=== PATIENT | male | born 1955 | race African-American/Black ===

== ENCOUNTER 2024-08-30 16:15 | Inpatient (IN) | payer OTHER, SELFPAY ==
--- NOTE | ~2024-08-30 | CT_ITS ---
EXAMINATION: CT ABDOMEN AND PELVIS WITHOUT CONTRAST CLINICAL INFORMATION: Right flank pain, urinary retention COMPARISON: None available. TECHNIQUE: Multidetector volumetric imaging was performed from the superior aspect of the liver through the pubic symphysis. Sagittal and coronal reformatted images were obtained on the technologist's workstation. This CT examination was performed using dose optimization techniques as appropriate, variously including the following: *Automated exposure control *Adjustment of mA and/or kV according to patient size (this includes techniques or standardized protocols for targeted exams where dose is matched to indication/reason for exam; i.e. extremities or head) *Use of iterative reconstruction technique DLP: 380 mGy-cm FINDINGS: LUNG BASES: The visualized lung bases are unremarkable. LIVER, GALLBLADDER, AND BILIARY TREE: The liver is normal in size, shape, and attenuation. No focal hepatic lesion or biliary ductal dilatation is present. The gallbladder is unremarkable with no evidence of radiopaque gallstones, gallbladder wall thickening, or obvious pericholecystic inflammatory changes. PANCREAS: Unremarkable. SPLEEN: Unremarkable. ADRENAL GLANDS: Unremarkable. KIDNEYS AND URETERS: Mild-moderate right greater than left hydroureteronephrosis. No renal or ureteral calculi are identified. There is retroperitoneal free fluid along the anterior pararenal space, along the right lateral conal fascia, possibly representing leakage from the markedly distended urinary bladder or right ureter. BLADDER: The urinary bladder is markedly distended. GASTROINTESTINAL TRACT: No intestinal obstruction. Evaluation is limited in the absence of intravenous and oral contrast. There is a question of wall thickening along the medial aspect of the ascending colon over a length of 3.5 cm as demonstrated on coronal series 5, image 43. ABDOMINAL WALL: No significant hernia is appreciated. LYMPH NODES: Normal. VASCULAR: Unremarkable. PELVIC VISCERA: The prostate is enlarged and projects into the bladder base. OSSEOUS STRUCTURES: There are sclerotic lesions within the left inferior pubic ramus, the right acetabulum/anterior pubic ramus junction, the right supra-acetabular region, the posterior left iliac bone, and a small sclerotic focus within the left mid sacrum highly suspicious for metastatic prostate cancer. CT/CT abdomen pelvis wo IV con IMPRESSION: 1. There is mild-moderate right greater than left hydroureteronephrosis with retroperitoneal free fluid along the right lateral conal fascia, possibly representing leakage from the markedly distended urinary bladder. No renal or ureteral calculi. 2. The prostate is enlarged and projects into the bladder base. There are sclerotic lesions within the pelvic bones highly suspicious for metastatic prostate cancer. 3. There is a segment of wall thickening along the medial aspect of the ascending colon over a length of 3.5 cm. Evaluation is limited in the absence of intravenous and oral contrast. Cannot exclude colon carcinoma or a metastasis. Consider colonoscopy or PET/CT. Fleischner guidelines were followed. Electronically signed by: Kevan Mejia MD 08/30/2024 08:07 PM [facility]
--- NOTE | ~2024-08-30 | NM_ITS ---
EXAMINATION: NM BONE SCAN OF THE WHOLE BODY CLINICAL INFORMATION: Reason for exam: Sclerotic lesion on CT. CORRELATION: CT abdomen and pelvis from August 30, 2024. TECHNIQUE: Multiple gamma scintillation camera images of the whole body were performed 3 hours following the intravenous administration of 24 mCi Tc-99m MDP. FINDINGS: In the head, no abnormal radiotracer uptake. In the thoracic cage and upper extremities, degenerative arthritic changes are noted, best appreciated within joints at right greater than left, shoulders and sternoclavicular junctions. Benign chondrocalcinosis. In the spine, mild to moderate inhomogeneity of radiotracer uptake is noted within the degenerative arthritic variation. In the pelvis, asymmetry with moderate intense increased radiotracer uptake in a diffuse pattern is left acetabulum with relatively lesser intense uptake in the left iliac bone anteriorly and left inferior pubic ramus. Only poorly defined focal increased uptake in the left iliac bone posteriorly, correlates to the CT noted sclerotic focus. Additional relatively lesser intense uptake is noted in the remainder of the left hemipelvis best appreciated within the left tritium and iliac bone posteriorly. Very mildly prominent than usual uptake in a diffuse pattern is also noted within the right iliac bone posteriorly and right ischium, in a nonspecific pattern. No distinct focal abnormality is noted within the sacrum. Please note the limited sensitivity of the bone scan for under 1 cm lesions. In the lower extremities, no significant abnormal radiotracer uptake. NM/NM bone scan whole body IMPRESSION: Asymmetric abnormal radiotracer uptake in the bones of the left hemipelvis is noted, a couple of sites correlates to the CT noted sclerotic changes. The differential possibilities include metastasis versus early pagetoid changes in appropriate clinical scenario. Suggest clinical correlation and histopathologic correlation. Electronically signed by: Yazmin Chow MD 09/05/2024 08:39 AM [facility]
[2024-08-30 16:41] VITALS: BP 168/91; PULSE 113; RESP 16; TEMP 36.4; O2SAT 100; BMI 25.8
--- NOTE | 2024-08-30 16:45 | ED.GENADULT ---
HPI - General Adult General Chief complaint: General Medical Stated complaint: High blood pressure/Unable to urinate Time Seen by Provider: 08/30/24 17:19 Source: patient, RN notes reviewed and old records reviewed Mode of arrival: ambulatory History of Present Illness ED Provider: Bri Beaver PA-C [facility] narrative: 69-year-old male with no significant past medical history presenting to ED sent in from urgent Care for hypertension 203/68 [employer]. Patient states he went to urgent care for urinary frequency, hesitancy, and dribbling worsening x1 week. States he has an unable to completely empty his bladder. Does report mild abdominal discomfort. Denies history of hypertension or taking any daily medications. Denies headache, CP /SOB, nausea /vomiting. Denies AC use Related Data Home Medications ?Medication ?Instructions ?Recorded ?Confirmed No Known Home Meds 08/30/24 08/30/24 Allergies Allergy/AdvReac Type Severity Reaction Status Date / Time No Known Allergies Allergy Verified 08/30/24 16:51 Review of Systems Review of Systems: Yes all other systems are reviewed and are negative Constitutional: Constitutional: Reports as per [facility] Past Medical History Attestation statement: The following information was validated with the patient. Source: old records reviewed Social History Social History Smoked in Last 30 Days: No Advance Directives: No Advance Directives Information Provided: No Do you have a plan to hurt others: No Plan Physical Exam ED Vital Signs: Vital Signs - 24 hr 08/30/24 16:41 08/30/24 18:03 08/30/24 19:01 Temperature 97.6 F Pulse Rate 113 H 92 Respiratory Rate 16 18 12 Blood Pressure 168/91 H Pulse Oximetry 100 Oxygen Delivery Method Room Air BMI result Body Mass Index 25.8 Const General: cooperative, healthy appearing and no acute distress Orientation/consciousness: patient oriented x3 Limitations: no limitations HENMT Head: Yes normal to inspection and Yes atraumatic Ears: hearing grossly normal bilaterally General nose exam: Normal external nose present Face and sinus: Yes normal facial exam Eyes General: appearance normal, both eyes and all related structures EOM: EOMs intact bilaterally Neck Neck: Yes normal visual inspection and Yes no meningeal signs Resp Effort & Inspection: normal respiratory effort and no respiratory distress Auscultation: clear to auscultation bilaterally Cardio Rate: regular rate Heart sounds: S1 normal heart sound present and S2 normal heart sound present GI Inspection: Yes normal to inspection Palpation (GI): Soft to palpation, Tenderness to palpation present (GI) (lower abdomen), no guarding, not rigid and Palpable mass present (suprapubic region, suspect pts bladder) General: Yes CVA tenderness on the right Back/Spine/Pelvis Back: CVA tenderness Skin Rashes: no rashes Wounds: no wounds Neuro General: patient oriented x3, tone normal and no meningeal signs Cranial nerves: Yes CN's II-XII intact bilaterally Gait exam (Neuro): Normal gait present Extrem General: Yes normal to inspection Course Course Course Narrative: RME, this is a rapid medical exam performed by Armando Gomez please refer to primary provider for complete H&P- 69 year old male presents for evaluation of abdominal pain, difficulty urinating and high blood pressure. He has been having symptoms since last Monday. -1732-- bladder scan with > 900 cc >> will place Flores catheter -1754-- leukocytosis of 12.7. Anemic 8.4/25.2, no priors to compare - +KIRT with BUN 189 creatinine 27.03. hypermagnesemic 3.5 & Hyperkalemic to 7.8 > will obtain EKG, give Kayexalate, insulin with dextrose, albuterol, and calcium gluconate >> nephrology consulted -1829-- spoke with Nephrology, Dr. Mak, recommended Flores catheter placement, in addition of sodium bicarb. Will repeat labs in 2 hours to determine if patient requires dialysis. 2014--CT abdomen pelvis wo IV con IMPRESSION: 1. There is mild-moderate right greater than left hydroureteronephrosis with retroperitoneal free fluid along the right lateral conal fascia, possibly representing leakage from the markedly distended urinary bladder. No renal or ureteral calculi. 2. The prostate is enlarged and projects into the bladder base. There are sclerotic lesions within the pelvic bones highly suspicious for metastatic prostate cancer. 3. There is a segment of wall thickening along the medial aspect of the ascending colon over a length of 3.5 cm. Evaluation is limited in the absence of intravenous and oral contrast. Cannot exclude colon carcinoma or a metastasis. Consider colonoscopy or PET/CT. > will consult Urology, Dr. Carbone > recommended Flores catheter and medical admission - 2100-- ED care transferred to RONALD Castillo pending repeat labs, if improved will be admitted to hospitalist. Reevaluation(s) Reevaluation #1: 9:00 p.m. receive sign-out with repeat labs pending and the patient in stable condition. Treatment initiated, no indication for dialysis at this time per 9:40 p.m. repeat labs returned, patient's potassium has improved to 6.6. Creatinine has also improved to 23.71 and magnesium with a slight decreased to 3.4. These findings were communicated to Dr. Smith who will accepted the patient in transfer. Patient remains hemodynamically stable. Medications Administered Generic Name Dose Route Start Last Admin Trade Name Freq PRN Reason Stop Dose Admin Dextrose 1,000 mls @ 75 mls/hr 08/30/24 18:00 08/30/24 18:44 D10 IVCONT 75 mls/hr .[id number] WM Administration Sodium Bicarbonate 150 meq/ 1,000 mls @ 100 mls/hr 08/30/24 19:00 08/30/24 19:12 Dextrose IV 100 mls/hr .Q10H WM Administration Discontinued Medications Generic Name Dose Route Start Last Admin Trade Name Freq PRN Reason Stop Dose Admin Albuterol Sulfate 7.5 mg/ 10 mg 08/30/24 17:51 08/30/24 18:01 Albuterol Sulfate 2.5 mg INHALE 08/30/24 17:52 10 mg ONCE ONE Administration Ceftriaxone Sodium 1 gm 08/30/24 20:14 08/30/24 21:23 Ceftriaxone Sodium 1 Gm Vial IVPUSH 08/30/24 20:15 1 gm ONCE ONE Administration Fentanyl 25 mcg 08/30/24 18:44 08/30/24 19:01 Fentanyl Citrate/Pf 100 Mcg/2 Ml Vial IVPUSH 08/30/24 18:45 25 mcg ONCE ONE Administration Protocol Fentanyl 50 mcg 08/30/24 20:04 08/30/24 20:30 Fentanyl Citrate/Pf 100 Mcg/2 Ml Vial IVPUSH 08/30/24 20:05 50 mcg ONCE ONE Administration Protocol Calcium Gluconate 1 gm in 50 mls @ 50 mls/hr 08/30/24 17:51 08/30/24 19:36 Calcium Gluconate IV 08/30/24 18:50 Infused ONCE ONE Infusion Insulin Human Regular 5 unit 08/30/24 17:52 08/30/24 18:58 Insulin Regular, Human 100 Unit/Ml 10 Ml Vial IVPUSH 08/30/24 17:53 5 unit ONCE ONE Administration Lidocaine HCl 10 ml 08/30/24 17:53 08/30/24 18:44 Lidocaine Hcl 2 % Urojet 10 Ml Jel.Pf.[facility] TOPICAL 08/30/24 17:54 10 ml ONCE ONE Administration Sodium Polystyrene Sulfonate 30 gm 08/30/24 17:49 08/30/24 18:55 Sodium Polystyrene Sulfon/Sorb 15 Gm/60 Ml Oral.Susp PO 08/30/24 17:50 30 gm ONCE ONE Administration Medical Decision Making Medical Decision Making [facility] Narrative: 69-year-old male with no significant past medical history presenting to ED sent in from urgent Care for hypertension 203/68 [employer]. Patient states he went to urgent care for urinary frequency, hesitancy, and dribbling worsening x1 week. on exam mildly hypertensive, improved from urgent Care, NAD, nontoxic appearing, abdomen soft with suprapubic / lower tenderness with palpable mass, suspect this is patient's bladder, right CVAT noted. Concern for urinary retention secondary to BPH vs obstructive pathology vs stone. Rule out UTI and KIRT. low suspicion for severe sepsis at this time Plan: EKG, labs, UA, bladder scan, CT AP, re-evaluate Please refer to course for remaining clinical decision making, interpretation of labs/imaging results, and discussions with consultants and/or family members. Differential Diagnosis Differential Diagnoses: The differential diagnosis associated with the presentation includes As above Admission/Observation Consideration of admission/observation: Escalation of care including admission/observation considered Lab Data [facility] Lab Attestation statement: I reviewed the patient's lab results. 08/30/24 16:58 08/30/24 20:53 Labs: Lab Results 08/30/24 08/30/24 08/30/24 Range/Units 16:58 19:33 20:53 WBC 12.7 H (4.8-10.8) X10*3/uL RBC 3.31 L (4.60-5.80) X10*6/uL Hgb 8.4 L (14.0-18.0) g/dl Hct 25.2 L (42.0-52.0) % MCV 76.1 L (80.0-98.0) fL MCH 25.4 L (27.0-33.0) pg MCHC 33.3 (31.0-36.0) g/dl RDW 13.9 (11.0-16.0) % Plt Count 472 H (160-400) X10*3/uL MPV 9.2 L (9.4-12.4) fL Immature Gran % (Auto) 0.6 H (0.0-0.4) % Neut % (Auto) 88.9 H (45-73) % Lymph % (Auto) 5.1 L (20-40) % [place] % (Auto) 5.1 (2-11) % Eos % (Auto) 0.1 (0-4) % Baso % (Auto) 0.2 (0-2) % Lymph # (Auto) 0.7 L (1.2-4.9) X10*3/uL [place] # (Auto) 0.7 (0.1-1.2) X10*3/uL Eos # (Auto) 0.0 (0.0-0.4) X10*3/uL Baso # (Auto) 0.0 (0.0-0.2) X10*3/uL Abs Immat Gran (auto) 0.08 H (0.00-0.03) X10*3/uL Absolute Neuts (auto) 11.2 H (2.0-8.3) x10*3/uL Absolute Nucleated RBC 0.000 (0.0-0.012) X10*3/uL Nucleated RBC % (auto) 0.0 (0.0-0.2) /100WBC VBG pH (7.32-7.43) VBG pCO2 mmHg VBG pO2 mmHg VBG HCO3 (22-26) mmol/L VBG O2 Saturation % VBG Base Excess mmol/L Sodium 132 L 136 (135-145) mmol/L Potassium 7.8 H* 6.6 H* (3.3-5.1) mmol/L Chloride 96 97 (96-108) mmol/L Carbon Dioxide 11 L 12 L (22-29) mmol/L Anion Gap 33 H 34 H (12-20) BUN 189 H 184 H (9-16) mg/dL Creatinine 27.03 H* 23.71 H* (0.5-1.4) mg/dL Estim Creat Clear Calc 2.3 2.6 Estimated GFR 2 2 Random Glucose 116 H 228 H (60-115) mg/dL Calcium 9.0 9.7 D (8.4-10.2) mg/dL Magnesium 3.5 H* 3.4 H (1.6-2.6) mg/dL Total Bilirubin 0.9 (0.0-1.0) mg/dL AST 12 (5-37) U/L ALT 20 (0-40) U/L Alkaline Phosphatase 68 (39-117) U/L Troponin I High Sens 20.1 (<3.5-35.0) ng/L Total Protein 7.2 (6.5-8.0) g/dL Albumin 3.7 (3.5-5.0) g/dL Lipase 29 (8-78) U/L Urine Color Red A Urine Appearance Cloudy Urine pH 5.0 (5.0-9.0) Ur Specific [place] 1.010 (1.005-1.025) Urine Protein 100 (2+) H (Neg-Trace) mg/dL Urine Glucose (UA) Negative (Negative) mg/dL Urine Ketones Negative (Negative) mg/dL Urine Blood Large (3+) H (Negative) Urine Nitrite Negative (Negative) Ur Leukocyte Esterase Small (1+) H (Negative) Urine RBC >20 H (0-2) /HPF Urine WBC 21-50 H (0-5) /HPF Ur Squamous Epith Cells 0-2 (0-2) /HPF Urine Bacteria None Seen (None Seen) Hyaline Casts 3-5 (0-2) /LPF 08/30/ Range/Units 20:57 WBC (4.8-10.8) X10*3/uL RBC (4.60-5.80) X10*6/uL Hgb (14.0-18.0) g/dl Hct (42.0-52.0) % MCV (80.0-98.0) fL MCH (27.0-33.0) pg MCHC (31.0-36.0) g/dl RDW (11.0-16.0) % Plt Count (160-400) X10*3/uL MPV (9.4-12.4) fL Immature Gran % (Auto) (0.0-0.4) % Neut % (Auto) (45-73) % Lymph % (Auto) (20-40) % [place] % (Auto) (2-11) % Eos % (Auto) (0-4) % Baso % (Auto) (0-2) % Lymph # (Auto) (1.2-4.9) X10*3/uL [place] # (Auto) (0.1-1.2) X10*3/uL Eos # (Auto) (0.0-0.4) X10*3/uL Baso # (Auto) (0.0-0.2) X10*3/uL Abs Immat Gran (auto) (0.00-0.03) X10*3/uL Absolute Neuts (auto) (2.0-8.3) x10*3/uL Absolute Nucleated RBC (0.0-0.012) X10*3/uL Nucleated RBC % (auto) (0.0-0.2) /100WBC VBG pH 7.27 L (7.32-7.43) VBG pCO2 31 mmHg VBG pO2 41 mmHg VBG HCO3 14 L (22-26) mmol/L VBG O2 Saturation 54.0 % VBG Base Excess -11.1 mmol/L Sodium (135-145) mmol/L Potassium (3.3-5.1) mmol/L Chloride (96-108) mmol/L Carbon Dioxide (22-29) mmol/L Anion Gap (12-20) BUN (9-16) mg/dL Creatinine (0.5-1.4) mg/dL Estim Creat Clear Calc Estimated GFR Random Glucose (60-115) mg/dL Calcium (8.4-10.2) mg/dL Magnesium (1.6-2.6) mg/dL Total Bilirubin (0.0-1.0) mg/dL AST (5-37) U/L ALT (0-40) U/L Alkaline Phosphatase (39-117) U/L Troponin I High Sens (<3.5-35.0) ng/L Total Protein (6.5-8.0) g/dL Albumin (3.5-5.0) g/dL Lipase (8-78) U/L Urine Color Urine Appearance Urine pH (5.0-9.0) Ur Specific [place] (1.005-1.025) Urine Protein (Neg-Trace) mg/dL Urine Glucose (UA) (Negative) mg/dL Urine Ketones (Negative) mg/dL Urine Blood (Negative) Urine Nitrite (Negative) Ur Leukocyte Esterase (Negative) Urine RBC (0-2) /HPF Urine WBC (0-5) /HPF Ur Squamous Epith Cells (0-2) /HPF Urine Bacteria (None Seen) Hyaline Casts (0-2) /LPF Independent Interpretation I performed an independent interpretation of an: EKG and CT Scan Radiology Impression Discussion of test interpretation with radiology: I have reviewed the radiologist's reading. External Record Review External record reviewed: Inpatient record, Office record, Outpatient record, Prior outpatient labs, Prior outpatient radiology, Primary care record and Outside ED record Tests considered The following testing was considered but not selected: As above Prescription Management I considered prescription management with: Other Chronic Conditions Patient?s care impacted by: Other Social Determinants Patient?s care significantly limited by Social Determinants of Health including: Problems related to primary support group and Other Social Determinant of Health Critical Care Time Critical Care Time Critical Care Time: Yes Total Critical Care Time: 60 Attestation: I have personally provided critical care time exclusive of time spent on separately billable procedures. Time includes review of lab data, radiology results, discussion with consultants, and monitoring for potential decompensation. Intervention performed as documented. Discharge Plan Discharge Clinical Impression: Acute urinary retention, Acute renal failure, Acute hyperkalemia, Hypermagnesemia Patient Disposition: Admitted As Inpatient Print Language: Kiswahili
[2024-08-30 17:01] LABS: MANUAL DIFF FLAG NO
[2024-08-30 17:03] LABS: Basophils Percent Auto 0.2 % (0-2); Eosinophils Percent Auto 0.1 % (0-4); Hematocrit 25.2 % (42.0-52.0); Hemoglobin 8.4 g/dl (14.0-18.0); Imm Gran Abs Auto 0.08 X10*3/uL (0.00-0.03); Imm Gran Pct Auto 0.6 % (0.0-0.4); Lymphocytes Absolute Auto 0.7 X10*3/uL (1.2-4.9); Lymphocytes Percent Auto 5.1 % (20-40); Mean Corpuscular HGB Conc 33.3 g/dl (31.0-36.0); Mean Corpuscular Hemoglobin 25.4 pg (27.0-33.0); Mean Corpuscular Volume 76.1 fL (80.0-98.0); Mean Platelet Volume 9.2 fL (9.4-12.4); Monocytes Absolute Auto 0.7 X10*3/uL (0.1-1.2); Monocytes Percent Auto 5.1 % (2-11); Neutrophils Absolute Auto 11.2 x10*3/uL (2.0-8.3); Neutrophils Percent Auto 88.9 % (45-73); Platelet Count 472 X10*3/uL (160-400); Red Blood Count 3.31 X10*6/uL (4.60-5.80); Red Cell Distribution Width 13.9 % (11.0-16.0); White Blood Count 12.7 X10*3/uL (4.8-10.8)
--- NOTE | 2024-08-30 17:49 | ECG_ITS ---
Test Reason : HYPER K Blood Pressure : / mmHG Vent. Rate : 102 BPM Atrial Rate : 102 BPM P-R Int : 162 ms QRS Dur : 088 ms QT Int : 346 ms P-R-T Axes : 058 017 021 degrees QTc Int : 450 ms Sinus tachycardia Possible Left atrial enlargement Left ventricular hypertrophy ( Sokolow-Galeana , [place] product ) Abnormal ECG No previous ECGs available Referred By: Bri Beaver Electronically Signed By:TERRIE FAROOQ MD
[2024-08-30 17:50] LABS: Alanine Aminotransferase 20 U/L (0-40); Albumin Level 3.7 g/dL (3.5-5.0); Alkaline Phosphatase 68 U/L (39-117); Anion Gap 33 (12-20); Aspartate Amino Transferase 12 U/L (5-37); Bilirubin Total 0.9 mg/dL (0.0-1.0); Blood Urea Nitrogen 189 mg/dL (9-16); Carbon Dioxide 11 mmol/L (22-29); Chloride 96 mmol/L (96-108); Creatinine Clr Calc Pharmacy 2.3; Estimated Glomerular Filt Rate 2; Glucose Random 116 mg/dL (60-115); Lipase 29 U/L (8-78); Magnesium 3.5 mg/dL (1.6-2.6); Potassium 7.8 mmol/L (3.3-5.1); Sodium 132 mmol/L (135-145); Total Protein 7.2 g/dL (6.5-8.0); Troponin-I High Sensitivity 20.1 ng/L (<3.5-35.0)
[2024-08-30] MEDS: Albuterol Sulfate 7.5 MG, Albuterol Sulfate (0.083%) 2.5 MG 10 MG INHALE (18:01)
[2024-08-30 18:03] VITALS: PULSE 92; RESP 18; O2SAT 99
[2024-08-30] MEDS: Calcium Gluconate/NaCl,Iso-Osm 1 GM/50 ML PLAST..BAG IV (18:33)
[2024-08-30] MEDS: Lidocaine HCl 2 % Urojet 10 ML JEL.PF.APP TOPICAL (18:44)
[2024-08-30] MEDS: Dextrose 10 % 1,000 ML 75 ML IVCONT (18:44)
[2024-08-30] MEDS: Sodium Polystyrene Sulfon/Sorb 15 GM/60 ML ORAL.SUSP 30 GM PO (18:55)
[2024-08-30] MEDS: Insulin Regular, Human 100 UNIT/ML 10 ML VIAL IVPUSH ×2 (18:58→22:18)
[2024-08-30 19:01] VITALS: RESP 12
[2024-08-30] MEDS: fentaNYL citrate/PF 100 MCG/2 ML VIAL 25 MCG IVPUSH (19:01)
[2024-08-30] MEDS: Sodium Bicarbonate 8.4% 150 MEQ in Dextrose 5 % 850 ML 100 MEQ IV (19:12)
--- NOTE | 2024-08-30 19:14 | PC.NURSE ---
Pt comes from home for urinary retention x1 week. Pt states he has only been able to urinate a dribble. A/ox4, lower abdomen distended, tender on palpation, respirations even and unlabored, no increased wob/sob, s1 and s2 heard, sinus tach on telemetry monitor, HR- 100s. EKG, labs obtained and sent to lab. Bladder scan showed >919mls. 16F coude hernandez placed with 600 output of dark red/yellow urine. 20g IV placed right forearm and left hand. Medicated per DEC. Call jorgensen within reach, all needs met at this time.
[2024-08-30 19:44] LABS: Appearance Urine Cloudy; Color Urine Red; Glucose Urine UA Negative (Negative); Leukocyte Esterase Urine Small (1+) (Negative); Nitrite Urine Negative (Negative); UMIC TRIGGER UACC YES; Urine Blood Large (3+) (Negative); Urine Ketones Negative (Negative); Urine Protein 100 (2+) mg/dL (Neg-Trace)
[2024-08-30 19:45] LABS: Bacteria Urine None Seen (None Seen); RBC Urine >20 /HPF (0-2); Squamous Epithelial Cell Urine 0-2 /HPF (0-2); UACC Culture Trigger YES; WBC Urine 21-50 /HPF (0-5)
--- NOTE | 2024-08-30 19:56 | PHA.MEDREC ---
Addendum entered by Joseph Montenegro RPh 08/30/24 20:00: [facility] rec reviewed Original Note: Pharmacy Consult ? Medication Reconciliation Pharmacy has completed the medication reconciliation. Patient confirmed he is not taking any medications prescription or OTC at this time.
[2024-08-30] MEDS: fentaNYL citrate/PF 100 MCG/2 ML VIAL 50 MCG IVPUSH (20:30)
--- NOTE | 2024-08-30 20:44 | PC.NURSE ---
500ml punch colored urine drained from clamped hernandez bag. unclamped bag, 1500ml dark red urine drained, urine still outputting into bag, reclamped tubing. provider aware. output documented
[2024-08-30 21:03] LABS: VBG Base Excess -11.1 mmol/L; VBG HCO3 14 mmol/L (22-26); VBG pCO2 31 mmHg; VBG pH 7.27 (7.32-7.43); VBG pO2 41 mmHg
[2024-08-30 21:05] LABS: Venous Blood Gas Refer to POC result
[2024-08-30] MEDS: cefTRIAXone sodium 1 GM VIAL IVPUSH (21:23)
[2024-08-30 21:40] VITALS: BP 160/83; PULSE 110; RESP 20; TEMP 36.8; O2SAT 99
[2024-08-30 21:40] LABS: Anion Gap 34 (12-20); Blood Urea Nitrogen 184 mg/dL (9-16); Calcium 9.7 mg/dL (8.4-10.2); Carbon Dioxide 12 mmol/L (22-29); Chloride 97 mmol/L (96-108); Creatinine Clr Calc Pharmacy 2.6; Estimated Glomerular Filt Rate 2; Glucose Random 228 mg/dL (60-115); Magnesium 3.4 mg/dL (1.6-2.6); Potassium 6.6 mmol/L (3.3-5.1); Sodium 136 mmol/L (135-145)
[2024-08-30] MEDS: Calcium Gluconate/NaCl,Iso-Osm 2 GM/100 ML PLAST..BAG IV (22:12)
[2024-08-30] MEDS: Sodium Zirconium Cyclosilicate 10 GM POWD.PACK PO (22:12)
[2024-08-30] MEDS: Sodium Bicarbonate 8.4% 150 MEQ in Dextrose 5 % 850 ML IV (22:18)
[2024-08-30] MEDS: Albuterol/Iprat 2.5/0.5MG 3 ML AMPUL.NEB INHALE (22:21)
--- NOTE | 2024-08-30 22:22 | P.HPHOSP_ITS ---
History of Present Illness Date of Service: 08/30/24 Attending physician on admission: Gonzalez Smith Chief Complaint: Difficulty urinating Pt is a 69-year-old male with no reported significant PMH not on any home medications who presents to the ED with?complaints of difficulty being able to urinate x7-10 days. Patient reports began noticing significantly reduced urine stream approximately a week and a half ago which steadily worsened to the point where only able to urinate a few dribbles at a time if anything. Reports ?feeling miserable? with back pain, anorexia, and fatigue. Also complains of occasional lower abdominal pain and shortness of breath. Patient denies any significant PMH, but notes that he has not regularly followed up with medical care. Reports it is ?been quite awhile? since last saw primary care. His never had a colonoscopy before. Patient denies chest pain/pressure, palpitations. No fever, chills, nausea, vomiting. Is unable to state whether he has had any recent weight loss. In the ED pt was tachycardic up to 113 and hypertensive up to 168/91. Labs were significant for leukocytosis of 12.7, microcytic anemia of 8.4/25.2, sodium 132, potassium 7.8 with repeat 6.6, anion gap 33 with repeat 34, BUN 189 with repeat 184, creatinine 27.03 with repeat 23.7, and magnesium 3.5 with repeat 3.4. Troponin WNL at 20.1. VBG showing metabolic acidosis of pH 7.27 with bicarb 14. UA abnormal and showing gross hematuria, but not entirely consistent with acute UTI. CT?of abdomen/pelvis showed [id number] R>L hydroureteronephrosis with retroperitoneal free fluid, markedly distended urinary bladder, enlarged prostate that projects into the bladder base, sclerotic lesions within the pelvic bone highly suspicious for metastatic prostate cancer, and segment of ascending colon wall thickening concerning for carcinoma/metastasis. EKG demonstrated sinus tachycardia of 102 with tall peaked T-waves in V2-V4. Pt was treated in the ED with albuterol, calcium gluconate, dextrose, Lokelma, insulin, fentanyl, ceftriaxone, and placed on a bicarb drip. Pt will be admitted to the hospital for treatment and further evaluation of hyperkalemia in the setting of KIRT with metabolic acidosis likely secondary from bladder outlet obstruction from prostate mass. Review of Systems 2 Review of Systems: Negative except for that which is stated in the [facility] Social History Patient Tobacco Use Status: Never used Tobacco Smoked in Last 30 Days: No Advance Directives: No Advance Directives Information Provided: No Do you have a plan to hurt others: No Plan Nutrition Risks: No Nutritional Risk Meds Allergies Allergy/AdvReac Type Severity Reaction Status Date / Time No Known Allergies Allergy Verified 08/30/24 16:51 Active Medications: Current Medications Acetaminophen (Acetaminophen 325 Mg Tablet) 650 mg PO Q6H PRN PRN Reason: Pain, Mild (Pain Scale 1-3), fever or headache Calcium Carbonate (Calcium Carbonate 750 Mg Tab.Chew) 750 mg PO Q4H PRN PRN Reason: Heartburn Ceftriaxone Sodium (Ceftriaxone Sodium 1 Gm Vial) 1 gm IVPUSH Q24H [facility] Dextrose (D10) 1,000 mls @ 75 mls/hr IVCONT .[id number] [facility] Last Admin: 08/30/24 18:44 Dose: 75 mls/hr Dextrose (D10) 250 mls @ 750 mls/hr IV Q15M PRN PRN Reason: per Hypoglycemia Standing Ord. Calcium Gluconate (Calcium Gluconate) 2 gm in 100 mls @ 50 mls/hr IV ONCE ONE Stop: 08/30/24 23:44 Last Admin: 08/30/24 22:12 Dose: 50 mls/hr Sodium Bicarbonate 150 meq/ (Dextrose) 1,000 mls @ 150 mls/hr IV .Q6H40M [facility] Last Admin: 08/30/24 22:18 Dose: 150 mls/hr Magnesium Hydroxide (Milk Of Magnesia 30 Ml Oral.Susp) 30 ml PO DAILY PRN PRN Reason: Constipation Melatonin (Melatonin 3 Mg Tablet) 6 mg PO BEDTIME PRN PRN Reason: Insomnia Ondansetron HCl (Ondansetron Hcl 4 Mg/2 Ml Vial) 4 mg IVPUSH Q8H PRN PRN Reason: Nausea and Vomiting Sodium Chloride (0.9 % Sodium Chloride Flush 3 Ml Syringe) [facility] Medications ?Medication ?Instructions ?Recorded ?Confirmed ?Last Taken ?Type No Known Home Meds 08/30/24 08/30/24 Unknown History Physical Exam 2 Vital Signs and Narrative: Vital Signs: Last Vital Signs Temp 98.3 F 08/30/24 21:40 Pulse 110 H 08/30/24 21:40 Resp 20 08/30/24 21:40 BP 160/83 H 08/30/24 21:40 Pulse Ox 99 08/30/24 21:40 O2 Del Method Room Air 08/30/24 21:40 BMI result Body Mass Index 25.8 General: AOx3, no acute distress Resp: CTA bilaterally CVS: S1, S2, regular rate, tachycardic GI: +BS, no distention, mild suprapubic tenderness Back: No CVA tenderness Skin: Warm, dry Neuro: Cranial nerves II-XII grossly intact bilaterally. Motor grossly intact bilaterally Extremities: No edema Psych: Appropriate affect Results Labs 08/30/24 16:58 08/30/24 20:53 Labs: Laboratory Results - last 24 hr 08/30/24 08/30/24 08/30/24 16:58 19:33 20:53 MCV 76.1 L MCH 25.4 L MCHC 33.3 RDW 13.9 Plt Count 472 H MPV 9.2 L Immature Gran % (Auto) 0.6 H Neut % (Auto) 88.9 H Lymph % (Auto) 5.1 L [place] % (Auto) 5.1 Eos % (Auto) 0.1 Baso % (Auto) 0.2 Lymph # (Auto) 0.7 L [place] # (Auto) 0.7 Eos # (Auto) 0.0 Baso # (Auto) 0.0 Abs Immat Gran (auto) 0.08 H Absolute Neuts (auto) 11.2 H Absolute Nucleated RBC 0.000 Nucleated RBC % (auto) 0.0 VBG pH VBG pCO2 VBG pO2 VBG HCO3 VBG O2 Saturation VBG Base Excess Anion Gap 33 H 34 H Estim Creat Clear Calc 2.3 2.6 Estimated GFR 2 2 Random Glucose 116 H 228 H Calcium 9.0 9.7 D Magnesium 3.5 H* 3.4 H Total Bilirubin 0.9 AST 12 ALT 20 Alkaline Phosphatase 68 Troponin I High Sens 20.1 Total Protein 7.2 Albumin 3.7 Lipase 29 Urine Color Red A Urine Appearance Cloudy Urine pH 5.0 Ur Specific [place] 1.010 Urine Protein 100 (2+) H Urine Glucose (UA) Negative Urine Ketones Negative Urine Blood Large (3+) H Urine Nitrite Negative Ur Leukocyte Esterase Small (1+) H Urine RBC >20 H Urine WBC 21-50 H Ur Squamous Epith Cells 0-2 Urine Bacteria None Seen Hyaline Casts 3-5 08/30/24 20:57 MCV MCH MCHC RDW Plt Count MPV Immature Gran % (Auto) Neut % (Auto) Lymph % (Auto) [place] % (Auto) Eos % (Auto) Baso % (Auto) Lymph # (Auto) [place] # (Auto) Eos # (Auto) Baso # (Auto) Abs Immat Gran (auto) Absolute Neuts (auto) Absolute Nucleated RBC Nucleated RBC % (auto) VBG pH 7.27 L VBG pCO2 31 VBG pO2 41 VBG HCO3 14 L VBG O2 Saturation 54.0 VBG Base Excess -11.1 Anion Gap Estim Creat Clear Calc Estimated GFR Random Glucose Calcium Magnesium Total Bilirubin AST ALT Alkaline Phosphatase Troponin I High Sens Total Protein Albumin Lipase Urine Color Urine Appearance Urine pH Ur Specific [place] Urine Protein Urine Glucose (UA) Urine Ketones Urine Blood Urine Nitrite Ur Leukocyte Esterase Urine RBC Urine WBC Ur Squamous Epith Cells Urine Bacteria Hyaline Casts Imaging Radiologist's Impressions: Impressions Abdomen/Pelvis CT 08/30/24 17:35 IMPRESSION: 1. There is mild-moderate right greater than left hydroureteronephrosis with retroperitoneal free fluid along the right lateral conal fascia, possibly representing leakage from the markedly distended urinary bladder. No renal or ureteral calculi. 2. The prostate is enlarged and projects into the bladder base. There are sclerotic lesions within the pelvic bones highly suspicious for metastatic prostate cancer. 3. There is a segment of wall thickening along the medial aspect of the ascending colon over a length of 3.5 cm. Evaluation is limited in the absence of intravenous and oral contrast. Cannot exclude colon carcinoma or a metastasis. Consider colonoscopy or PET/CT. Fleischner guidelines were followed. Electronically signed by: Kevan Mejia MD 08/30/2024 08:07 PM EST Assessment and Plan (1) Acute hyperkalemia: Status: Acute (2) Acute renal failure: Status: Acute (3) Acute urinary retention: Status: Acute Plan Pt is a 69-year-old male with no reported significant PMH not on any home medications who presents to the ED with?complaints of difficulty being able to urinate x7-10 days. Pt will be admitted to the hospital for treatment and further evaluation of hyperkalemia in the setting of KIRT with metabolic acidosis likely secondary from bladder outlet obstruction from prostate mass. KIRT with metabolic acidosis Creatinine 27.03 with repeat 23.71 Pt reports very little urination x7-10 days VBG pH 7.27 with bicarb of [address] showing [id number] hydronephrosis and markedly distended urinary bladder Likely secondary to bladder outlet obstruction from enlarged prostate Patient placed on bicarb drip Nephrology consult Hyperkalemia Initial potassium 7.8 with repeat 6.6 EKG showing tall peaked waves in V2-V4 Patient given albuterol, calcium gluconate, dextrose, insulin 5 units, and Kayexalate Will give additional calcium gluconate, insulin 5 units, and Lokelma Follow potassium Monitor on telemtry Enlarged prostate CT showing prostate projecting into bladder base with sclerotic lesions and pelvic bones highly suspicious for metastatic prostate cancer Urology consult Colonic wall thickening CT showing 3.5 cm ascending colon segment of wall thickening concerning for possible colon carcinoma or metastasis GI consult Anemia H&H 8.4/25.2 Likely chronic in the setting of above Follow CBC Leukocytosis WBCs 12.7 at time of presentation Likely reactionary secondary to above, not sepsis No indication of action infection, no indication to continue antibiotics at this time PCP Pt has not followed with a PCP for many years Requests assistance with establishing with one Full Code Attending:?Dr. Smith DVT Prophylaxis: Pneumatic compression due to anemia Pt will require a hospitalization of at least two nights for treatment of?acute hyperkalemia in the setting of KIRT with metabolic acidosis in the setting of bladder outlet obstruction from enlarged prostate concerning for malignancy with metastasis to bone and colon. Patient will require close monitoring of labs, electrolytes, and cardiac function, as well as multiple specialist consultations with GI, Urology, and Nephrology. Quality Stroke Does the patient have a stroke diagnosis?: No VTE Prior VTE?: No VTE Risk Level:: Medical - moderate - high VTE Device Contraindication: N/A - Device Ordered VTE Drug Contraindication: Treatment Not Indicated
[2024-08-30] MEDS: Morphine Sulfate 4 MG/ML CARTRIDGE IVPUSH (23:19)
[2024-08-31] VITALS (8 sets, daily range): BP systolic 108–151; BP diastolic 63–79; PULSE 86–114; RESP 12–20; TEMP 36.4–37.4; O2SAT 93–100; BMI 23.3
--- NOTE | 2024-08-31 01:35 | PC.NURSE ---
pt continues to output large amount of urine into hernandez
[2024-08-31] MEDS: oxyCODONE HCl Immed Release 5 MG TABLET PO ×2 (02:49→21:51)
[2024-08-31] MEDS: Sodium Bicarbonate 8.4% 150 MEQ in Dextrose 5 % 850 ML IV ×4 (03:54→23:32)
[2024-08-31 05:15] LABS: Basophils Percent Auto 0.1 % (0-2); Hematocrit 23.8 % (42.0-52.0); Hemoglobin 8.1 g/dl (14.0-18.0); Imm Gran Abs Auto 0.04 X10*3/uL (0.00-0.03); Imm Gran Pct Auto 0.4 % (0.0-0.4); Lymphocytes Absolute Auto 0.3 X10*3/uL (1.2-4.9); Lymphocytes Percent Auto 2.8 % (20-40); MANUAL DIFF FLAG SCAN; Mean Corpuscular Hemoglobin 25.6 pg (27.0-33.0); Mean Corpuscular Volume 75.1 fL (80.0-98.0); Mean Platelet Volume 9.3 fL (9.4-12.4); Monocytes Absolute Auto 0.6 X10*3/uL (0.1-1.2); Monocytes Percent Auto 5.7 % (2-11); Neutrophils Absolute Auto 10.2 x10*3/uL (2.0-8.3); Platelet Count 487 X10*3/uL (160-400); Red Blood Count 3.17 X10*6/uL (4.60-5.80); Red Cell Distribution Width 13.7 % (11.0-16.0); SCAN SMEAR FLAG 1; White Blood Count 11.2 X10*3/uL (4.8-10.8)
[2024-08-31 05:23] LABS: SLIDE REVIEW VERIFIED
[2024-08-31 05:28] LABS: Anion Gap 22 (12-20); Calcium 9.3 mg/dL (8.4-10.2); Carbon Dioxide 21 mmol/L (22-29); Chloride 104 mmol/L (96-108); Creatinine Clr Calc Pharmacy 4.9; Estimated Glomerular Filt Rate 4; Glucose Random 343 mg/dL (60-115); Potassium 4.8 mmol/L (3.3-5.1); Sodium 142 mmol/L (135-145)
[2024-08-31 05:34] LABS: Blood Urea Nitrogen 126 mg/dL (9-16)
--- NOTE | 2024-08-31 06:28 | PC.NURSE ---
admission note: PT presents to the ED w/ hypertension and c/o of dysuria x7-10 days. Reports abd and lower back pain. bladder scan >900, 16F coude hernandez placed. hematuria output. CT: [id number] R>L hydroureteronephrosis with retroperitoneal free fluid, markedly distended urinary bladder, enlarged prostate that projects into the bladder base, sclerotic lesions within the pelvic bone highly suspicious for metastatic prostate cancer, and segment of ascending colon wall thickening concerning for carcinoma/metastasis. ADMIT: hyperkalemia in the setting of KIRT with metabolic acidosis likely secondary from bladder outlet obstruction from prostate mass. Nephrology, Urology, GI consult. 20g IVs x2(R forearm and L hand). sodium bicarb and D10W infusing. pt A/O x4, calm and cooperative with care, ambulatory indep. at baseline. hernandez cath and bedside commode. sinus tach on monitor. potassium 7.8-> 4.8, creatinine 27-> 12. urine output now light yellow, no clots. urine output measured all night, 8600ml. oxycodone and morphine effective for pain.
--- NOTE | 2024-08-31 07:38 | PC.NURSE ---
this RN resumed care of pt at 0645. a&ox4. sinus tachycardic on the pvc monitor - HR between 100-115bpm. pt denies any chest pain/palpitations. pt slightly hypotensive. pt verbalizing pain level decreased s/p hernandez catheter insertion. hernandez drained displaying 700ml of pale yellow urine. documented in I&Os. pt otherwise continues to rest in no apparent distress. sodium bicarb continues to infuse via access in left forearm @ 150 mls/hr. on RA w/o difficulty. no sob/wob noted. respirations even/unlabored. pt waiting for bed assignment. plan of care ongoing. call jorgensen placed within reach.
--- NOTE | 2024-08-31 09:18 | P.PNIM_ITS ---
Subjective Subjective Date of Service: 08/31/24 Interval History: feeling better Physical Exam 2 Vital Signs: Vital Signs: Last Vital Signs Temp 98.2 F 08/31/24 08:39 Pulse 103 H 08/31/24 08:39 Resp 14 08/31/24 08:39 BP 143/70 H 08/31/24 08:39 Pulse Ox 100 08/31/24 08:39 O2 Del Method Room Air 08/31/24 08:39 BMI result Body Mass Index 25.8 General: AO X 3, no acute distress Resp: CTA bilateral, no accessory muscles used CVS: S1,S2,RRR GI: soft, non tender, non distended Neuro: motor grossly intact, alert Psych: appropriate affect, appropriate insight Objective Data Active Medications Acetaminophen (Acetaminophen 325 Mg Tablet) 650 mg PO Q6H PRN PRN Reason: Pain, Mild (Pain Scale 1-3), fever or headache Calcium Carbonate (Calcium Carbonate 750 Mg Tab.Chew) 750 mg PO Q4H PRN PRN Reason: Heartburn Ceftriaxone Sodium (Ceftriaxone Sodium 1 Gm Vial) 1 gm IVPUSH Q24H [facility] Dextrose (D10) 250 mls @ 750 mls/hr IV Q15M PRN PRN Reason: per Hypoglycemia Standing Ord. Sodium Bicarbonate 150 meq/ (Dextrose) 1,000 mls @ 150 mls/hr IV .Q6H40M [facility] Last Admin: 08/31/24 03:54 Dose: 150 mls/hr Documented By: MAGALY Magnesium Hydroxide (Milk Of Magnesia 30 Ml Oral.Susp) 30 ml PO DAILY PRN PRN Reason: Constipation Melatonin (Melatonin 3 Mg Tablet) 6 mg PO BEDTIME PRN PRN Reason: Insomnia Morphine Sulfate (Morphine Sulfate 4 Mg/Ml Cartridge) 4 mg IVPUSH Q4H PRN; Protocol PRN Reason: Pain, Severe (Pain Scale 7-10) Last Admin: 08/30/24 23:19 Dose: 4 mg Documented By: MAGALY Ondansetron HCl (Ondansetron Hcl 4 Mg/2 Ml Vial) 4 mg IVPUSH Q8H PRN PRN Reason: Nausea and Vomiting Oxycodone HCl (Oxycodone Hcl Immed Release 5 Mg Tablet) 5 mg PO Q4H PRN PRN Reason: Pain, Moderate(Pain Scale 4-6) Last Admin: 08/31/24 02:49 Dose: 5 mg Documented By: MAGALY Sodium Chloride (0.9 % Sodium Chloride Flush 3 Ml Syringe) [facility] Last Admin: 08/31/24 07:23 Dose: Not Given Documented By: TOR Non-Admin Reason: IV Running Labs 08/31/24 05:10 08/31/24 05:10 Labs: Laboratory Results - last 24 hr 08/30/24 08/30/24 08/30/24 16:58 19:33 20:53 MCV 76.1 L MCH 25.4 L MCHC 33.3 RDW 13.9 Plt Count 472 H MPV 9.2 L Immature Gran % (Auto) 0.6 H Neut % (Auto) 88.9 H Lymph % (Auto) 5.1 L [place] % (Auto) 5.1 Eos % (Auto) 0.1 Baso % (Auto) 0.2 Lymph # (Auto) 0.7 L [place] # (Auto) 0.7 Eos # (Auto) 0.0 Baso # (Auto) 0.0 Abs Immat Gran (auto) 0.08 H Absolute Neuts (auto) 11.2 H Absolute Nucleated RBC 0.000 Nucleated RBC % (auto) 0.0 Smear Tech's Comments VBG pH VBG pCO2 VBG pO2 VBG HCO3 VBG O2 Saturation VBG Base Excess Anion Gap 33 H 34 H Estim Creat Clear Calc 2.3 2.6 Estimated GFR 2 2 Random Glucose 116 H 228 H Calcium 9.0 9.7 D Magnesium 3.5 H* 3.4 H Total Bilirubin 0.9 AST 12 ALT 20 Alkaline Phosphatase 68 Troponin I High Sens 20.1 Total Protein 7.2 Albumin 3.7 Lipase 29 Urine Color Red A Urine Appearance Cloudy Urine pH 5.0 Ur Specific [place] 1.010 Urine Protein 100 (2+) H Urine Glucose (UA) Negative Urine Ketones Negative Urine Blood Large (3+) H Urine Nitrite Negative Ur Leukocyte Esterase Small (1+) H Urine RBC >20 H Urine WBC 21-50 H Ur Squamous Epith Cells 0-2 Urine Bacteria None Seen Hyaline Casts 3-5 08/30/24 08/31/24 20:57 05:10 MCV 75.1 L MCH 25.6 L MCHC 34.0 RDW 13.7 Plt Count 487 H MPV 9.3 L Immature Gran % (Auto) 0.4 Neut % (Auto) 91.0 H Lymph % (Auto) 2.8 L [place] % (Auto) 5.7 Eos % (Auto) 0.0 Baso % (Auto) 0.1 Lymph # (Auto) 0.3 L [place] # (Auto) 0.6 Eos # (Auto) 0.0 Baso # (Auto) 0.0 Abs Immat Gran (auto) 0.04 H Absolute Neuts (auto) 10.2 H Absolute Nucleated RBC 0.000 Nucleated RBC % (auto) 0.0 Smear Tech's Comments VERIFIED VBG pH 7.27 L VBG pCO2 31 VBG pO2 41 VBG HCO3 14 L VBG O2 Saturation 54.0 VBG Base Excess -11.1 Anion Gap 22 H Estim Creat Clear Calc 4.9 Estimated GFR 4 Random Glucose 343 H Calcium 9.3 Magnesium Total Bilirubin AST ALT Alkaline Phosphatase Troponin I High Sens Total Protein Albumin Lipase Urine Color Urine Appearance Urine pH Ur Specific [place] Urine Protein Urine Glucose (UA) Urine Ketones Urine Blood Urine Nitrite Ur Leukocyte Esterase Urine RBC Urine WBC Ur Squamous Epith Cells Urine Bacteria Hyaline Casts Assessment and Plan (1) Acute renal failure: Status: Acute Plan 69M who does not follow up with pcp and has no PMH present with urinary retention, found to have kirt, hyperkalemia, metabolic acidosis, suspicious colon and prostate KIRT complicated by acute metbaolic acidosis, hyperkalemia due to urinary obstruction from possible prostate cancer now with post obstructive diuresis continue [id number], hernandez, is and os, and nephro eval, hyperkalemia resolved, acidosis improved, check psa monitor labs colon mass gi eval hyperglycemia check a1c pyuria empiric rocephin for now, follow up cultures anemia due to inflammation, kirt dvt prophylaxis - hep sq full code reason for continued hospitalization:ivf, monitoring post obstructive diuresis Quality Stroke Does the patient have a stroke diagnosis?: No VTE Prior VTE?: No VTE Risk Level:: Medical - moderate - high VTE Device Contraindication: N/A - Device Ordered VTE Drug Contraindication: Treatment Not Indicated
[2024-08-31 09:38] LABS: Estimated Average Glucose 94 mg/dL; Hemoglobin A1C 63.1476 umol/L; Hemoglobin A1c % 4.9 % (<6.0); Total Hemoglobin (HGBA1C) 2122.8393 umol/L
--- NOTE | 2024-08-31 09:40 | PC.NURSE ---
pharmacy called for bicarb bag
[2024-08-31] MEDS: Heparin Sodium,Porcine 5,000 UNIT/ML VIAL 5000 UNIT SUBCUT ×2 (10:47→17:25)
--- NOTE | 2024-08-31 13:30 | PM.EVENT ---
Event Note Date of Service: 08/31/24 Event Note: Chart reviewed Discussed with ER on 08/30/24 KIRT with hyperkalemia due to obstructive uropathy Flores consult Full consult to follow Time Spent With Patient Time: Total time managing care of this patient today ____ minutes.
--- NOTE | 2024-08-31 19:44 | PM.EVENT ---
Event Note Date of Service: 08/31/24 Event Note: GI-Consult received, chart reviewed. Will see patient on 09/01/2024. When I see the patient I will review the need for an upper endoscopy and a colonoscopy with him in regard to his microcytic anemia and abnormal CT of the colon. Given his significant renal issues and ? of metastatic prostate cancer, I suspect we will have to wait until later in the week to proceed with a bowel prep and the procedures. I have ordered some labs for the AM including an anemia workup and PT/INR. Thanks Time Spent With Patient Time: Total time managing care of this patient today ____ minutes.
[2024-08-31] MEDS: cefTRIAXone sodium 1 GM VIAL IVPUSH (21:51)
[2024-08-31] MEDS: 0.9 % Sodium Chloride Flush 3 ML SYRINGE IVFLUSH (21:55)
[2024-09-01] VITALS: BP 160/73; PULSE 100; RESP 20; TEMP 36.8; O2SAT 99
[2024-09-01] MEDS: Heparin Sodium,Porcine 5,000 UNIT/ML VIAL 5000 UNIT SUBCUT ×3 (02:39→17:13)
[2024-09-01 04:00] VITALS: BP 151/74; PULSE 105; RESP 20; TEMP 36.9; O2SAT 99
[2024-09-01] MEDS: Sodium Bicarbonate 8.4% 150 MEQ in Dextrose 5 % 850 ML IV (05:45)
[2024-09-01 06:31] LABS: INTERNATIONAL NORM RATIO 1.2 (0.9-1.1); Prothrombin Time 13.9 SEC (10.9-12.4)
[2024-09-01 06:57] LABS: PSA,Total (Free>4and<10) 89.85 ng/mL (0.00-4.00)
[2024-09-01 07:06] LABS: Folate 10.6 ng/mL (> or = 4.0); Vitamin B12 815 pg/mL (200-900)
[2024-09-01 07:17] LABS: Anion Gap 15 (12-20); Blood Urea Nitrogen 26 mg/dL (9-16); Carbon Dioxide 41 mmol/L (22-29); Chloride 103 mmol/L (96-108); Creatinine Clr Calc Pharmacy 37.4; Estimated Glomerular Filt Rate 40; Ferritin 444 ng/mL (20-250); Glucose Fasting 142 mg/dL (60-99); Iron 22 mcg/dL (45-160); Percent Iron Saturation 10 % (15-50); Potassium 2.9 mmol/L (3.3-5.1); Sodium 156 mmol/L (135-145); Total Iron Binding Capacity 223 mcg/dL (228-428); Unsaturated Iron Binding 201 ug/dL
[2024-09-01] MEDS: Potassium Chloride ER 20 MEQ TAB.ER.PRT 40 MEQ PO (07:22)
[2024-09-01] MEDS: 0.9 % Sodium Chloride Flush 3 ML SYRINGE IVFLUSH ×2 (07:24→20:06)
[2024-09-01] MEDS: Dextrose 5 % 1,000 ML 150 ML IVCONT ×3 (07:29→21:17)
[2024-09-01 07:36] VITALS: PULSE 92; RESP 18; TEMP 36.7; O2SAT 96
--- NOTE | 2024-09-01 08:49 | HO.PM.IMPN ---
Subjective Subjective Date of Service: 09/01/24 Interval History: feeling better Physical Exam Vital Signs: Vital Signs: Last Vital Signs Temp 98.1 F 09/01/24 07:36 Pulse 92 09/01/24 07:36 Resp 18 09/01/24 07:36 BP 151/74 H 09/01/24 04:00 Pulse Ox 96 09/01/24 07:36 O2 Del Method Room Air 09/01/24 07:36 BMI result Body Mass Index 23.3 General: AO X 3, no acute distress Resp: CTA bilateral, no accessory muscles used CVS: S1,S2,RRR GI: soft, non tender, non distended Neuro: motor grossly intact, alert Psych: appropriate affect, appropriate insight Objective Data Active Medications Acetaminophen (Acetaminophen 325 Mg Tablet) 650 mg PO Q6H PRN PRN Reason: Pain, Mild (Pain Scale 1-3), fever or headache Calcium Carbonate (Calcium Carbonate 750 Mg Tab.Chew) 750 mg PO Q4H PRN PRN Reason: Heartburn Ceftriaxone Sodium (Ceftriaxone Sodium 1 Gm Vial) 1 gm IVPUSH Q24H [facility] Last Admin: 08/31/24 21:51 Dose: 1 gm Documented By: PEPPER Heparin Sodium (Porcine) (Heparin Sodium,Porcine 5,000 Unit/Ml Vial) 5,000 unit SUBCUT Q8H [facility] Last Admin: 09/01/24 02:39 Dose: 5,000 unit Documented By: PEPPER Dextrose (D10) 250 mls @ 750 mls/hr IV Q15M PRN PRN Reason: per Hypoglycemia Standing Ord. Dextrose (D5w) 1,000 mls @ 150 mls/hr IVCONT .Q6H40M [facility] Last Admin: 09/01/24 07:29 Dose: 150 mls/hr Documented By: DELANEY Magnesium Hydroxide (Milk Of Magnesia 30 Ml Oral.Susp) 30 ml PO DAILY PRN PRN Reason: Constipation Melatonin (Melatonin 3 Mg Tablet) 6 mg PO BEDTIME PRN PRN Reason: Insomnia Morphine Sulfate (Morphine Sulfate 4 Mg/Ml Cartridge) 4 mg IVPUSH Q4H PRN; Protocol PRN Reason: Pain, Severe (Pain Scale 7-10) Last Admin: 08/30/24 23:19 Dose: 4 mg Documented By: MAGALY Ondansetron HCl (Ondansetron Hcl 4 Mg/2 Ml Vial) 4 mg IVPUSH Q8H PRN PRN Reason: Nausea and Vomiting Oxycodone HCl (Oxycodone Hcl Immed Release 5 Mg Tablet) 5 mg PO Q4H PRN PRN Reason: Pain, Moderate(Pain Scale 4-6) Last Admin: 08/31/24 21:51 Dose: 5 mg Documented By: PEPPER Sodium Chloride (0.9 % Sodium Chloride Flush 3 Ml Syringe) 3 ml IVFLUSH QSHIFT [facility] Last Admin: 09/01/24 07:24 Dose: 3 ml Documented By: PHANLYM Labs 08/31/24 05:10 09/01/24 05:57 Labs: Laboratory Results - last 24 hr 08/31/24 09/01/24 05:10 05:57 Hold Purple Top SEE NOTE PT 13.9 H INR 1.2 H Anion Gap 15 Estim Creat Clear Calc 37.4 Estimated GFR 40 Fasting Glucose 142 H Estimat Average Glucose 94 Hemoglobin A1c % 4.9 Calcium 9.0 Iron 22 L TIBC 223 L % Saturation 10 L Unsat Iron Binding 201 Ferritin 444 H Carcinoembryonic Ag 18.60 Total PSA 89.85 H Vitamin B12 815 Folate 10.6 Microbiology Microbiology Results: Microbiology 08/30/24 02:31 Blood Culture - Preliminary Blood - Venous No growth after 24 hours. 08/30/24 20:47 Blood Culture - Preliminary Blood - Venous No growth after 24 hours. 08/30/24 19:33 Urine Culture - Preliminary Urine Catheterized - Hernandez Catheter No growth to date. Assessment and Plan (1) Acute renal failure: Status: Acute Plan 69M who does not follow up with pcp and has no PMH present with urinary retention, found to have kirt, hyperkalemia, metabolic acidosis, suspicious colon and prostate KIRT complicated by acute metbaolic acidosis, hyperkalemia due to urinary obstruction from suspected prostate cancer with post obstructive diuresis now with metabolic alkalosis and hypernatremia and hypokalemia- dc biacrb, change to d5w, supplement potassium, monitor closely continue hernandez, is and os, and nephro eval monitor labs colon mass gi appreciated - eventual egd and colonscopy hyperglycemia due to dextrose in fluids, no DM, a1c 4.9 pyuria empiric rocephin for now, follow up cultures anemia due to inflammation, kirt, chronic iron deficiency dvt prophylaxis - hep sq full code reason for continued hospitalization:ivf, monitoring post obstructive diuresis Quality Stroke Does the patient have a stroke diagnosis?: No VTE Prior VTE?: No VTE Risk Level:: Medical - moderate - high VTE Device Contraindication: N/A - Device Ordered VTE Drug Contraindication: Treatment Not Indicated
--- NOTE | 2024-09-01 10:21 | MHC.CM.PN ---
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 Pt does not have a PCP, info on [facility] PCP's given and discussed with pt and grand dtr. encouraged to call [facility] for new pt appt. HCP discussed, pt will complete form, it will be added to chart. Transport home at DC by family. DCP: home, self care. CM to follow for DC needs.
[2024-09-01 11:40] VITALS: BP 158/72; PULSE 107; RESP 20; TEMP 36.1; O2SAT 100
[2024-09-01 12:40] LABS: Anion Gap 16 (12-20); Blood Urea Nitrogen 19 mg/dL (9-16); Calcium 9.1 mg/dL (8.4-10.2); Carbon Dioxide 39 mmol/L (22-29); Chloride 102 mmol/L (96-108); Creatinine Clr Calc Pharmacy 43.3; Estimated Glomerular Filt Rate 48; Glucose Random 122 mg/dL (60-115); Potassium 3.6 mmol/L (3.3-5.1); Sodium 153 mmol/L (135-145)
[2024-09-01 16:00] VITALS: BP 156/74; PULSE 100; RESP 18; TEMP 37.3; O2SAT 98
--- NOTE | 2024-09-01 16:24 | PM.UROCN ---
History of Present Illness Consult details Consult date: 09/01/24 Narrative: CC: Sclerotic pelvic lesion on CT high concern prostate CA 69-year-old male Presents to emergency room with inability to urinate for prior 7 days Complains of back pain, anorexia and fatigue Has not interacted with the medical system in a number of years No prior colonoscopy Found to be tachycardic and hypotensive. Laboratories notable for microcytic anemia, potassium 7.8 with BUN 189, creatinine 27, magnesium 3.5. Imaging on CT showed [id number] right greater than left hydroureteronephrosis with retroperitoneal free fluid and markedly distended urinary bladder with enlarged prostate. This is consistent with a retroperitoneal contained bladder perforation. Sclerotic lesions were noted within the pelvic bony floor highly suspicious for metastatic prostate cancer. Medical intervention for disordered labs was performed. Flores catheter placed. Creatinine has promptly dropped from 27 down to 1.5 with substantial uptick in urine output. 4500 cc during 1st 24 hours of admission. 1500 cc during next subsequent 12 hours. Recommendation as discussed with Ortiz is cystoscopy with bilateral retrograde and potentially bilateral stents. Would also perform examination of prostate with ultrasound-guided prostate biopsy under sedation at the same time. PSA found to be 90 Discussion regarding diagnosis of metastatic prostate cancer. Reassurance provided that current therapy makes treatment a marathon not a sprint and that a number of years of quality of life can be achieved. Start bicalutamide 50 mg t.i.d. Review of Systems Constitutional: Constitutional: Reports as per HPI and Reports no additional constitutional complaints Cardiovascular: Cardiovascular: Reports as per HPI and Reports no additional cardiovascular complaints Respiratory: Respiratory: Reports as per HPI and Reports no additional respiratory complaints Gastrointestinal: Gastrointestinal: Reports as per HPI and Reports no additional gastrointestinal complaints Genitourinary: Genitourinary: Reports as per HPI Musculoskeletal: Musculoskeletal: Reports no additional musculoskeletal complaints and Reports as per HPI Neurologic: Reports system reviewed and no additional complaints, except as documented and Reports as per HPI [facility] Social History Social History Household Members: None Do you presently have visiting nurse or other home services: No Patient Tobacco Use Status: Never used Tobacco service: No Meds Allergies Allergy/AdvReac Type Severity Reaction Status Date / Time No Known Allergies Allergy Verified 08/30/24 16:51 Active Medications: Current Medications Acetaminophen (Acetaminophen 325 Mg Tablet) 650 mg PO Q6H PRN PRN Reason: Pain, Mild (Pain Scale 1-3), fever or headache Bicalutamide (Bicalutamide 50 Mg Tablet) 50 mg PO TID [facility] Calcium Carbonate (Calcium Carbonate 750 Mg Tab.Chew) 750 mg PO Q4H PRN PRN Reason: Heartburn Ceftriaxone Sodium (Ceftriaxone Sodium 1 Gm Vial) 1 gm IVPUSH Q24H [facility] Last Admin: 08/31/24 21:51 Dose: 1 gm Heparin Sodium (Porcine) (Heparin Sodium,Porcine 5,000 Unit/Ml Vial) 5,000 unit SUBCUT Q8H [facility] Last Admin: 09/01/24 09:37 Dose: 5,000 unit Dextrose (D10) 250 mls @ 750 mls/hr IV Q15M PRN PRN Reason: per Hypoglycemia Standing Ord. Dextrose (D5w) 1,000 mls @ 150 mls/hr IVCONT .Q6H40M [facility] Last Admin: 09/01/24 14:19 Dose: 150 mls/hr Magnesium Hydroxide (Milk Of Magnesia 30 Ml Oral.Susp) 30 ml PO DAILY PRN PRN Reason: Constipation Melatonin (Melatonin 3 Mg Tablet) 6 mg PO BEDTIME PRN PRN Reason: Insomnia Morphine Sulfate (Morphine Sulfate 4 Mg/Ml Cartridge) 4 mg IVPUSH Q4H PRN; Protocol PRN Reason: Pain, Severe (Pain Scale 7-10) Last Admin: 08/30/24 23:19 Dose: 4 mg Ondansetron HCl (Ondansetron Hcl 4 Mg/2 Ml Vial) 4 mg IVPUSH Q8H PRN PRN Reason: Nausea and Vomiting Oxycodone HCl (Oxycodone Hcl Immed Release 5 Mg Tablet) 5 mg PO Q4H PRN PRN Reason: Pain, Moderate(Pain Scale 4-6) Last Admin: 08/31/24 21:51 Dose: 5 mg Sodium Chloride (0.9 % Sodium Chloride Flush 3 Ml Syringe) 3 ml IVFLUSH QSHIFT [facility] Last Admin: 09/01/24 14:45 Dose: Not Given Home Medications ?Medication ?Instructions ?Recorded ?Confirmed ?Last Taken ?Type No Known Home Meds 08/30/24 08/30/24 Unknown History Physical Exam Vital Signs: Vital Signs: Last Vital Signs Temp 96.9 F 09/01/24 11:40 Pulse 107 H 09/01/24 11:40 Resp 20 09/01/24 11:40 BP 158/72 H 09/01/24 11:40 Pulse Ox 100 09/01/24 11:40 O2 Del Method Room Air 09/01/24 11:40 BMI result Body Mass Index 23.3 Const: General: cooperative, healthy appearing, comfortable and no acute distress Orientation/consciousness: patient oriented x3 HEENT: Face and sinus: Yes normal facial exam Mouth: moist mucous membranes Neck: Neck: Yes normal visual inspection, Yes full ROM and Yes trachea midline Chest: Chest palpation & inspection: normal inspection of the chest Resp: Effort & Inspection: normal respiratory effort, able to speak in complete sentences and no respiratory distress GI: Inspection: Yes normal to inspection Back/Spine/Pelvis: Cervical Spine: normal cervical lordosis Thoracic/Lumbar Spine: thoracic and lumbar spine normal to inspection Skin: General skin exam: no rashes or lesions noted Neuro: General: patient oriented x3, tone normal and moves all extremities Extrem: General: Yes normal to inspection and Yes capillary refill normal Results Labs 08/31/24 05:10 09/01/24 11:43 Labs: Abnormal lab results 09/01/24 09/01/24 Range/Units 05:57 11:43 PT 13.9 H (10.9-12.4) SEC INR 1.2 H (0.9-1.1) Sodium 156 H 153 H (135-145) mmol/L Potassium 2.9 L* D (3.3-5.1) mmol/L Carbon Dioxide 41 H* D 39 H (22-29) mmol/L BUN 26 H 19 H (9-16) mg/dL Creatinine 1.69 H 1.46 H (0.5-1.4) mg/dL Random Glucose 122 H (60-115) mg/dL Fasting Glucose 142 H (60-99) mg/dL Iron 22 L (45-160) mcg/dL TIBC 223 L (228-428) mcg/dL % Saturation 10 L (15-50) % Ferritin 444 H (20-250) ng/mL Total PSA 89.85 H (0.00-4.00) ng/mL BMP 09/01/24 09/01/24 05:57 11:43 Sodium 156 H 153 H Potassium 2.9 L* D 3.6 D Chloride 103 102 Carbon Dioxide 41 H* D 39 H BUN 26 H 19 H Creatinine 1.69 H 1.46 H Calcium 9.0 9.1 Urine 08/30/24 Range/Units 19:33 Urine Color Red A Urine Appearance Cloudy Urine pH 5.0 (5.0-9.0) Ur Specific [place] 1.010 (1.005-1.025) Urine Protein 100 (2+) H (Neg-Trace) mg/dL Urine Glucose (UA) Negative (Negative) mg/dL All other labs normal. Assessment and Plan (1) Bony sclerosis: Status: Acute (2) Elevated PSA: Status: Acute (3) Acute renal failure: Status: Acute (4) Acute urinary retention: Status: Acute Plan Continue Flores catheter - when output less than 2 L per day may switch to catheter cap Plan cystoscopy with bilateral retrograde, stent placement with prostate biopsy Bone scan ordered Risks, benefits and alternatives to therapy were discussed. These include but are not limited to infection, bleeding, damage to local organs and tissues, need for further interventions. Anesthetic risks regarding cardiac arrhythmia, blood clots, and potential mortality were discussed. The patient understands the typical recovery time and the outpatient nature of the procedure. After consideration of these risks the patient gives full informed consent and they wish to move ahead with the procedure. Procedures Date of Service Date of Service: 09/01/24
--- NOTE | 2024-09-01 17:35 | PM.EVENT ---
Event Note Date of Service: 09/02/24 Event Note: GI-Course noted re: procedure today. I reviewed the need for the upper endo and colonscopy with the patient. He would like to do them while he is here in the hospital. I would agree with that given the concern for neoplasm. I have ordered a liquid diet for 09/03 and placed the SQ Heparin on hold starting 09/03 in the evening. I will order his prep for 09/03 afternoon and schedule the case with the OR for 09/04. Follow Hgb and transfuse if Hgb < 8.0 please. He was comfortable with that plan. Thanks Time Spent With Patient Time: Total time managing care of this patient today ____ minutes.
--- NOTE | 2024-09-01 17:37 | PM.EVENT ---
Event Note Date of Service: 09/01/24 Event Note: GI Consult-Full note dictated. D/W patient in detail. Imp: Iron deficiency with a microcytic anemia along with an abnormal CT of the ascending colon and elevated CEA level. It also appears that he has metastatic prostate cancer with planned procedures and other testing by Dr. Carbone. Diff dx: R/O Colon neoplasm, R/O UGI pathology. Rec: I would recommend an upper endoscopy and colonoscopy for Wed, 09/04, assuming things are stable from a and Renal standpoint. Full consent has been obtained for this, including risks of bleeding and perforation. Follow Hgb and transfuse prn. Avoid blood thinners in the meantime. D/W patient in detail and he is comfortable with this plan. Thanks Time Spent With Patient Time: Total time managing care of this patient today ____ minutes.
[2024-09-01 20:00] VITALS: BP 181/81; PULSE 95; RESP 20; TEMP 36.9; O2SAT 99
[2024-09-01] MEDS: cefTRIAXone sodium 1 GM VIAL IVPUSH (20:05)
[2024-09-01] MEDS: Bicalutamide 50 MG TABLET PO (20:06)
[2024-09-02] VITALS (14 sets, daily range): BP systolic 133–189; BP diastolic 81–104; PULSE 85–121; RESP 16–18; TEMP 36.1–37.2; O2SAT 97–100
[2024-09-02] MEDS: Heparin Sodium,Porcine 5,000 UNIT/ML VIAL 5000 UNIT SUBCUT ×2 (02:12→18:26)
[2024-09-02] MEDS: Dextrose 5 % 1,000 ML 150 ML IVCONT (03:51)
--- NOTE | 2024-09-02 04:37 | CONS_ITS ---
DATE OF SERVICE: 09/01/2024 REASON FOR CONSULTATION: Microcytic anemia, abnormal CT scan of colon, and elevated CEA level. HISTORY OF PRESENT ILLNESS: This has been obtained for the patient and the medical record. The patient is a 69-year-old healthy male, who was admitted to the hospital primarily for bladder outlet obstruction with associated hydronephrosis and renal failure. The patient describes progressive problems with urinating, which prompted his ER visit and hospitalization. During his workup, he has been found to have a suspicious area in the ascending colon on his CAT scan and also has a microcytic anemia with a low iron saturation. The patient denies any particular GI complaints. He enjoys a good appetite and denies any significant heartburn nor dysphagia. He denies any abdominal pains. His bowel movements have been regular other than some mild constipation. There has been no hematochezia nor melena. He has never had a colonoscopy and he denies any known family history of colorectal cancer. He denies any history of ulcer disease. He does not use any chronic aspirin nor NSAIDs. He has a previous history of smoking and drinking. MEDICATIONS AT HOME: None. PAST MEDICAL HISTORY: He has had the issues with progressive urinary retention. He denies any history of heart disease, diabetes, stroke, lung disease, nor previous kidney disease. He denies any surgeries. SOCIAL HISTORY: He is single and reports that he lives by himself. He does not smoke nor use any significant amounts of alcohol. REVIEW OF SYSTEMS: CONSTITUTIONAL: He has been feeling poorly lately due to his urinary retention and discomfort. CARDIAC: No chest pain. PULMONARY: No coughing or hemoptysis. GI: As above. URINARY: As above. PHYSICAL EXAMINATION: GENERAL: The patient is a pleasant alert, comfortable-appearing male. SKIN: Warm and dry. Anicteric sclerae. CHEST: Clear. CARDIAC: Normal S1, S2. ABDOMEN: Soft, nondistended, nontender. There is no palpable mass. LABORATORY DATA: Hemoglobin 8.4 with MCV of 76. White blood cell count 12.7, platelets 472,000. PT 13.9 with INR 1.2. Initial BUN was 126, creatinine 12.9. Labs today showed a BUN of 19 with creatinine 1.5. Iron 22, iron saturation 10%, ferritin 444. B12 and folate levels were normal. PSA is 90 and CEA level was 18.6. His CT scan describes questionable wall thickening along the medial aspect of the ascending colon over length of about 3-1/2 cm. There was also right greater than left hydroureteronephrosis with some retroperitoneal free fluid along the anterior pararenal space, and a markedly distended urinary bladder. IMPRESSION: From a gastrointestinal standpoint, the concern would be that of a possible colonic malignancy given the questionable CT scan, microcytic anemia with low iron saturation, elevated CEA level, and his never having had a colonoscopy. I would also want to exclude any upper GI tract pathology given the anemia and previous history of reported smoking and drinking. At this point, it looks like he is scheduled for a Urology procedure tomorrow with Dr. Carbone in regard to further treatment of his hydronephrosis and what appears to be presumed prostate cancer based on the significantly elevated PSA level and abnormal CT scan. If things are stable, I would plan to recommend an upper endoscopy and colonoscopy for later in the week. I did review this with the patient in detail and obtained full consent for this, including risks of bleeding and perforation. In the meantime, I would monitor his hemoglobin and avoid any blood thinners. This has all been discussed in detail with the patient and he is comfortable with the plan. Thank you for the consultation. MD ZEV Herrera/AKOSUA / [id number]
[2024-09-02 07:02] LABS: Hematocrit 25.4 % (42.0-52.0); Hemoglobin 7.9 g/dl (14.0-18.0); Mean Corpuscular HGB Conc 31.1 g/dl (31.0-36.0); Mean Corpuscular Hemoglobin 25.7 pg (27.0-33.0); Mean Corpuscular Volume 82.7 fL (80.0-98.0); Mean Platelet Volume 9.4 fL (9.4-12.4); Platelet Count 477 X10*3/uL (160-400); Red Blood Count 3.07 X10*6/uL (4.60-5.80); Red Cell Distribution Width 14.6 % (11.0-16.0); White Blood Count 10.4 X10*3/uL (4.8-10.8)
[2024-09-02 07:11] LABS: Anion Gap 12 (12-20); Blood Urea Nitrogen 9 mg/dL (9-16); Calcium 8.3 mg/dL (8.4-10.2); Carbon Dioxide 32 mmol/L (22-29); Chloride 99 mmol/L (96-108); Creatinine Clr Calc Pharmacy 63.3; Estimated Glomerular Filt Rate > 60; Glucose Fasting 116 mg/dL (60-99); Potassium 3.1 mmol/L (3.3-5.1); Sodium 140 mmol/L (135-145)
[2024-09-02] MEDS: Acetaminophen 325 MG TABLET 650 MG PO (08:18)
[2024-09-02] MEDS: Bicalutamide 50 MG TABLET PO ×3 (08:19→21:32)
[2024-09-02] MEDS: Potassium Chloride ER 20 MEQ TAB.ER.PRT 40 MEQ PO (08:20)
[2024-09-02] MEDS: 0.9 % Sodium Chloride Flush 3 ML SYRINGE IVFLUSH ×3 (08:21→21:32)
--- NOTE | 2024-09-02 08:50 | PM.CNNEP ---
History of Present Illness Reason for Consult Consult date: 09/02/24 Chief Complaint Chief complaint: Urinary complaints History of Present Illness Narrative: 69 year old male with no reported medical history (reportedly has not had any medical care in some time), no home medications. presented 08/30 with difficulty urinating x7-10 days, back pain, anorexia, fatigue/malaise. CT imaging showed mild to moderate R>L hydroureteronephrosis with retroperitoneal free fluid and markedly distended bladder with enlarged prostate; sclerotic lesions noted within pelvic bony floor suspicious for metastatic prostate cancer. nephrology consulted for KIRT. creatinine 27 on 08/30 has been trending down rapidly with hernandez catheter placement, 09/02 creatinine 1.00 (unknown baseline), GFR>60. pt also has a metabolic alkalosis that has been trending down (had been acidotic and receiving PO bicarb, this has been d/c'd and alkalosis improving) potassium low on admission 7.8; has normalized, some low potassium intermittently as patient has been diuresing He reports at bedside today he feels well he denies chest pain, difficulty breathing, abdominal pain reports some left flank pain that has been steadily improving since admission denies urinary pain Review of Systems Constitutional: Denies lethargy, Denies malaise and Denies weakness Cardiovascular: Denies chest pain, Denies leg edema, Denies lightheadedness and Denies dyspnea Respiratory: Denies dyspnea Gastrointestinal: Denies abdominal pain, Denies constipation, Denies diarrhea, Denies nausea and Denies vomiting Genitourinary: Denies hematuria Comments: hernandez- post obstructive diuresis Musculoskeletal: Denies arthralgias and Denies muscle cramps Skin/Breast: Denies rash Denies weakness PMF Social History Social History Household Members: None Do you presently have visiting nurse or other home services: No Patient Tobacco Use Status: Never used Tobacco service: No Meds Allergies Allergy/AdvReac Type Severity Reaction Status Date / Time No Known Allergies Allergy Verified 08/30/24 16:51 Active Medications: Current Medications Acetaminophen (Acetaminophen 325 Mg Tablet) 650 mg PO Q6H PRN PRN Reason: Pain, Mild (Pain Scale 1-3), fever or headache Last Admin: 09/02/24 08:18 Dose: 650 mg Amlodipine Besylate (Amlodipine Besylate 5 Mg Tablet) 5 mg PO DAILY [facility]; Protocol Bicalutamide (Bicalutamide 50 Mg Tablet) 50 mg PO TID [facility] Last Admin: 09/02/24 08:19 Dose: 50 mg Calcium Carbonate (Calcium Carbonate 750 Mg Tab.Chew) 750 mg PO Q4H PRN PRN Reason: Heartburn Heparin Sodium (Porcine) (Heparin Sodium,Porcine 5,000 Unit/Ml Vial) 5,000 unit SUBCUT Q8H [facility] Last Admin: 09/02/24 08:23 Dose: Not Given Dextrose (D10) 250 mls @ 750 mls/hr IV Q15M PRN PRN Reason: per Hypoglycemia Standing Ord. Levofloxacin (Levaquin) 500 mg in 100 mls @ 100 mls/hr IV PREOP ONE Stop: 09/02/24 12:59 Magnesium Hydroxide (Milk Of Magnesia 30 Ml Oral.Susp) 30 ml PO DAILY PRN PRN Reason: Constipation Melatonin (Melatonin 3 Mg Tablet) 6 mg PO BEDTIME PRN PRN Reason: Insomnia Morphine Sulfate (Morphine Sulfate 4 Mg/Ml Cartridge) 4 mg IVPUSH Q4H PRN; Protocol PRN Reason: Pain, Severe (Pain Scale 7-10) Last Admin: 08/30/24 23:19 Dose: 4 mg Ondansetron HCl (Ondansetron Hcl 4 Mg/2 Ml Vial) 4 mg IVPUSH Q8H PRN PRN Reason: Nausea and Vomiting Oxycodone HCl (Oxycodone Hcl Immed Release 5 Mg Tablet) 5 mg PO Q4H PRN PRN Reason: Pain, Moderate(Pain Scale 4-6) Last Admin: 08/31/24 21:51 Dose: 5 mg Sodium Chloride (0.9 % Sodium Chloride Flush 3 Ml Syringe) 3 ml IVFLUSH QSHIFT [facility] Last Admin: 09/02/24 08:21 Dose: 3 ml Home Medications ?Medication ?Instructions ?Recorded ?Confirmed ?Last Taken ?Type No Known Home Meds 08/30/24 08/30/24 Unknown History Physical Exam Vital Signs: Last Vital Signs Temp 98.8 F 09/02/24 07:04 Pulse 91 09/02/24 07:04 Resp 18 09/02/24 07:04 BP 180/88 H 09/02/24 07:04 Pulse Ox 100 09/02/24 07:04 O2 Del Method Room Air 09/02/24 07:04 BMI result Body Mass Index 23.3 Const General: no acute distress, alert and awake Resp Effort & Inspection: normal respiratory effort and able to speak in complete sentences Auscultation: clear to auscultation bilaterally Cardio Jugular venous distension: no JVD Rate: regular rate Rhythm: regular rhythm Heart sounds: S1 normal heart sound present and S2 normal heart sound present GI Palpation (GI): Soft to palpation and nontender General: Yes no CVA tenderness Back/Spine/Pelvis Back: no CVA tenderness Skin Lesions: no lesions Rashes: no rashes Extrem General: No edema Results Lab Results 09/02/24 06:10 09/02/24 06:10 Lab results: Chemistry 08/30/24 08/30/24 08/31/24 16:58 20:53 05:10 Sodium 132 L 136 142 Potassium 7.8 H* 6.6 H* 4.8 D Carbon Dioxide 11 L 12 L 21 L BUN 189 H 184 H 126 H Creatinine 27.03 H* 23.71 H* 12.91 H* Calcium 9.0 9.7 D 9.3 09/01/24 09/01/24 09/02/24 05:57 11:43 06:10 Sodium 156 H 153 H 140 Potassium 2.9 L* D 3.6 D 3.1 L Carbon Dioxide 41 H* D 39 H 32 H BUN 26 H 19 H 9 Creatinine 1.69 H 1.46 H 1.00 Calcium 9.0 9.1 8.3 L D Hematology 08/30/24 08/31/24 09/02/24 16:58 05:10 06:10 WBC 12.7 H 11.2 H 10.4 Hgb 8.4 L 8.1 L 7.9 L Plt Count 472 H 487 H 477 H Urinalysis 08/30/24 19:33 Urine Color Red A Urine Appearance Cloudy Urine pH 5.0 Ur Specific [place] 1.010 Urine Protein 100 (2+) H Urine Glucose (UA) Negative Urine Ketones Negative Urine Blood Large (3+) H Urine Nitrite Negative Ur Leukocyte Esterase Small (1+) H Urine RBC >20 H Urine WBC 21-50 H Ur Squamous Epith Cells 0-2 Hyaline Casts 3-5 Assessment and Plan (1) Acute renal failure: Qualifiers: Acute renal failure type: unspecified Qualified Code(s): N17.9 - Acute kidney failure, unspecified Status: Acute (2) Acute urinary retention: Status: Acute (3) Acute hyperkalemia: Status: Acute Plan KIRT secondary to urinary obstruction improving low potassium likely related to post obstructive diuresis as well as alkalosis causing translocation of potassium anticipate post obstructive diuresis to continue to trend down/normalize, serum bicarb trending down with d/c bicarbonate supplementation recommend continued plan through urology to address obstruction continue to avoid nephrotoxic medications continue to monitor electrolytes and renal function daily continue supportive care Discussed with Dr Mak Procedures Date of Service Date of Service: 09/02/24
--- NOTE | 2024-09-02 09:11 | P.PNIM_ITS ---
Subjective Subjective Date of Service: 09/02/24 Interval History: low back pain Physical Exam 2 Vital Signs: Vital Signs: Last Vital Signs Temp 98.8 F 09/02/24 07:04 Pulse 91 09/02/24 07:04 Resp 18 09/02/24 07:04 BP 180/88 H 09/02/24 07:04 Pulse Ox 100 09/02/24 07:04 O2 Del Method Room Air 09/02/24 07:04 BMI result Body Mass Index 23.3 General: AO X 3, no acute distress Resp: CTA bilateral, no accessory muscles used CVS: S1,S2,RRR GI: soft, non tender, non distended Neuro: motor grossly intact, alert Psych: appropriate affect, appropriate insight Objective Data Active Medications Acetaminophen (Acetaminophen 325 Mg Tablet) 650 mg PO Q6H PRN PRN Reason: Pain, Mild (Pain Scale 1-3), fever or headache Last Admin: 09/02/24 08:18 Dose: 650 mg Documented By: MUKESH Amlodipine Besylate (Amlodipine Besylate 5 Mg Tablet) 5 mg PO DAILY [facility]; Protocol Bicalutamide (Bicalutamide 50 Mg Tablet) 50 mg PO TID [facility] Last Admin: 09/02/24 08:19 Dose: 50 mg Documented By: MUKESH Calcium Carbonate (Calcium Carbonate 750 Mg Tab.Chew) 750 mg PO Q4H PRN PRN Reason: Heartburn Ceftriaxone Sodium (Ceftriaxone Sodium 1 Gm Vial) 1 gm IVPUSH Q24H [facility] Last Admin: 09/01/24 20:05 Dose: 1 gm Documented By: MATEO Heparin Sodium (Porcine) (Heparin Sodium,Porcine 5,000 Unit/Ml Vial) 5,000 unit SUBCUT Q8H [facility] Last Admin: 09/02/24 08:23 Dose: Not Given Documented By: MUKESH Non-Admin Reason: per Dr. Dick/having biopsy Dextrose (D10) 250 mls @ 750 mls/hr IV Q15M PRN PRN Reason: per Hypoglycemia Standing Ord. Levofloxacin (Levaquin) 500 mg in 100 mls @ 100 mls/hr IV PREOP ONE Stop: 09/02/24 12:59 Magnesium Hydroxide (Milk Of Magnesia 30 Ml Oral.Susp) 30 ml PO DAILY PRN PRN Reason: Constipation Melatonin (Melatonin 3 Mg Tablet) 6 mg PO BEDTIME PRN PRN Reason: Insomnia Morphine Sulfate (Morphine Sulfate 4 Mg/Ml Cartridge) 4 mg IVPUSH Q4H PRN; Protocol PRN Reason: Pain, Severe (Pain Scale 7-10) Last Admin: 08/30/24 23:19 Dose: 4 mg Documented By: MAGALY Ondansetron HCl (Ondansetron Hcl 4 Mg/2 Ml Vial) 4 mg IVPUSH Q8H PRN PRN Reason: Nausea and Vomiting Oxycodone HCl (Oxycodone Hcl Immed Release 5 Mg Tablet) 5 mg PO Q4H PRN PRN Reason: Pain, Moderate(Pain Scale 4-6) Last Admin: 08/31/24 21:51 Dose: 5 mg Documented By: PEPPER Sodium Chloride (0.9 % Sodium Chloride Flush 3 Ml Syringe) 3 ml IVFLUSH [facility] Last Admin: 09/02/24 08:21 Dose: 3 ml Documented By: MUKESH Labs 09/02/24 06:10 09/02/24 06:10 Labs: Laboratory Results - last 24 hr 09/01/24 09/02/24 11:43 06:10 MCV 82.7 D MCH 25.7 L MCHC 31.1 RDW 14.6 Plt Count 477 H MPV 9.4 Absolute Nucleated RBC 0.000 Nucleated RBC % (auto) 0.0 Anion Gap 16 12 Estim Creat Clear Calc 43.3 63.3 Estimated GFR 48 > 60 Random Glucose 122 H Fasting Glucose 116 H Calcium 9.1 8.3 L D Microbiology Microbiology Results: Microbiology 08/30/24 02:31 Blood Culture - Preliminary Blood - Venous No growth after 48 hours. 08/30/24 20:47 Blood Culture - Preliminary Blood - Venous No growth after 48 hours. 08/30/24 19:33 Urine Culture - Final Urine Catheterized - Hernandez Catheter No growth. Assessment and Plan (1) Acute renal failure: Status: Acute Plan 69M who does not follow up with pcp and has no PMH present with urinary retention, found to have kirt, hyperkalemia, metabolic acidosis, suspicious colon and prostate KIRT complicated by acute metbaolic acidosis, hyperkalemia due to urinary obstruction from suspected prostate cancer with post obstructive diuresis followed by metabolic alkalosis and hypernatremia and hypokalemia- alkalosis now improved, hypernatremia resolved after d5w(will discontinue), conitnue to supplement and monitor potassium continue hernandez, is and os, appreciated plan for cysto today, started casodex monitor labs colon mass gi appreciated - eventual egd and colonscopy htn starting amlodipine 5mg daily hyperglycemia due to dextrose in fluids, no DM, a1c 4.9 pyuria culture negative, will dc rocephin anemia due to inflammation, kirt, chronic iron deficiency dvt prophylaxis - hep sq full code reason for continued hospitalization: monitoring post obstructive diuresis Quality Stroke Does the patient have a stroke diagnosis?: No VTE Prior VTE?: No VTE Risk Level:: Medical - moderate - high VTE Device Contraindication: N/A - Device Ordered VTE Drug Contraindication: Treatment Not Indicated
[2024-09-02] MEDS: amLODIPine Besylate 5 MG TABLET PO (10:11)
--- NOTE | 2024-09-02 10:22 | MHC.CM.PN ---
Per ROUNDS discussion, Patient is still acute and not yet medically cleared for dc; home is the goal and CM will continue to follow.
--- NOTE | 2024-09-02 13:26 | P.CONAN_ITS ---
[facility] Active Problems Active Problems: All Active Problems (Updated 09/02/24 @ 10:23 by Danni Woodward, MARTHA, FREIGHT HUSTLER-BC) Bony sclerosis (Acute) Elevated PSA (Acute) Hypermagnesemia (Acute) Acute hyperkalemia (Acute) Acute renal failure (Acute) Acute urinary retention (Acute) Family History Family history of problems with anesthesia: No Surgical History Surgical History (Updated 09/02/24 @ 13:15 by Lucia Bajwa RN) No pertinent past surgical history History of Problems with Anesthesia: No Social History Social History Household Members: None Are you a primary customer care manager to a significant other at home: No Do you presently have visiting nurse or other home services: No Patient Tobacco Use Status: Former Tobacco user Tobacco use type: Cigarette Years Smoked: 20 Advance Directives Date on File: 09/01/24 service: No Meds Allergies Allergy/AdvReac Type Severity Reaction Status Date / Time No Known Allergies Allergy Verified 09/02/24 13:15 Active Medications: Current Medications Acetaminophen (Acetaminophen 325 Mg Tablet) 650 mg PO Q6H PRN PRN Reason: Pain, Mild (Pain Scale 1-3), fever or headache Last Admin: 09/02/24 08:18 Dose: 650 mg Amlodipine Besylate (Amlodipine Besylate 5 Mg Tablet) 5 mg PO DAILY [facility]; Protocol Last Admin: 09/02/24 10:11 Dose: 5 mg Bicalutamide (Bicalutamide 50 Mg Tablet) 50 mg PO TID [facility] Last Admin: 09/02/24 08:19 Dose: 50 mg Calcium Carbonate (Calcium Carbonate 750 Mg Tab.Chew) 750 mg PO Q4H PRN PRN Reason: Heartburn Heparin Sodium (Porcine) (Heparin Sodium,Porcine 5,000 Unit/Ml Vial) 5,000 unit SUBCUT Q8H [facility] Last Admin: 09/02/24 08:23 Dose: Not Given Dextrose (D10) 250 mls @ 750 mls/hr IV Q15M PRN PRN Reason: per Hypoglycemia Standing Ord. Magnesium Hydroxide (Milk Of Magnesia 30 Ml Oral.Susp) 30 ml PO DAILY PRN PRN Reason: Constipation Melatonin (Melatonin 3 Mg Tablet) 6 mg PO BEDTIME PRN PRN Reason: Insomnia Morphine Sulfate (Morphine Sulfate 4 Mg/Ml Cartridge) 4 mg IVPUSH Q4H PRN; Protocol PRN Reason: Pain, Severe (Pain Scale 7-10) Last Admin: 08/30/24 23:19 Dose: 4 mg Ondansetron HCl (Ondansetron Hcl 4 Mg/2 Ml Vial) 4 mg IVPUSH Q8H PRN PRN Reason: Nausea and Vomiting Oxycodone HCl (Oxycodone Hcl Immed Release 5 Mg Tablet) 5 mg PO Q4H PRN PRN Reason: Pain, Moderate(Pain Scale 4-6) Last Admin: 08/31/24 21:51 Dose: 5 mg Sodium Chloride (0.9 % Sodium Chloride Flush 3 Ml Syringe) 3 ml IVFLUSH QSHIFT [facility] Last Admin: 09/02/24 08:21 Dose: 3 ml Home Medications ?Medication ?Instructions ?Recorded ?Confirmed ?Last Taken ?Type No Known Home Meds 08/30/24 09/02/24 Unknown History Exam Height,Weight and Vital Signs: Height 5 ft 7 in Weight 67.6 kg Last Vital Signs Temp 98.2 F 09/02/24 13:16 Pulse 121 H 09/02/24 13:16 Resp 16 09/02/24 13:16 BP 189/93 H 09/02/24 13:16 Pulse Ox 98 09/02/24 13:16 O2 Del Method Room Air 09/02/24 13:16 Pertinent Lab Results Pertinent Lab Results: Laboratory Tests 08/30/24 08/30/24 08/30/24 16:58 19:33 20:53 WBC 12.7 H RBC 3.31 L Hgb 8.4 L Hct 25.2 L MCV 76.1 L MCH 25.4 L MCHC 33.3 RDW 13.9 Plt Count 472 H MPV 9.2 L Immature Gran % (Auto) 0.6 H Neut % (Auto) 88.9 H Lymph % (Auto) 5.1 L Owen % (Auto) 5.1 Eos % (Auto) 0.1 Baso % (Auto) 0.2 Lymph # (Auto) 0.7 L Owen # (Auto) 0.7 Eos # (Auto) 0.0 Baso # (Auto) 0.0 Abs Immat Gran (auto) 0.08 H Absolute Neuts (auto) 11.2 H Absolute Nucleated RBC 0.000 Nucleated RBC % (auto) 0.0 Smear Tech's Comments Hold Purple Top PT INR VBG pH VBG pCO2 VBG pO2 VBG HCO3 VBG O2 Saturation VBG Base Excess Sodium 132 L 136 Potassium 7.8 H* 6.6 H* Chloride 96 97 Carbon Dioxide 11 L 12 L Anion Gap 33 H 34 H BUN 189 H 184 H Creatinine 27.03 H* 23.71 H* Estim Creat Clear Calc 2.3 2.6 Estimated GFR 2 2 Random Glucose 116 H 228 H Fasting Glucose Estimat Average Glucose Hemoglobin A1c % Calcium 9.0 9.7 D Magnesium 3.5 H* 3.4 H Iron TIBC % Saturation Unsat Iron Binding Ferritin Total Bilirubin 0.9 AST 12 ALT 20 Alkaline Phosphatase 68 Troponin I High Sens 20.1 Total Protein 7.2 Albumin 3.7 Lipase 29 Carcinoembryonic Ag Total PSA Vitamin B12 Folate Urine Color Red A Urine Appearance Cloudy Urine pH 5.0 Ur Specific Donnelly 1.010 Urine Protein 100 (2+) H Urine Glucose (UA) Negative Urine Ketones Negative Urine Blood Large (3+) H Urine Nitrite Negative Ur Leukocyte Esterase Small (1+) H Urine RBC >20 H Urine WBC 21-50 H Ur Squamous Epith Cells 0-2 Urine Bacteria None Seen Hyaline Casts 3-5 08/30/24 08/31/24 09/01/24 20:57 05:10 05:57 WBC 11.2 H RBC 3.17 L Hgb 8.1 L Hct 23.8 L MCV 75.1 L MCH 25.6 L MCHC 34.0 RDW 13.7 Plt Count 487 H MPV 9.3 L Immature Gran % (Auto) 0.4 Neut % (Auto) 91.0 H Lymph % (Auto) 2.8 L Owen % (Auto) 5.7 Eos % (Auto) 0.0 Baso % (Auto) 0.1 Lymph # (Auto) 0.3 L Owen # (Auto) 0.6 Eos # (Auto) 0.0 Baso # (Auto) 0.0 Abs Immat Gran (auto) 0.04 H Absolute Neuts (auto) 10.2 H Absolute Nucleated RBC 0.000 Nucleated RBC % (auto) 0.0 Smear Tech's Comments VERIFIED Hold Purple Top SEE NOTE PT 13.9 H INR 1.2 H VBG pH 7.27 L VBG pCO2 31 VBG pO2 41 VBG HCO3 14 L VBG O2 Saturation 54.0 VBG Base Excess -11.1 Sodium 142 156 H Potassium 4.8 D 2.9 L* D Chloride 104 103 Carbon Dioxide 21 L 41 H* D Anion Gap 22 H 15 BUN 126 H 26 H Creatinine 12.91 H* 1.69 H Estim Creat Clear Calc 4.9 37.4 Estimated GFR 4 40 Random Glucose 343 H Fasting Glucose 142 H Estimat Average Glucose 94 Hemoglobin A1c % 4.9 Calcium 9.3 9.0 Magnesium Iron 22 L TIBC 223 L % Saturation 10 L Unsat Iron Binding 201 Ferritin 444 H Total Bilirubin AST ALT Alkaline Phosphatase Troponin I High Sens Total Protein Albumin Lipase Carcinoembryonic Ag 18.60 Total PSA 89.85 H Vitamin B12 815 Folate 10.6 Urine Color Urine Appearance Urine pH Ur Specific Donnelly Urine Protein Urine Glucose (UA) Urine Ketones Urine Blood Urine Nitrite Ur Leukocyte Esterase Urine RBC Urine WBC Ur Squamous Epith Cells Urine Bacteria Hyaline Casts 09/01/24 09/02/24 11:43 06:10 WBC 10.4 RBC 3.07 L Hgb 7.9 L Hct 25.4 L MCV 82.7 D MCH 25.7 L MCHC 31.1 RDW 14.6 Plt Count 477 H MPV 9.4 Immature Gran % (Auto) Neut % (Auto) Lymph % (Auto) Owen % (Auto) Eos % (Auto) Baso % (Auto) Lymph # (Auto) Owen # (Auto) Eos # (Auto) Baso # (Auto) Abs Immat Gran (auto) Absolute Neuts (auto) Absolute Nucleated RBC 0.000 Nucleated RBC % (auto) 0.0 Smear Tech's Comments Hold Purple Top PT INR VBG pH VBG pCO2 VBG pO2 VBG HCO3 VBG O2 Saturation VBG Base Excess Sodium 153 H 140 Potassium 3.6 D 3.1 L Chloride 102 99 Carbon Dioxide 39 H 32 H Anion Gap 16 12 BUN 19 H 9 Creatinine 1.46 H 1.00 Estim Creat Clear Calc 43.3 63.3 Estimated GFR 48 > 60 Random Glucose 122 H Fasting Glucose 116 H Estimat Average Glucose Hemoglobin A1c % Calcium 9.1 8.3 L D Magnesium Iron TIBC % Saturation Unsat Iron Binding Ferritin Total Bilirubin AST ALT Alkaline Phosphatase Troponin I High Sens Total Protein Albumin Lipase Carcinoembryonic Ag Total PSA Vitamin B12 Folate Urine Color Urine Appearance Urine pH Ur Specific Donnelly Urine Protein Urine Glucose (UA) Urine Ketones Urine Blood Urine Nitrite Ur Leukocyte Esterase Urine RBC Urine WBC Ur Squamous Epith Cells Urine Bacteria Hyaline Casts Airway Mallampati Class: II (one loss tooth in the back, caps, crowns, location unknown) TM Dist: >3cm Neck ROM: Full Heart: rrr Lungs: cta Assessment and Plan Assessment Anesthesia Assessment: Anesthesia Plan Discussed and Chart Reviewed Final Anesthetic Review Family History of Problems with Anesthesia: No History of Problems with Anesthesia: No NPO: Yes ASA Class: II Final Preanesthetic Review: No Changes in Pt Med Stat, Meds/Allgs Chart Reviewed and Consent Obtained/Reviewed Patient Risk: Intermediate Procedure Risk: Low Anesthetic Plan Anesthetic Plan: GA Disposition: Standard PACU
--- NOTE | 2024-09-02 14:04 | MHC.SHP ---
Pre-Procedural Eval Section A - 24 Hr Update-Section A only Date of Service: 09/02/24 The patient is an INPATIENT: Yes Changes since office visit: No Cold of Flu in the past 2 weeks, No New Medical Problems, No Changes in Medication and No Patient answered all questions The patient has been examined within 24 hours of the surgical procedure. The History & Physical has been completed within 30 days and I have reviewed it.: Yes Section B - Complete if H&P > 30 days Chief Complaint: Urinary complaints Details of Present Illness: Retention with elevated PSA - plan cystoscopy, bilateral retrograde, stent placement, prostate biopsy Allergies: Allergies Allergy/AdvReac Type Severity Reaction Status Date / Time No Known Allergies Allergy Verified 09/02/24 13:15 Plan Diagnosis/Plan: Unchanged I have reviewed the history and physical and performed a pertinent physical examination on my patient. No changes have occurred unless specified. Time Spent With Patient Time: Total time managing care of this patient today ____ minutes.
--- NOTE | 2024-09-02 15:08 | W.PM.OPN ---
Operative Note Operative Note Date of Service: 09/02/24 Narrative: PreOperative Diagnosis: 1. Bilateral hydronephrosis secondary to urinary retention 2) elevated PSA with sclerotic lesions on CT Post Operative Diagnosis: Elevated PSA with sclerotic lesions on CT, hydronephrosis resolved Procedure: - cystoscopy with bilateral retrogrades - prostate biopsy - transrectal ultrasound measurement of prostate 2. transrectal ultrasound-guided pudendal nerve block 3. transrectal ultrasound-guided prostate biopsy 12 core Surgeon: Dr Morales Carbone Anesthesia: LMA Indications for procedure: Elevated PSA 90.0, bilateral hydronephrosis Procedure: After informed consent was verified the patient was brought to the operating room and placed in a supine position. Anesthesia was administered per protocol. The patient was prepped and draped in a sterile fashion. Safety pause time-out was performed. Antibiotics being given. Patient in lithotomy. Cystoscopy with 22 cystoscope performed. Anterior and posterior urethra normal. Significantly enlarged median lobe. Difficult to find each ureteric orifice. Left ureteric orifice found. Cannulized with 4 Hebrew open-ended catheter. Retrograde examination performed. No hydronephrosis noted. Similar procedure performed on right side after right ureteric orifice was found. No evidence of persistent hydro nephrosis. No evidence of forniceal rupture. Eighteen Hebrew Flores catheter placed at completion of procedure. 15 cc in balloon. Catheter cap used. JOSUÉ was performed to dilate rectal sphincter - nodules felt bilaterally Iodine 10cc with 60 cc gel was placed per rectum to reduce infection risk using a catheter tip syringe. 8 Hz Wendy rectal end-fire ultrasound probe was placed transrectally without difficulty. The prostate was visualized. Seminal vesicles were normal. Prostate margins were clearly demarcated. Bladder was seen superiorly. No cystic structures were noted No calcifications were noted at the surgical margin The prostate was otherwise homogeneous in nature The prostate was measured in 3 dimensions Prostatic Width: 5.6 cm Prostatic Height: 4.9 cm Urethral Length: 6.7 cm Total volume equals : 97 ml An ultrasound-guided pudendal nerve block was performed using a 22 gauge spinal needle in the sagittal plane. 4 cc of 1% lidocaine placed at the junction of each seminal vesicle and 2 cc placed at the apex of the prostate. A 12 core biopsy was performed with 6 cores each side using an 18 gauge prostate biopsy gun. Two cores each were taken at the prostate apex, mid and base on each side. Cores were spaced between lateral and medial aspects. Each core was examined as placed on specimen foam as part of bottle house quality control technician to ensure a minimum 1 cm of length and minimal discontinuity. He tolerated the procedure well with minimal rectal bleeding. Blood pressure remained stable following procedure. He was able to ambulate to bathroom after 5 minutes. Printed instructions regarding antibiotic use and common adverse events from the procedure such as low-grade temperature, potential infection and bleeding were given. He understands to call the office or go to an emergency room should any of these events arise. Pathology: 12 core prostate biopsy. CPT code 26159: Transrectal ultrasound; this is a diagnostic test for evaluation of the prostate and surrounding structures, looking for abnormalities or suspicious areas worrisome for cancer CPT code 41956: Biopsy, prostate; needle or punch, single or multiple, any approach CPT code 83634: Ultrasonic guidance for needle placement (eg, biopsy, aspiration, injection, localization device), imaging supervision and interpretation
[2024-09-03] MEDS: Heparin Sodium,Porcine 5,000 UNIT/ML VIAL 5000 UNIT SUBCUT (02:59)
[2024-09-03 03:06] VITALS: BP 168/79; PULSE 80; RESP 18; TEMP 36.6; O2SAT 98
[2024-09-03 06:39] LABS: Hematocrit 25.1 % (42.0-52.0); Hemoglobin 7.9 g/dl (14.0-18.0); Mean Corpuscular HGB Conc 31.5 g/dl (31.0-36.0); Mean Corpuscular Volume 82.6 fL (80.0-98.0); Mean Platelet Volume 9.3 fL (9.4-12.4); Platelet Count 490 X10*3/uL (160-400); Red Blood Count 3.04 X10*6/uL (4.60-5.80); Red Cell Distribution Width 14.8 % (11.0-16.0); White Blood Count 16.9 X10*3/uL (4.8-10.8)
[2024-09-03 06:53] LABS: Anion Gap 12 (12-20); Blood Urea Nitrogen 14 mg/dL (9-16); Calcium 8.5 mg/dL (8.4-10.2); Carbon Dioxide 28 mmol/L (22-29); Chloride 103 mmol/L (96-108); Creatinine Clr Calc Pharmacy 55.5; Estimated Glomerular Filt Rate > 60; Glucose Fasting 108 mg/dL (60-99); Potassium 3.5 mmol/L (3.3-5.1); Sodium 139 mmol/L (135-145)
[2024-09-03 07:35] VITALS: BP 152/75; PULSE 100; RESP 20; TEMP 35.9; O2SAT 98
--- NOTE | 2024-09-03 08:25 | P.PNNP_ITS ---
Subjective Subjective Date of Service: 09/03/24 Interval history: 69 year old male with no reported medical history (reportedly has not had any medical care in some time), no home medications. presented 08/30 with difficulty urinating x7-10 days, back pain, anorexia, fatigue/malaise. CT imaging showed mild to moderate R>L hydroureteronephrosis with retroperitoneal free fluid and markedly distended bladder with enlarged prostate; sclerotic lesions noted within pelvic bony floor suspicious for metastatic prostate cancer. nephrology consulted for KIRT. creatinine 27 on 08/30 has been trending down rapidly with hernandez catheter placement, 09/02 creatinine 1.00 (unknown baseline), GFR>60. 09/03 creatinine 1.14. pt also has a metabolic alkalosis that has normalized; 09/03 serum bicarb 28 potassium low on admission 7.8; has normalized as post obstructive diuresis has slowed He reports at bedside today he feels well, feels tired he denies chest pain, difficulty breathing, abdominal pain, flank pain denies urinary pain Physical Exam 2 Vital Signs: Vital Signs: Last Vital Signs Temp 97.4 F 09/03/24 11:32 Pulse 106 H 09/03/24 11:32 Resp 20 09/03/24 11:32 BP 146/73 H 09/03/24 11:32 Pulse Ox 100 09/03/24 11:32 O2 Del Method Room Air 09/03/24 11:32 BMI result Body Mass Index 23.3 Const: General: no acute distress, alert and awake Resp: Effort & Inspection: normal respiratory effort and able to speak in complete sentences Auscultation: clear to auscultation bilaterally Cardio: Jugular venous distension: no JVD Rate: regular rate Rhythm: r egular rhythm Heart sounds: S1 normal heart sound present and S2 normal heart sound present GI: Palpation (GI): Soft to palpation and nontender : General: Yes no CVA tenderness Back/Spine/Pelvis: Back: no CVA tenderness Skin: Lesions: no lesions Rashes: no rashes Extrem: General: No edema Objective Data Labs 09/03/24 06:08 09/03/24 06:08 Labs: Laboratory Results - last 24 hr 09/03/24 06:08 WBC 16.9 H RBC 3.04 L Hgb 7.9 L Hct 25.1 L MCV 82.6 MCH 26.0 L MCHC 31.5 RDW 14.8 Plt Count 490 H MPV 9.3 L Absolute Nucleated RBC 0.000 Nucleated RBC % (auto) 0.0 Sodium 139 Potassium 3.5 Chloride 103 Carbon Dioxide 28 Anion Gap 12 BUN 14 Creatinine 1.14 Estim Creat Clear Calc 55.5 Estimated GFR > 60 Fasting Glucose 108 H Calcium 8.5 Microbiology Microbiology Results: Microbiology 08/30/24 02:31 Blood - Venous Blood Culture - Preliminary No growth after 48 hours. 08/30/24 20:47 Blood - Venous Blood Culture - Preliminary No growth after 48 hours. 08/30/24 19:33 Urine Catheterized - Hernandez Catheter Urine Culture - Final No growth. Procedures Date of Service Date of Service: 09/03/24 Assessment & Plan Assessment and plan (1) Acute renal failure: Status: Acute (2) Acute urinary retention: Status: Acute (3) Acute hyperkalemia: Status: Acute Plan KIRT secondary to urinary obstruction Resolving; alkalosis and hypokalemia have resolved. Creatinine back to likely baseline recommend continued plan through urology to address obstruction continue to avoid nephrotoxic medications continue to monitor electrolytes and renal function daily continue supportive care Discussed with Dr Mak Time Spent With Patient Time: Total time managing care of this patient today ____ minutes. Progress Note: Quality Stroke Does the patient have a stroke diagnosis?: No
--- NOTE | 2024-09-03 08:38 | HO.POSTANES ---
Post Anesthesia Evaluation Post Anesthesia Evaluation Date of Service: 09/03/24 Vital Signs: Vital Signs Temp Pulse Resp BP Pulse Ox O2 Del Method 09/03/24 07:35 96.6 F L 100 20 152/75 H 98 Room Air 09/03/24 03:06 97.8 F 80 18 168/79 H 98 Room Air 09/02/24 23:27 98.0 F 110 H 18 161/81 H 98 Room Air Anesthesia: General LMA Mental Status: Awake Pain Control: Satisfactory Nausea/Vomiting: None Hydration: Adequate Anesthesia-Related Issues: No Anes. Related Issues
--- NOTE | 2024-09-03 09:36 | HO.PM.IMPN ---
Subjective Subjective Date of Service: 09/03/24 Interval History: low back pain Physical Exam Vital Signs: Vital Signs: Last Vital Signs Temp 96.6 F L 09/03/24 07:35 Pulse 100 09/03/24 07:35 Resp 20 09/03/24 07:35 BP 152/75 H 09/03/24 07:35 Pulse Ox 98 09/03/24 07:35 O2 Del Method Room Air 09/03/24 07:35 BMI result Body Mass Index 23.3 Const: General: no acute distress, alert and awake Resp: Effort & Inspection: normal respiratory effort and able to speak in complete sentences Auscultation: clear to auscultation bilaterally Cardio: Jugular venous distension: no JVD Rate: regular rate Rhythm: regular rhythm Heart sounds: S1 normal heart sound present and S2 normal heart sound present GI: Palpation (GI): Soft to palpation and nontender : General: Yes no CVA tenderness Back/Spine/Pelvis: Back: no CVA tenderness Skin: Lesions: no lesions Rashes: no rashes Extrem: General: No edema Objective Data Active Medications Acetaminophen (Acetaminophen 325 Mg Tablet) 650 mg PO Q6H PRN PRN Reason: Pain, Mild (Pain Scale 1-3), fever or headache Last Admin: 09/02/24 08:18 Dose: 650 mg Documented By: MUKESH Amlodipine Besylate (Amlodipine Besylate 5 Mg Tablet) 5 mg PO DAILY [facility]; Protocol Last Admin: 09/02/24 10:11 Dose: 5 mg Documented By: MUKESH Bicalutamide (Bicalutamide 50 Mg Tablet) 50 mg PO TID [facility] Last Admin: 09/02/24 21:32 Dose: 50 mg Documented By: FATUMA Bisacodyl (Bisacodyl 5 Mg Tablet.) 10 mg PO ONCE ONE Stop: 09/03/24 12:01 Bisacodyl (Bisacodyl 5 Mg Tablet.) 10 mg PO ONCE ONE Stop: 09/03/24 18:01 Calcium Carbonate (Calcium Carbonate 750 Mg Tab.Chew) 750 mg PO Q4H PRN PRN Reason: Heartburn Heparin Sodium (Porcine) (Heparin Sodium,Porcine 5,000 Unit/Ml Vial) 5,000 unit SUBCUT Q8H [facility] Last Admin: 09/03/24 02:59 Dose: 5,000 unit Documented By: FATUMA Dextrose (D10) 250 mls @ 750 mls/hr IV Q15M PRN PRN Reason: per Hypoglycemia Standing Ord. Magnesium Hydroxide (Milk Of Magnesia 30 Ml Oral.Susp) 30 ml PO DAILY PRN PRN Reason: Constipation Melatonin (Melatonin 3 Mg Tablet) 6 mg PO BEDTIME PRN PRN Reason: Insomnia Morphine Sulfate (Morphine Sulfate 4 Mg/Ml Cartridge) 4 mg IVPUSH Q4H PRN; Protocol PRN Reason: Pain, Severe (Pain Scale 7-10) Last Admin: 08/30/24 23:19 Dose: 4 mg Documented By: MAGALY Ondansetron HCl (Ondansetron Hcl 4 Mg/2 Ml Vial) 4 mg IVPUSH Q8H PRN PRN Reason: Nausea and Vomiting Oxycodone HCl (Oxycodone Hcl Immed Release 5 Mg Tablet) 5 mg PO Q4H PRN PRN Reason: Pain, Moderate(Pain Scale 4-6) Last Admin: 08/31/24 21:51 Dose: 5 mg Documented By: PEPPER Polyethylene Glycol/Electrolytes (Peg 3350/Na Sulf,Bicarb,Cl/Kcl 4,000 Ml Soln.Recon) 4,000 ml PO ONCE ONE Stop: 09/03/24 15:01 Sodium Biphosphate/Sodium Phosphate (Sodium Phosphate,[place]-Dibasic 133 Ml Enema) 133 ml [place] ONCE PRN PRN Reason: Poor Colonoscopy Prep Results Sodium Chloride (0.9 % Sodium Chloride Flush 3 Ml Syringe) 3 ml IVFLUSH QSHIFT [facility] Last Admin: 09/02/24 21:32 Dose: 3 ml Documented By: FATUMA Labs 09/03/24 06:08 09/03/24 06:08 Labs: Laboratory Results - last 24 hr 09/03/24 06:08 MCV 82.6 MCH 26.0 L MCHC 31.5 RDW 14.8 Plt Count 490 H MPV 9.3 L Absolute Nucleated RBC 0.000 Nucleated RBC % (auto) 0.0 Anion Gap 12 Estim Creat Clear Calc 55.5 Estimated GFR > 60 Fasting Glucose 108 H Calcium 8.5 Assessment and Plan (1) Acute renal failure: Status: Acute Plan 69M who does not follow up with pcp and has no PMH present with urinary retention, found to have kirt, hyperkalemia, metabolic acidosis, suspicious colon and prostate KIRT complicated by acute metbaolic acidosis, hyperkalemia due to urinary obstruction from suspected prostate cancer with post obstructive diuresis followed by metabolic alkalosis and hypernatremia and hypokalemia- now all resolved continue hernandez, is and os, started casodex s/p cysto 09/02/24 - prostate biopsy monitor labs, follow up pathology colon mass with iron deficiency anemia gi appreciated - plan for egd and colonscopy 09/04/24 htn started amlodipine 5mg daily hyperglycemia due to dextrose in fluids, no DM, a1c 4.9 anemia due to inflammation, kirt, chronic iron deficiency dvt prophylaxis - mechanical due to possible gi bleed, planned biopsies full code reason for continued hospitalization: plan for egd/colonoscopy tomorrow Quality Stroke Does the patient have a stroke diagnosis?: No VTE Prior VTE?: No VTE Risk Level:: Medical - moderate - high VTE Device Contraindication: N/A - Device Ordered VTE Drug Contraindication: Treatment Not Indicated
[2024-09-03] MEDS: bisacodyL 5 MG TABLET.DR 10 MG PO ×2 (10:22→18:47)
[2024-09-03] MEDS: Bicalutamide 50 MG TABLET PO ×3 (10:22→20:07)
[2024-09-03] MEDS: 0.9 % Sodium Chloride Flush 3 ML SYRINGE IVFLUSH ×3 (10:23→20:10)
[2024-09-03] MEDS: amLODIPine Besylate 5 MG TABLET PO (10:23)
[2024-09-03 11:32] VITALS: BP 146/73; PULSE 106; RESP 20; TEMP 36.3; O2SAT 100
--- NOTE | 2024-09-03 12:33 | P.PNUR_ITS ---
Subjective Subjective Date of Service: 09/03/24 Interval history: Creatinine normal Flores in place Biopsy performed yesterday - slight white cell rise likely secondary to biopsy Planned nuclear medicine imaging today Colonoscopy tomorrow Be able to discharge on bicalutamide Physical Exam 2 Vital Signs: Vital Signs: Last Vital Signs Temp 97.4 F 09/03/24 11:32 Pulse 106 H 09/03/24 11:32 Resp 20 09/03/24 11:32 BP 146/73 H 09/03/24 11:32 Pulse Ox 100 09/03/24 11:32 O2 Del Method Room Air 09/03/24 11:32 BMI result Body Mass Index 23.3 Const: General: cooperative, healthy appearing, comfortable and no acute distress Orientation/consciousness: patient oriented x3 HEENT: Face and sinus: Yes normal facial exam Mouth: moist mucous membranes Neck: Neck: Yes normal visual inspection, Yes full ROM and Yes trachea midline Chest: Chest palpation & inspection: normal inspection of the chest Resp: Effort & Inspection: normal respiratory effort, able to speak in complete sentences and no respiratory distress GI: Inspection: Yes normal to inspection Back/Spine/Pelvis: Cervical Spine: normal cervical lordosis Thoracic/Lumbar Spine: thoracic and lumbar spine normal to inspection Skin: General skin exam: no rashes or lesions noted Neuro: General: patient oriented x3, gait normal, tone normal and moves all extremities Extrem: General: Yes normal to inspection and Yes capillary refill normal Urology Results Labs 09/03/24 06:08 09/03/24 06:08 Labs: Laboratory Results - last 24 hr 09/03/24 06:08 WBC 16.9 H RBC 3.04 L Hgb 7.9 L Hct 25.1 L MCV 82.6 MCH 26.0 L MCHC 31.5 RDW 14.8 Plt Count 490 H MPV 9.3 L Absolute Nucleated RBC 0.000 Nucleated RBC % (auto) 0.0 Sodium 139 Potassium 3.5 Chloride 103 Carbon Dioxide 28 Anion Gap 12 BUN 14 Creatinine 1.14 Estim Creat Clear Calc 55.5 Estimated GFR > 60 Fasting Glucose 108 H Calcium 8.5 Progress Note: A&P Assessment and plan (1) Elevated PSA: Status: Acute (2) Bony sclerosis: Status: Acute (3) Prostate cancer: Status: Acute Time Spent With Patient Time: Total time managing care of this patient today ____ minutes. Progress Note: Quality Stroke Does the patient have a stroke diagnosis?: No
[2024-09-03 15:53] VITALS: BP 147/78; PULSE 97; RESP 20; TEMP 36.3; O2SAT 97
[2024-09-03] MEDS: PEG 3350/Na Sulf,Bicarb,Cl/KCL 4,000 ML SOLN.RECON 4000 ML PO (15:53)
--- NOTE | 2024-09-03 18:35 | MHC.SHP ---
Pre-Procedural Eval Section A - 24 Hr Update-Section A only Date of Service: 09/04/24 The patient is an INPATIENT: Yes The patient has been examined within 24 hours of the surgical procedure. The History & Physical has been completed within 30 days and I have reviewed it.: Yes Section B - Complete if H&P > 30 days Chief Complaint: Urinary complaints Allergies: Allergies Allergy/AdvReac Type Severity Reaction Status Date / Time No Known Allergies Allergy Verified 09/02/24 13:15 Plan I have reviewed the history and physical and performed a pertinent physical examination on my patient. No changes have occurred unless specified. Time Spent With Patient Time: Total time managing care of this patient today ____ minutes.
[2024-09-03 19:25] VITALS: BP 145/74; PULSE 99; RESP 20; TEMP 36.1; O2SAT 96
[2024-09-03 23:38] VITALS: BP 160/78; PULSE 90; RESP 19; TEMP 37; O2SAT 99
[2024-09-04] VITALS (15 sets, daily range): BP systolic 119–166; BP diastolic 68–81; PULSE 90–110; RESP 15–20; TEMP 36.3–37.3; O2SAT 95–100
[2024-09-04 07:56] LABS: MANUAL DIFF FLAG NO
[2024-09-04] MEDS: amLODIPine Besylate 5 MG TABLET PO (07:59)
[2024-09-04] MEDS: Bicalutamide 50 MG TABLET PO ×3 (07:59→19:47)
[2024-09-04] MEDS: 0.9 % Sodium Chloride Flush 3 ML SYRINGE IVFLUSH (07:59)
[2024-09-04 08:01] LABS: Basophils Absolute Auto 0.1 X10*3/uL (0.0-0.2); Basophils Percent Auto 0.4 % (0-2); Eosinophils Absolute Auto 0.2 X10*3/uL (0.0-0.4); Eosinophils Percent Auto 1.9 % (0-4); Hematocrit 24.3 % (42.0-52.0); Hemoglobin 7.5 g/dl (14.0-18.0); Imm Gran Abs Auto 0.05 X10*3/uL (0.00-0.03); Imm Gran Pct Auto 0.4 % (0.0-0.4); Lymphocytes Absolute Auto 1.9 X10*3/uL (1.2-4.9); Lymphocytes Percent Auto 16.1 % (20-40); Mean Corpuscular HGB Conc 30.9 g/dl (31.0-36.0); Mean Corpuscular Hemoglobin 25.3 pg (27.0-33.0); Mean Corpuscular Volume 82.1 fL (80.0-98.0); Mean Platelet Volume 9.2 fL (9.4-12.4); Monocytes Absolute Auto 0.6 X10*3/uL (0.1-1.2); Monocytes Percent Auto 4.7 % (2-11); Neutrophils Absolute Auto 8.9 x10*3/uL (2.0-8.3); Neutrophils Percent Auto 76.5 % (45-73); Platelet Count 492 X10*3/uL (160-400); Red Blood Count 2.96 X10*6/uL (4.60-5.80); Red Cell Distribution Width 15.4 % (11.0-16.0); White Blood Count 11.7 X10*3/uL (4.8-10.8)
[2024-09-04 08:18] LABS: Blood Urea Nitrogen 12 mg/dL (9-16); Calcium 8.3 mg/dL (8.4-10.2); Creatinine Clr Calc Pharmacy 68.1; Estimated Glomerular Filt Rate > 60; Glucose Fasting 95 mg/dL (60-99)
--- NOTE | 2024-09-04 08:25 | P.PNNP_ITS ---
Subjective Subjective Date of Service: 09/04/24 Interval history: 69 year old male with no reported medical history (reportedly has not had any medical care in some time), no home medications. presented 08/30 with difficulty urinating x7-10 days, back pain, anorexia, fatigue/malaise. CT imaging showed mild to moderate R>L hydroureteronephrosis with retroperitoneal free fluid and markedly distended bladder with enlarged prostate; sclerotic lesions noted within pelvic bony floor suspicious for metastatic prostate cancer. nephrology consulted for KIRT. creatinine 27 on 08/30 has been trending down rapidly with hernandez catheter placement, 09/02 creatinine 1.00 (unknown baseline), GFR>60. 09/03 creatinine 1.14, 09/04 0.93 pt also has a metabolic alkalosis that has normalized; 09/03 serum bicarb 28 low potassium this a.m. of 2.9, improved to 3.2 with replacement orders for colonoscopy prep from 09/03 He reports at bedside today he feels well, feels tired he denies chest pain, difficulty breathing, abdominal pain, flank pain denies urinary pain Physical Exam 2 Vital Signs: Vital Signs: Last Vital Signs Temp 97.9 F 09/04/24 11:32 Pulse 102 H 09/04/24 11:32 Resp 18 09/04/24 11:32 BP 153/81 H 09/04/24 11:32 Pulse Ox 96 09/04/24 11:32 O2 Del Method Room Air 09/04/24 11:32 BMI result Body Mass Index 23.3 Const: General: no acute distress, alert and awake Resp: Effort & Inspection: normal respiratory effort and able to speak in complete sentences Auscultation: clear to auscultation bilaterally Cardio: Jugular venous distension: no JVD Rate: regular rate Rhythm: r egular rhythm Heart sounds: S1 normal heart sound present and S2 normal heart sound present GI: Palpation (GI): Soft to palpation and nontender : General: Yes no CVA tenderness Back/Spine/Pelvis: Back: no CVA tenderness Skin: Lesions: no lesions Rashes: no rashes Extrem: General: No edema Objective Data Labs 09/04/24 07:17 09/04/24 11:28 Labs: Laboratory Results - last 24 hr 09/04/24 09/04/24 07:17 11:28 WBC 11.7 H RBC 2.96 L Hgb 7.5 L Hct 24.3 L MCV 82.1 MCH 25.3 L MCHC 30.9 L RDW 15.4 Plt Count 492 H MPV 9.2 L Immature Gran % (Auto) 0.4 Neut % (Auto) 76.5 H Lymph % (Auto) 16.1 L Karnes % (Auto) 4.7 Eos % (Auto) 1.9 Baso % (Auto) 0.4 Lymph # (Auto) 1.9 Karnes # (Auto) 0.6 Eos # (Auto) 0.2 Baso # (Auto) 0.1 Abs Immat Gran (auto) 0.05 H Absolute Neuts (auto) 8.9 H Absolute Nucleated RBC 0.000 Nucleated RBC % (auto) 0.0 Sodium 144 144 Potassium 2.9 L* 3.2 L Chloride 105 105 Carbon Dioxide 27 28 Anion Gap 15 14 BUN 12 11 Creatinine 0.93 0.97 Estim Creat Clear Calc 68.1 65.3 Estimated GFR > 60 > 60 Random Glucose 97 Fasting Glucose 95 Calcium 8.3 L 8.4 Crossmatch See Detail Microbiology Microbiology Results: Microbiology 08/30/24 02:31 Blood - Venous Blood Culture - Preliminary No growth after 48 hours. 08/30/24 20:47 Blood - Venous Blood Culture - Preliminary No growth after 48 hours. 08/30/24 19:33 Urine Catheterized - Hernandez Catheter Urine Culture - Final No growth. Procedures Date of Service Date of Service: 09/04/24 Assessment & Plan Assessment and plan (1) Acute renal failure: Status: Acute (2) Acute urinary retention: Status: Acute (3) Acute hyperkalemia: Status: Acute Plan KIRT secondary to urinary obstruction Resolved; alkalosis has resolved. Creatinine back to baseline. replace potassium as needed- low K this a.m. most likely secondary to colonoscopy prep recommend continued plan through urology to address obstruction continue to avoid nephrotoxic medications continue supportive care Will follow up as needed for any new concerns or questions Discussed with Dr Mak Time Spent With Patient Time: Total time managing care of this patient today ____ minutes. Progress Note: Quality Stroke Does the patient have a stroke diagnosis?: No
[2024-09-04 08:40] LABS: Anion Gap 15 (12-20); Carbon Dioxide 27 mmol/L (22-29); Chloride 105 mmol/L (96-108); Potassium 2.9 mmol/L (3.3-5.1); Sodium 144 mmol/L (135-145)
--- NOTE | 2024-09-04 09:30 | MHC.CM.PN ---
Per MD, Patient is not yet medically cleared for dc(Colonoscopy & EGD today); home is the goal and CM will continue to follow.
[2024-09-04] MEDS: Potassium Chloride ER 20 MEQ TAB.ER.PRT 40 MEQ PO (11:09)
--- NOTE | 2024-09-04 11:24 | PC.NURSE ---
Dr. Abel updated regarding patient lab results from the floor this morning. Per Dr. Abel's orders to give postassium 40 MEQ PO and complete and type and screen prior to procedure. blood transfusion not to be started prior to procedure per dr. abel. Will updated Angela carrera RN.
--- NOTE | 2024-09-04 11:29 | HO.ANESPROP2 ---
HPI - Anesthesia Eval Consult details Narrative: 69 yo M presenting for EGD/colonoscopy. Colonic mass on imaging. Hypokalemic during this admission; potassium was 2.9 today - will replete with 40 mEq PO prior to procedure. ON LICENSE OF [facility] Active Problems Active Problems: All Active Problems Prostate cancer (Acute) Bony sclerosis (Acute) Elevated PSA (Acute) Hypermagnesemia (Acute) Acute hyperkalemia (Acute) Acute renal failure (Acute) Acute urinary retention (Acute) Family History Family history of problems with anesthesia: No Surgical History Surgical History (Updated 09/02/24 @ 13:15 by Lucia Bajwa RN) No pertinent past surgical history History of Problems with Anesthesia: No Social History Social History Household Members: None Are you a primary medicare compliance auditor to a significant other at home: No Do you presently have visiting nurse or other home services: No Patient Tobacco Use Status: Former Tobacco user Tobacco use type: Cigarette Years Smoked: 20 Advance Directives Date on File: 09/01/24 service: No Meds Allergies Allergy/AdvReac Type Severity Reaction Status Date / Time No Known Allergies Allergy Verified 09/02/24 13:15 Active Medications: Current Medications Acetaminophen (Acetaminophen 325 Mg Tablet) 650 mg PO Q6H PRN PRN Reason: Pain, Mild (Pain Scale 1-3), fever or headache Last Admin: 09/02/24 08:18 Dose: 650 mg Amlodipine Besylate (Amlodipine Besylate 5 Mg Tablet) 5 mg PO DAILY WM; Protocol Last Admin: 09/04/24 07:59 Dose: 5 mg Bicalutamide (Bicalutamide 50 Mg Tablet) 50 mg PO TID WM Last Admin: 09/04/24 07:59 Dose: 50 mg Calcium Carbonate (Calcium Carbonate 750 Mg Tab.Chew) 750 mg PO Q4H PRN PRN Reason: Heartburn Dextrose (D10) 250 mls @ 750 mls/hr IV Q15M PRN PRN Reason: per Hypoglycemia Standing Ord. Potassium Chloride (Potassium Chloride/H20) 10 meq in 100 mls @ 100 mls/hr IV Q1H WM Stop: 09/04/24 14:59 Lactated Ringer's (Lr) 1,000 mls @ 50 mls/hr IVCONT .Q20H WM Magnesium Hydroxide (Milk Of Magnesia 30 Ml Oral.Susp) 30 ml PO DAILY PRN PRN Reason: Constipation Melatonin (Melatonin 3 Mg Tablet) 6 mg PO BEDTIME PRN PRN Reason: Insomnia Morphine Sulfate (Morphine Sulfate 4 Mg/Ml Cartridge) 4 mg IVPUSH Q4H PRN; Protocol PRN Reason: Pain, Severe (Pain Scale 7-10) Last Admin: 08/30/24 23:19 Dose: 4 mg Ondansetron HCl (Ondansetron Hcl 4 Mg/2 Ml Vial) 4 mg IVPUSH Q8H PRN PRN Reason: Nausea and Vomiting Oxycodone HCl (Oxycodone Hcl Immed Release 5 Mg Tablet) 5 mg PO Q4H PRN PRN Reason: Pain, Moderate(Pain Scale 4-6) Last Admin: 08/31/24 21:51 Dose: 5 mg Sodium Biphosphate/Sodium Phosphate (Sodium Phosphate,[place]-Dibasic 133 Ml Enema) 133 ml [place] ONCE PRN PRN Reason: Poor Colonoscopy Prep Results Sodium Chloride (0.9 % Sodium Chloride Flush 3 Ml Syringe) 3 [facility] Last Admin: 09/04/24 07:59 Dose: 3 ml Home Medications ?Medication ?Instructions ?Recorded ?Confirmed ?Last Taken ?Type No Known Home Meds 08/30/24 09/02/24 Unknown History Exam Exam Date and Time: Height 5 ft 7 in Weight 67.6 kg Vital Signs Temperature 97.6 F 08/30/24 16:41 Pulse Rate 113 H 08/30/24 16:41 Respiratory Rate 16 08/30/24 16:41 Blood Pressure 168/91 H 08/30/24 16:41 Pulse Oximetry 100 08/30/24 16:41 Oxygen Delivery Method Room Air 08/30/24 16:41 Temperature 98.4 F 09/04/24 07:33 Pulse Rate 105 H 09/04/24 07:33 Respiratory Rate 20 09/04/24 07:33 Blood Pressure 161/79 H 09/04/24 07:59 Pulse Oximetry 98 09/04/24 07:33 Oxygen Delivery Method Room Air 09/04/24 07:33 Height,Weight and Vital Signs: Height 5 ft 7 in Weight 67.6 kg Last Vital Signs Temp 98.4 F 09/04/24 07:33 Pulse 105 H 09/04/24 07:33 Resp 20 09/04/24 07:33 BP 161/79 H 09/04/24 07:59 Pulse Ox 98 09/04/24 07:33 O2 Del Method Room Air 09/04/24 07:33 Pertinent Lab Results Pertinent Lab Results: Laboratory Tests 08/30/24 08/30/24 08/30/24 16:58 19:33 20:53 WBC 12.7 H RBC 3.31 L Hgb 8.4 L Hct 25.2 L MCV 76.1 L MCH 25.4 L MCHC 33.3 RDW 13.9 Plt Count 472 H MPV 9.2 L Immature Gran % (Auto) 0.6 H Neut % (Auto) 88.9 H Lymph % (Auto) 5.1 L [place] % (Auto) 5.1 Eos % (Auto) 0.1 Baso % (Auto) 0.2 Lymph # (Auto) 0.7 L [place] # (Auto) 0.7 Eos # (Auto) 0.0 Baso # (Auto) 0.0 Abs Immat Gran (auto) 0.08 H Absolute Neuts (auto) 11.2 H Absolute Nucleated RBC 0.000 Nucleated RBC % (auto) 0.0 Smear Tech's Comments Hold Purple Top PT INR VBG pH VBG pCO2 VBG pO2 VBG HCO3 VBG O2 Saturation VBG Base Excess Sodium 132 L 136 Potassium 7.8 H* 6.6 H* Chloride 96 97 Carbon Dioxide 11 L 12 L Anion Gap 33 H 34 H BUN 189 H 184 H Creatinine 27.03 H* 23.71 H* Estim Creat Clear Calc 2.3 2.6 Estimated GFR 2 2 Random Glucose 116 H 228 H Fasting Glucose Estimat Average Glucose Hemoglobin A1c % Calcium 9.0 9.7 D Magnesium 3.5 H* 3.4 H Iron TIBC % Saturation Unsat Iron Binding Ferritin Total Bilirubin 0.9 AST 12 ALT 20 Alkaline Phosphatase 68 Troponin I High Sens 20.1 Total Protein 7.2 Albumin 3.7 Lipase 29 Carcinoembryonic Ag Total PSA Vitamin B12 Folate Urine Color Red A Urine Appearance Cloudy Urine pH 5.0 Ur Specific [place] 1.010 Urine Protein 100 (2+) H Urine Glucose (UA) Negative Urine Ketones Negative Urine Blood Large (3+) H Urine Nitrite Negative Ur Leukocyte Esterase Small (1+) H Urine RBC >20 H Urine WBC 21-50 H Ur Squamous Epith Cells 0-2 Urine Bacteria None Seen Hyaline Casts 3-5 08/30/24 08/31/24 09/01/24 20:57 05:10 05:57 WBC 11.2 H RBC 3.17 L Hgb 8.1 L Hct 23.8 L MCV 75.1 L MCH 25.6 L MCHC 34.0 RDW 13.7 Plt Count 487 H MPV 9.3 L Immature Gran % (Auto) 0.4 Neut % (Auto) 91.0 H Lymph % (Auto) 2.8 L [place] % (Auto) 5.7 Eos % (Auto) 0.0 Baso % (Auto) 0.1 Lymph # (Auto) 0.3 L [place] # (Auto) 0.6 Eos # (Auto) 0.0 Baso # (Auto) 0.0 Abs Immat Gran (auto) 0.04 H Absolute Neuts (auto) 10.2 H Absolute Nucleated RBC 0.000 Nucleated RBC % (auto) 0.0 Smear Tech's Comments VERIFIED Hold Purple Top SEE NOTE PT 13.9 H INR 1.2 H VBG pH 7.27 L VBG pCO2 31 VBG pO2 41 VBG HCO3 14 L VBG O2 Saturation 54.0 VBG Base Excess -11.1 Sodium 142 156 H Potassium 4.8 D 2.9 L* D Chloride 104 103 Carbon Dioxide 21 L 41 H* D Anion Gap 22 H 15 BUN 126 H 26 H Creatinine 12.91 H* 1.69 H Estim Creat Clear Calc 4.9 37.4 Estimated GFR 4 40 Random Glucose 343 H Fasting Glucose 142 H Estimat Average Glucose 94 Hemoglobin A1c % 4.9 Calcium 9.3 9.0 Magnesium Iron 22 L TIBC 223 L % Saturation 10 L Unsat Iron Binding 201 Ferritin 444 H Total Bilirubin AST ALT Alkaline Phosphatase Troponin I High Sens Total Protein Albumin Lipase Carcinoembryonic Ag 18.60 Total PSA 89.85 H Vitamin B12 815 Folate 10.6 Urine Color Urine Appearance Urine pH Ur Specific [place] Urine Protein Urine Glucose (UA) Urine Ketones Urine Blood Urine Nitrite Ur Leukocyte Esterase Urine RBC Urine WBC Ur Squamous Epith Cells Urine Bacteria Hyaline Casts 09/01/24 09/02/24 09/03/24 11:43 06:10 06:08 WBC 10.4 16.9 H RBC 3.07 L 3.04 L Hgb 7.9 L 7.9 L Hct 25.4 L 25.1 L MCV 82.7 D 82.6 MCH 25.7 L 26.0 L MCHC 31.1 31.5 RDW 14.6 14.8 Plt Count 477 H 490 H MPV 9.4 9.3 L Immature Gran % (Auto) Neut % (Auto) Lymph % (Auto) [place] % (Auto) Eos % (Auto) Baso % (Auto) Lymph # (Auto) [place] # (Auto) Eos # (Auto) Baso # (Auto) Abs Immat Gran (auto) Absolute Neuts (auto) Absolute Nucleated RBC 0.000 0.000 Nucleated RBC % (auto) 0.0 0.0 Smear Tech's Comments Hold Purple Top PT INR VBG pH VBG pCO2 VBG pO2 VBG HCO3 VBG O2 Saturation VBG Base Excess Sodium 153 H 140 139 Potassium 3.6 D 3.1 L 3.5 Chloride 102 99 103 Carbon Dioxide 39 H 32 H 28 Anion Gap 16 12 12 BUN 19 H 9 14 Creatinine 1.46 H 1.00 1.14 Estim Creat Clear Calc 43.3 63.3 55.5 Estimated GFR 48 > 60 > 60 Random Glucose 122 H Fasting Glucose 116 H 108 H Estimat Average Glucose Hemoglobin A1c % Calcium 9.1 8.3 L D 8.5 Magnesium Iron TIBC % Saturation Unsat Iron Binding Ferritin Total Bilirubin AST ALT Alkaline Phosphatase Troponin I High Sens Total Protein Albumin Lipase Carcinoembryonic Ag Total PSA Vitamin B12 Folate Urine Color Urine Appearance Urine pH Ur Specific [place] Urine Protein Urine Glucose (UA) Urine Ketones Urine Blood Urine Nitrite Ur Leukocyte Esterase Urine RBC Urine WBC Ur Squamous Epith Cells Urine Bacteria Hyaline Casts 09/04/24 07:17 WBC 11.7 H RBC 2.96 L Hgb 7.5 L Hct 24.3 L MCV 82.1 MCH 25.3 L MCHC 30.9 L RDW 15.4 Plt Count 492 H MPV 9.2 L Immature Gran % (Auto) 0.4 Neut % (Auto) 76.5 H Lymph % (Auto) 16.1 L [place] % (Auto) 4.7 Eos % (Auto) 1.9 Baso % (Auto) 0.4 Lymph # (Auto) 1.9 [place] # (Auto) 0.6 Eos # (Auto) 0.2 Baso # (Auto) 0.1 Abs Immat Gran (auto) 0.05 H Absolute Neuts (auto) 8.9 H Absolute Nucleated RBC 0.000 Nucleated RBC % (auto) 0.0 Smear Tech's Comments Hold Purple Top PT INR VBG pH VBG pCO2 VBG pO2 VBG HCO3 VBG O2 Saturation VBG Base Excess Sodium 144 Potassium 2.9 L* Chloride 105 Carbon Dioxide 27 Anion Gap 15 BUN 12 Creatinine 0.93 Estim Creat Clear Calc 68.1 Estimated GFR > 60 Random Glucose Fasting Glucose 95 Estimat Average Glucose Hemoglobin A1c % Calcium 8.3 L Magnesium Iron TIBC % Saturation Unsat Iron Binding Ferritin Total Bilirubin AST ALT Alkaline Phosphatase Troponin I High Sens Total Protein Albumin Lipase Carcinoembryonic Ag Total PSA Vitamin B12 Folate Urine Color Urine Appearance Urine pH Ur Specific [place] Urine Protein Urine Glucose (UA) Urine Ketones Urine Blood Urine Nitrite Ur Leukocyte Esterase Urine RBC Urine WBC Ur Squamous Epith Cells Urine Bacteria Hyaline Casts Airway Mallampati Class: I TM Dist: >3cm Neck ROM: Full Loose/Missing/Broken Teeth: No (Patient denies any loose or broken teeth) Heart: S1S2 Lungs: CTAB Assessment and Plan Assessment Anesthesia Assessment: Anesthesia Plan Discussed and Chart Reviewed Final Anesthetic Review Family History of Problems with Anesthesia: No History of Problems with Anesthesia: No NPO: Yes ASA Class: III Final Preanesthetic Review: No Changes in Pt Med Stat, Meds/Allgs Chart Reviewed, Consent Obtained/Reviewed and Anes Risks/Benef Reviewed Patient Risk: Intermediate Procedure Risk: Low Anesthetic Plan Anesthetic Plan: MAC: and Agree w/ Assess. and Plan Disposition: Standard PACU
--- NOTE | 2024-09-04 11:37 | PC.NURSE ---
Patient was here earlier in the week and PAT questions were completed.
[2024-09-04 11:48] LABS: Anion Gap 14 (12-20); Blood Urea Nitrogen 11 mg/dL (9-16); Calcium 8.4 mg/dL (8.4-10.2); Carbon Dioxide 28 mmol/L (22-29); Chloride 105 mmol/L (96-108); Creatinine Clr Calc Pharmacy 65.3; Estimated Glomerular Filt Rate > 60; Glucose Random 97 mg/dL (60-115); Potassium 3.2 mmol/L (3.3-5.1); Sodium 144 mmol/L (135-145)
[2024-09-04] MEDS: Lactated Ringers 1,000 ML 50 ML IVCONT (11:55)
--- NOTE | 2024-09-04 12:07 | PC.NURSE ---
Angela Anguiano RN of patient updated that [id number] MEQ Po was given and type and screen drawn in sss and that was all that was ordered by Dr. Abel and completed preop.
--- NOTE | 2024-09-04 14:17 | HO.PM.IMPN ---
Subjective Subjective Date of Service: 09/04/24 Interval History: seen and evaluated this morning No bleeding reported Hb of 7.5 EGD and Colonoscopy done showing ascending colon mass no other events Review of Systems Review of Systems: Yes all other systems are reviewed and are negative Physical Exam Vital Signs: Vital Signs: Last Vital Signs Temp 97.3 F 09/04/24 13:18 Pulse 104 H 09/04/24 13:45 Resp 16 09/04/24 13:45 BP 134/76 09/04/24 13:45 Pulse Ox 98 09/04/24 13:45 O2 Del Method Room Air 09/04/24 13:45 BMI result Body Mass Index 23.3 Const: Other: Constitutional : interactive, not in distress Cardiovascular : no JVP, no lower extremity edema Respiratory : bilateral chest movement, not in resp distress Gastrointestinal: soft, lax, Non tender Skin : Warm, Dry Neurological : Alert & oriented , No focal deficit Objective Data Active Medications Acetaminophen (Acetaminophen 325 Mg Tablet) 650 mg PO Q6H PRN PRN Reason: Pain, Mild (Pain Scale 1-3), fever or headache Last Admin: 09/02/24 08:18 Dose: 650 mg Documented By: MUKESH Amlodipine Besylate (Amlodipine Besylate 5 Mg Tablet) 5 mg PO DAILY [facility]; Protocol Last Admin: 09/04/24 07:59 Dose: 5 mg Documented By: LORENE Bicalutamide (Bicalutamide 50 Mg Tablet) 50 mg PO TID [facility] Last Admin: 09/04/24 07:59 Dose: 50 mg Documented By: LORENE Calcium Carbonate (Calcium Carbonate 750 Mg Tab.Chew) 750 mg PO Q4H PRN PRN Reason: Heartburn Dextrose (D10) 250 mls @ 750 mls/hr IV Q15M PRN PRN Reason: per Hypoglycemia Standing Ord. Potassium Chloride (Potassium Chloride/H20) 10 meq in 100 mls @ 100 mls/hr IV Q1H [facility] Stop: 09/04/24 14:59 Lactated Ringer's (Lr) 1,000 mls @ 50 mls/hr IVCONT .Q20H [facility] Last Admin: 09/04/24 11:55 Dose: 50 mls/hr Documented By: TEE Magnesium Hydroxide (Milk Of Magnesia 30 Ml Oral.Susp) 30 ml PO DAILY PRN PRN Reason: Constipation Melatonin (Melatonin 3 Mg Tablet) 6 mg PO BEDTIME PRN PRN Reason: Insomnia Morphine Sulfate (Morphine Sulfate 4 Mg/Ml Cartridge) 4 mg IVPUSH Q4H PRN; Protocol PRN Reason: Pain, Severe (Pain Scale 7-10) Last Admin: 08/30/24 23:19 Dose: 4 mg Documented By: MAGALY Naloxone HCl (Naloxone Hcl 0.4 Mg/Ml Vial) 0.04 mg IVPUSH Q5M PRN PRN Reason: Excessive sedation or RR < 8 Ondansetron HCl (Ondansetron Hcl 4 Mg/2 Ml Vial) 4 mg IVPUSH Q8H PRN PRN Reason: Nausea and Vomiting Oxycodone HCl (Oxycodone Hcl Immed Release 5 Mg Tablet) 5 mg PO Q4H PRN PRN Reason: Pain, Moderate(Pain Scale 4-6) Last Admin: 08/31/24 21:51 Dose: 5 mg Documented By: PEPPER Sodium Biphosphate/Sodium Phosphate (Sodium Phosphate,[place]-Dibasic 133 Ml Enema) 133 ml [place] ONCE PRN PRN Reason: Poor Colonoscopy Prep Results Sodium Chloride (0.9 % Sodium Chloride Flush 3 Ml Syringe) 3 ml IVFLUSH QSHIFT [facility] Last Admin: 09/04/24 07:59 Dose: 3 ml Documented By: LORENE Labs 09/04/24 07:17 09/04/24 11:28 Labs: Laboratory Results - last 24 hr 09/04/24 09/04/24 07:17 11:28 MCV 82.1 MCH 25.3 L MCHC 30.9 L RDW 15.4 Plt Count 492 H MPV 9.2 L Immature Gran % (Auto) 0.4 Neut % (Auto) 76.5 H Lymph % (Auto) 16.1 L [place] % (Auto) 4.7 Eos % (Auto) 1.9 Baso % (Auto) 0.4 Lymph # (Auto) 1.9 [place] # (Auto) 0.6 Eos # (Auto) 0.2 Baso # (Auto) 0.1 Abs Immat Gran (auto) 0.05 H Absolute Neuts (auto) 8.9 H Absolute Nucleated RBC 0.000 Nucleated RBC % (auto) 0.0 Anion Gap 15 14 Estim Creat Clear Calc 68.1 65.3 Estimated GFR > 60 > 60 Random Glucose 97 Fasting Glucose 95 Calcium 8.3 L 8.4 Blood Type O Positive Antibody Screen NEGATIVE Crossmatch See Detail Assessment and Plan (1) Prostate cancer: Status: Acute (2) Bony sclerosis: Status: Acute (3) Acute urinary retention: Status: Acute (4) Acute renal failure: Status: Acute (5) Colon cancer, ascending: Status: Acute Plan 69M who does not follow up with pcp and has no PMH present with urinary retention, found to have domenico, hyperkalemia, metabolic acidosis, suspicious colon and prostate DOMENICO complicated by acute metbaolic acidosis, hyperkalemia due to urinary obstruction from suspected prostate cancer with post obstructive diuresis followed by metabolic alkalosis and hypernatremia and hypokalemia- now all resolved creatinine improved to baseline continue hernandez, started casodex Urology and nephrology input appreciated s/p cysto 09/02/24 - prostate biopsy monitor labs, follow up pathology ascending colon mass with acute on chronic blood loss anemia due to inflammation, domenico, chronic iron loss transfuse 2 units of blood Iron supplement gi appreciated - plan for egd and colonscopy done showing ascending colon mass Surgery consult plan for outpatient htn started amlodipine 5mg daily hyperglycemia due to dextrose in fluids, no DM, a1c 4.9 dvt prophylaxis - mechanical full code reason for continued hospitalization: monitor Hb , blood transfusion and pending surgery consult Quality Stroke Does the patient have a stroke diagnosis?: No VTE Prior VTE?: No VTE Risk Level:: Medical - moderate - high VTE Device Contraindication: N/A - Device Ordered VTE Drug Contraindication: Treatment Not Indicated
--- NOTE | 2024-09-04 14:23 | P.BOP_ITS ---
Brief Operative Note Date of Service: 09/04/24 Pre-op diagnosis: Anemia, abnormal CT of abdomen Post-op diagnosis: other (Ascending colon mass, Colon polyps, Hiatal hernia) Procedure: EGD, Colonoscopy to the cecum with biopsies and hot snare polypectomy x 2 Surgeon: Babak Mooney MD Anesthesia: MAC Was an Communications Equipment Operator used for this Procedure?: No Estimated blood loss (mL): 2.0 Pathology: other (A. Ascending colon mass B. Polyp at 40cm C. Polyp at 20cm) Condition: stable Disposition: PACU
--- NOTE | 2024-09-04 14:27 | PM.EVENT ---
Event Note Date of Service: 09/04/24 Event Note: GI-Full note dictated Findings: EGD-Small hiatal hernia, otherwise WNL Colonoscopy to the cecum 1. Ulcerated noncircumferential and nonobstructing mass in the proximal ascending colon c/w carcinoma. Biopsies taken. 2. !.2cm polyp at 40cm and 1.0cm polyp at 20cm removed by hot snare polypectomy 3. Diverticulosis 4. Internal hemorrhoids Plan: Check path. Transfuse 2 units PRBC's before discharge. F/U labs in the AM. I spoke with Dr. Doherty and he said he will see him today to review things. The plan will be for him to come back as an outpatient in the near future for surgery. I reviewed all of this with Ortiz in detail. Thanks Time Spent With Patient Time: Total time managing care of this patient today ____ minutes.
--- NOTE | 2024-09-04 14:50 | PM.CNGS ---
History of Present Illness Consult details Consult date: 09/04/24 Narrative: 69-year-old male admitted via the ER on 08/30/2024 because of urinary retention. He admits to having had a long history of frequent leak getting up at night to void. However, recently, this had been worsening and he says that last week, he was unable to void and had subsequent lower abdominal pain. He came into the ER that time with electrolyte problems, pain, hypertension and acute kidney injury. His creatinine then was 12. He had what appeared to be returned to normal perforation of the bladder from obstructive uropathy. He therefore was admitted and underwent cystoscopy showing this prostate tumor consistent with prostate cancer . He has sclerotic lesions in the pelvis consistent with metastatic disease from the prostate. He has had a Flores catheter since and he feels much better. However, his CAT scan also showed this mass in the right colon. He had anemia with a hemoglobin of 8.4 on admission. He underwent colonoscopy with Dr. Mooney and this showed a tumor in the right colon consistent with colon cancer. He denies any abdominal pain. Review of Systems Constitutional: Constitutional: Denies chills and Denies fever(s) Cardiovascular: Cardiovascular: Denies chest pain, Denies dyspnea and Denies dyspnea on exertion Respiratory: Respiratory: Denies cough, Denies dyspnea and Denies dyspnea on exertion Gastrointestinal: Gastrointestinal: Denies hematochezia and Denies change in bowel habits Genitourinary: Genitourinary: Denies hematuria and Reports difficulty urinating Musculoskeletal: Musculoskeletal: Denies back pain and Denies limited range of motion Neurologic: Denies focal weakness and Denies convulsions Psychiatric: Psychiatric: Denies depression and Denies mood swings [facility] Past Medical History Medical History (Updated 09/04/24 @ 14:40 by Rohith Sharma MD) Hypertension Hx of endocrine hypertension Prostate cancer Surgical History Surgical History Hx of cystoscopy Social History Social History Household Members: None Are you a primary acute care registered nurse to a significant other at home: No Do you presently have visiting nurse or other home services: No Patient Tobacco Use Status: Former Tobacco user Tobacco use type: Cigarette Years Smoked: 20 Advance Directives Date on File: 09/01/24 service: No Meds Allergies Allergy/AdvReac Type Severity Reaction Status Date / Time No Known Allergies Allergy Verified 09/02/24 13:15 Active Medications: Current Medications Acetaminophen (Acetaminophen 325 Mg Tablet) 650 mg PO Q6H PRN PRN Reason: Pain, Mild (Pain Scale 1-3), fever or headache Last Admin: 09/02/24 08:18 Dose: 650 mg Amlodipine Besylate (Amlodipine Besylate 5 Mg Tablet) 5 mg PO DAILY [facility]; Protocol Last Admin: 09/04/24 07:59 Dose: 5 mg Bicalutamide (Bicalutamide 50 Mg Tablet) 50 mg PO TID [facility] Last Admin: 09/04/24 07:59 Dose: 50 mg Calcium Carbonate (Calcium Carbonate 750 Mg Tab.Chew) 750 mg PO Q4H PRN PRN Reason: Heartburn Ferrous Sulfate (Ferrous Sulfate 324 Mg Tablet.Dr) 324 mg PO BIDWM [facility] Dextrose (D10) 250 mls @ 750 mls/hr IV Q15M PRN PRN Reason: per Hypoglycemia Standing Ord. Lactated Ringer's (Lr) 1,000 mls @ 50 mls/hr IVCONT .Q20H [facility] Last Admin: 09/04/24 11:55 Dose: 50 mls/hr Potassium Chloride (Potassium Chloride/H20) 10 meq in 100 mls @ 100 mls/hr IV Q1H [facility] Stop: 09/04/24 18:59 Magnesium Hydroxide (Milk Of Magnesia 30 Ml Oral.Susp) 30 ml PO DAILY PRN PRN Reason: Constipation Melatonin (Melatonin 3 Mg Tablet) 6 mg PO BEDTIME PRN PRN Reason: Insomnia Morphine Sulfate (Morphine Sulfate 4 Mg/Ml Cartridge) 4 mg IVPUSH Q4H PRN; Protocol PRN Reason: Pain, Severe (Pain Scale 7-10) Last Admin: 08/30/24 23:19 Dose: 4 mg Naloxone HCl (Naloxone Hcl 0.4 Mg/Ml Vial) 0.04 mg IVPUSH Q5M PRN PRN Reason: Excessive sedation or RR < 8 Ondansetron HCl (Ondansetron Hcl 4 Mg/2 Ml Vial) 4 mg IVPUSH Q8H PRN PRN Reason: Nausea and Vomiting Oxycodone HCl (Oxycodone Hcl Immed Release 5 Mg Tablet) 5 mg PO Q4H PRN PRN Reason: Pain, Moderate(Pain Scale 4-6) Last Admin: 08/31/24 21:51 Dose: 5 mg Sodium Chloride (0.9 % Sodium Chloride Flush 3 Ml Syringe) 3 ml IVFLUSH QSHIFT [facility] Last Admin: 09/04/24 07:59 Dose: 3 ml Physical Exam Vital Signs: Vital Signs: Last Vital Signs Temp 97.3 F 09/04/24 13:18 Pulse 104 H 09/04/24 13:45 Resp 16 09/04/24 13:45 BP 134/76 09/04/24 13:45 Pulse Ox 98 09/04/24 13:45 O2 Del Method Room Air 09/04/24 13:45 BMI result Body Mass Index 23.3 Const: General: comfortable and no acute distress Orientation/consciousness: patient oriented x3 Neck: Neck: Yes no lymphadenopathy Resp: Auscultation: clear to auscultation bilaterally Cardio: Rhythm: regular rhythm GI: Palpation (GI): Soft to palpation, nontender and no guarding : Other: Flores catheter in place Neuro: General: patient oriented x3 Results Labs 09/05/24 05:39 09/05/24 05:39 Labs: Abnormal lab results 09/04/24 09/04/24 Range/Units 07:17 11:28 WBC 11.7 H (4.8-10.8) X10*3/uL RBC 2.96 L (4.60-5.80) X10*6/uL Hgb 7.5 L (14.0-18.0) g/dl Hct 24.3 L (42.0-52.0) % MCH 25.3 L (27.0-33.0) pg MCHC 30.9 L (31.0-36.0) g/dl Plt Count 492 H (160-400) X10*3/uL MPV 9.2 L (9.4-12.4) fL Neut % (Auto) 76.5 H (45-73) % Lymph % (Auto) 16.1 L (20-40) % Abs Immat Gran (auto) 0.05 H (0.00-0.03) X10*3/uL Absolute Neuts (auto) 8.9 H (2.0-8.3) x10*3/uL Potassium 2.9 L* 3.2 L (3.3-5.1) mmol/L Calcium 8.3 L (8.4-10.2) mg/dL Crossmatch See Detail Short CBC 09/04/24 Range/Units 07:17 WBC 11.7 H (4.8-10.8) X10*3/uL Hgb 7.5 L (14.0-18.0) g/dl Hct 24.3 L (42.0-52.0) % Plt Count 492 H (160-400) X10*3/uL BMP 09/04/24 09/04/24 07:17 11:28 Sodium 144 144 Potassium 2.9 L* 3.2 L Chloride 105 105 Carbon Dioxide 27 28 BUN 12 11 Creatinine 0.93 0.97 Calcium 8.3 L 8.4 Urine 08/30/24 Range/Units 19:33 Urine Color Red A Urine Appearance Cloudy Urine pH 5.0 (5.0-9.0) Ur Specific [place] 1.010 (1.005-1.025) Urine Protein 100 (2+) H (Neg-Trace) mg/dL Urine Glucose (UA) Negative (Negative) mg/dL All other labs normal. Assessment and Plan (1) Colon cancer, ascending: Status: Acute He has a right colon mass seen on CT scan as well as on colonoscopy. Biopsies of this are still pending. However this appears to be consistent with adenocarcinoma of the ascending colon. His anemia is likely secondary to slow blood loss from this tumor in the colon. I had a long discussion with him about the benefits of proceeding with right colon resection. I explained the technique of hand assisted laparoscopic right colon resection with possible open resection. I reviewed the risks including but not limited to bleeding, infections, anastomotic leak, injury to other organs including the bladder and the urinary tract, blood clots, pneumonia, DE, as well as the benefits and alternatives. He currently is being managed for urinary retention secondary to what appeared to be prostate cancer with metastasis to the bone. He is getting transfused while in the hospital. His PSA is 90. He may be discharged from the hospital and I will schedule him for right colon resection as a same-day procedure once he is medically stable. His creatinine is now down to 1.7. He understands the plan well. Procedures Date of Service Date of Service: 09/10/24
[2024-09-04] MEDS: Potassium Chloride/H20 10 MEQ/100 ML PIGGYBACK 100 MEQ IV ×4 (15:17→21:31)
[2024-09-04] MEDS: Ferrous Sulfate 324 MG TABLET.DR PO (18:22)
[2024-09-05 00:22] VITALS: BP 150/70; PULSE 94; RESP 16; TEMP 37.1
[2024-09-05] MEDS: 0.9 % Sodium Chloride Flush 3 ML SYRINGE IVFLUSH ×4 (00:23→20:20)
--- NOTE | 2024-09-05 02:17 | OP_ITS ---
DATE OF SERVICE: 09/04/2024 SURGEON: Babak Mooney MD INDICATIONS: The patient presents for evaluation of iron deficiency anemia and abnormal CT scan of colon. Full consent was obtained from him for this, including risks of bleeding and perforation. PREOPERATIVE DIAGNOSIS: POSTOPERATIVE DIAGNOSIS: PROCEDURE PERFORMED: Esophagogastroduodenoscopy and colonoscopy to the cecum with biopsies and hot snare polypectomy x2. ESTIMATED BLOOD LOSS: COMPLICATIONS: ANESTHESIA: Medication used, monitored anesthesia care. ASSISTANTS: SPECIMENS: PREOPERATIVE DIAGNOSES: Iron deficiency anemia and abnormal CT scan of colon. POSTOPERATIVE DIAGNOSES: Iron deficiency anemia, abnormal CT scan of colon, small hiatal hernia, colon mass in ascending colon, colon polyps, diverticulosis, and internal hemorrhoids. DESCRIPTION OF PROCEDURE: The patient was placed in the left lateral decubitus position. The Olympus video gastroscope was passed in the posterior oropharynx and upper esophagus under direct vision. The scope was passed slowly to the distal esophagus. The gastroesophageal junction appeared normal at 38 cm. There was no sign of any esophagitis. The scope entered the stomach. There was a small hiatal hernia. The scope was advanced to pylorus and the duodenum was cannulated to the descending portion. The duodenum including the bulb appeared normal without mass or ulceration. The scope was withdrawn back to the stomach. The gastric antrum and body appeared normal with good peristalsis. The scope was retroflexed visualizing the proximal stomach carefully, which appeared normal, without any sign of mass or ulceration. The scope was straightened and withdrawn back to the esophagus. The esophageal mucosa appeared normal. Scope was withdrawn from the patient. He was turned around for colonoscopy. The digital rectal exam revealed no abnormalities. The Olympus video pediatric colonoscope was entered into the rectum advanced easily to the cecum. Once in the cecum I did identify normal-appearing cecal pouch with appendiceal orifice and a normal-appearing ileocecal valve. The entire cecum and ileocecal valve appeared normal. The scope was slowly withdrawn assessing all mucosal surfaces carefully. Preparation was excellent. In the region of the proximal ascending colon just 2 or 3 folds distal to the cecum, was an ulcerated friable lesion consistent with carcinoma. This was not obstructing and not circumferential. Multiple biopsies were obtained from it. It was quite firm and friable. At 40 cm, was an approximately 1.2 cm polyp on a short stalk which was removed by hot snare polypectomy and recovered by withdrawing on the tip of the scope. The scope was advanced back to the polypectomy site which appeared clean, without any sign of residual polyp nor bleeding. At 20 cm was an approximately 1 cm polyp, which was removed by hot snare polypectomy and recovered by suction. The polypectomy site appeared clean, without any sign of residual polyp nor bleeding. I did not visualize any other polyps, colitis, nor angiodysplasia. There was a mild amount of sigmoid diverticulosis. In the rectum, scope was retroflexed visualizing internal hemorrhoids, but no other pathology. The rectal mucosa appeared normal. The scope was straightened and withdrawn from the patient. He tolerated both procedures well and was returned to recovery area in stable condition. IMPRESSION: 1. Ascending colon mass consistent with carcinoma, status post biopsy. 2. Colon polyps. 3. Diverticulosis. 4. Internal hemorrhoids. 5. Small hiatal hernia. PLAN: The results of the pathology will be checked. Given the appearance of the colon lesion, I have spoke with Dr. Doherty who will come to see the patient and discuss surgical resection. The patient most likely will be able to go home and have the procedure be scheduled for him as an outpatient. His diet will be advanced. He will have followup laboratories tomorrow. I have requested that he receive 2 units of blood before discharge, so as to give him some reserve prior to any surgery. Depending upon his clinical course in regard to today's findings as well as the recent finding of prostate cancer, we could decide about repeating a colonoscopy within 1 to 2 years for further screening and surveillance. He should avoid all aspirin and NSAIDs at least until after his surgery for the colon cancer. This has been discussed with the patient in detail and he does understand this. I have also reviewed the case with Dr. Doherty. MD ZEV Herrera/AKOSUA / [id number]
[2024-09-05 05:51] LABS: MANUAL DIFF FLAG NO
[2024-09-05 06:00] VITALS: BP 166/82; PULSE 84; RESP 16; TEMP 37.1; O2SAT 100
[2024-09-05 06:00] LABS: Basophils Percent Auto 0.2 % (0-2); Eosinophils Absolute Auto 0.2 X10*3/uL (0.0-0.4); Eosinophils Percent Auto 1.3 % (0-4); Hematocrit 31.8 % (42.0-52.0); Hemoglobin 10.3 g/dl (14.0-18.0); Imm Gran Abs Auto 0.09 X10*3/uL (0.00-0.03); Imm Gran Pct Auto 0.7 % (0.0-0.4); Mean Corpuscular HGB Conc 32.4 g/dl (31.0-36.0); Mean Corpuscular Hemoglobin 27.6 pg (27.0-33.0); Mean Corpuscular Volume 85.3 fL (80.0-98.0); Mean Platelet Volume 8.8 fL (9.4-12.4); Monocytes Absolute Auto 0.7 X10*3/uL (0.1-1.2); Monocytes Percent Auto 5.3 % (2-11); Neutrophils Absolute Auto 10.1 x10*3/uL (2.0-8.3); Neutrophils Percent Auto 77.5 % (45-73); Platelet Count 403 X10*3/uL (160-400); Red Blood Count 3.73 X10*6/uL (4.60-5.80); Red Cell Distribution Width 15.7 % (11.0-16.0); White Blood Count 13.1 X10*3/uL (4.8-10.8)
[2024-09-05 06:15] LABS: Anion Gap 12 (12-20); Blood Urea Nitrogen 14 mg/dL (9-16); Calcium 8.3 mg/dL (8.4-10.2); Carbon Dioxide 24 mmol/L (22-29); Chloride 110 mmol/L (96-108); Creatinine Clr Calc Pharmacy 55.5; Estimated Glomerular Filt Rate > 60; Glucose Fasting 95 mg/dL (60-99); Potassium 3.4 mmol/L (3.3-5.1); Sodium 143 mmol/L (135-145)
[2024-09-05] MEDS: Bicalutamide 50 MG TABLET PO ×3 (08:31→20:20)
[2024-09-05] MEDS: amLODIPine Besylate 5 MG TABLET PO (08:31)
[2024-09-05] MEDS: Ferrous Sulfate 324 MG TABLET.DR PO ×2 (08:31→18:36)
[2024-09-05] MEDS: Lactated Ringers 1,000 ML 50 ML IVCONT (08:31)
[2024-09-05 10:00] VITALS: BP 160/78; PULSE 97; RESP 18; TEMP 36.8; O2SAT 100
[2024-09-05 11:31] VITALS: O2SAT 100
--- NOTE | 2024-09-05 14:34 | P.PNIM_ITS ---
Subjective Subjective Date of Service: 09/05/24 Interval History: seen and evaluated this morning No bleeding reported Hb of 10.3 EGD and Colonoscopy done showing ascending colon mass Pathology reported adencarcinoma of prostate no other events Review of Systems Review of Systems: Yes all other systems are reviewed and are negative Physical Exam 2 Vital Signs: Vital Signs: Last Vital Signs Temp 98.2 F 09/05/24 10:00 Pulse 97 09/05/24 10:00 Resp 18 09/05/24 10:00 BP 160/78 H 09/05/24 10:00 Pulse Ox 100 09/05/24 11:31 O2 Del Method Room Air 09/05/24 10:00 Oxygen Flow Rate 110 09/05/24 11:31 BMI result Body Mass Index 23.3 Const: Other: Constitutional : interactive, not in distress Cardiovascular : no JVP, no lower extremity edema Respiratory : bilateral chest movement, not in resp distress Gastrointestinal: soft, lax, Non tender Skin : Warm, Dry Neurological : Alert & oriented , No focal deficit Objective Data Active Medications Acetaminophen (Acetaminophen 325 Mg Tablet) 650 mg PO Q6H PRN PRN Reason: Pain, Mild (Pain Scale 1-3), fever or headache Last Admin: 09/02/24 08:18 Dose: 650 mg Documented By: MUKESH Amlodipine Besylate (Amlodipine Besylate 5 Mg Tablet) 5 mg PO DAILY [facility]; Protocol Last Admin: 09/05/24 08:31 Dose: 5 mg Documented By: DALLAS Bicalutamide (Bicalutamide 50 Mg Tablet) 50 mg PO TID [facility] Last Admin: 09/05/24 08:31 Dose: 50 mg Documented By: DALLAS Calcium Carbonate (Calcium Carbonate 750 Mg Tab.Chew) 750 mg PO Q4H PRN PRN Reason: Heartburn Ferrous Sulfate (Ferrous Sulfate 324 Mg Tablet.Dr) 324 mg PO BIDWM [facility] Last Admin: 09/05/24 08:31 Dose: 324 mg Documented By: DALLAS Dextrose (D10) 250 mls @ 750 mls/hr IV Q15M PRN PRN Reason: per Hypoglycemia Standing Ord. Lactated Ringer's (Lr) 1,000 mls @ 50 mls/hr IVCONT .Q20H [facility] Last Admin: 09/05/24 08:31 Dose: 50 mls/hr Documented By: D[place]AS Magnesium Hydroxide (Milk Of Magnesia 30 Ml Oral.Susp) 30 ml PO DAILY PRN PRN Reason: Constipation Melatonin (Melatonin 3 Mg Tablet) 6 mg PO BEDTIME PRN PRN Reason: Insomnia Naloxone HCl (Naloxone Hcl 0.4 Mg/Ml Vial) 0.04 mg IVPUSH Q5M PRN PRN Reason: Excessive sedation or RR < 8 Ondansetron HCl (Ondansetron Hcl 4 Mg/2 Ml Vial) 4 mg IVPUSH Q8H PRN PRN Reason: Nausea and Vomiting Sodium Chloride (0.9 % Sodium Chloride Flush 3 Ml Syringe) 3 ml IVFLUSH QSHIFT [facility] Last Admin: 09/05/24 08:31 Dose: 3 ml Documented By: DALLAS Labs 09/05/24 05:39 09/05/24 05:39 Labs: Laboratory Results - last 24 hr 09/04/24 09/05/24 11:28 05:39 MCV 85.3 MCH 27.6 MCHC 32.4 RDW 15.7 Plt Count 403 H MPV 8.8 L Immature Gran % (Auto) 0.7 H Neut % (Auto) 77.5 H Lymph % (Auto) 15.0 L [place] % (Auto) 5.3 Eos % (Auto) 1.3 Baso % (Auto) 0.2 Lymph # (Auto) 2.0 [place] # (Auto) 0.7 Eos # (Auto) 0.2 Baso # (Auto) 0.0 Abs Immat Gran (auto) 0.09 H Absolute Neuts (auto) 10.1 H Absolute Nucleated RBC 0.000 Nucleated RBC % (auto) 0.0 Anion Gap 12 Estim Creat Clear Calc 55.5 Estimated GFR > 60 Fasting Glucose 95 Calcium 8.3 L Blood Type O Positive Antibody Screen NEGATIVE Crossmatch See Detail Microbiology Microbiology Results: Microbiology 08/30/24 02:31 Blood Culture - Final Blood - Venous No growth after 5 days. 08/30/24 20:47 Blood Culture - Final Blood - Venous No growth after 5 days. Assessment and Plan (1) Colon cancer, ascending: Status: Acute (2) Prostate cancer: Status: Acute Plan 69M who does not follow up with pcp and has no PMH present with urinary retention, found to have domenico, hyperkalemia, metabolic acidosis, suspicious colon and prostate DOMENICO complicated by acute metbaolic acidosis, hyperkalemia due to urinary obstruction from suspected prostate cancer with post obstructive diuresis followed by metabolic alkalosis and hypernatremia and hypokalemia- now all resolved creatinine improved to baseline continue hernandez, started casodex Pathology reported adencarcinoma of prostate Urology rec outpatient follow up next week in clinic for treatment plan w GnRH s/p cysto 09/02/24 - prostate biopsy monitor labs, follow up pathology ascending colon mass with acute on chronic blood loss anemia due to inflammation, domenico, chronic iron loss transfuse 2 units of blood , Hb 10.3 Iron supplement gi appreciated - plan for egd and colonscopy done showing ascending colon mass Surgery consulted, outpatient surgery to be planned htn started amlodipine 5mg daily hyperglycemia due to dextrose in fluids, no DM, a1c 4.9 dvt prophylaxis - mechanical full code reason for continued hospitalization waiting PT evaluation and safe disposition Quality Stroke Does the patient have a stroke diagnosis?: No VTE Prior VTE?: No VTE Risk Level:: Medical - moderate - high VTE Device Contraindication: N/A - Device Ordered VTE Drug Contraindication: Treatment Not Indicated
[2024-09-05 16:00] VITALS: BP 142/78; PULSE 100; RESP 18; TEMP 37; O2SAT 100
[2024-09-05 20:00] VITALS: BP 159/77; PULSE 102; RESP 18; TEMP 37.2; O2SAT 98
[2024-09-06 00:20] VITALS: BP 168/86; PULSE 94; RESP 20; TEMP 37.1; O2SAT 96
[2024-09-06 02:41] VITALS: BP 167/89; PULSE 91; RESP 20; TEMP 36.5; O2SAT 99
[2024-09-06 07:43] VITALS: BP 147/82; PULSE 95; RESP 17; TEMP 36.9; O2SAT 99
[2024-09-06] MEDS: Ferrous Sulfate 324 MG TABLET.DR PO (08:03)
[2024-09-06] MEDS: amLODIPine Besylate 5 MG TABLET PO (08:03)
[2024-09-06] MEDS: Bicalutamide 50 MG TABLET PO ×2 (08:04→14:19)
[2024-09-06] MEDS: 0.9 % Sodium Chloride Flush 3 ML SYRINGE IVFLUSH (08:04)
[2024-09-06 09:30] VITALS: BP 147/82; PULSE 95; O2SAT 99
--- NOTE | 2024-09-06 10:44 | MHC.CM.PN ---
[facility] PT WILL BE MEDICALLY CLEARED FOR DC HOME SELF CARE, PER P.T. NO THERAPY INDICATED AT THIS TIME, PT WILL ARRANGE TRANSPORT
[2024-09-06 12:00] VITALS: BP 137/66; PULSE 109; RESP 16; TEMP 36.8; O2SAT 100
--- NOTE | 2024-09-06 13:11 | P.DS_ITS ---
DS: Providers Provider Date of Service: 09/06/24 Date of admission: 08/30/24 21:49 Date of discharge: 09/06/24 Primary care physician: None Physician Consults: 08/30/24 21:49 Consult to Gastroenterology Routine Consulting Provider: Babak Mooney Reason for consultation: ?colon cancer Consult to Nephrology Routine Consulting Provider: [facility] Reason for consultation: KIRT Consult to Urology Routine Consulting Provider: [facility] Reason for consultation: hydroureteronephrosis, ?metastatic prostrate cancer 09/04/24 14:30 Consult to General Surgery Routine Consulting Provider: [facility] Reason for consultation: Ascending colon mass Has provider been notified: Yes DS: Diagnosis Discharge Diagnosis (1) Colon cancer, ascending: Status: Acute (2) Prostate cancer: Status: Acute (3) Acute hyperkalemia: Status: Acute (4) Hypermagnesemia: Status: Acute (5) Acute renal failure: Status: Acute (6) Acute urinary retention: Status: Acute (7) Elevated PSA: Status: Acute DS: Summary Hospital Course Hospital Course: The patient had prolonged hospital stay. for full details please return to EMR. Admission note HPI Pt is a 69-year-old male with no reported significant PMH not on any home medications who presents to the ED with?complaints of difficulty being able to urinate x7-10 days. Patient reports began noticing significantly reduced urine stream approximately a week and a half ago which steadily worsened to the point where only able to urinate a few dribbles at a time if anything. Reports ?feeling miserable? with back pain, anorexia, and fatigue. Also complains of occasional lower abdominal pain and shortness of breath. Patient denies any significant PMH, but notes that he has not regularly followed up with medical care. Reports it is ?been quite awhile? since last saw primary care. His never had a colonoscopy before. Patient denies chest pain/pressure, palpitations. No fever, chills, nausea, vomiting. Is unable to state whether he has had any recent weight loss. In the ED pt was tachycardic up to 113 and hypertensive up to 168/91. Labs were significant for leukocytosis of 12.7, microcytic anemia of 8.4/25.2, sodium 132, potassium 7.8 with repeat 6.6, anion gap 33 with repeat 34, BUN 189 with repeat 184, creatinine 27.03 with repeat 23.7, and magnesium 3.5 with repeat 3.4. Troponin WNL at 20.1. VBG showing metabolic acidosis of pH 7.27 with bicarb 14. UA abnormal and showing gross hematuria, but not entirely consistent with acute UTI. CT?of abdomen/pelvis showed [id number] R>L hydroureteronephrosis with retroperitoneal free fluid, markedly distended urinary bladder, enlarged prostate that projects into the bladder base, sclerotic lesions within the pelvic bone highly suspicious for metastatic prostate cancer, and segment of ascending colon wall thickening concerning for carcinoma/metastasis. EKG demonstrated sinus tachycardia of 102 with tall peaked T-waves in V2-V4. Pt was treated in the ED with albuterol, calcium gluconate, dextrose, Lokelma, insulin, fentanyl, ceftriaxone, and placed on a bicarb drip. Pt will be admitted to the hospital for treatment and further evaluation of hyperkalemia in the setting of KIRT with metabolic acidosis likely secondary from bladder outlet obstruction from prostate mass. Hospital course The patient was treated for the following: # acute kidney injury complicated by acute metbaolic acidosis, hyperkalemia due to urinary obstruction from suspected prostate cancer with post obstructive diuresis followed by metabolic alkalosis and hypernatremia and hypokalemia which all resolved during hospital stay. s/p cysto 09/02/24 - prostate biopsy showing prostate Adinocarcinoma. creatinine improved to baseline. Placed hernandez and started casodex per Urology recommendations. Pathology reported adencarcinoma of prostate. Urology recommended outpatient follow up next week in clinic for treatment plan w GnRH. # Ascending colon mass with acute on chronic blood loss anemia due to inflammation, kirt, chronic iron loss transfuse 2 units of blood , Hb improved to 10.3. Started on Iron supplement GI evaluated the patient and did EGD and colonoscopy showing ascending colon mass. Biopsies taken and pending. Surgery consulted, outpatient surgery to be planned with dr Doherty. # HTN, started on Amlodipine with fair response. to follow as outpatient. Discharge plan Start Iron supplement Start Amlodipine for blood pressure control Start Bicalutamide for prostate enlargement Follow with dr Carbone as outpatient for hormonal treatment of prostate cancer Follow with dr Doherty for surgery arrangements and biopsy result Time Attestation Discharge Coordination Time (in mins): 43 Quality: Safe Use of Opioids Does Pt have an Active Cancer Diagnosis on the Problem List?: Yes Opioid Measure Date for [facility] Report: 08/07/24 Opioid Measure Time for [facility] Report: 13:16 Quality: Stroke Does the patient have a stroke diagnosis?: No Physical Exam Vital Signs: Vital Signs: Last Vital Signs Temp 98.2 F 09/06/24 12:00 Pulse 109 H 09/06/24 12:00 Resp 16 09/06/24 12:00 BP 137/66 09/06/24 12:00 Pulse Ox 100 09/06/24 12:00 O2 Del Method Room Air 09/06/24 07:43 Oxygen Flow Rate 110 09/05/24 11:31 BMI result Body Mass Index 23.3 Const: Other: Constitutional : interactive, not in distress Cardiovascular : no JVP, no lower extremity edema Respiratory : bilateral chest movement, not in resp distress Gastrointestinal: soft, lax, Non tender Skin : Warm, Dry Neurological : Alert & oriented , No focal deficit DS: Data Data Completed and Pending Completed studies during hospitalization [Text1]: Pending at discharge 09/02/24 14:57 Surgical [PTH] Stat Pending studies at discharge: Pending at discharge 09/04/24 12:50 Surgical [PTH] Routine Imaging CT scan - abdomen: Radiologist's impression: ITS Impressions Abdomen/Pelvis CT 08/30/24 17:35 IMPRESSION: 1. There is mild-moderate right greater than left hydroureteronephrosis with retroperitoneal free fluid along the right lateral conal fascia, possibly representing leakage from the markedly distended urinary bladder. No renal or ureteral calculi. 2. The prostate is enlarged and projects into the bladder base. There are sclerotic lesions within the pelvic bones highly suspicious for metastatic prostate cancer. 3. There is a segment of wall thickening along the medial aspect of the ascending colon over a length of 3.5 cm. Evaluation is limited in the absence of intravenous and oral contrast. Cannot exclude colon carcinoma or a metastasis. Consider colonoscopy or PET/CT. Fleischner guidelines were followed. Electronically signed by: Kevan Mejia MD 08/30/2024 08:07 PM [facility] 09/03/24 11:45 IMPRESSION: Asymmetric abnormal radiotracer uptake in the bones of the left hemipelvis is noted, a couple of sites correlates to the CT noted sclerotic changes. The differential possibilities include metastasis versus early pagetoid changes in appropriate clinical scenario. Suggest clinical correlation and histopathologic correlation. Electronically signed by: Yazmin Chow MD 09/05/2024 08:39 AM [facility] [place] Plan Discharge Anticipated Discharge Date/Time: 09/06/24 12:58 Patient Disposition: Home, Self-Care Discharge Diagnosis: Urine retention, Prostate cancer Colon mass Referrals: Physician,None [Primary Care Provider] - 1 Week Luiz Monge MD [Physician] - 1 Week Discharge Medications: New bicalutamide 50 mg Tablet 50 mg PO DAILY 90 Days Qty: 90 0RF Rx Instructions: Take 1 tab three times daily for first 2 weeks. After GnRH shot in office may take 1 tab daily. ferrous sulfate 324 mg (65 mg iron) Tablet,Delayed Release (Dr/Ec) 324 mg PO BIDWM Qty: 120 0RF amlodipine 5 mg Tablet 5 mg PO DAILY Qty: 90 0RF Protocol: Hold for SBP< HOLD for SBP < : 90 Discharge Orders: Discharge Order (Routine); Ordered 09/06/24 Ordered By: Rohith Sharma Diet: Advance to usual diet Activity on Discharge: As tolerated Stand Alone Forms: Patient Portal Discharge page Print Language: Romanian Care Plan Goals: Start Iron supplement Start Amlodipine for blood pressure control Start Bicalutamide for prostate enlargement Follow with dr Carbone as outpatient for hormonal treatment of prostate cancer Follow with dr Doherty for surgery arrangements and biopsy result Health Concerns: Prostate cancer Colon mass Plan of Treatment: Iron supplement, surgery and urology follow up Assessment: as above
== END 2024-09-06 14:45 | disposition home or self-care (01) | DRG 240 ==
LOC: HO.ED 18:00 → HO.EDOVER 21:54 → HO.IMC 08-31 09:15
PROVIDERS: Internal Medicine; Pathology Anatomic Pathology & Clinical Pathology; Physician Assistant; Urology; Admitting Provider Student in an Organized Health Care Education/Training Program; Emergency Provider Internal Medicine; Visit Provider Student in an Organized Health Care Education/Training Program
PROC: 0T9B80Z Drainage of Bladder with Drainage Device, Via Natural or Artificial Opening Endoscopic (ICD-10-PCS; principal; 2024-09-02 15:10)
PROC: 0DBK8ZX Excision of Ascending Colon, Via Natural or Artificial Opening Endoscopic, Diagnostic (ICD-10-PCS; principal; 2024-09-04 11:40)
DX: C18.2 Malignant neoplasm of ascending colon (principal); C79.51 Secondary malignant neoplasm of bone; E87.0 Hyperosmolality and hypernatremia; N17.9 Acute kidney failure, unspecified; E87.3 Alkalosis; E83.41 Hypermagnesemia; D62 Acute posthemorrhagic anemia; C61 Malignant neoplasm of prostate; E87.5 Hyperkalemia; E87.6 Hypokalemia; D63.0 Anemia in neoplastic disease; N13.30 Unspecified hydronephrosis; K63.5 Polyp of colon; K57.30 Diverticulosis of large intestine without perforation or abscess without bleeding; K64.8 Other hemorrhoids; K44.9 Diaphragmatic hernia without obstruction or gangrene; R73.9 Hyperglycemia, unspecified; R31.0 Gross hematuria; N40.1 Benign prostatic hyperplasia with lower urinary tract symptoms; R33.8 Other retention of urine; I10 Essential (primary) hypertension; Z87.891 Personal history of nicotine dependence; Z79.899 Other long term (current) drug therapy
CPT/HCPCS: 36415; 55700; 74176; 76942; 78306; 80048; 80053; 81001; 82378; 82607; 82728; 82746; 82803; 83036; 83540; 83690; 83735; 84153; 84484; 85025; 85027; 85610; 86850; 86900; 86901; 86923; 87040; 87086; 88305; 88341; 88342; 93005; 94640; 97161; 99285; A9503; C1758; C1769; J0131; J0613; J0696; J1100; J1596; J1644; J1805; J1956; J2003; J2250; J2270; J2371; J2405; J2704; J3010; J3480; J7120; P9016; Q9967

== ENCOUNTER → 2024-08-30 17:49 | Outpatient (BNV) | payer OTHER, SELFPAY | PROVIDERS: Admitting Provider Student in an Organized Health Care Education/Training Program; Emergency Provider Internal Medicine; Visit Provider Internal Medicine Cardiovascular Disease | DX: R00.0 Tachycardia, unspecified (principal) | CPT/HCPCS: 93010 ==

== ENCOUNTER → 2024-08-30 21:49 | Outpatient (BNV) | payer OTHER, SELFPAY | PROVIDERS: Admitting Provider Student in an Organized Health Care Education/Training Program; Emergency Provider Internal Medicine; Visit Provider Student in an Organized Health Care Education/Training Program | DX: C18.2 Malignant neoplasm of ascending colon (principal); C61 Malignant neoplasm of prostate; E87.5 Hyperkalemia; E83.41 Hypermagnesemia; N17.9 Acute kidney failure, unspecified; R33.8 Other retention of urine; R97.20 Elevated prostate specific antigen [PSA] | CPT/HCPCS: 99223; 99232; 99239 ==

== ENCOUNTER → 2024-08-30 21:49 | Outpatient (BNV) | payer OTHER, SELFPAY | PROVIDERS: Admitting Provider Student in an Organized Health Care Education/Training Program; Emergency Provider Internal Medicine; Visit Provider Surgery | DX: C18.2 Malignant neoplasm of ascending colon (principal) | CPT/HCPCS: 99223 ==

== ENCOUNTER → 2024-08-30 21:49 | Outpatient (BNV) | payer OTHER, SELFPAY | PROVIDERS: Admitting Provider Student in an Organized Health Care Education/Training Program; Emergency Provider Internal Medicine; Visit Provider Nurse Practitioner Family | DX: N17.9 Acute kidney failure, unspecified (principal); R33.8 Other retention of urine; E87.5 Hyperkalemia | CPT/HCPCS: 99222; 99231 ==

== ENCOUNTER → 2024-08-30 21:49 | Outpatient (BNV) | payer OTHER, SELFPAY | PROVIDERS: Admitting Provider Student in an Organized Health Care Education/Training Program; Emergency Provider Internal Medicine; Visit Provider Urology | DX: R97.20 Elevated prostate specific antigen [PSA] (principal); N13.30 Unspecified hydronephrosis; R33.9 Retention of urine, unspecified | CPT/HCPCS: 52000; 55700; 74420; 76872; 76942; 99223; 99232 ==

== ENCOUNTER 2024-09-10 10:15 | Outpatient (AMB) | payer OTHER, SELFPAY ==
--- NOTE | 2024-09-10 10:17 | A.OFFVIS_ITS ---
Vital Signs 09/10/24 10:26 Height 5 ft 8 in Weight 139 lb BMI 21.1 BP 159/71 H Blood Pressure Location Rt brachial Position Sitting Pulse 79 Intake Visit Reasons: Colon mass Intake Note: This patient presents for colon mass. Pt c/o; reports no complaints at this time. 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 He was admitted to the hospital via the ER on 08/30/2024 because of urinary retention. He admits to having had a long history of frequently getting up at night to void. However, recently, this had been worsening and he says that last week, he was unable to void and had subsequent lower abdominal pain. He came into the ER that time with electrolyte problems, pain, hypertension and acute kidney injury. His creatinine then was 12. He had what appeared to be retroperitoneal perforation of the bladder from obstructive uropathy. He therefore was admitted and underwent cystoscopy showing this prostate tumor consistent with prostate cancer . He has sclerotic lesions in the pelvis consistent with metastatic disease from the prostate. He has had a Flores catheter since and he feels much better. However, his CAT scan also showed this mass in the right colon. He had anemia with a hemoglobin of 8.4 on admission. He underwent colonoscopy with Dr. Mooney and this showed an ulcerating tumor in the right colon consistent with colon cancer. The patient was transfused 2 units of blood on admission last week. He says she has been feeling well since discharge last 09/04/2024. He denies any abdominal pain. He actually denies any GI complaints. He says he had never had a colonoscopy before until last week. [facility] Medical History (Updated 09/12/24 @ 10:26 by Junie Self RN) Indwelling Flores catheter present Colonic mass Hypertension Hx of endocrine hypertension Prostate cancer Surgical History (Updated 09/11/24 @ 09:30 by Junie Self RN) History of esophagogastroduodenoscopy (EGD) H/O colonoscopy Hx of cystoscopy Social History Household Members: None Are you a primary progressive care manager to a significant other at home: No Do you presently have visiting nurse or other home services: No Patient Tobacco Use Status: Former Tobacco user Tobacco use type: Cigarette Years Smoked: 20 Use of substances other than those prescribed or required for medical reasons: No Have you been hit, kicked, punched, or otherwise hurt by someone within the past year? If so, by whom?: No Spiritual Healthcare Practices: none Evangelical Healthcare Practices: Nondenominational Cultural Healthcare Practices: none Are you DNR?: No Advance Directives: Yes Advance Directives Information Provided: Yes Advance Directives on File: Yes Advance Directives Date on File: 09/01/24 Recently lost weight without trying: No Eating poorly because of decreased appetite: No Nutrition Risks: No Nutritional Risk Poor oral hygiene: No (some broken teeth) service: No Review of Systems Const Denies chills and Denies fever(s) Card Denies chest pain, Denies dyspnea and Denies dyspnea on exertion Resp Denies cough, Denies dyspnea and Denies dyspnea on exertion GI Denies hematochezia and Denies change in bowel habits Denies hematuria, Reports difficulty urinating and Reports urinary frequency Musc Denies back pain and Denies limited range of motion Neuro Denies focal weakness and Denies convulsions Psych Denies depression and Denies mood swings Physical Exam Vital Signs: Last Vital Signs Pulse 79 09/10/24 10:26 BP 159/71 H 09/10/24 10:26 BMI result Body Mass Index 21.1 Const General: comfortable and no acute distress Orientation/consciousness: patient oriented x3 Neck Neck: Yes no lymphadenopathy Resp Auscultation: clear to auscultation bilaterally Cardio Rhythm: regular rhythm GI Other: Flores catheter in place, urine clear Palpation (GI): Soft to palpation, nontender and no guarding Neuro General: patient oriented x3 Assessment & Plan Assessment & Plan (1) Colonic mass: Comment: possible metastatic from prostate mass Code(s): K63.89 - Other specified diseases of intestine Category: Medical Plan: He had anemia and his CAT scan had shown a mass in the right colon. He had a colonoscopy showing this ulcerating mass consistent with a cancer. Final path report of biopsies of this mass showed an invasive adenocarcinoma. I therefore explained to him it would be best to proceed with right colon resection. I explained to him the technique of hand assisted laparoscopic right colon resection. I reviewed the risks including but not limited to converting to open right colon resection, bleeding, infections, anastomotic leak, injury to other organs including bowel and urinary tract, blood clots, pneumonia, as well as the benefits and alternatives. He has given consent. He is to undergo treatment for his metastatic prostate cancer as well. He is following Dr. Carbone for this. We will keep his Flores catheter perioperatively therefore because of retention. I talked to his healthcare proxy Marion Kennedy who is here granddaughter at [phone] about the above and she seems to understand well. Coding Level of Care Code Est Pt Level 4 (83024) Diagnoses Colonic mass K63.89
[2024-09-10 10:26] VITALS: BP 159/71; PULSE 79; BMI 21.1
--- OUTSIDE RECORDS SUMMARY | 2024-09-17 12:24 | XMS_ITS ---
Author Organization [facility] Address [address] [place] [address] Care Team Providers Care Health Spa Manager Name Role Phone NONE, NONE Primary Care Provider Babak Jain Unavailable [phone] REASON FOR VISIT fe def anemia,abnormal ct scan of colon Encounters Encounter Location Date Provider Diagnosis [facility] [address], [place] [id number] 09/04/2024 Babak Mooney PLAN OF TREATMENT No Information
--- OUTSIDE RECORDS SUMMARY | 2024-09-17 12:24 | XMS_ITS | Patient Health Record ---
Author Organization [facility] Address [address] [place] [address] Care Team Providers Care Flume Worker Name Role Phone NONE, NONE Primary Care Provider Litzy MooneyBabak Amy [phone] RESULTS Component Value Reference Range Notes Hold Lav - Possible Hematolo gy Reviewed date:09/03/2024 01:08:51 PM Interpretation: Performing Lab:[facility], [address] [place] [phone] Notes/Report: Hold Lav - Possible Hematology SEE NOTE Specimen will be held untested for 8 hours. Call Hematology if testing is desired. Prothrombin Time INR Reviewed date:09/03/2024 01:08:58 PM Interpretation: Performing Lab:[facility], [address] [place] [phone] Notes/Report: Prothrombin Time 13.9 10.9-12.4 SEC INTERNATIONAL NORM RATIO 1.2 0.9-1.1 INTERNATIONAL NORMALIZED RATIO (INR) REFERENCE RANGES Reference Range For patients not on anticoagulant therapy: 0.9 - 1.1 INR ranges for oral anticoagulant therapy: For prevention and treatment of venous thrombosis and pulmonary embolism: 2.0 - 3.0 For acute myocardial infarction with aspirin therapy: 2.0 - 3.0 For acute myocardial infarction without aspirin therapy: 3.0 - 4.0 For patients with mechanical prosthetic heart valves: 2.5 - 3.5 PSA,Total (Free>4and<10) Reviewed date:09/03/2024 01:09:06 PM Interpretation: Performing Lab:[facility], [address] [place] [phone] Notes/Report: PSA,Total (Free>4and<10) 89.85 0.00-4.00 ng/mL A Free PSA was not performed: The percentage of Free PSA can be used to enhance the differentiation of prostate cancer from benign prostatic disease in subjects whose PSA levels are between 4.0 and 10.0 ng/mL. For subjects whose PSA levels are below 4.0 or above 10.0 ng/mL, the risk of prostate cancer is determined on the basis of the PSA alone. Therefore the % Free PSA is recommended only for those subjects whose PSA levels are between 4.0 and 10.0 ng/mL. PSA methodology: Farley Alinity i Chemiluminescent Microparticle Immunoassay (CMIA) Vitamin B12 and Folate Reviewed date:09/03/2024 01:09:13 PM Interpretation: Performing Lab:[address] [phone] Notes/Report: Vitamin B12 815 200-900 pg/mL NORMAL 200-900 PG/ML INDETERMINATE 160-199 PG/ML DEFICIENT < 160 PG/ML Folate 10.6 > or = 4.0 ng/mL Reference Values: > or = 4.0 ng/mL < 4.0 ng/mL suggests folate deficiency Methotrexate, aminopterin and folinic acid (leucovorin) are chemotherapeutic agents whose molecular structures are similar to folate; therefore, the Showplace Manager folate assay cannot be used for patients using these drugs. Pathology (Not yet reviewed by provider) Interpretation: Performing Lab:[facility], [address] [place] [phone] Notes/Report: Complete Blood Count Auto Di ff Reviewed date:09/04/2024 11:48:44 PM Interpretation: Performing Lab:[facility], [address] [place] [phone] Notes/Report: White Blood Count 11.7 4.8-10.8 X10*3/uL Red Blood Count 2.96 4.60-5.80 X10*6/uL Hemoglobin 7.5 14.0-18.0 g/dl Hematocrit 24.3 42.0-52.0 % Mean Corpuscular Volume 82.1 80.0-98.0 fL Mean Corpuscular Hemoglobin 25.3 27.0-33.0 pg Mean Corpuscular HGB Conc 30.9 31.0-36.0 g/dl Red Cell Distribution Width 15.4 11.0-16.0 % Platelet Count 492 160-400 X10*3/uL Mean Platelet Volume 9.2 9.4-12.4 fL Neutrophils Percent Auto 76.5 45-73 % Imm Gran Pct Auto 0.4 0.0-0.4 % Lymphocytes Percent Auto 16.1 20-40 % Monocytes Percent Auto 4.7 2-11 % Eosinophils Percent Auto 1.9 0-4 % Basophils Percent Auto 0.4 0-2 % NRBC Pct Auto 0.0 0.0-0.2 /100WBC Neutrophils Absolute Auto 8.9 2.0-8.3 x10*3/u L Imm Gran Abs Auto 0.05 0.00-0.03 X10*3/uL Lymphocytes Absolute Auto 1.9 1.2-4.9 X10*3/u L Monocytes Absolute Auto 0.6 0.1-1.2 X10*3/uL Eosinophils Absolute Auto 0.2 0.0-0.4 X10*3/u L Basophils Absolute Auto 0.1 0.0-0.2 X10*3/uL NRBC Abs Auto 0.000 0.0-0.012 X10*3/uL Basic Metabolic Panel Fastin g Reviewed date:09/04/2024 11:48:55 PM Interpretation: Performing Lab:[facility], [address] [place] [phone] Notes/Report: Sodium 144 135-145 mmol/L Potassium 2.9 3.3-5.1 mmol/L Critical [Potassium] sent by a secure message and confirmed by (Dr. Sharma, 09/04/24 0839) Tech: GALENSA Chloride 105 96-108 mmol/L Carbon Dioxide 27 22-29 mmol/L Anion Gap 15 12-20 Blood Urea Nitrogen 12 9-16 mg/dL Creatinine 0.93 0.5-1.4 mg/dL Creatinine Clr Calc Pharmacy 68.1 eGFR (calculated from the MDRD study equation) and eCrCl (calculated from the Cockcroft-Gault equation) are based on different parameters and may not yield comparable results. If eCrCl result is absurd, please check patient's height/weight. Estimated Glomerular Filt Rate > 60 Chronic Kidney Disease: Estimated GFR < 60 mL/min/1.73m2 Severe Kidney Disease: Estimated GFR < 15 mL/min/1.73m2 Glucose Fasting 95 60-99 mg/dL Calcium 8.3 8.4-10.2 mg/dL Complete Blood Count Auto Di ff Reviewed date:09/06/2024 11:27:04 AM Interpretation: Performing Lab:[facility], [address] [place] [phone] Notes/Report: White Blood Count 13.1 4.8-10.8 X10*3/uL Red Blood Count 3.73 4.60-5.80 X10*6/uL Hemoglobin 10.3 14.0-18.0 g/dl Hematocrit 31.8 42.0-52.0 % Mean Corpuscular Volume 85.3 80.0-98.0 fL Mean Corpuscular Hemoglobin 27.6 27.0-33.0 pg Mean Corpuscular HGB Conc 32.4 31.0-36.0 g/dl Red Cell Distribution Width 15.7 11.0-16.0 % Platelet Count 403 160-400 X10*3/uL Mean Platelet Volume 8.8 9.4-12.4 fL Neutrophils Percent Auto 77.5 45-73 % Imm Gran Pct Auto 0.7 0.0-0.4 % Lymphocytes Percent Auto 15.0 20-40 % Monocytes Percent Auto 5.3 2-11 % Eosinophils Percent Auto 1.3 0-4 % Basophils Percent Auto 0.2 0-2 % NRBC Pct Auto 0.0 0.0-0.2 /100WBC Neutrophils Absolute Auto 10.1 2.0-8.3 x10*3/u L Imm Gran Abs Auto 0.09 0.00-0.03 X10*3/uL Lymphocytes Absolute Auto 2.0 1.2-4.9 X10*3/u L Monocytes Absolute Auto 0.7 0.1-1.2 X10*3/uL Eosinophils Absolute Auto 0.2 0.0-0.4 X10*3/u L Basophils Absolute Auto 0.0 0.0-0.2 X10*3/uL NRBC Abs Auto 0.000 0.0-0.012 X10*3/uL Basic Metabolic Panel Fastin g Reviewed date:09/06/2024 11:27:36 AM Interpretation: Performing Lab:[facility], [address] [place] [phone] Notes/Report: Sodium 143 135-145 mmol/L Potassium 3.4 3.3-5.1 mmol/L Chloride 110 96-108 mmol/L Carbon Dioxide 24 22-29 mmol/L Anion Gap 12 12-20 Blood Urea Nitrogen 14 9-16 mg/dL Creatinine 1.14 0.5-1.4 mg/dL Creatinine Clr Calc Pharmacy 55.5 eGFR (calculated from the MDRD study equation) and eCrCl (calculated from the Cockcroft-Gault equation) are based on different parameters and may not yield comparable results. If eCrCl result is absurd, please check patient's height/weight. 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) (000057113) Problem Malignant neoplasm of ascending colon (C18.2) Active confirmed Malignant tumor of ascending colon (723781865) Problem Diverticulosis of large intestine without perforation or abscess without bleeding (K57.30) Active confirmed Diverticul ar disease of colon (918223913) Encounters Encounter Location Date Provider [place] [facility] [place] [address] [place] [id number] 09/04/2024 Babak Mooney PLAN OF TREATMENT Pending Test Test Name Order Date Pathology 09/04/2024 Insurance Providers Payer Name Payer Address Payer Phone Subscriber Number Group Number Insured Name Patient Relationship to Insured Coverage Start Date Coverage End Date [employer] [place] [address] [address] [place] [address] [id number] LYNNE MCCONNELL Self - patient is the insured
== END 2024-09-10 10:45 | disposition home or self-care (01) ==
PROVIDERS: Referring Provider Surgery; Visit Provider Surgery
DX: K63.89 Other specified diseases of intestine (principal)
CPT/HCPCS: 99214

== ENCOUNTER 2024-09-16 10:28 | Outpatient (BNV) | payer OTHER, SELFPAY | END 2024-09-20 16:05 | PROVIDERS: Admitting Provider Surgery; Visit Provider Internal Medicine Cardiovascular Disease | DX: R00.0 Tachycardia, unspecified (principal) | CPT/HCPCS: 93010 ==

== ENCOUNTER 2024-09-16 10:28 | Inpatient (IN) | payer OTHER, SELFPAY ==
[2024-09-12 10:28] VITALS: BMI 21.1
[2024-09-16] VITALS (13 sets, daily range): BP systolic 160–195; BP diastolic 77–95; PULSE 84–104; RESP 14–18; TEMP 36.4–37.1; O2SAT 95–100; BMI 23.0
--- NOTE | 2024-09-16 10:24 | MHC.SHP ---
Pre-Procedural Eval Section A - 24 Hr Update-Section A only Date of Service: 09/16/24 The patient is an INPATIENT: No Changes since office visit: Yes Cold of Flu in the past 2 weeks, Yes New Medical Problems, Yes Changes in Medication and Yes Patient answered all questions The patient has been examined within 24 hours of the surgical procedure. The History & Physical has been completed within 30 days and I have reviewed it.: Yes Section B - Complete if H&P > 30 days Chief Complaint: Other specified diseases of intestine Allergies: Allergies Allergy/AdvReac Type Severity Reaction Status Date / Time No Known Allergies Allergy Verified 09/10/24 10:27 Plan I have reviewed the history and physical and performed a pertinent physical examination on my patient. No changes have occurred unless specified. Time Spent With Patient Time: Total time managing care of this patient today ____ minutes.
[2024-09-16] MEDS: Lactated Ringers 1,000 ML 100 ML IVCONT (10:35)
[2024-09-16 10:48] LABS: Hematocrit 36.6 % (42.0-52.0); Hemoglobin 11.4 g/dl (14.0-18.0); Mean Corpuscular HGB Conc 31.1 g/dl (31.0-36.0); Mean Corpuscular Hemoglobin 27.2 pg (27.0-33.0); Mean Corpuscular Volume 87.4 fL (80.0-98.0); Mean Platelet Volume 9.1 fL (9.4-12.4); Platelet Count 376 X10*3/uL (160-400); Red Blood Count 4.19 X10*6/uL (4.60-5.80); White Blood Count 6.3 X10*3/uL (4.8-10.8)
--- NOTE | 2024-09-16 10:50 | P.CONAN_ITS ---
Documented by User: Kateryna Li NP 09/12/24 13:05 HPI - Anesthesia Eval Consult details Narrative: 69yo M for Right?Hand Assisted Colectomy Laparoscopic, possible open [facility] [place] admit 08/30/24-09/06/24 Hospital course The patient was treated for the following: # acute kidney injury complicated by acute metbaolic acidosis, hyperkalemia due to urinary obstruction from suspected prostate cancer with post obstructive diuresis followed by metabolic alkalosis and hypernatremia and hypokalemia which all resolved during hospital stay. s/p cysto 09/02/24 - prostate biopsy showing prostate Adinocarcinoma. creatinine improved to baseline. Placed hernandez and started casodex per Urology recommendations. Pathology reported adencarcinoma of prostate. Urology recommended outpatient follow up next week in clinic for treatment plan w GnRH. # Ascending colon mass with acute on chronic blood loss anemia due to inflammation, domenico, chronic iron loss transfuse 2 units of blood , Hb improved to 10.3. Started on Iron supplement GI evaluated the patient and did EGD and colonoscopy showing ascending colon mass. Biopsies taken and pending. Surgery consulted, outpatient surgery to be planned with dr Doherty. # HTN, started on Amlodipine with fair response. to follow as outpatient. PMFSH Active Problems Active Problems: All Active Problems Colon cancer, ascending (Acute) Prostate cancer (Acute) Bony sclerosis (Acute) Elevated PSA (Acute) Hypermagnesemia (Acute) Acute hyperkalemia (Acute) Acute renal failure (Acute) Acute urinary retention (Acute) Colonic mass (Acute) Past Medical History Medical History (Updated 09/14/24 @ 00:03 by Ekaterina Livingston) Indwelling Hernandez catheter present Colonic mass Hypertension Hx of endocrine hypertension Prostate cancer Family History Family history of problems with anesthesia: No Surgical History Surgical History (Updated 09/11/24 @ 09:30 by Junie Self RN) History of esophagogastroduodenoscopy (EGD) H/O colonoscopy Hx of cystoscopy History of Problems with Anesthesia: No Social History Social History Household Members: None Are you a primary intensive care unit nurse to a significant other at home: No Do you presently have visiting nurse or other home services: No Patient Tobacco Use Status: Former Tobacco user Tobacco use type: Cigarette Years Smoked: 20 Use of substances other than those prescribed or required for medical reasons: No Have you been hit, kicked, punched, or otherwise hurt by someone within the past year? If so, by whom?: No Spiritual Healthcare Practices: none Latter Day Healthcare Practices: Druze Cultural Healthcare Practices: none Are you DNR?: No Advance Directives: Yes Advance Directives Information Provided: Yes Advance Directives on File: Yes Advance Directives Date on File: 09/01/24 Recently lost weight without trying: No Eating poorly because of decreased appetite: No Nutrition Risks: No Nutritional Risk Poor oral hygiene: No (some broken teeth) service: No Meds Allergies Allergy/AdvReac Type Severity Reaction Status Date / Time No Known Allergies Allergy Verified 09/10/24 10:27 Home Medications ?Medication ?Instructions ?Recorded ?Confirmed ?Last Taken ?Type amlodipine 5 mg tablet 5 mg PO DAILY 09/12/24 09/16/24 09/16/24 History ferrous sulfate 324 mg (65 mg 324 mg PO BID 09/12/24 09/16/24 09/15/24 History iron) tablet,delayed release bicalutamide 50 mg tablet 50 mg PO TID 09/16/24 09/16/24 09/15/24 History dutasteride 0.5 mg capsule 0.5 mg PO DAILY 09/16/24 09/16/24 Unknown History Exam Height,Weight and Vital Signs: Height 5 ft 8 in Weight 63.049 kg Narrative Narrative: EKG 08/2024 Vent. Rate : 102 BPM Atrial Rate : 102 BPM P-R Int : 162 ms QRS Dur : 088 ms QT Int : 346 ms P-R-T Axes : 058 017 021 degrees QTc Int : 450 ms Sinus tachycardia Possible Left atrial enlargement Left ventricular hypertrophy ( Sokolow-Galeana , Gamaliel product ) Abnormal ECG No previous ECGs available Assessment and Plan Assessment Anesthesia Assessment: Chart Reviewed Final Anesthetic Review Family History of Problems with Anesthesia: No History of Problems with Anesthesia: No Documented by User: Aniyah Abel DO 09/16/24 12:40 [facility] Past Medical History Medical History (Updated 09/14/24 @ 00:03 by Ekaterina Livingston) Indwelling Hernandez catheter present Colonic mass Hypertension Hx of endocrine hypertension Prostate cancer Family History Family history of problems with anesthesia: No Surgical History Surgical History (Updated 09/11/24 @ 09:30 by Junie Self RN) History of esophagogastroduodenoscopy (EGD) H/O colonoscopy Hx of cystoscopy History of Problems with Anesthesia: No Social History Social History Household Members: None Are you a primary intensive care unit nurse to a significant other at home: No Do you presently have visiting nurse or other home services: No Patient Tobacco Use Status: Former Tobacco user Tobacco use type: Cigarette Years Smoked: 20 Use of substances other than those prescribed or required for medical reasons: No Have you been hit, kicked, punched, or otherwise hurt by someone within the past year? If so, by whom?: No Spiritual Healthcare Practices: none Latter Day Healthcare Practices: Druze Cultural Healthcare Practices: none Are you DNR?: No Advance Directives: Yes Advance Directives Information Provided: Yes Advance Directives on File: Yes Advance Directives Date on File: 09/01/24 Recently lost weight without trying: No Eating poorly because of decreased appetite: No Nutrition Risks: No Nutritional Risk Poor oral hygiene: No (some broken teeth) service: No Meds Allergies Allergy/AdvReac Type Severity Reaction Status Date / Time No Known Allergies Allergy Verified 09/10/24 10:27 Home Medications ?Medication ?Instructions ?Recorded ?Confirmed ?Last Taken ?Type amlodipine 5 mg tablet 5 mg PO DAILY 09/12/24 09/16/24 09/16/24 History ferrous sulfate 324 mg (65 mg 324 mg PO BID 09/12/24 09/16/24 09/15/24 History iron) tablet,delayed release bicalutamide 50 mg tablet 50 mg PO TID 09/16/24 09/16/24 09/15/24 History dutasteride 0.5 mg capsule 0.5 mg PO DAILY 09/16/24 09/16/24 Unknown History Exam Exam Date and Time: 09/16/24 1050 Height,Weight and Vital Signs: Height 5 ft 8 in Weight 63.049 kg Vital Signs Temperature 98.7 F 09/16/24 10:02 Pulse Rate 102 H 09/16/24 10:02 Respiratory Rate 16 09/16/24 10:02 Blood Pressure 174/84 H 09/16/24 10:02 Pulse Oximetry 100 09/16/24 10:02 Oxygen Delivery Method Room Air 09/16/24 10:02 Temperature 98.7 F 09/16/24 10:02 Pulse Rate 102 H 09/16/24 10:02 Respiratory Rate 16 09/16/24 10:02 Blood Pressure 174/84 H 09/16/24 10:02 Pulse Oximetry 100 09/16/24 10:02 Oxygen Delivery Method Room Air 09/16/24 10:02 Airway Mallampati Class: I TM Dist: >3cm Neck ROM: Full Loose/Missing/Broken Teeth: No (patient denies any loose or broken teeth) Heart: S1S2 Lungs: CTAB Assessment and Plan Assessment Anesthesia Assessment: Anesthesia Plan Discussed and Chart Reviewed Final Anesthetic Review Family History of Problems with Anesthesia: No History of Problems with Anesthesia: No NPO: Yes ASA Class: III Final Preanesthetic Review: No Changes in Pt Med Stat, Meds/Allgs Chart Reviewed, Consent Obtained/Reviewed and Anes Risks/Benef Reviewed Patient Risk: Low Procedure Risk: Intermediate Anesthetic Plan Anesthetic Plan: GA, Regional Block (bilateral TAP and bilateral rectus sheath blocks) and Agree w/ Assess. and Plan Disposition: Standard PACU
[2024-09-16 11:01] LABS: Anion Gap 15 (12-20); Blood Urea Nitrogen 10 mg/dL (9-16); Calcium 9.6 mg/dL (8.4-10.2); Carbon Dioxide 24 mmol/L (22-29); Chloride 106 mmol/L (96-108); Creatinine Clr Calc Pharmacy 69.4; Estimated Glomerular Filt Rate > 60; Glucose Fasting 86 mg/dL (60-99); Potassium 3.6 mmol/L (3.3-5.1); Sodium 141 mmol/L (135-145)
--- NOTE | 2024-09-16 11:13 | PHA.MEDREC ---
Pharmacy Consult ? Medication Reconciliation Pharmacy has completed the medication reconciliation. Spoke to patient at bedside, he was able to confirm his home medications. 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 The Bicalutamide he is still taking TID until he gets his GnRH shot. Took amlodipine this morning and the rest yesterday.
--- NOTE | 2024-09-16 13:28 | W.PM.OPN ---
Operative Note Operative Note Date of Service: 09/16/24 Narrative: Preop diagnosis: Right colon cancer Postop diagnosis: The same Procedure: Hand assisted laparoscopic right colon resection Surgeon: Wesley Doherty MD assistant professor of business: RONALD Bailey The patient is a 69-year-old male recently diagnosed to have right colon invasive adenocarcinoma on colonoscopy. He understood the technique of right colon resection, hand assisted laparoscopic. He was aware of the risks, benefits, and alternatives He was brought to the operating room. He was placed supine under general anesthesia via endotracheal tube. A TAP block was done by the anesthesiologist The patient already had a Flores catheter in place. The patient received Cefotan 2 g IV preoperatively The abdomen was prepped and draped in the usual sterile fashion. A surgical time-out was done. I made a short incision on the midline in the periumbilical area using blade 15. This was carried down through the full-thickness of the skin and subcutaneous fat with electrocautery. We incised the fascia and entered the peritoneal cavity. The Shoaib wound retractor was positioned. The GelPort as well as had insufflating port was attached to this. We insufflated to a pressure of 15 mm Hg. With laparoscopic visualization using the 10 mm 30 degree scope, we examined the abdominal cavity. Using the laparoscope, I inserted a 5/12 mm port in the epigastric area below the subcostal margin. The camera was then moved to this this port. I inserted a 5 mm port in the left upper quadrant through a small stab incision. The patient was placed in a [id number] position I inserted my left hand through the GelPort. I reflected the bowel loops away from the right side and the right colon was visualized. The right colon was very short. I used the LigaSure to divide the ligamentous attachments along the white line of Toldt. I divided the gastrocolic ligaments with the LigaSure in the same manner as well. I continued to mobilize the right colon at the retroperitoneum by gentle dissection using the LigaSure as well as blunt dissection using the fingers. The duodenum was then seen and this was deemed to be the medial limit of our dissection. I proceeded to then divide more of the attachments of the transverse colon towards the stomach. This was extended past the midline until we achieved good mobilization. I had to divide ligamentous attachments at the cecum along the appendix as well using the LigaSure until was able to completely mobilize this area. Once it felt that we had adequate mobilization of the entire right colon, I proceeded to then desufflate. I pulled up the entire right colon all the way to the proximal transverse colon. I was able to palpate the mass on the middle of the right colon I chose my point of transection in the proximal transverse colon and the ileum. I created mesenteric windows on each of the segment and divided these using JASON 60 mm staplers We pulled up the entire right colon starting from the terminal ileum all the way to the proximal transverse to identify the entire mesentery. The patient had very thin mesentery. I could clearly see the ileocolic pedicle with palpable lymph nodes. I identified the middle colic. We had transected the transverse colon just proximal to the middle colic to preserve this. We included the right branch of the colic with the division of the mesentery. Since the patient had a very thin mesentery, as able to clearly identify the ileocolic pedicle. I defined this just above the level of the duodenum. I applied a right angle clamps this segment and divided the ileocolic pedicle between these clamps. I ligated both sides with Polysorb 2-0 ties. I doubly ligated the proximal stump. This was therefore a high ligation of the ileocolic pedicle. I completed transection by dividing the attached mesentery completely using the LigaSure. The specimen was then sent for immediate gross examination I then proceeded to do our anastomosis. I aligned the ileal stump and the transverse colon stump. I opened up the apex of each staple line. I positioned each arm of the JASON stapler into the lumen at the anti mesenteric side. I made sure that there was no bowel loop or mesentery caught between the keren. I then fired the stapler to create our [id number] anastomosis. I completed the anastomosis by closing the enterotomy with a TA 60 mm stapler I closed the mesenteric defect with a running Polysorb 3-0 stitch. I applied a seromuscular stitch at the crotch of the staple line to release any tension using a Polysorb 3-0 stitch I replaced all the bowel loops back to the peritoneal cavity. I positioned the omentum to overlie this. The patient had a very small omentum as well. The anastomotic limbs appeared to be well vascularized without any evidence of ischemia. The staple lines appeared intact. I closed the mesenteric defect with a running Polysorb 3-0 stitch. There was note of good hemostasis. I then closed the fascia with a running Maxon 1 stitch. Skin closure was achieved on all incisions using skin keren I went down to pathology examined the specimen grossly with the pathologist and the lesion was in the specimen at the middle of the right colon The procedure was therefore completed. Dressings were applied. The patient tolerated procedure well. There were no immediate complications. Initial and final counts of sponges and instruments were correct. Estimated blood loss was less than 20 cc. The patient was extubated without difficulty and transferred to the recovery room with stable vital signs. Colon Resection Tumor location: Right colon (Middle of the right colon) Extent of lymphovascular resection Right colon (cecum and ascending colon): Resected at the terminal ileum all the way to the proximal transverse Pedicle removed: Ileocolic pedicle Procedure performed with curative intent?: Yes General Surg. - Synoptic Notes Colon Resection Tumor location: Right colon (Middle of the right colon) Extent of Lymphovascular Resection: Right colon (cecum and ascending colon): Resected at the terminal ileum all the way to the proximal transverse Pedicle removed: Ileocolic pedicle Procedure performed with curative intent?: Yes
[2024-09-16] MEDS: HYDROmorphone HCl 0.5 MG/0.5 ML SYRINGE IVPUSH (14:03)
[2024-09-16] MEDS: Lactated Ringers 1,000 ML 80 ML IVCONT (15:23)
[2024-09-16] MEDS: 0.9 % Sodium Chloride Flush 3 ML SYRINGE IVFLUSH (15:29)
[2024-09-16] MEDS: oxyCODONE HCl Immed Release 5 MG TABLET PO ×2 (17:01→20:50)
[2024-09-16] MEDS: Bicalutamide 50 MG TABLET PO ×2 (17:01→19:55)
--- NOTE | 2024-09-16 18:01 | PC.NURSE ---
Dr. Doherty made aware pt continues to be hypertensive, medicine consulted. No new orders at this time.
[2024-09-16] MEDS: Ferrous Sulfate 324 MG TABLET.DR PO (19:56)
[2024-09-16] MEDS: Doxazosin Mesylate 2 MG TABLET 4 MG PO (19:56)
[2024-09-16] MEDS: Acetaminophen 1,000 MG/100 ML PIGGYBACK 400 MG IV (19:56)
[2024-09-17] MEDS: Acetaminophen 1,000 MG/100 ML PIGGYBACK 400 MG IV ×3 (01:24→14:32)
[2024-09-17] MEDS: Lactated Ringers 1,000 ML 80 ML IVCONT (01:25)
[2024-09-17] MEDS: oxyCODONE HCl Immed Release 5 MG TABLET PO ×4 (01:25→20:10)
[2024-09-17] MEDS: 0.9 % Sodium Chloride Flush 3 ML SYRINGE IVFLUSH (01:25)
--- NOTE | 2024-09-17 01:47 | P.CONHOSP_ITS ---
History of Present Illness Data of Consult Service Date: 09/17/24 Requesting physician: Wesley Doherty Primary Care Provider: Unknown Physician HPI Reason for consult: medical consult s/p R colon resection Patient is a 69-year-old male with a past medical history significant for hypertension, prostate cancer, status post hand assisted laparoscopic right colon resection. He did not take his amlodipine yesterday and blood pressure has been slightly elevated. He has no medical concerns including chest pain, shortness of breath, nausea, vomiting, numbness or tingling. Flores catheter is draining. The patient reports that he has not yet been able to pass gas that he knows of or have a bowel movement. Review of Systems 2 Constitutional: Constitutional: Denies chills, Denies fever(s) and Denies headache(s) Eyes: Eyes: Denies change in vision ENT: Denies headache(s), Denies nasal congestion, Denies nasal discharge and Denies sore throat Cardiovascular: Cardiovascular: Denies chest pain, Denies rapid heart rate, Denies leg edema and Denies dyspnea Respiratory: Respiratory: Denies cough and Denies dyspnea Gastrointestinal: Gastrointestinal: Denies nausea and Denies vomiting Genitourinary: Genitourinary: Denies hematuria Musculoskeletal: Musculoskeletal: Denies myalgias, Denies numbness and Denies tingling Integumentary/Breasts: Skin/Breast: Denies rash Neurologic: Denies confusion, Denies headache(s), Denies numbness and Denies tingling Psychiatric: Psychiatric: Denies confusion [facility] Medical History (Updated 09/14/24 @ 00:03 by Ekaterina Livingston) Indwelling Flores catheter present Colonic mass Hypertension Hx of endocrine hypertension Prostate cancer Surgical History (Updated 09/17/24 @ 01:50 by Anita Correa PA-C) History of esophagogastroduodenoscopy (EGD) H/O colonoscopy Hx of cystoscopy Social History Household Members: None Housing: Apartment Are you a primary respiratory care faculty to a significant other at home: No Do you presently have visiting nurse or other home services: No Patient Tobacco Use Status: Former Tobacco user Tobacco use type: Cigarette Years Smoked: 20 Use of substances other than those prescribed or required for medical reasons: No Currently Displaying Signs/Symptoms of Drug Intoxication Withdrawal: No Have you been hit, kicked, punched, or otherwise hurt by someone within the past year? If so, by whom?: No Do you feel safe in your current relationship?: No Spiritual Healthcare Practices: gnosticism Taoist Healthcare Practices: Worship Cultural Healthcare Practices: none Are you DNR?: No Advance Directives: Yes Advance Directives Information Provided: Yes Advance Directives on File: Yes Advance Directives Date on File: 09/01/24 Do you have a plan to hurt others: No Plan Recently lost weight without trying: Yes How much weight loss: 2-13 pounds Eating poorly because of decreased appetite: No Nutrition screen score: 3 Nutrition Risks: No Nutritional Risk Poor oral hygiene: No service: No Meds Allergies Allergy/AdvReac Type Severity Reaction Status Date / Time No Known Allergies Allergy Verified 09/10/24 10:27 Active Medications: Current Medications Amlodipine Besylate (Amlodipine Besylate 5 Mg Tablet) 5 mg PO DAILY [facility]; Protocol Bicalutamide (Bicalutamide 50 Mg Tablet) 50 mg PO TID [facility] Last Admin: 09/16/24 19:55 Dose: 50 mg Calcium Carbonate (Calcium Carbonate 750 Mg Tab.Chew) 750 mg PO Q4H PRN PRN Reason: Heartburn Doxazosin Mesylate (Doxazosin Mesylate 2 Mg Tablet) 4 mg PO BEDTIME [facility] Last Admin: 09/16/24 19:56 Dose: 4 mg Ferrous Sulfate (Ferrous Sulfate 324 Mg Tablet.Dr) 324 mg PO BID [facility] Last Admin: 09/16/24 19:56 Dose: 324 mg Finasteride (Finasteride 5 Mg Tablet) 0.5 mg PO DAILY [facility] Heparin Sodium (Porcine) (Heparin Sodium,Porcine 5,000 Unit/Ml Vial) 5,000 unit SUBCUT Q8H [facility] Lactated Ringer's (Lr) 1,000 mls @ 80 mls/hr IVCONT .[id number] [facility] Last Admin: 09/17/24 01:25 Dose: 80 mls/hr Acetaminophen (Ofirmev) 1,000 mg in 100 mls @ 400 mls/hr IV Q6H [facility] Last Admin: 09/17/24 01:24 Dose: 400 mls/hr Melatonin (Melatonin 3 Mg Tablet) 6 mg PO BEDTIME PRN PRN Reason: Insomnia Morphine Sulfate (Morphine Sulfate 4 Mg/Ml Cartridge) 4 mg IVPUSH Q4H PRN; Protocol PRN Reason: Pain, Severe (Pain Scale 7-10) Ondansetron HCl (Ondansetron Hcl 4 Mg/2 Ml Vial) 4 mg IVPUSH Q6H PRN PRN Reason: Nausea and Vomiting Oxycodone HCl (Oxycodone Hcl Immed Release 5 Mg Tablet) 5 mg PO Q4H PRN PRN Reason: Pain, Moderate(Pain Scale 4-6) Last Admin: 09/17/24 01:25 Dose: 5 mg Sodium Chloride (0.9 % Sodium Chloride Flush 3 Ml Syringe) 3 ml IVFLUSH [facility] Last Admin: 09/17/24 01:25 Dose: 3 ml Home Medications ?Medication ?Instructions ?Recorded ?Confirmed ?Last Taken ?Type amlodipine 5 mg tablet 5 mg PO DAILY 09/12/24 09/16/24 09/16/24 History ferrous sulfate 324 mg (65 mg 324 mg PO BID 09/12/24 09/16/24 09/15/24 History iron) tablet,delayed release bicalutamide 50 mg tablet 50 mg PO TID 09/16/24 09/16/24 09/15/24 History dutasteride 0.5 mg capsule 0.5 mg PO DAILY 09/16/24 09/16/24 Unknown History Physical Exam 2 Vital Signs and Narrative: Vital Signs: Last Vital Signs Temp 97.6 F 09/16/24 19:40 Pulse 91 09/16/24 19:40 Resp 16 09/16/24 19:40 BP 167/83 H 09/16/24 19:56 Pulse Ox 98 09/16/24 19:40 O2 Del Method Room Air 09/16/24 19:40 O2 Flow Rate 4 09/16/24 14:08 BMI result Body Mass Index 23.0 General: AOx3, no acute distress Resp: CTA bilaterally CVS: S1, S2, RRR Skin: Warm, dry Extremities: No LE edema Psych: Appropriate affect Flores catheter present and draining straw-colored urine, no hematuria Const: General: No confusion Orientation/consciousness: No confusion Neuro: General: No confusion Results Labs 09/16/24 10:29 09/16/24 10:29 Labs: Laboratory Results - last 24 hr 09/16/24 10:29 MCV 87.4 MCH 27.2 MCHC 31.1 RDW 18.0 H Plt Count 376 MPV 9.1 L Absolute Nucleated RBC 0.000 Nucleated RBC % (auto) 0.0 Anion Gap 15 Estim Creat Clear Calc 69.4 Estimated GFR > 60 Fasting Glucose 86 Calcium 9.6 D Blood Type O Positive Antibody Screen NEGATIVE Assessment and Plan (1) S/P colon resection: Status: Acute Plan Patient is a 69-year-old male with a past medical history significant for hypertension, prostate cancer, status post hand assisted laparoscopic right colon resection. s/p R colon resection - plan per surgery - pathology pending HTN - continue amlodipine Prostate cancer - Flores catheter present and draining - continue bicalutamide, dutasteride, terazosin full code Thank you for allowing me to participate in the pt's care. Signing off for now. Please contact the medical team if any questions or concerns.
[2024-09-17 03:44] VITALS: BP 134/68; PULSE 94; RESP 18; TEMP 36.6; O2SAT 98
[2024-09-17 07:25] LABS: MANUAL DIFF FLAG NO
[2024-09-17 07:28] LABS: Basophils Percent Auto 0.2 % (0-2); Eosinophils Percent Auto 0.1 % (0-4); Imm Gran Abs Auto 0.03 X10*3/uL (0.00-0.03); Imm Gran Pct Auto 0.4 % (0.0-0.4); Lymphocytes Absolute Auto 1.4 X10*3/uL (1.2-4.9); Lymphocytes Percent Auto 16.3 % (20-40); Mean Corpuscular HGB Conc 31.4 g/dl (31.0-36.0); Mean Corpuscular Hemoglobin 27.2 pg (27.0-33.0); Mean Corpuscular Volume 86.6 fL (80.0-98.0); Mean Platelet Volume 8.7 fL (9.4-12.4); Monocytes Absolute Auto 0.8 X10*3/uL (0.1-1.2); Monocytes Percent Auto 9.8 % (2-11); Neutrophils Absolute Auto 6.2 x10*3/uL (2.0-8.3); Neutrophils Percent Auto 73.2 % (45-73); Platelet Count 355 X10*3/uL (160-400); Red Blood Count 4.04 X10*6/uL (4.60-5.80); White Blood Count 8.5 X10*3/uL (4.8-10.8)
[2024-09-17] MEDS: amLODIPine Besylate 5 MG TABLET PO (07:55)
[2024-09-17] MEDS: Bicalutamide 50 MG TABLET PO ×3 (07:55→20:10)
[2024-09-17] MEDS: Ferrous Sulfate 324 MG TABLET.DR PO ×2 (07:55→20:10)
--- NOTE | 2024-09-17 07:55 | P.PNGS_ITS ---
Subjective Subjective Date of Service: 09/17/24 <Chanel Bailey PA-C - Last Filed: 09/17/24 08:02> 09/17/24 <Wesley Doherty MD - Last Filed: 09/17/24 08:15> Interval history: Feels sore this morning. Has not been OOB. Tolerating small amt of liquids. Passing very little flatus. <Chanel Bailey PA-C - Last Filed: 09/17/24 08:02> Physical Exam 2 Vital Signs: Vital Signs: Last Vital Signs Temp 97.9 F 09/17/24 03:44 Pulse 94 09/17/24 03:44 Resp 18 09/17/24 03:44 BP 134/68 09/17/24 03:44 Pulse Ox 98 09/17/24 03:44 O2 Del Method Room Air 09/17/24 03:44 O2 Flow Rate 4 09/16/24 14:08 BMI result Body Mass Index 23.0 <Chanel Bialey PA-C - Last Filed: 09/17/24 08:02> Const: General: comfortable, no acute distress and alert <Chanel Bailey PA-C - Last Filed: 09/17/24 08:02> Orientation/consciousness: patient oriented x3 <Chanel Bailey PA-C - Last Filed: 09/17/24 08:02> Resp: Effort & Inspection: normal respiratory effort <Chanel Bailey PA-C - Last Filed: 09/17/24 08:02> GI: Inspection: Yes distended (mild, soft ) and Yes incision (dressing clean and intact) <Chanel Bailey PA-C - Last Filed: 09/17/24 08:02> Palpation (GI): Soft to palpation, Tenderness to palpation present (GI) (mild incisional) and no guarding <CONSTANCE Uribe Last Filed: 09/17/24 08:02> Percussion: Yes tympanic to percussion <CONSTANCE Uribe Last Filed: 09/17/24 08:02> Skin: General skin exam: no rashes or lesions noted <CONSTANCE Uribe Last Filed: 09/17/24 08:02> Neuro: General: patient oriented x3 and moves all extremities <Chanel Bailey PA-C - Last Filed: 09/17/24 08:02> Objective Data Active Medications Amlodipine Besylate (Amlodipine Besylate 5 Mg Tablet) 5 mg PO DAILY [facility]; Protocol Bicalutamide (Bicalutamide 50 Mg Tablet) 50 mg PO TID [facility] Last Admin: 09/16/24 19:55 Dose: 50 mg Documented By: SABINE Calcium Carbonate (Calcium Carbonate 750 Mg Tab.Chew) 750 mg PO Q4H PRN PRN Reason: Heartburn Doxazosin Mesylate (Doxazosin Mesylate 2 Mg Tablet) 4 mg PO BEDTIME [facility] Last Admin: 09/16/24 19:56 Dose: 4 mg Documented By: SABINE Ferrous Sulfate (Ferrous Sulfate 324 Mg Tablet.Dr) 324 mg PO BID [facility] Last Admin: 09/16/24 19:56 Dose: 324 mg Documented By: SABINE Finasteride (Finasteride 5 Mg Tablet) 0.5 mg PO DAILY [facility] Heparin Sodium (Porcine) (Heparin Sodium,Porcine 5,000 Unit/Ml Vial) 5,000 unit SUBCUT Q8H [facility] Lactated Ringer's (Lr) 1,000 mls @ 80 mls/hr IVCONT .[id number] [facility] Last Admin: 09/17/24 01:25 Dose: 80 mls/hr Documented By: SABINE Acetaminophen (Ofirmev) 1,000 mg in 100 mls @ 400 mls/hr IV Q6H [facility] Last Infusion: 09/17/24 01:40 Dose: Infused Documented By: SABINE Melatonin (Melatonin 3 Mg Tablet) 6 mg PO BEDTIME PRN PRN Reason: Insomnia Morphine Sulfate (Morphine Sulfate 4 Mg/Ml Cartridge) 4 mg IVPUSH Q4H PRN; Protocol PRN Reason: Pain, Severe (Pain Scale 7-10) Ondansetron HCl (Ondansetron Hcl 4 Mg/2 Ml Vial) 4 mg IVPUSH Q6H PRN PRN Reason: Nausea and Vomiting Oxycodone HCl (Oxycodone Hcl Immed Release 5 Mg Tablet) 5 mg PO Q4H PRN PRN Reason: Pain, Moderate(Pain Scale 4-6) Last Admin: 09/17/24 01:25 Dose: 5 mg Documented By: SABINE Sodium Chloride (0.9 % Sodium Chloride Flush 3 Ml Syringe) 3 ml IVFLUSH [facility] Last Admin: 09/17/24 07:21 Dose: Not Given Documented By: ROBERT Non-Admin Reason: Previously Administered <Chanel Bailey PA-C - Last Filed: 09/17/24 08:02> Labs CBC & Chem 7: 09/17/24 07:01 09/17/24 07:01 <Chanel Bailey PA-C - Last Filed: 09/17/24 08:02> Labs: Laboratory Results - last 24 hr 09/16/24 09/17/24 10:29 07:01 MCV 87.4 86.6 MCH 27.2 27.2 MCHC 31.1 31.4 RDW 18.0 H 18.0 H Plt Count 376 355 MPV 9.1 L 8.7 L Immature Gran % (Auto) 0.4 Neut % (Auto) 73.2 H Lymph % (Auto) 16.3 L [place] % (Auto) 9.8 Eos % (Auto) 0.1 Baso % (Auto) 0.2 Lymph # (Auto) 1.4 [place] # (Auto) 0.8 Eos # (Auto) 0.0 Baso # (Auto) 0.0 Abs Immat Gran (auto) 0.03 Absolute Neuts (auto) 6.2 Absolute Nucleated RBC 0.000 0.000 Nucleated RBC % (auto) 0.0 0.0 Anion Gap 15 Estim Creat Clear Calc 69.4 Estimated GFR > 60 Fasting Glucose 86 Calcium 9.6 D Blood Type O Positive Antibody Screen NEGATIVE <Chanel Bailey PA-C - Last Filed: 09/17/24 08:02> Procedures Date of Service Date of Service: 09/17/24 <Chanel Bailey PA-C - Last Filed: 09/17/24 08:02> 09/17/24 <Wesley Doherty MD - Last Filed: 09/17/24 08:15> Progress Note: A&P Assessment and plan (1) S/P colon resection: Status: Acute <Chanel Bailey PA-C - Last Filed: 09/17/24 08:02> Assessment and Plan: Some incisional pain Looks well Urine output clear Abdomen is soft Out of bed, ambulate Pain management Keep Hernandez in Incentive spirometry Doing well postoperatively Seen and examined independently <Wesley Doherty MD - Last Filed: 09/17/24 08:15> Assessment and Plan: POD #1 s/p Hand assisted laparoscopic right colon resection for right colon CA. Doing fairly well post op. VSS. Abd exam benign, mildly distended, dressings clean. Cont clear liquids for now. Increase activity, incentive spirometer. Has indwelling hernandez cath, can cont to bag for now. Pain control. Await GI function. <Chanel Bailey PA-C - Last Filed: 09/17/24 08:02> Time Spent With Patient Time: Total time managing care of this patient today ____ minutes. <Chanel Bailey PA-C - Last Filed: 09/17/24 08:02> Quality Stroke Does the patient have a stroke diagnosis?: No <Chanel Bailey PA-C - Last Filed: 09/17/24 08:02> VTE Prior VTE?: No <Chanel Bailey PA-C - Last Filed: 09/17/24 08:02> VTE Risk Level:: Medical - moderate - high <Chanel Bailey PA-C - Last Filed: 09/17/24 08:02> VTE Device Contraindication: N/A - Device Ordered <Chanel Bailey PA-C - Last Filed: 09/17/24 08:02> VTE Drug Contraindication: N/A - Med Ordered <Chanel Bailey PA-C - Last Filed: 09/17/24 08:02>
[2024-09-17 07:56] LABS: Anion Gap 12 (12-20); Blood Urea Nitrogen 11 mg/dL (9-16); Calcium 8.9 mg/dL (8.4-10.2); Carbon Dioxide 27 mmol/L (22-29); Chloride 104 mmol/L (96-108); Creatinine Clr Calc Pharmacy 74.4; Estimated Glomerular Filt Rate > 60; Glucose Fasting 108 mg/dL (60-99); Potassium 4.6 mmol/L (3.3-5.1); Sodium 138 mmol/L (135-145)
[2024-09-17 08:00] VITALS: BP 155/74; PULSE 79; RESP 16; TEMP 36.2; O2SAT 98
[2024-09-17] MEDS: Finasteride 5 MG TABLET PO (08:11)
--- NOTE | 2024-09-17 09:59 | HO.POSTANES ---
Post Anesthesia Evaluation Post Anesthesia Evaluation Date of Service: 09/17/24 Vital Signs: Vital Signs Temp Pulse Resp BP Pulse Ox O2 Del Method 09/17/24 08:00 97.1 F 79 16 155/74 H 98 Room Air 09/17/24 03:44 97.9 F 94 18 134/68 98 Room Air Anesthesia: General Endotracheal-GETA Mental Status: Awake Pain Control: Satisfactory Nausea/Vomiting: None Hydration: Adequate Anesthesia-Related Issues: No Anes. Related Issues
[2024-09-17] MEDS: Heparin Sodium,Porcine 5,000 UNIT/ML VIAL 5000 UNIT SUBCUT ×2 (10:13→17:10)
--- NOTE | 2024-09-17 13:43 | MHC.CM.PN ---
PATIENT LIVES ALONE AND HAS BEEN INDEPENDENT WITH SELF CARE. HE ASSIGNED HIS GRAND DAUGHTER, ELLIS, HIS HCP. PATIENT BELIEVES THAT HE WILL BE HERE UNTIL MONDAY OR MONDAY. HE DOES NOT FEEL THE NEED FOR VNA SERVICES. PATIENT DOES NOT YET HAVE A PP AND THE NEXT AVAILABLE IS ON MARCH 25, 2025. CM FOLLOWING FOR ANY DC CARE NEEDS.
[2024-09-17 14:58] VITALS: BP 149/78; PULSE 78; RESP 20; TEMP 36.4; O2SAT 99
--- NOTE | 2024-09-17 15:15 | PM.EVENT ---
Event Note Date of Service: 09/17/24 Event Note: Seen on afternoon rounds Feels well Adequate pain control Ambulated down the hallways Good urine output Continue pain management Continue to ambulate some more Keep on clear liquids - passing flatus but not consistent yet Incentive spirometry Time Spent With Patient Time: Total time managing care of this patient today ____ minutes.
[2024-09-17 19:33] VITALS: BP 149/74; PULSE 92; RESP 20; TEMP 36.4; O2SAT 98
[2024-09-17] MEDS: Doxazosin Mesylate 2 MG TABLET 4 MG PO (20:10)
[2024-09-18] MEDS: Acetaminophen 1,000 MG/100 ML PIGGYBACK 400 MG IV ×3 (03:01→19:47)
[2024-09-18] MEDS: Heparin Sodium,Porcine 5,000 UNIT/ML VIAL 5000 UNIT SUBCUT ×3 (03:01→17:35)
[2024-09-18] MEDS: oxyCODONE HCl Immed Release 5 MG TABLET PO (03:02)
[2024-09-18 03:47] VITALS: BP 158/74; PULSE 92; RESP 18; TEMP 36.9; O2SAT 97
[2024-09-18 07:19] VITALS: BP 137/63; PULSE 90; RESP 16; TEMP 36.2; O2SAT 98
[2024-09-18] MEDS: Finasteride 5 MG TABLET PO (08:04)
[2024-09-18] MEDS: Ferrous Sulfate 324 MG TABLET.DR PO ×2 (08:04→19:48)
[2024-09-18] MEDS: amLODIPine Besylate 5 MG TABLET PO (08:04)
[2024-09-18] MEDS: Bicalutamide 50 MG TABLET PO ×3 (08:04→19:48)
--- NOTE | 2024-09-18 08:29 | PM.PNGS ---
Subjective Subjective Date of Service: 09/18/24 <Chanel Bailey PA-C - Last Filed: 09/18/24 08:31> 09/18/24 <Wesley Doherty MD - Last Filed: 09/18/24 15:32> Interval history: Feeling better this morning. Passing more continuous flatus. Pain improving. Tolerating clear liquids without nausea or vomiting. <Chanel Bailey PA-C - Last Filed: 09/18/24 08:31> Physical Exam Vital Signs: Vital Signs: Last Vital Signs Temp 97.2 F 09/18/24 07:19 Pulse 90 09/18/24 07:19 Resp 16 09/18/24 07:19 BP 137/63 09/18/24 07:19 Pulse Ox 98 09/18/24 07:19 O2 Del Method Room Air 09/18/24 07:19 O2 Flow Rate 4 09/16/24 14:08 BMI result Body Mass Index 23.0 <Chanel Bailey PA-C - Last Filed: 09/18/24 08:31> Const: General: comfortable, no acute distress and alert <Chanel Bailey PA-C - Last Filed: 09/18/24 08:31> Orientation/consciousness: patient oriented x3 <CONSTANCE Uribe Last Filed: 09/18/24 08:31> Resp: Effort & Inspection: normal respiratory effort <Chanel Bailey PA-C - Last Filed: 09/18/24 08:31> GI: Inspection: No distended and Yes incision (clean) <Chanel Bailey PA-C - Last Filed: 09/18/24 08:31> Palpation (GI): Soft to palpation, Tenderness to palpation present (GI) (mild incisional) and no guarding <Chanel aBiley PA-C - Last Filed: 09/18/24 08:31> Skin: General skin exam: no rashes or lesions noted <CONSTANCE Uribe Last Filed: 09/18/24 08:31> Neuro: General: patient oriented x3 and moves all extremities <CONSTANCE Uribe Last Filed: 09/18/24 08:31> Objective Data Active Medications Amlodipine Besylate (Amlodipine Besylate 5 Mg Tablet) 5 mg PO DAILY [facility]; Protocol Last Admin: 09/18/24 08:04 Dose: 5 mg Documented By: ROBERT Bicalutamide (Bicalutamide 50 Mg Tablet) 50 mg PO TID [facility] Last Admin: 09/18/24 08:04 Dose: 50 mg Documented By: ROBERT Calcium Carbonate (Calcium Carbonate 750 Mg Tab.Chew) 750 mg PO Q4H PRN PRN Reason: Heartburn Doxazosin Mesylate (Doxazosin Mesylate 2 Mg Tablet) 4 mg PO BEDTIME [facility] Last Admin: 09/17/24 20:10 Dose: 4 mg Documented By: SABINE Ferrous Sulfate (Ferrous Sulfate 324 Mg Tablet.) 324 mg PO BID [facility] Last Admin: 09/18/24 08:04 Dose: 324 mg Documented By: ROBERT Finasteride (Finasteride 5 Mg Tablet) 5 mg PO DAILY [facility] Last Admin: 09/18/24 08:04 Dose: 5 mg Documented By: ROBERT Heparin Sodium (Porcine) (Heparin Sodium,Porcine 5,000 Unit/Ml Vial) 5,000 unit SUBCUT Q8H [facility] Last Admin: 09/18/24 03:01 Dose: 5,000 unit Documented By: SABINE Acetaminophen ([facility]) 1,000 mg in 100 mls @ 400 mls/hr IV Q6H [facility] Last Infusion: 09/18/24 08:20 Dose: Infused Documented By: ROBERT Melatonin (Melatonin 3 Mg Tablet) 6 mg PO BEDTIME PRN PRN Reason: Insomnia Morphine Sulfate (Morphine Sulfate 4 Mg/Ml Cartridge) 4 mg IVPUSH Q4H PRN; Protocol PRN Reason: Pain, Severe (Pain Scale 7-10) Ondansetron HCl (Ondansetron Hcl 4 Mg/2 Ml Vial) 4 mg IVPUSH Q6H PRN PRN Reason: Nausea and Vomiting Oxycodone HCl (Oxycodone Hcl Immed Release 5 Mg Tablet) 5 mg PO Q4H PRN PRN Reason: Pain, Moderate(Pain Scale 4-6) Last Admin: 09/18/24 03:02 Dose: 5 mg Documented By: SABINE Sodium Chloride (0.9 % Sodium Chloride Flush 3 Ml Syringe) 3 ml IVFLUSH QSHIFT [facility] Last Admin: 09/18/24 07:13 Dose: Not Given Documented By: ROBERT Non-Admin Reason: Previously Administered <Chanel Bailey PA-C - Last Filed: 09/18/24 08:31> Labs CBC & Chem 7: 09/17/24 07:01 09/17/24 07:01 <Chanel Bailey PA-C - Last Filed: 09/18/24 08:31> Procedures Date of Service Date of Service: 09/18/24 <Chanel Bailey PA-C - Last Filed: 09/18/24 08:31> 09/18/24 <Wesley Doherty MD - Last Filed: 09/18/24 15:32> Progress Note: A&P Assessment and plan (1) S/P colon resection: Status: Acute <Chanel Bailey PA-C - Last Filed: 09/18/24 08:31> (2) Colon cancer, ascending: Status: Acute <Chanel Bailey PA-C - Last Filed: 09/18/24 08:31> Assessment and Plan: POD #2 s/p Hand assisted laparoscopic right colon resection for right colon CA. Continues to do fairly well post op, passing flatus. VSS. Abd exam benign, incisions clean. Cont clear liquids for now, possible advance later today. Increase activity, incentive spirometer. Has indwelling hernandez cath, can cont to bag for now. Pain control. Await pathology. <Chanel Bailey PA-C - Last Filed: 09/18/24 08:31> Time Spent With Patient Time: Total time managing care of this patient today ____ minutes. <Chanel Bailey PA-C - Last Filed: 09/18/24 08:31> Quality Stroke Does the patient have a stroke diagnosis?: No <CONSTANCE Uribe Last Filed: 09/18/24 08:31> VTE Prior VTE?: No <Chanel Bailey PA-C - Last Filed: 09/18/24 08:31> VTE Risk Level:: Medical - moderate - high <Chanel Bailey PA-C - Last Filed: 09/18/24 08:31> VTE Device Contraindication: N/A - Device Ordered <CONSTANCE Uribe Last Filed: 09/18/24 08:31> VTE Drug Contraindication: N/A - Med Ordered <Chanel Bailey PA-C - Last Filed: 09/18/24 08:31>
--- NOTE | 2024-09-18 12:50 | MHC.CM.PN ---
Patient not medically cleared for dc. CM will continue to follow.
--- OUTSIDE RECORDS SUMMARY | 2024-09-18 14:35 | XMS_ITS ---
Author Organization [facility] Address [address] [place] [address] Care Team Providers Care Gas Truck Driver Name Role Phone NONE, NONE Primary Care Provider Babak Jain Unavailable [phone] REASON FOR VISIT fe def anemia,abnormal ct scan of colon Encounters Encounter Location Date Provider Diagnosis [facility] [place] [address] [place], [place] [phone] 09/04/2024 Babak Mooney PLAN OF TREATMENT No Information
--- OUTSIDE RECORDS SUMMARY | 2024-09-18 14:36 | XMS_ITS | Patient Health Record ---
Author Organization [facility] Address [address] [place] [address] Care Team Providers Care Yarn Dumper Name Role Phone NONE, NONE Primary Care Provider Litzy MooneyBabak Amy [phone] RESULTS Component Value Reference Range Notes Hold Lav - Possible Hematolo gy Reviewed date:09/03/2024 01:08:51 PM Interpretation: Performing Lab:[facility], [address] [place] [phone] Notes/Report: Hold Lav - Possible Hematology SEE NOTE Specimen will be held untested for 8 hours. Call Hematology if testing is desired. Prothrombin Time INR Reviewed date:09/03/2024 01:08:58 PM Interpretation: Performing Lab:[facility], [address] [place] [phone] Notes/Report: Prothrombin Time 13.9 10.9-12.4 SEC INTERNATIONAL [...] (Free>4and<10) Reviewed date:09/03/2024 01:09:06 PM Interpretation: Performing Lab:[facility], [address] [place] [phone] Notes/Report: PSA,Total (Free>4and<10) 89.85 0.00-4.00 ng/mL A [...] Folate Reviewed date:09/03/2024 01:09:13 PM Interpretation: Performing Lab:[address] [phone] Notes/Report: Vitamin B12 815 200-900 pg/mL NORMAL 200-900 PG/ML INDETERMINATE 160-199 PG/ML DEFICIENT < 160 PG/ML Folate 10.6 > or = 4.0 ng/mL Reference Values: > or = 4.0 ng/mL < 4.0 ng/mL suggests folate deficiency Methotrexate, aminopterin and folinic acid (leucovorin) are chemotherapeutic agents whose molecular structures are similar to folate; therefore, the Oxygen Therapy Teacher folate assay cannot be used for patients using these drugs. Pathology (Not yet reviewed by provider) Interpretation: Performing Lab:[facility], [address] [place] [phone] Notes/Report: Complete Blood Count Auto Di ff Reviewed date:09/04/2024 11:48:44 PM Interpretation: Performing Lab:[facility], [address] [place] [phone] Notes/Report: White Blood Count 11.7 4.8-10.8 X10*3/uL [...] g Reviewed date:09/04/2024 11:48:55 PM Interpretation: Performing Lab:[facility], [address] [place] [phone] Notes/Report: Sodium 144 135-145 mmol/L Potassium 2.9 [...] ff Reviewed date:09/06/2024 11:27:04 AM Interpretation: Performing Lab:[facility], [address] [place] [phone] Notes/Report: White Blood Count 13.1 4.8-10.8 X10*3/uL [...] g Reviewed date:09/06/2024 11:27:36 AM Interpretation: Performing Lab:[facility], [address] [place] [phone] Notes/Report: Sodium 143 135-145 mmol/L Potassium 3.4 [...] 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) (208937919) Problem Malignant neoplasm of ascending colon (C18.2) Active confirmed Malignant tumor of ascending colon (022081024) Problem Diverticulosis of large intestine without perforation or abscess without bleeding (K57.30) Active confirmed Diverticul ar disease of colon (214938197) Encounters Encounter Location Date Provider [place] [facility] [place] [address] [place] [id number] 09/04/2024 Babak Mooney PLAN OF TREATMENT Pending Test Test Name Order Date Pathology 09/04/2024 Insurance Providers Payer Name Payer Address Payer Phone Subscriber Number Group Number Insured Name Patient Relationship to Insured Coverage Start Date Coverage End Date [employer] [place] [address] [address] [place] [address] [id number] LYNNE MCCONNELL Self - patient is the insured
--- NOTE | 2024-09-18 15:32 | PM.EVENT ---
Event Note Date of Service: 09/18/24 Event Note: Seen on afternoon rounds He says he has been ambulating Pain control adequate Voiding well Tolerating clear liquids He says he pass small amounts of flatus We will keep on clear liquids for today Hopefully we can advance diet tomorrow if he has poor consistent passage of flatus Encouraged ambulation Time Spent With Patient Time: Total time managing care of this patient today ____ minutes.
[2024-09-18 15:54] VITALS: BP 137/74; PULSE 105; RESP 18; TEMP 36.1; O2SAT 98
[2024-09-18 19:29] VITALS: BP 138/72; PULSE 112; RESP 20; TEMP 36.6; O2SAT 97
[2024-09-18] MEDS: Doxazosin Mesylate 2 MG TABLET 4 MG PO (19:48)
[2024-09-18] MEDS: 0.9 % Sodium Chloride Flush 3 ML SYRINGE IVFLUSH (19:48)
[2024-09-19] MEDS: Acetaminophen 1,000 MG/100 ML PIGGYBACK 400 MG IV ×3 (01:48→19:53)
[2024-09-19] MEDS: Heparin Sodium,Porcine 5,000 UNIT/ML VIAL 5000 UNIT SUBCUT ×3 (01:49→17:00)
[2024-09-19 03:24] VITALS: BP 144/76; PULSE 100; RESP 18; TEMP 37.1; O2SAT 97
[2024-09-19] MEDS: 0.9 % Sodium Chloride Flush 3 ML SYRINGE IVFLUSH ×3 (07:26→19:53)
[2024-09-19 07:46] VITALS: BP 156/80; PULSE 98; RESP 16; TEMP 36.8; O2SAT 97
[2024-09-19] MEDS: amLODIPine Besylate 5 MG TABLET PO (08:04)
[2024-09-19] MEDS: Bicalutamide 50 MG TABLET PO ×3 (08:04→19:53)
[2024-09-19] MEDS: Finasteride 5 MG TABLET PO (08:04)
[2024-09-19] MEDS: Ferrous Sulfate 324 MG TABLET.DR PO ×2 (08:04→19:53)
--- NOTE | 2024-09-19 08:40 | PM.PNGS ---
Subjective Subjective Date of Service: 09/19/24 <Chanel Bailey PA-C - Last Filed: 09/19/24 08:44> 09/19/24 <Wesley Doherty MD - Last Filed: 09/19/24 11:25> Interval history: Feeling better. Pain controlled with just IV tylenol. OOB and ambulating, using incentive. Passing flatus. Tolerating clear liquids and feels hungry. <Chanel Bailey PA-C - Last Filed: 09/19/24 08:44> Physical Exam Vital Signs: Vital Signs: Last Vital Signs Temp 98.3 F 09/19/24 07:46 Pulse 98 09/19/24 07:46 Resp 16 09/19/24 07:46 BP 156/80 H 09/19/24 07:46 Pulse Ox 97 09/19/24 07:46 O2 Del Method Room Air 09/19/24 07:46 O2 Flow Rate 4 09/16/24 14:08 BMI result Body Mass Index 23.0 <Chanel Bailey PA-C - Last Filed: 09/19/24 08:44> Const: General: comfortable, no acute distress and alert <Chanel Bailey PA-C - Last Filed: 09/19/24 08:44> Orientation/consciousness: patient oriented x3 <Chanel Bailey PA-C - Last Filed: 09/19/24 08:44> Resp: Effort & Inspection: normal respiratory effort <Chanel Bailey PA-C - Last Filed: 09/19/24 08:44> GI: Inspection: No distended and Yes incision (clean) <Chanel Bailey PA-C - Last Filed: 09/19/24 08:44> Palpation (GI): Soft to palpation and no guarding <CONSTANCE Uribe Last Filed: 09/19/24 08:44> Skin: General skin exam: no rashes or lesions noted <CONSTANCE Uribe Last Filed: 09/19/24 08:44> Neuro: General: patient oriented x3 and moves all extremities <Chanel Bailey PA-C - Last Filed: 09/19/24 08:44> Objective Data Active Medications Amlodipine Besylate (Amlodipine Besylate 5 Mg Tablet) 5 mg PO DAILY [facility]; Protocol Last Admin: 09/19/24 08:04 Dose: 5 mg Documented By: MORALES Bicalutamide (Bicalutamide 50 Mg Tablet) 50 mg PO TID [facility] Last Admin: 09/19/24 08:04 Dose: 50 mg Documented By: MORALES Calcium Carbonate (Calcium Carbonate 750 Mg Tab.Chew) 750 mg PO Q4H PRN PRN Reason: Heartburn Doxazosin Mesylate (Doxazosin Mesylate 2 Mg Tablet) 4 mg PO BEDTIME [facility] Last Admin: 09/18/24 19:48 Dose: 4 mg Documented By: TAMARA Ferrous Sulfate (Ferrous Sulfate 324 Mg Tablet.Dr) 324 mg PO BID [facility] Last Admin: 09/19/24 08:04 Dose: 324 mg Documented By: MORALES Finasteride (Finasteride 5 Mg Tablet) 5 mg PO DAILY [facility] Last Admin: 09/19/24 08:04 Dose: 5 mg Documented By: MORALES Heparin Sodium (Porcine) (Heparin Sodium,Porcine 5,000 Unit/Ml Vial) 5,000 unit SUBCUT Q8H [facility] Last Admin: 09/19/24 01:49 Dose: 5,000 unit Documented By: TAMARA Acetaminophen (Ofirmev) 1,000 mg in 100 mls @ 400 mls/hr IV Q6H [facility] Last Infusion: 09/19/24 07:42 Dose: Infused Documented By: MORALES Melatonin (Melatonin 3 Mg Tablet) 6 mg PO BEDTIME PRN PRN Reason: Insomnia Morphine Sulfate (Morphine Sulfate 4 Mg/Ml Cartridge) 4 mg IVPUSH Q4H PRN; Protocol PRN Reason: Pain, Severe (Pain Scale 7-10) Ondansetron HCl (Ondansetron Hcl 4 Mg/2 Ml Vial) 4 mg IVPUSH Q6H PRN PRN Reason: Nausea and Vomiting Oxycodone HCl (Oxycodone Hcl Immed Release 5 Mg Tablet) 5 mg PO Q4H PRN PRN Reason: Pain, Moderate(Pain Scale 4-6) Last Admin: 09/18/24 03:02 Dose: 5 mg Documented By: SABNIE Sodium Chloride (0.9 % Sodium Chloride Flush 3 Ml Syringe) 3 ml IVFLUSH QSHIFT [facility] Last Admin: 09/19/24 07:26 Dose: 3 ml Documented By: MORALES <Chanel Bailey PA-C - Last Filed: 09/19/24 08:44> Labs CBC & Chem 7: 09/17/24 07:01 09/17/24 07:01 <Chanel Bailey PA-C - Last Filed: 09/19/24 08:44> Procedures Date of Service Date of Service: 09/19/24 <Chanel Bailey PA-C - Last Filed: 09/19/24 08:44> 09/19/24 <Wesley Doherty MD - Last Filed: 09/19/24 11:25> Progress Note: A&P Assessment and plan (1) S/P colon resection: Status: Acute <Chanel Bailey PA-C - Last Filed: 09/19/24 08:44> Assessment and Plan: Passing flatus Has been ambulating Feels comfortable Clinically doing well Abdomen is soft and benign Diet as tolerated DC home once tolerating diet Seen and examined independently <Wesley Doherty MD - Last Filed: 09/19/24 11:25> (2) Colon cancer, ascending: Status: Acute <Chanel Bailey PA-C - Last Filed: 09/19/24 08:44> Assessment and Plan: POD #3 s/p Hand assisted laparoscopic right colon resection for right colon CA. Continues to do well post op, good GI function. VSS. Abd exam remains benign with clean incisions. Will advance to solid diet. Cont to increase activity, IS use. Possibly home later today or tomorrow if tolerating diet and remains comfortable. Patient agrees with plan. <Chanel Bailey PA-C - Last Filed: 09/19/24 08:44> Time Spent With Patient Time: Total time managing care of this patient today ____ minutes. <Chanel Bailey PA-C - Last Filed: 09/19/24 08:44> Quality Stroke Does the patient have a stroke diagnosis?: No <CONSTANCE Uribe Last Filed: 09/19/24 08:44> VTE Prior VTE?: No <Chanel Bailey PA-C - Last Filed: 09/19/24 08:44> VTE Risk Level:: Medical - moderate - high <CONSTANCE Uribe Last Filed: 09/19/24 08:44> VTE Device Contraindication: N/A - Device Ordered <CONSTANCE Uribe Last Filed: 09/19/24 08:44> VTE Drug Contraindication: N/A - Med Ordered <CONSTANCE Uribe Last Filed: 09/19/24 08:44>
[2024-09-19] MEDS: Docusate Sodium 100 MG CAPSULE PO ×2 (09:14→19:53)
[2024-09-19 16:00] VITALS: BP 174/74; PULSE 112; RESP 18; TEMP 36.4; O2SAT 98
[2024-09-19 16:45] VITALS: PULSE 108
[2024-09-19 16:48] VITALS: BP 162/74
[2024-09-19 19:45] VITALS: BP 145/68; PULSE 106; RESP 18; TEMP 36.9; O2SAT 97
[2024-09-19] MEDS: Doxazosin Mesylate 2 MG TABLET 4 MG PO (19:53)
--- NOTE | 2024-09-20 | ECG_ITS ---
Test Reason : tachycardia Blood Pressure : / mmHG Vent. Rate : 120 BPM Atrial Rate : 120 BPM P-R Int : 146 ms QRS Dur : 076 ms QT Int : 330 ms P-R-T Axes : 052 008 -10 degrees QTc Int : 466 ms Sinus tachycardia Possible Left atrial enlargement Left ventricular hypertrophy ( R in aVL , Sokolow-Galeana , Gamaliel product ) Nonspecific T wave abnormality Abnormal ECG When compared with ECG of 30-AUG-2024 18:01, No significant change was found Referred By: Rohith Sharma Electronically Signed By:TERRIE FAROOQ MD
[2024-09-20] MEDS: Heparin Sodium,Porcine 5,000 UNIT/ML VIAL 5000 UNIT SUBCUT ×3 (01:57→17:03)
[2024-09-20 04:00] VITALS: BP 149/78; PULSE 111; RESP 16; TEMP 36.9; O2SAT 97
[2024-09-20 07:33] VITALS: BP 152/76; PULSE 109; RESP 16; TEMP 37.1; O2SAT 97
[2024-09-20] MEDS: Ferrous Sulfate 324 MG TABLET.DR PO ×2 (07:57→19:57)
[2024-09-20] MEDS: Docusate Sodium 100 MG CAPSULE PO ×2 (07:57→19:57)
[2024-09-20] MEDS: 0.9 % Sodium Chloride Flush 3 ML SYRINGE IVFLUSH ×2 (07:57→14:27)
[2024-09-20] MEDS: Bicalutamide 50 MG TABLET PO ×3 (07:57→19:57)
[2024-09-20] MEDS: Finasteride 5 MG TABLET PO (07:57)
[2024-09-20] MEDS: amLODIPine Besylate 5 MG TABLET PO (07:57)
--- NOTE | 2024-09-20 08:12 | PM.PNGS ---
Subjective Subjective Date of Service: 09/20/24 <Chanel Bailey PA-C - Last Filed: 09/20/24 08:16> 09/20/24 <Wesley Doherty MD - Last Filed: 09/20/24 08:23> Interval history: Feels ok this morning. Pain controlled well. Has been OOB and ambulating without difficulty. Passing flatus but no BM yet. Tolerating diet without nausea or vomiting. <Chanel Bailey PA-C - Last Filed: 09/20/24 08:16> Physical Exam Vital Signs: Vital Signs: Last Vital Signs Temp 98.7 F 09/20/24 07:33 Pulse 109 H 09/20/24 07:33 Resp 16 09/20/24 07:33 BP 152/76 H 09/20/24 07:33 Pulse Ox 97 09/20/24 07:33 O2 Del Method Room Air 09/20/24 07:33 O2 Flow Rate 4 09/16/24 14:08 BMI result Body Mass Index 23.0 <Chanel Bailey PA-C - Last Filed: 09/20/24 08:16> Const: General: comfortable, no acute distress and alert <CONSTANCE Uribe Last Filed: 09/20/24 08:16> Orientation/consciousness: patient oriented x3 <Chanel Bailey PA-C - Last Filed: 09/20/24 08:16> Resp: Effort & Inspection: normal respiratory effort <Chanel Bailey PA-C - Last Filed: 09/20/24 08:16> GI: Other: incision clean mild distention, soft mild incisional tenderness <Chanel Bailey PA-C - Last Filed: 09/20/24 08:16> Skin: General skin exam: no rashes or lesions noted <CONSTANCE Uribe Last Filed: 09/20/24 08:16> Neuro: General: patient oriented x3 and moves all extremities <CONSTANCE Uribe Last Filed: 09/20/24 08:16> Objective Data Active Medications Amlodipine Besylate (Amlodipine Besylate 5 Mg Tablet) 5 mg PO DAILY [facility]; Protocol Last Admin: 12/13/24 07:57 Dose: 5 mg Documented By: MORALES Bicalutamide (Bicalutamide 50 Mg Tablet) 50 mg PO TID [facility] Last Admin: 09/20/24 07:57 Dose: 50 mg Documented By: MORALES Calcium Carbonate (Calcium Carbonate 750 Mg Tab.Chew) 750 mg PO Q4H PRN PRN Reason: Heartburn Docusate Sodium (Docusate Sodium 100 Mg Capsule) 100 mg PO BID [facility] Last Admin: 09/20/24 07:57 Dose: 100 mg Documented By: MORALES Doxazosin Mesylate (Doxazosin Mesylate 2 Mg Tablet) 4 mg PO BEDTIME [facility] Last Admin: 09/19/24 19:53 Dose: 4 mg Documented By: TAMARA Ferrous Sulfate (Ferrous Sulfate 324 Mg Tablet.Dr) 324 mg PO BID [facility] Last Admin: 09/20/24 07:57 Dose: 324 mg Documented By: MORALES Finasteride (Finasteride 5 Mg Tablet) 5 mg PO DAILY [facility] Last Admin: 09/20/24 07:57 Dose: 5 mg Documented By: MORALES Heparin Sodium (Porcine) (Heparin Sodium,Porcine 5,000 Unit/Ml Vial) 5,000 unit SUBCUT Q8H [facility] Last Admin: 09/20/24 01:57 Dose: 5,000 unit Documented By: TAMARA Melatonin (Melatonin 3 Mg Tablet) 6 mg PO BEDTIME PRN PRN Reason: Insomnia Morphine Sulfate (Morphine Sulfate 4 Mg/Ml Cartridge) 4 mg IVPUSH Q4H PRN; Protocol PRN Reason: Pain, Severe (Pain Scale 7-10) Ondansetron HCl (Ondansetron Hcl 4 Mg/2 Ml Vial) 4 mg IVPUSH Q6H PRN PRN Reason: Nausea and Vomiting Oxycodone HCl (Oxycodone Hcl Immed Release 5 Mg Tablet) 5 mg PO Q4H PRN PRN Reason: Pain, Moderate(Pain Scale 4-6) Last Admin: 09/18/24 03:02 Dose: 5 mg Documented By: SABINE Sodium Chloride (0.9 % Sodium Chloride Flush 3 Ml Syringe) 3 ml IVFLUSH QSHIFT [facility] Last Admin: 09/20/24 07:57 Dose: 3 ml Documented By: MORALES Bailey PA-C - Last Filed: 09/20/24 08:16> Labs CBC & Chem 7: 09/17/24 07:01 09/17/24 07:01 <Chanel Bailey PA-C - Last Filed: 09/20/24 08:16> Procedures Date of Service Date of Service: 09/20/24 <Chanel Bailey PA-C - Last Filed: 09/20/24 08:16> 09/20/24 <Wesley Doherty MD - Last Filed: 09/20/24 08:23> Progress Note: A&P Assessment and plan (1) S/P colon resection: Status: Acute <CONSTANCE Uribe Last Filed: 09/20/24 08:16> Assessment and Plan: admits pain on incisions tolerating diet passing good flatus abd soft HR up, no fever incisions clean and dry check labs encouraged ambulation dc once he is ambulating more seen and examined independently <Wesley Doherty MD - Last Filed: 09/20/24 08:23> (2) Colon cancer, ascending: Status: Acute <Chanel Bailey PA-C - Last Filed: 09/20/24 08:16> Assessment and Plan: POD #4 s/p Hand assisted laparoscopic right colon resection for right colon CA. Overall doing well and tolerating diet with evidence of GI function but tachycardic this morning. CLinically appearing well, abd benign with clean incision. Will repeat AM labs. Possible dc to home later today if remains stable. <Chanel Bailey PA-C - Last Filed: 09/20/24 08:16> Time Spent With Patient Time: Total time managing care of this patient today ____ minutes. <Chanel Bailey PA-C - Last Filed: 09/20/24 08:16> Quality Stroke Does the patient have a stroke diagnosis?: No <CONSTANCE Uribe Last Filed: 09/20/24 08:16> VTE Prior VTE?: No <CONSTANCE Uribe Last Filed: 09/20/24 08:16> VTE Risk Level:: Medical - moderate - high <CONSTANCE Uribe Last Filed: 09/20/24 08:16> VTE Device Contraindication: N/A - Device Ordered <Chanel Bailey PA-C - Last Filed: 09/20/24 08:16> VTE Drug Contraindication: N/A - Med Ordered <Chanel Bailey PA-C - Last Filed: 09/20/24 08:16>
[2024-09-20 09:12] LABS: MANUAL DIFF FLAG NO
[2024-09-20 09:15] LABS: Basophils Absolute Auto 0.1 X10*3/uL (0.0-0.2); Basophils Percent Auto 0.7 % (0-2); Eosinophils Percent Auto 0.5 % (0-4); Hematocrit 38.7 % (42.0-52.0); Hemoglobin 12.2 g/dl (14.0-18.0); Imm Gran Abs Auto 0.03 X10*3/uL (0.00-0.03); Imm Gran Pct Auto 0.4 % (0.0-0.4); Lymphocytes Absolute Auto 1.1 X10*3/uL (1.2-4.9); Mean Corpuscular HGB Conc 31.5 g/dl (31.0-36.0); Mean Corpuscular Hemoglobin 27.1 pg (27.0-33.0); Mean Corpuscular Volume 85.8 fL (80.0-98.0); Mean Platelet Volume 9.2 fL (9.4-12.4); Monocytes Absolute Auto 0.5 X10*3/uL (0.1-1.2); Monocytes Percent Auto 6.9 % (2-11); Neutrophils Absolute Auto 5.9 x10*3/uL (2.0-8.3); Neutrophils Percent Auto 77.5 % (45-73); Platelet Count 354 X10*3/uL (160-400); Red Blood Count 4.51 X10*6/uL (4.60-5.80); Red Cell Distribution Width 17.9 % (11.0-16.0); White Blood Count 7.6 X10*3/uL (4.8-10.8)
[2024-09-20 09:26] LABS: Anion Gap 13 (12-20); Blood Urea Nitrogen 10 mg/dL (9-16); Calcium 9.1 mg/dL (8.4-10.2); Carbon Dioxide 23 mmol/L (22-29); Chloride 106 mmol/L (96-108); Creatinine Clr Calc Pharmacy 87.4; Estimated Glomerular Filt Rate > 60; Glucose Fasting 96 mg/dL (60-99); Potassium 3.8 mmol/L (3.3-5.1); Sodium 138 mmol/L (135-145)
--- NOTE | 2024-09-20 11:39 | PM.HEMONCCN ---
Subjective - Subjective Chief complaint: Generalized weakness Patient: new to practice Consult date: 09/20/24 Primary Care Provider: Unknown Physician Medical Summary: Diagnosis: Metastatic prostate cancer 08/2024 Ascending colon cancer 09/2024 HPI - Consult Narrative Reason for consult: Colon cancer Narrative: Ortiz Quispe is a 69 year old male who is currently admitted after colon resection for ascending colon cancer. He did not have a PCP and had no medical care for many years, he presented to [facility] emergency department with difficulty urinating, back pain, anorexia and fatigue. Workup in the ED showed a BUN of 189 with a serum creatinine of 27. CT scan of abdomen/pelvis showed right hydroureteronephrosis with retroperitoneal free fluid, distended urinary bladder, enlarged prostate and sclerotic lesions in the pelvic bone suspicious for metastatic prostate cancer. There was also segment of thickening in the ascending colon concerning for carcinoma. Patient underwent cystoscopy and prostate biopsy on 09/02/2024 which revealed prostate adenocarcinoma. He was started on Casodex by urologist. He also underwent colonoscopy and EGD which revealed ascending colon mass, biopsy confirmed invasive adenocarcinoma. Patient states that he does not know if anybody else had cancer in his family. He thinks he may have lost weight but he can not quantify how much. 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 He denies smoking or consuming excess alcohol. He denies coronary artery disease, CVA or lung issues. At this time apart from generalized weakness he denies any pain, cough, shortness of breath, fever, chills, palpitation or dizziness. Review of Systems - Constitutional Reports as per HPI, Reports fatigue, Reports malaise, Denies weight loss - Cardiovascular Reports no additional cardiovascular complaints - Respiratory Reports no additional respiratory complaints - Gastrointestinal Reports no additional gastrointestinal complaints - Neurologic Denies confusion, Denies headache(s), Denies numbness, Denies tingling PMFSH Medical History: Medical History (Last Updated 09/12/24 @ 10:26 by Junie Self RN) Colonic mass Hx of endocrine hypertension Hypertension Indwelling Flores catheter present Prostate cancer Surgical History: Surgical History (Last Updated 09/11/24 @ 09:30 by Junie Self RN) H/O colonoscopy History of esophagogastroduodenoscopy (EGD) Hx of cystoscopy Social History: Social History (Last Reviewed 09/10/24 @ 10:27 by Roshni Smith Rc Living Situation History: Household Members: None Housing: Apartment Are you a primary furnace caretaker to a significant other at home: No Do you presently have visiting nurse or other home services: No Alcohol History Details: 1. How often do you have a drink containing alcohol?: a. Never AUDIT-C Alcohol total score: 0 Currently Displaying Signs/Symptoms of Alcohol Withdrawal: No Tobacco History: Patient Tobacco Use Status: Former Tobacco user Tobacco use type: Cigarette Years Smoked: 20 Substance Use History: Use of substances other than those prescribed or required for medical reasons: No Currently Displaying Signs/Symptoms of Drug Intoxication Withdrawal: No Domestic Abuse History: Have you been hit, kicked, punched, or otherwise hurt by someone within the past year? If so, by whom?: No Do you feel safe in your current relationship?: No Healthcare Practices: Spiritual Healthcare Practices: muslim Druze Healthcare Practices: Islam Cultural Healthcare Practices: none Advance Directives: Advance Directives: Yes Advance Directives Information Provided: Yes Advance Directives on File: Yes Advance Directives Date on File: 09/01/24 Homicidal Assessment: Do you have a plan to hurt others: No Plan Nutrition Assessment: Recently lost weight without trying: Yes How much weight loss: 2-13 pounds Eating poorly because of decreased appetite: No Nutrition Risks: No Nutritional Risk Poor oral hygiene: No Occupation Assessmet: service: No Home Medications and Allergies Current Medications: Current Medications Amlodipine Besylate (Amlodipine Besylate 5 Mg Tablet) 5 mg PO DAILY [facility]; Protocol Last Admin: 09/20/24 07:57 Dose: 5 mg Bicalutamide (Bicalutamide 50 Mg Tablet) 50 mg PO TID [facility] Last Admin: 09/20/24 07:57 Dose: 50 mg Calcium Carbonate (Calcium Carbonate 750 Mg Tab.Chew) 750 mg PO Q4H PRN PRN Reason: Heartburn Docusate Sodium (Docusate Sodium 100 Mg Capsule) 100 mg PO BID [facility] Last Admin: 09/20/24 07:57 Dose: 100 mg Doxazosin Mesylate (Doxazosin Mesylate 2 Mg Tablet) 4 mg PO BEDTIME [facility] Last Admin: 09/19/24 19:53 Dose: 4 mg Ferrous Sulfate (Ferrous Sulfate 324 Mg Tablet.Dr) 324 mg PO BID [facility] Last Admin: 09/20/24 07:57 Dose: 324 mg Finasteride (Finasteride 5 Mg Tablet) 5 mg PO DAILY [facility] Last Admin: 09/20/24 07:57 Dose: 5 mg Heparin Sodium (Porcine) (Heparin Sodium,Porcine 5,000 Unit/Ml Vial) 5,000 unit SUBCUT Q8H [facility] Last Admin: 09/20/24 09:16 Dose: 5,000 unit Melatonin (Melatonin 3 Mg Tablet) 6 mg PO BEDTIME PRN PRN Reason: Insomnia Morphine Sulfate (Morphine Sulfate 4 Mg/Ml Cartridge) 4 mg IVPUSH Q4H PRN; Protocol PRN Reason: Pain, Severe (Pain Scale 7-10) Ondansetron HCl (Ondansetron Hcl 4 Mg/2 Ml Vial) 4 mg IVPUSH Q6H PRN PRN Reason: Nausea and Vomiting Oxycodone HCl (Oxycodone Hcl Immed Release 5 Mg Tablet) 5 mg PO Q4H PRN PRN Reason: Pain, Moderate(Pain Scale 4-6) Last Admin: 09/18/24 03:02 Dose: 5 mg Sodium Chloride (0.9 % Sodium Chloride Flush 3 Ml Syringe) 3 ml IVFLUSH QSHIFT [facility] Last Admin: 09/20/24 07:57 Dose: 3 ml Home Medications ?Medication ?Instructions ?Recorded ?Confirmed ?Type amlodipine 5 mg tablet 5 mg PO DAILY 09/12/24 09/16/24 History ferrous sulfate 324 mg (65 mg 324 mg PO BID 09/12/24 09/16/24 History iron) tablet,delayed release bicalutamide 50 mg tablet 50 mg PO TID 09/16/24 09/16/24 History dutasteride 0.5 mg capsule 0.5 mg PO DAILY 09/16/24 09/16/24 History Allergies Allergy/AdvReac Type Severity Reaction Status Date / Time No Known Allergies Allergy Verified 09/10/24 10:27 Physical Exam Vital signs: Vital Signs Temp 98.7 F 09/20/24 07:33 Pulse 109 H 09/20/24 07:33 Resp 16 09/20/24 07:33 BP 152/76 H 09/20/24 07:33 Pulse Ox 97 09/20/24 07:33 O2 Del Method Room Air 09/20/24 07:33 O2 Flow Rate 4 09/16/24 14:08 Intake & Output 1209/20/24 09/20/24 18:59 06:59 18:59 Intake Total 820 / 1420 600 / 1420 Output Total 825 / 1725 900 / 1725 Balance -5 / -305 -300 / -305 Urine Output (Average ml/kg/hr) 1.00 1.09 Intake: Intake, Oral Amount 720 / 1220 500 / 1220 Intake, IV Amount 100 / 200 100 / 200 Acetaminophen 1,000 mg In 100 100 / 200 100 / 200 ml @ 400 mls/hr IV Q6H [facility] Rx#: [id number] Output: Output, Urine Amount (Catheter) 825 / 1725 900 / 1725 2-way Urethral 825 / 1725 900 / 1725 Other: Meal Refused No NPO No Breakfast % Eaten 50% Lunch % Eaten 75% Eating (Feeding) Ability Independent Urine Color Yellow Weight 68.5 kg - Constitutional Present: no acute distress, average body habitus - Routine HEENT Exam Head: Present: normal inspection Eye: Present: EOMI, PERRL - Routine Neck Exam Present: supple. Absent: lymphadenopathy - Routine Respiratory Exam Present: CTAB - Routine Cardiovascular Exam Cardiovascular: Present: RRR, S1, S2 - Routine Abdominal Exam Present: soft - Routine Skin Exam Present: intact - Routine Neurological Exam Present: alert, oriented X3 Hem/Onc Consult Result - Labs CBC & Chem 7: 09/20/24 09:03 09/20/24 09:03 Labs: Short CBC 09/20/24 Range/Units 09:03 WBC 7.6 (4.8-10.8) X10*3/uL Hgb 12.2 L (14.0-18.0) g/dl Hct 38.7 L (42.0-52.0) % Plt Count 354 (160-400) X10*3/uL BMP 09/20/24 09:03 Sodium 138 Potassium 3.8 Chloride 106 Carbon Dioxide 23 BUN 10 Creatinine 0.75 Calcium 9.1 Assessment and Plan Patient Active problem list reviewed?: Yes (1) Colon cancer, ascending Status: Acute Assessment and plan: 1. This is a 69-year-old black male who was recently diagnosed with metastatic prostate cancer and ascending colon cancer in 08/2024. Noncontrast CT abdomen/pelvis in August 2024 demonstrated thickening of ascending colon, colonoscopy performed 09/04/2024 revealed mass in ascending colon, biopsy confirmed invasive adenocarcinoma. MSI stable. Two polyps, adenoma resected at 40 and 20 cm. On 09/16/2024 he underwent right segmental resection which revealed mucinous adenocarcinoma, moderately differentiated, invasive into subserosa with negative margins. Sixteen lymph nodes negative for metastatic carcinoma. AJCC stage, pT3 pN0, stage IIA. Tumor size 3.3 cm no LVI or PNI. Preoperative CEA elevated at 18.6 NG/mL. He does not have any other high-risk features such as tumor perforation, LVI or perineural invasion. I have recommended completion staging workup with CT chest with contrast upon discharge. Recommendations about adjuvant chemotherapy will be made depending CT DNA testing and staging workup. For his metastatic prostate cancer, he is being managed by urologist. There is no family history of colorectal cancer and given his age and lack of MSI instability, genetic testing will be deferred. I thank you for this consultation. - Time Spent With Patient Time Spent with Patient (in minutes): 25 Additional Coding: - Additional E/M codes Complex E/M visit Add On: CPT G2211
--- NOTE | 2024-09-20 14:46 | PM.EVENT ---
Event Note Date of Service: 09/20/24 Event Note: Seen on afternoon rounds Ambulate did well Had BMs today, passing flatus well Abdomen is soft and benign Clinically doing well but wants to stay until tomorrow Says his granddaughter will be able to pick her up tomorrow Continue current care Time Spent With Patient Time: Total time managing care of this patient today ____ minutes.
--- NOTE | 2024-09-20 14:49 | PC.NURSE ---
OK per MD to d/c IV. Plan d/c home tomorrow.
[2024-09-20 15:30] VITALS: BP 131/63; PULSE 128; RESP 18; TEMP 36.5; O2SAT 97
--- NOTE | 2024-09-20 15:52 | HO.PM.IMPN ---
Subjective Subjective Date of Service: 09/20/24 Interval History: seen and evaluated this afternoon feels comfortable denies fever or chills moving his bowels tachycardic but no SOB or chest tightness Review of Systems Review of Systems: Yes all other systems are reviewed and are negative Physical Exam Vital Signs: Vital Signs: Last Vital Signs Temp 97.7 F 09/20/24 15:30 Pulse 128 H 09/20/24 15:30 Resp 18 09/20/24 15:30 BP 131/63 09/20/24 15:30 Pulse Ox 97 09/20/24 15:30 O2 Del Method Room Air 09/20/24 15:30 O2 Flow Rate 4 09/16/24 14:08 BMI result Body Mass Index 23.0 Const: Other: Constitutional : interactive, not in distress Cardiovascular : no JVP, no lower extremity edema Respiratory : bilateral chest movement, not in resp distress Gastrointestinal: soft, lax, Non tender, surgical sites clean Skin : Warm, Dry Neurological : Alert & oriented , No focal deficit Objective Data Active Medications Amlodipine Besylate (Amlodipine Besylate 5 Mg Tablet) 5 mg PO DAILY [facility]; Protocol Last Admin: 09/20/24 07:57 Dose: 5 mg Documented By: MORALES Bicalutamide (Bicalutamide 50 Mg Tablet) 50 mg PO TID [facility] Last Admin: 09/20/24 14:27 Dose: 50 mg Documented By: MORALES Calcium Carbonate (Calcium Carbonate 750 Mg Tab.Chew) 750 mg PO Q4H PRN PRN Reason: Heartburn Docusate Sodium (Docusate Sodium 100 Mg Capsule) 100 mg PO BID [facility] Last Admin: 09/20/24 07:57 Dose: 100 mg Documented By: MORALES Doxazosin Mesylate (Doxazosin Mesylate 2 Mg Tablet) 4 mg PO BEDTIME [facility] Last Admin: 09/19/24 19:53 Dose: 4 mg Documented By: TAMARA Ferrous Sulfate (Ferrous Sulfate 324 Mg Tablet.) 324 mg PO BID [facility] Last Admin: 09/20/24 07:57 Dose: 324 mg Documented By: MORALES Finasteride (Finasteride 5 Mg Tablet) 5 mg PO DAILY [facility] Last Admin: 09/20/24 07:57 Dose: 5 mg Documented By: MORALES Heparin Sodium (Porcine) (Heparin Sodium,Porcine 5,000 Unit/Ml Vial) 5,000 unit SUBCUT Q8H [facility] Last Admin: 09/20/24 09:16 Dose: 5,000 unit Documented By: MORALES Melatonin (Melatonin 3 Mg Tablet) 6 mg PO BEDTIME PRN PRN Reason: Insomnia Morphine Sulfate (Morphine Sulfate 4 Mg/Ml Cartridge) 4 mg IVPUSH Q4H PRN; Protocol PRN Reason: Pain, Severe (Pain Scale 7-10) Ondansetron HCl (Ondansetron Hcl 4 Mg/2 Ml Vial) 4 mg IVPUSH Q6H PRN PRN Reason: Nausea and Vomiting Oxycodone HCl (Oxycodone Hcl Immed Release 5 Mg Tablet) 5 mg PO Q4H PRN PRN Reason: Pain, Moderate(Pain Scale 4-6) Last Admin: 09/18/24 03:02 Dose: 5 mg Documented By: SABINE Sodium Chloride (0.9 % Sodium Chloride Flush 3 Ml Syringe) 3 ml IVFLUSH QSHIFT [facility] Last Admin: 09/20/24 14:27 Dose: 3 ml Documented By: MORALES Labs 09/20/24 09:03 09/20/24 09:03 Labs: Laboratory Results - last 24 hr 09/20/24 09:03 MCV 85.8 MCH 27.1 MCHC 31.5 RDW 17.9 H Plt Count 354 MPV 9.2 L Immature Gran % (Auto) 0.4 Neut % (Auto) 77.5 H Lymph % (Auto) 14.0 L Cochran % (Auto) 6.9 Eos % (Auto) 0.5 Baso % (Auto) 0.7 Lymph # (Auto) 1.1 L Cochran # (Auto) 0.5 Eos # (Auto) 0.0 Baso # (Auto) 0.1 Abs Immat Gran (auto) 0.03 Absolute Neuts (auto) 5.9 Absolute Nucleated RBC 0.000 Nucleated RBC % (auto) 0.0 Anion Gap 13 Estim Creat Clear Calc 87.4 Estimated GFR > 60 Fasting Glucose 96 Calcium 9.1 Assessment and Plan (1) S/P colon resection: Status: Acute Plan a 69-year-old male with a past medical history significant for hypertension, prostate cancer, Colon CA status post hand assisted laparoscopic right colon resection. Tachycardia likely reactive post surgery to pain, dehydration proper pain control EKG showing sinus tachycardia to give bolus of fluids consider BB if symptomatic Hold alpha blockers HTN continue Amlodipine We will continue to follow the patient with you. Quality Stroke Does the patient have a stroke diagnosis?: No VTE Prior VTE?: No VTE Risk Level:: Medical - moderate - high VTE Device Contraindication: N/A - Device Ordered VTE Drug Contraindication: N/A - Med Ordered
[2024-09-20] MEDS: 0.9 % Sodium Chloride 500 ML 999 ML IV (16:21)
--- NOTE | 2024-09-20 16:35 | PC.NURSE ---
Abnormal EKG sent to [facility]DRAGON started.
[2024-09-20 16:53] VITALS: PULSE 124
[2024-09-20 18:16] VITALS: PULSE 102
[2024-09-20 19:45] VITALS: BP 141/74; PULSE 110; RESP 16; TEMP 37.6; O2SAT 98
[2024-09-21] MEDS: Heparin Sodium,Porcine 5,000 UNIT/ML VIAL 5000 UNIT SUBCUT ×2 (00:48→08:47)
[2024-09-21] MEDS: 0.9 % Sodium Chloride Flush 3 ML SYRINGE IVFLUSH ×2 (00:48→08:46)
[2024-09-21 03:36] VITALS: BP 167/76; PULSE 104; RESP 18; TEMP 37.1; O2SAT 99
[2024-09-21 07:46] VITALS: BP 168/81; PULSE 98; RESP 16; TEMP 36.5; O2SAT 100
[2024-09-21] MEDS: Ferrous Sulfate 324 MG TABLET.DR PO (08:43)
[2024-09-21] MEDS: Docusate Sodium 100 MG CAPSULE PO (08:43)
[2024-09-21] MEDS: Metoprolol Succinate ER 25 MG TAB.ER.24H PO (08:43)
[2024-09-21] MEDS: Finasteride 5 MG TABLET PO (08:47)
[2024-09-21] MEDS: Bicalutamide 50 MG TABLET PO (08:47)
[2024-09-21] MEDS: oxyCODONE HCl Immed Release 5 MG TABLET PO (09:35)
--- NOTE | 2024-09-21 09:43 | P.PNGS_ITS ---
Subjective Subjective Date of Service: 09/21/24 Interval history: feels well passing flatus had BMs tolerating diet well has been ambulating HR better Physical Exam 2 Vital Signs: Vital Signs: Last Vital Signs Temp 97.7 F 09/21/24 07:46 Pulse 98 09/21/24 07:46 Resp 16 09/21/24 07:46 BP 168/81 H 09/21/24 07:46 Pulse Ox 100 09/21/24 07:46 O2 Del Method Room Air 09/21/24 07:46 O2 Flow Rate 4 09/16/24 14:08 BMI result Body Mass Index 23.0 Const: General: comfortable and no acute distress Resp: Effort & Inspection: normal respiratory effort Cardio: Rate: regular rate GI: Other: incisions clean Palpation (GI): Soft to palpation, not firm, nontender and no guarding Objective Data Active Medications Bicalutamide (Bicalutamide 50 Mg Tablet) 50 mg PO TID REPLACED BY [facility] Last Admin: 09/21/24 08:47 Dose: 50 mg Documented By: AGUSTÍN Calcium Carbonate (Calcium Carbonate 750 Mg Tab.Chew) 750 mg PO Q4H PRN PRN Reason: Heartburn Docusate Sodium (Docusate Sodium 100 Mg Capsule) 100 mg PO BID REPLACED BY [facility] Last Admin: 09/21/24 08:43 Dose: 100 mg Documented By: AGUSTÍN Doxazosin Mesylate (Doxazosin Mesylate 2 Mg Tablet) 4 mg PO BEDTIME REPLACED BY [facility] Last Admin: 09/19/24 19:53 Dose: 4 mg Documented By: TAMARA Ferrous Sulfate (Ferrous Sulfate 324 Mg Tablet.) 324 mg PO BID REPLACED BY [facility] Last Admin: 09/21/24 08:43 Dose: 324 mg Documented By: AGUSTÍN Finasteride (Finasteride 5 Mg Tablet) 5 mg PO DAILY REPLACED BY [facility] Last Admin: 09/21/24 08:47 Dose: 5 mg Documented By: AGUSTÍN Heparin Sodium (Porcine) (Heparin Sodium,Porcine 5,000 Unit/Ml Vial) 5,000 unit SUBCUT Q8H REPLACED BY [facility] Last Admin: 09/21/24 08:47 Dose: 5,000 unit Documented By: AGUSTÍN Melatonin (Melatonin 3 Mg Tablet) 6 mg PO BEDTIME PRN PRN Reason: Insomnia Metoprolol Succinate (Metoprolol Succinate Er 25 Mg Tab.Er.24h) 25 mg PO DAILY REPLACED BY [facility]; Protocol Last Admin: 09/21/24 08:43 Dose: 25 mg Documented By: AGUSTÍN Morphine Sulfate (Morphine Sulfate 4 Mg/Ml Cartridge) 4 mg IVPUSH Q4H PRN; Protocol PRN Reason: Pain, Severe (Pain Scale 7-10) Ondansetron HCl (Ondansetron Hcl 4 Mg/2 Ml Vial) 4 mg IVPUSH Q6H PRN PRN Reason: Nausea and Vomiting Oxycodone HCl (Oxycodone Hcl Immed Release 5 Mg Tablet) 5 mg PO Q4H PRN PRN Reason: Pain, Moderate(Pain Scale 4-6) Last Admin: 09/21/24 09:35 Dose: 5 mg Documented By: AGUSTÍN Sodium Chloride (0.9 % Sodium Chloride Flush 3 Ml Syringe) 3 ml IVFLUSH QSHIFT REPLACED BY [facility] Last Admin: 09/21/24 08:46 Dose: 3 ml Documented By: AGUSTÍN Labs 09/20/24 09:03 09/20/24 09:03 Procedures Date of Service Date of Service: 09/21/24 Progress Note: A&P Assessment and plan (1) Colonic mass: Status: Acute Assessment and Plan: s/p right colon resection doing well abd soft good GI function seen by Oncology - T3NO adenoCa he says he is ready to be discharged appreciate Hospitalist input - switch to metroprolol Time Spent With Patient Time: Total time managing care of this patient today ____ minutes. Quality Stroke Does the patient have a stroke diagnosis?: No VTE Prior VTE?: No VTE Risk Level:: Medical - moderate - high VTE Device Contraindication: N/A - Device Ordered VTE Drug Contraindication: N/A - Med Ordered
--- NOTE | 2024-09-21 10:07 | MHC.CM.PN ---
PT TO DC HOME TODAY WITH NO SERVICES
--- NOTE | 2024-09-23 13:36 | P.DS_ITS ---
DS: Providers Provider Date of Service: 09/21/24 Date of admission: 09/16/24 10:28 Date of discharge: 09/21/24 Primary care physician: Unknown Physician Attending physician on admission: Wesley Doherty Consults: 09/16/24 17:00 Consult to Hospitalist Routine Comment: Consulting Provider: [facility] Hospitalists Reason For Exam: HTN, s/p right colon resection today 09/20/24 10:56 Consult to Hematology / Oncology Routine Consulting Provider: [facility] Oncology/Hematology Reason for consultation: colon cancer Attending physician on discharge: Wesley Doherty DS: Diagnosis Discharge Diagnosis (1) Colonic mass: Status: Acute DS: Summary Hospital Course Hospital Course: HPI AT ADMISSION: 69-year-old male here for follow-up for a colon mass. He was admitted to the hospital via the ER on 08/30/2024 because of urinary retention. He admits to having had a long history of frequently getting up at night to void. However, recently, this had been worsening and he says that last week, he was unable to void and had subsequent lower abdominal pain. He came into the ER that time with electrolyte problems, pain, hypertension and acute kidney injury. His creatinine then was 12. He had what appeared to be retroperitoneal perforation of the bladder from obstructive uropathy. He therefore was admitted and underwent cystoscopy showing this prostate tumor consistent with prostate cancer . He has sclerotic lesions in the pelvis consistent with metastatic disease from the prostate. He has had a Sy catheter since and he feels much better. However, his CAT scan also showed this mass in the right colon. He had anemia with a hemoglobin of 8.4 on admission. He underwent colonoscopy with Dr. Mooney and this showed an ulcerating tumor in the right colon consistent with colon cancer. The patient was transfused 2 units of blood on admission last week. He says she has been feeling well since discharge last 09/04/2024. He denies any abdominal pain. He actually denies any GI complaints. He says he had never had a colonoscopy before until last week. Final path report of biopsies of this mass showed an invasive adenocarcinoma. I therefore explained to him it would be best to proceed with right colon resection. He now presents for the stated procedure. HOSPITAL COURSE: 07/17/24, a hand assisted laparoscopic right colon resection was performed by Dr. Doherty without complication. The patient tolerated the procedure well. He had an uncomplicated but slow recovery course. On POD #1, he was doing well. He had adequate pain control. He was ambulated. On POD #2, he began to pass more flatus and his diet was advanced to solids. He began to move his bowels. He remained inpatient until POD #5 for pain control. On the day of discharge, he was tolerating a solid diet without nausea or vomiting. He had good GI function. He was hemodynamically stable. His abdomen was benign with clean incisions. He felt ready for discharge to home. He was discharged to home on 12/14/ in stable condition. He is to follow up with Dr. Doherty in 1-2 weeks. He is to follow up with oncology for further work up. Hospitalist consult was obtained for hypertension. He was hypertensive and tachycardic despite adequate pain control and IVF bolus. EKG showed sinus tach. He was therefore switched from amlodipine to metoprolol 25mg PO daily with improvement in his heart rate. He is to follow up with his PCP for further management. His sy was kept in place with sy cap upon discharge. Status at Discharge Overall status at discharge: patient is progressing back to baseline Time Attestation Discharge Coordination Time (in mins): 45 Quality: Safe Use of Opioids Does Pt have an Active Cancer Diagnosis on the Problem List?: Yes Opioid Measure Date for [facility] Report: 08/24/ Opioid Measure Time for [facility] Report: 13:39 Quality: Stroke Does the patient have a stroke diagnosis?: No Physical Exam Vital Signs: Vital Signs: Last Vital Signs Temp 97.7 F 09/21/ 07:46 Pulse 98 09/21/24 07:46 Resp 16 09/21/24 07:46 BP 168/81 H 09/21/24 07:46 Pulse Ox 100 09/21/24 07:46 O2 Del Method Room Air 09/21/24 07:46 O2 Flow Rate 4 09/16/24 14:08 BMI result Body Mass Index 23.0 Const: General: comfortable, no acute distress and alert Orientation/ consciousness: patient oriented x3 Resp: Effort & Inspection: normal respiratory effort GI: Inspection: Yes distended (mild ) and Yes incision (clean ) Palpation (GI): Soft to palpation, Tenderness to palpation present (GI) (mild incisional) and no guarding Skin: General skin exam: no rashes or lesions noted Neuro: General: patient oriented x3 and moves all extremities DS: Data Data Completed and Pending Completed studies during hospitalization [Text1]: 09/16/24 13:07 Surgical [PTH] Stat Colon, right, segmental resection: - Mucinous adenocarcinoma, moderately differentiated, invasive into subserosa; negative margins. - 16 lymph nodes negative for metastatic carcinoma. - Tubular adenoma; negative for high grade dysplasia or carcinoma. - Vermiform appendix within normal limits. - pT3 N0 AJCC Stage (8th ed.). Procedures Drainage of Bladder with Drainage Device, Via Natural or Artificial Opening Endoscopic (08/30/24) Excision of Ascending Colon, Via Natural or Artificial Opening Endoscopic, Diagn ostic (08/30/24) Excision of Prostate, Via Natural or Artificial Opening, Diagnostic (08/30/24) Fluoroscopy of Kidneys, Ureters and Bladder (08/30/24) Inspection of Upper Intestinal Tract, Via Natural or Artificial Opening Endoscopic (08/30/24) Transfusion of Nonautologous Red Blood Cells into Peripheral Vein, Percutaneous Approach (08/30/24) Discharge Plan Discharge Anticipated Discharge Date/Time: 09/20/24 08:45 Patient Disposition: Home, Self-Care Discharge Diagnosis: s/p right colon resection Referrals: Wesley Doherty MD [Physician] - 2 Weeks Physician,Oliva J [Primary Care Provider] - 1 Week Discharge Medications: New oxycodone 5 mg tablet 5 mg PO Q4H PRN (Reason: pain (scale score 7-10)) Qty: 20 0RF Rx Instructions: Partial Fill upon patient request. metoprolol succinate 25 mg Tablet Extended Release 24 Hr 25 mg PO DAILY Qty: 90 0RF Protocol: Hold for SBP/HR < HOLD for SBP < : 90 HOLD for HR < : 60 oxycodone 5 mg tablet 5 mg PO Q4H PRN (Reason: pain) Qty: 20 0RF Rx Instructions: Partial Fill upon patient request. Continued terazosin 5 mg capsule 5 mg PO BEDTIME 90 Days Qty: 90 1RF ferrous sulfate 324 mg (65 mg iron) tablet,delayed release (DR/EC) 324 mg PO BID bicalutamide 50 mg tablet 50 mg PO TID Rx Instructions: Take 1 tab three times daily for first 2 weeks. After GnRH shot in office may take 1 tab daily. dutasteride 0.5 mg capsule 0.5 mg PO DAILY Discontinued amlodipine 5 mg tablet 5 mg PO DAILY Protocol: Hold for SBP< HOLD for SBP < : 90 Discharge Orders: Discharge Order (Routine); Ordered 09/21/24 Ordered By: Wesley Doherty Diet: Advance to usual diet Activity on Discharge: No heavy lifting Stand Alone Forms: Patient Portal Discharge page Print Language: Sri Lankan Activity Restrictions/Additional Instructions: If the incision area is tender, you may apply an ice pack for short intervals (No more than 20 minutes on, followed by at least 20 minutes off). Do not apply heat. Do not use creams, lotions, or topical antibiotics. These can cause infection or allergic reaction. Ok to shower. You have keren closing your incision and these will be removed approximately 10-14 days after surgery. continue Sy care NO HEAVY LIFTING (>10lbs) or strenuous activity. Follow up in office in 2 weeks. ([phone]) Call Your Doctor If: -Your temperature exceeds 101.5? F -You experience excessive pain or swelling -You have an unexpected reaction to medication -You have excessive bleeding -You experience continued vomiting/nausea -Your incision begins to separate -Your incision shows signs of infection such as increased redness, swelling, excessive pain, drainage (light blood or clear fluid is normal) or heat Care Plan Goals: Return to baseline health and resume normal activities following recovery period. Stop Amlodipine, Start Metoprolol for blood pressure control Health Concerns: prostate CA colon CA Plan of Treatment: s/p right colon resection pain control f/u in office Assessment: Doing well post op. Patient Instructions: Low Fiber Diet (GEN) Discharge Date/Time: 09/21/24 11:01
== END 2024-09-21 11:01 | disposition home or self-care (01) | DRG 231 ==
LOC: HO.SSSA 10:29 → HO.S3 13:37
PROVIDERS: Nurse Practitioner; Physician Assistant Surgical; Admitting Provider Surgery; Visit Provider Surgery
PROC: 0DTE4ZZ Resection of Large Intestine, Percutaneous Endoscopic Approach (ICD-10-PCS; principal; 2024-09-16 11:10)
DX: C18.2 Malignant neoplasm of ascending colon (principal); C79.51 Secondary malignant neoplasm of bone; C61 Malignant neoplasm of prostate; E86.0 Dehydration; G89.18 Other acute postprocedural pain; I10 Essential (primary) hypertension; Z87.891 Personal history of nicotine dependence; Z79.899 Other long term (current) drug therapy
CPT/HCPCS: 36415; 80048; 85025; 85027; 86850; 86900; 86901; 88309; 88329; 93005; C1758; J0131; J1100; J1171; J1644; J2003; J2405; J2704; J3010; J7120

== ENCOUNTER → 2024-09-16 10:28 | Outpatient (BNV) | payer OTHER, SELFPAY | PROVIDERS: Admitting Provider Surgery; Visit Provider Physician Assistant Surgical | DX: Z90.49 Acquired absence of other specified parts of digestive tract (principal); C18.2 Malignant neoplasm of ascending colon | CPT/HCPCS: 44204; 99024; 99499 ==

== ENCOUNTER → 2024-09-16 10:28 | Outpatient (BNV) | payer OTHER, SELFPAY | PROVIDERS: Admitting Provider Surgery; Visit Provider Physician Assistant | DX: I10 Essential (primary) hypertension (principal); Z90.49 Acquired absence of other specified parts of digestive tract | CPT/HCPCS: 99222 ==

== ENCOUNTER → 2024-09-16 10:28 | Outpatient (BNV) | payer OTHER, SELFPAY | PROVIDERS: Admitting Provider Surgery; Visit Provider Internal Medicine | DX: C18.2 Malignant neoplasm of ascending colon (principal); C61 Malignant neoplasm of prostate | CPT/HCPCS: 99222 ==

== ENCOUNTER 2024-09-30 10:13 | Outpatient (AMB) | payer OTHER, SELFPAY ==
--- NOTE | 2024-09-30 10:45 | A.OFFVIS_ITS ---
Vital Signs 09/30/24 10:53 Height 5 ft 8 in Weight 149 lb BMI 22.7 Intake Visit Reasons: S/P HORNE laparoscopic Rt. colectomy, poss open Intake Note: This patient presents for post-op assessment status post Hand assisted laparoscopic right colon resection. Pt c/o; reports no complaints. Market Sales Manager Required: No Accompanied by: Other Relationship Allergies No Known Allergies Allergy (Verified 09/30/24 10:54) HPI HPI S/P HORNE laparoscopic Rt. colectomy, poss open: Details: He underwent right colon resection for cancer last 09/16/2024. He tolerated procedure well. He was discharged on postop day 5. He currently is tolerating diet well. He denies significant pain. He feels well overall. [facility] Medical History Indwelling Flores catheter present Colonic mass Hypertension Hx of endocrine hypertension Prostate cancer Surgical History Hx of surgical procedure (~09/16/24) History of esophagogastroduodenoscopy (EGD) H/O colonoscopy Hx of cystoscopy Social History Household Members: None Housing: Apartment Are you a primary team primary care physician to a significant other at home: No Do you presently have visiting nurse or other home services: No Patient Tobacco Use Status: Former Tobacco user Tobacco use type: Cigarette Years Smoked: 20 Advance Directives Date on File: 09/01/24 service: No Review of Systems Const Denies chills and Denies fever(s) Card Denies chest pain Resp Denies cough GI Denies abdominal pain and Denies vomiting Physical Exam Vital Signs: BMI result Body Mass Index 22.7 Const General: comfortable and no acute distress Resp Effort & Inspection: normal respiratory effort Cardio Rate: regular rate GI Other: Incisions clean and dry, keren in place Palpation (GI): Soft to palpation, not firm, nontender and no guarding Assessment & Plan Assessment & Plan (1) Colon cancer, ascending: Code(s): C18.2 - Malignant neoplasm of ascending colon Category: Medical Plan: Status post right colon resection, hand assisted laparoscopic. He is doing very well. All incisions are well healed I removed all his skin keren His path report shows a T3 N0 moderately differentiated adenocarcinoma I advised him to avoid lifting anything more than 15 lb for at least 2 more weeks. I will see him in the office in the next month. He is to see Dr. Macias as a follow-up for Oncology. He may benefit from adjuvant chemotherapy. Coding Level of Care Code Global (57722) Diagnoses Colon cancer, ascending C18.2
[2024-09-30 10:53] VITALS: BMI 22.7
== END 2024-09-30 11:18 | disposition home or self-care (01) ==
PROVIDERS: Visit Provider Surgery
DX: C18.2 Malignant neoplasm of ascending colon (principal)
CPT/HCPCS: 99024

== ENCOUNTER 2024-10-11 13:52 | Outpatient (AMB) | payer OTHER, SELFPAY ==
--- NOTE | 2024-10-11 14:06 | AM.OFFVISNUR ---
Intake Visit Reasons: [facility] injection(PA Set) Allergies No Known Allergies Allergy (Verified 09/30/24 10:54) Office Meds Eligard (6 month) 45 mg (6 month) subcutaneous syringe Performing Provider: Morales Carbone MD [facility] Administered by: Mateus Caruso LPN on 10/11/24 14:06 Dose Route Admin Location Dispensed Lot Number Expiration Date [facility] Retail Pharmacy Technician 45 mg subcut left arm 45 mg [id number] 12/07/25 87237-652-63 [email or web address]. Assessment & Plan Assessment & Plan Orders: Orders AMB Leuprolide Injection - Practice Supplied Today C61 - Malignant neoplasm of prostate Medications: New Eligard (6 month) (leuprolide acetate (6 month)) 45 mg subcut ONCE 1 ea 0RF NS C61 - Malignant neoplasm of prostate
--- OUTSIDE RECORDS SUMMARY | 2024-10-11 15:21 | XMS_ITS ---
Author Organization [facility] Address [address] [place] [address] Care Team Providers Care Splitter Head Name Role Phone NONE, NONE Primary Care Provider Babak Jain Unavailable [phone] REASON FOR VISIT fe def anemia,abnormal ct scan of colon Encounters Encounter Location Date Provider Diagnosis [facility] Inpatient [address], [place] [id number] 09/04/2024 Babak Mooney PLAN OF TREATMENT No Information
--- OUTSIDE RECORDS SUMMARY | 2024-10-11 15:22 | XMS_ITS | Patient Health Record ---
Author Organization [facility] Address [address] [place] [address] Care Team Providers Care Electron Beam Welder Setter Name Role Phone NONE, NONE Primary Care Provider Litzy MooneyBabak Amy [phone] RESULTS Component Value Reference Range Notes Hold Lav - Possible Hematolo gy Reviewed date:09/03/2024 01:08:51 PM Interpretation: Performing Lab:[facility], [address] [place] [phone] Notes/Report: Hold Lav - Possible Hematology SEE NOTE Specimen will be held untested for 8 hours. Call Hematology if testing is desired. Prothrombin Time INR Reviewed date:09/03/2024 01:08:58 PM Interpretation: Performing Lab:[facility], [address] [place] [phone] Notes/Report: Prothrombin Time 13.9 10.9-12.4 SEC INTERNATIONAL [...] (Free>4and<10) Reviewed date:09/03/2024 01:09:06 PM Interpretation: Performing Lab:[facility], [address] [place] [phone] Notes/Report: PSA,Total (Free>4and<10) 89.85 0.00-4.00 ng/mL A [...] Folate Reviewed date:09/03/2024 01:09:13 PM Interpretation: Performing Lab:[address] [phone] Notes/Report: Vitamin B12 815 200-900 pg/mL NORMAL 200-900 PG/ML INDETERMINATE 160-199 PG/ML DEFICIENT < 160 PG/ML Folate 10.6 > or = 4.0 ng/mL Reference Values: > or = 4.0 ng/mL < 4.0 ng/mL suggests folate deficiency Methotrexate, aminopterin and folinic acid (leucovorin) are chemotherapeutic agents whose molecular structures are similar to folate; therefore, the Bread Pan Greaser folate assay cannot be used for patients using these drugs. Pathology (Not yet reviewed by provider) Interpretation: Performing Lab:[facility], [address] [place] [phone] Notes/Report: Complete Blood Count Auto Di ff Reviewed date:09/04/2024 11:48:44 PM Interpretation: Performing Lab:[facility], [address] [place] [phone] Notes/Report: White Blood Count 11.7 4.8-10.8 X10*3/uL [...] g Reviewed date:09/04/2024 11:48:55 PM Interpretation: Performing Lab:[facility], [address] [place] [phone] Notes/Report: Sodium 144 135-145 mmol/L Potassium 2.9 [...] ff Reviewed date:09/06/2024 11:27:04 AM Interpretation: Performing Lab:[facility], [address] [place] [phone] Notes/Report: White Blood Count 13.1 4.8-10.8 X10*3/uL [...] g Reviewed date:09/06/2024 11:27:36 AM Interpretation: Performing Lab:[facility], [address] [place] [phone] Notes/Report: Sodium 143 135-145 mmol/L Potassium 3.4 [...] 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) (626674430) Problem Malignant neoplasm of ascending colon (C18.2) Active confirmed Malignant tumor of ascending colon (166593920) Problem Diverticulosis of large intestine without perforation or abscess without bleeding (K57.30) Active confirmed Diverticul ar disease of colon (009398410) Encounters Encounter Location Date Provider Diagnosis [facility] Inpatient [address] [place] [phone] 09/04/2024 Babak Mooney PLAN OF TREATMENT Pending Test Test Name Order Date Pathology 09/04/2024 Insurance Providers Payer Name Payer Address Payer Phone Subscriber Number Group Number Insured Name Patient Relationship to Insured Coverage Start Date Coverage End Date [employer] [place] [address] [address] [place] [address] [id number] LYNNE MCCONNELL Self - patient is the insured
== END 2024-10-11 14:14 | disposition home or self-care (01) ==
PROVIDERS: Visit Provider Urology
DX: C61 Malignant neoplasm of prostate (principal)

== ENCOUNTER → 2024-10-11 13:52 | Outpatient (BNVA) | payer OTHER, SELFPAY | PROVIDERS: Visit Provider Urology | DX: C61 Malignant neoplasm of prostate (principal) | CPT/HCPCS: 96402; J9217 ==

== ENCOUNTER 2024-11-07 10:15 | Outpatient (AMB) | payer OTHER, SELFPAY ==
--- NOTE | 2024-11-07 10:15 | MHC.OFFVIS ---
Vital Signs 11/07/24 10:18 Height 5 ft 8 in Weight 157 lb 6 oz BMI 23.9 Intake Visit Reasons: S/P HORNE laparoscopic Rt. colectomy Intake Note: This patient presents for one month follow-up status post Hand assisted laparoscopic right colon resection. Pt c/o; no concerns. Candy Supervisor Required: No Accompanied by: Self / Same As Patient Allergies No Known Allergies Allergy (Verified 11/07/24 10:20) HPI HPI S/P HORNE laparoscopic Rt. colectomy: Details: He is here for follow-up after right colon resection last September, for a T3 N0 adenocarcinoma. He continues to do well. Has good GI function. He does have a known metastatic prostate cancer as well. He still has his indwelling Flores catheter in place. [facility] Medical History Indwelling Flores catheter present Colonic mass Hypertension Hx of endocrine hypertension Prostate cancer Surgical History Hx of surgical procedure (~09/16/24) History of esophagogastroduodenoscopy (EGD) H/O colonoscopy Hx of cystoscopy Social History Household Members: None Housing: Apartment Are you a primary transitional care liaison to a significant other at home: No Do you presently have visiting nurse or other home services: No Patient Tobacco Use Status: Former Tobacco user Tobacco use type: Cigarette Years Smoked: 20 Advance Directives Date on File: 09/01/24 service: No Review of Systems Const Denies chills and Denies fever(s) Card Denies chest pain Resp Denies cough GI Denies abdominal pain Details: Flores in place Physical Exam Vital Signs: BMI result Body Mass Index 23.9 Const General: comfortable and no acute distress Resp Effort & Inspection: normal respiratory effort Cardio Rate: regular rate GI Other: All incisions are well Palpation (GI): Soft to palpation, not firm, nontender and no guarding Other: Flores in place Assessment & Plan Assessment & Plan (1) Colon cancer, ascending: Code(s): C18.2 - Malignant neoplasm of ascending colon Category: Medical Plan: Status post right colon resection. He is doing very well from a surgical standpoint. He has good GI functions. She denies any significant GI complaints He has not been seen on follow up by Dr. Carbone for his metastatic prostate cancer. He has not been seen by the oncologist as well after the initial preop consultation I have arranged for him to be seen by Dr. Carbone again as well as Dr. Macias. I will see him again in about 3 months to make sure that he is being navigated properly with regards to all his treatment. Coding Level of Care Code Global (71881) Diagnoses Colon cancer, ascending C18.2
[2024-11-07 10:18] VITALS: BMI 23.9
--- OUTSIDE RECORDS SUMMARY | 2024-11-07 13:32 | XMS_ITS | Patient Health Record ---
Author Organization [facility] Address [address] [place] [address] Care Team Providers Care House Painter Helper Name Role Phone NONE, NONE Primary Care Provider Litzy MooneyBabak Amy [phone] RESULTS Component Value Reference Range Notes Hold Lav - Possible Hematolo gy Reviewed date:09/03/2024 01:08:51 PM Interpretation: Performing Lab:[facility], [address] [place] [phone] Notes/Report: Hold Lav - Possible Hematology SEE NOTE Specimen will be held untested for 8 hours. Call Hematology if testing is desired. Prothrombin Time INR Reviewed date:09/03/2024 01:08:58 PM Interpretation: Performing Lab:[facility], [address] [place] [phone] Notes/Report: Prothrombin Time 13.9 10.9-12.4 SEC INTERNATIONAL [...] (Free>4and<10) Reviewed date:09/03/2024 01:09:06 PM Interpretation: Performing Lab:[facility], [address] [place] [phone] Notes/Report: PSA,Total (Free>4and<10) 89.85 0.00-4.00 ng/mL A [...] Folate Reviewed date:09/03/2024 01:09:13 PM Interpretation: Performing Lab:[address] [phone] Notes/Report: Vitamin B12 815 200-900 pg/mL NORMAL 200-900 PG/ML INDETERMINATE 160-199 PG/ML DEFICIENT < 160 PG/ML Folate 10.6 > or = 4.0 ng/mL Reference Values: > or = 4.0 ng/mL < 4.0 ng/mL suggests folate deficiency Methotrexate, aminopterin and folinic acid (leucovorin) are chemotherapeutic agents whose molecular structures are similar to folate; therefore, the Chief Clinical Officer folate assay cannot be used for patients using these drugs. Pathology (Not yet reviewed by provider) Interpretation: Performing Lab:[facility], [address] [place] [phone] Notes/Report: Complete Blood Count Auto Di ff Reviewed date:09/04/2024 11:48:44 PM Interpretation: Performing Lab:[facility], [address] [place] [phone] Notes/Report: White Blood Count 11.7 4.8-10.8 X10*3/uL [...] g Reviewed date:09/04/2024 11:48:55 PM Interpretation: Performing Lab:[facility], [address] [place] [phone] Notes/Report: Sodium 144 135-145 mmol/L Potassium 2.9 [...] ff Reviewed date:09/06/2024 11:27:04 AM Interpretation: Performing Lab:[facility], [address] [place] [phone] Notes/Report: White Blood Count 13.1 4.8-10.8 X10*3/uL [...] g Reviewed date:09/06/2024 11:27:36 AM Interpretation: Performing Lab:[facility], [address] [place] [phone] Notes/Report: Sodium 143 135-145 mmol/L Potassium 3.4 [...] 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) (601064520) Problem Malignant neoplasm of ascending colon (C18.2) Active confirmed Malignant tumor of ascending colon (525041707) Problem Diverticulosis of large intestine without perforation or abscess without bleeding (K57.30) Active confirmed Diverticul ar disease of colon (390725054) Encounters Encounter Location Date Provider Diagnosis [facility] [place] In[place] [address] [place] [id number] 09/04/2024 Babak Mooney PLAN OF TREATMENT Pending Test Test Name Order Date Pathology 09/04/2024 Insurance Providers Payer Name Payer Address Payer Phone Subscriber Number Group Number Insured Name Patient Relationship to Insured Coverage Start Date Coverage End Date [employer] [place] [address] [address] [place] [address] [id number] LYNNE MCCONNELL Self - patient is the insured
--- OUTSIDE RECORDS SUMMARY | 2024-11-07 13:32 | XMS_ITS ---
Author Organization [facility] Address [address] [place] [address] Care Team Providers Care Loom Setter Name Role Phone NONE, NONE Primary Care Provider Babak Jain Unavailable [phone] REASON FOR VISIT fe def anemia,abnormal ct scan of colon Encounters Encounter Location Date Provider Diagnosis [facility] [place] [address] [place], [place] [id number] 09/04/2024 Babak Mooney PLAN OF TREATMENT No Information
== END 2024-11-07 10:35 | disposition home or self-care (01) ==
PROVIDERS: Visit Provider Surgery
DX: C18.2 Malignant neoplasm of ascending colon (principal)
CPT/HCPCS: 99024

== ENCOUNTER → 2024-11-08 13:20 | Outpatient (BNV) | payer OTHER, SELFPAY | PROVIDERS: Visit Provider Internal Medicine | DX: C61 Malignant neoplasm of prostate (principal) | CPT/HCPCS: 99215 ==

== ENCOUNTER → 2024-11-12 08:37 | Outpatient (BNVA) | payer OTHER, SELFPAY | PROVIDERS: Visit Provider Urology | DX: R97.20 Elevated prostate specific antigen [PSA] (principal) | CPT/HCPCS: 51700; 51702 ==

== ENCOUNTER 2024-11-21 13:58 | Outpatient (REF) | payer OTHER, SELFPAY ==
--- NOTE | ~2024-11-21 | CT_ITS ---
EXAMINATION: CT CHEST WITH CONTRAST CLINICAL INFORMATION: Staging colon cancer and prostate cancer. COMPARISON: None available. TECHNIQUE: Multidetector volumetric CT imaging of the chest was obtained after the administration of 65 mL of Omnipaque 350 intravenous contrast without immediate adverse reactions. Axial MIP volume rendering provided. Sagittal and coronal reformatted images were obtained. This CT examination was performed using dose optimization techniques as appropriate, variously including the following: *Automated exposure control *Adjustment of mA and/or kV according to patient size (this includes techniques or standardized protocols for targeted exams where dose is matched to indication/reason for exam; i.e. extremities or head) *Use of iterative reconstruction technique DLP: 108 mGy cm FINDINGS: SPRINKLING TRUCK DRIVER: Good inspiration and normal cardiomediastinal silhouette with multilevel spondylosis. LUNGS: 4 mm noncalcified pulmonary nodule, right middle lobe. No bronchiectasis. No honeycombing. No acute airspace disease. Respiratory airways patent. MEDIASTINUM: No lymphadenopathy, mediastinal perihilar. No pericardial effusion. No aneurysm or dissection, thoracic aorta. Mixed plaques throughout the thoracic aorta wall and the origin of its main branches. Calcifications in the mitral valve Calcified plaques in the coronary arteries. PLEURA: No pleural effusion. No pneumothorax. No tumoral implants. AXILLA: No lymphadenopathy. UPPER ABDOMEN: Soft tissue fullness, adrenal glands more conspicuous on the left side. Subtle nodular surface of the liver. OSSEOUS STRUCTURES: A S-shaped curvature of the upper thoracic spine. Multilevel thoracic spondylosis. No acute fracture or listhesis. No lytic or blastic lesions. Gynecomastia, bilaterally. CT/CT chest w IV con IMPRESSION: Nonspecific 4 mm noncalcified pulmonary nodule, right middle lobe. Fleischner guidelines were followed. Electronically signed by: Sergio Maldonado MD 11/21/2024 03:25 PM [facility]
--- OUTSIDE RECORDS SUMMARY | 2024-11-21 14:01 | XMS_ITS ---
Author Organization [facility] Address [address] [place] [address] Care Team Providers Care Cheesemaker Helper Name Role Phone NONE, NONE Primary Care Provider Babak Jain Unavailable [phone] REASON FOR VISIT fe def anemia,abnormal ct scan of colon Encounters Encounter Location Date Provider Diagnosis [facility] [place] [address] [place], [place] [id number] 09/04/2024 Babak Mooney PLAN OF TREATMENT No Information
--- OUTSIDE RECORDS SUMMARY | 2024-11-21 14:01 | XMS_ITS | Patient Health Record ---
Author Organization [facility] Address [address] [place] [address] Care Team Providers Care Classifier Name Role Phone NONE, NONE Primary Care Provider Litzy MooneyBabak Amy [phone] RESULTS Component Value Reference Range Notes Hold Lav - Possible Hematolo gy Reviewed date:09/03/2024 01:08:51 PM Interpretation: Performing Lab:[facility], [address] [place] [phone] Notes/Report: Hold Lav - Possible Hematology SEE NOTE Specimen will be held untested for 8 hours. Call Hematology if testing is desired. Prothrombin Time INR Reviewed date:09/03/2024 01:08:58 PM Interpretation: Performing Lab:[facility], [address] [place] [phone] Notes/Report: Prothrombin Time 13.9 10.9-12.4 SEC INTERNATIONAL [...] Reviewed date:09/03/2024 01:09:06 PM Interpretation: Performing Lab:[facility], [address] [place] [phone] Notes/Report: PSA,Total (Free>4and<10) 89.85 0.00-4.00 ng/mL A [...] Folate Reviewed date:09/03/2024 01:09:13 PM Interpretation: Performing Lab:[address] [phone] Notes/Report: Vitamin B12 815 200-900 pg/mL NORMAL 200-900 PG/ML INDETERMINATE 160-199 PG/ML DEFICIENT < 160 PG/ML Folate 10.6 > or = 4.0 ng/mL Reference Values: > or = 4.0 ng/mL < 4.0 ng/mL suggests folate deficiency Methotrexate, aminopterin and folinic acid (leucovorin) are chemotherapeutic agents whose molecular structures are similar to folate; therefore, the Electronic Typesetting Machine Operator folate assay cannot be used for patients using these drugs. Pathology (Not yet reviewed by provider) Interpretation: Performing Lab:[facility], [address] [place] [phone] Notes/Report: Complete Blood Count Auto Di ff Reviewed date:09/04/2024 11:48:44 PM Interpretation: Performing Lab:[facility], [address] [place] [phone] Notes/Report: White Blood Count 11.7 4.8-10.8 X10*3/uL [...] Reviewed date:09/04/2024 11:48:55 PM Interpretation: Performing Lab:[facility], [address] [place] [phone] Notes/Report: Sodium 144 135-145 mmol/L Potassium 2.9 [...] Reviewed date:09/06/2024 11:27:04 AM Interpretation: Performing Lab:[facility], [address] [place] [phone] Notes/Report: White Blood Count 13.1 4.8-10.8 X10*3/uL [...] Reviewed date:09/06/2024 11:27:36 AM Interpretation: Performing Lab:[facility], [address] [place] [phone] Notes/Report: Sodium 143 135-145 mmol/L Potassium 3.4 [...] 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) (907343333) Problem Malignant neoplasm of ascending colon (C18.2) Active confirmed Malignant tumor of ascending colon (550429660) Problem Diverticulosis of large intestine without perforation or abscess without bleeding (K57.30) Active confirmed Diverticul ar disease of colon (487219541) Encounters Encounter Location Date Provider Diagnosis [facility] [place] [address] [place] [id number] 09/04/2024 Babak Mooney PLAN OF TREATMENT Pending Test Test Name Order Date Pathology 09/04/2024 Insurance Providers Payer Name Payer Address Payer Phone Subscriber Number Group Number Insured Name Patient Relationship to Insured Coverage Start Date Coverage End Date [employer] [place] [address] [address] [place] [address] [id number] LYNNE MCCONNELL Self - patient is the insured
[2024-11-21] MEDS: iohexoL 350 MG/ML 75 ML INFUS..BTL 65 ML IV (15:14)
== END 2024-11-21 13:59 | disposition home or self-care (01) ==
LOC: HO.CT 13:58
PROVIDERS: Visit Provider Internal Medicine
DX: C18.2 Malignant neoplasm of ascending colon (principal)
CPT/HCPCS: 71260; Q9967

== ENCOUNTER → 2024-11-21 14:00 | Outpatient (BNV) | payer OTHER, SELFPAY | PROVIDERS: Visit Provider Radiology Diagnostic Radiology | DX: R91.1 Solitary pulmonary nodule (principal) | CPT/HCPCS: 71260 ==

== ENCOUNTER 2024-12-05 10:01 | Outpatient (AMB) | payer OTHER, SELFPAY ==
--- NOTE | 2024-12-05 10:02 | MHC.OFFVIS ---
Intake Visit Reasons: cysto/VT Intake Note: Patient is present for Cystoscopy/VT Urology Medication:TERAZOSIN,DUTASTERIDE Antibiotic Allergy:NONE Blood Thinner:NONE Lot:[id number] Exp:02/14/2027 Specialty Molder Required: No Allergies No Known Allergies Allergy (Verified 12/05/24 10:08) HPI Comments Details: Ortiz is a very pleasant male. He is seen for the following urologic conditions - urinary retention lower urinary tract symptoms - metastatic prostate cancer Ortiz has had a number of medical issues he has been addressing since August. Initial presentation was with retention, markedly elevated creatinine to 27, CT scan with bilateral hydro uretero nephrosis and markedly distended bladder with enlarged prostate. Sclerotic lesions noted on the bony floor suspicious for metastatic prostate cancer. Initial PSA 90. Much of this resolved with Hernandez catheter placement. Seen today for office cystoscopy for urinary retention Large protruding median lobe seen at cystoscopy Recommend GreenLight laser prostatectomy for BPH Failed voiding trial today Instructed by nursing on clean intermittent catheterization Will expect that he requires catheterization for the foreseeable future Recommend coude catheter due to large size of prostate and distorted anatomy Seeing Dr. Torres on Monday Suggest stopping dutasteride and she will be starting 2nd generation antiandrogen therapy Responding well to therapy Will need follow-up bone staging in February 07 PSA 1.1 T 17 11/02 GnRH Prostate cancer 09/01 multi core, high-grade PSA at diagnosis 90 Initial therapy bicalutamide since had concomitant adenocarcinoma of the bowel identified. Subsequent initiation of hormonal blockade In hospital biopsy Artemio score: 7 (4+3) (left mid medial and left apex medial) 8 (4+4) (right base lateral and medial, right mid lateral and medial and right apex lateral) 9 (4+5) (right apex medial) % of pattern 4: 95% % of pattern 5: 2% Grade group: 5, 4 and 3 Tumor quantitation: Number cores positive: 7 Total number of cores: 13 % of tissue involved: 33% Periprostatic fat inv.: Not identified Seminal vesicle inv.: Not identified Perineural inv.: Present Lymphovascular invasion: Foci suspicious for lymphovascular invasion Staging bone scan 09/01 with probable left acetabular sclerotic lesion [facility] Medical History Indwelling Hernandez catheter present Colonic mass Hypertension Hx of endocrine hypertension Prostate cancer Surgical History Hx of surgical procedure (~09/16/24) History of esophagogastroduodenoscopy (EGD) H/O colonoscopy Hx of cystoscopy Social History Household Members: None Housing: Apartment Are you a primary lawn care professional to a significant other at home: No Do you presently have visiting nurse or other home services: No Patient Tobacco Use Status: Former Tobacco user Tobacco use type: Cigarette Years Smoked: 20 Advance Directives Date on File: 09/01/24 service: No Review of Systems Const Denies chills and Denies fever(s) Card Reports no additional complaints and Denies syncope Resp Denies cough GI Denies abdominal pain and Denies heartburn Reports as per HPI and Denies change in libido Neuro Denies syncope Psych Denies change in libido Endo Denies change in libido Physical Exam Const General: cooperative, healthy appearing, comfortable and no acute distress Orientation/consciousness: patient oriented x3 HEENT Face and sinus: Yes normal facial exam Mouth: moist mucous membranes Neck Neck: Yes normal visual inspection, Yes full ROM and Yes trachea midline Chest Chest palpation & inspection: normal inspection of the chest Resp Effort & Inspection: normal respiratory effort, able to speak in complete sentences and no respiratory distress GI Inspection: Yes normal to inspection Back/Spine/Pelvis Cervical Spine: normal cervical lordosis Thoracic/Lumbar Spine: thoracic and lumbar spine normal to inspection Skin General skin exam: no rashes or lesions noted Neuro General: patient oriented x3, gait normal, tone normal and moves all extremities Extrem General: Yes normal to inspection and Yes capillary refill normal Office Procedures Cystoscopy Consent Discussed risk and benefit or proposed procedure with the patient. Information consent for procedure given to the patient. Discussed technical aspects, risks, benefits and alternatives in full. Addressed all of the patient's questions and concerns regarding the procedure. The patient demonstrated knowledge and understanding. They wish to proceed with this procedure. Preparation The patient was prepped in the usual manner. A construction framer was present and in the room. Genitalia was prepped with betadine solution in a sterile manner. Lidocaine Jelly 2% was placed into the urethra and 16Fr flexible Olympus cystoscope was inserted into the meatus after adequate lubrication. Procedure Patient presents to office for voiding trial and cystoscopy procedure. 18fr hernandez catheter removed, patient tolerated removal well. Prepped patient using iodine swabs and lidocaine urojet. Dr. Carbone to room for procedure. Patient unable to void after cystoscopy procedure. Per Dr. Carbone given education for CIC 4x daily. Given supplies for 14Fr Coude straight caths. Patient able to successfully cath himself with return demonstration and emptied bladder 400ml. Cystoscopy performed using a disposable Urovue digital 16 Portuguese cystoscope. Meatus circumcised Urethra anterior and posterior urethra normal Prostatic Urethra marked trilobar hyperplasia Bladder examination with retroflexion of cystoscope Bladder Orifices normal shape and position Bladder Capacity large Trabeculations grade 2/3 Cellule Formation - Diverticulum Formation - Mucosal Erythema - Bladder Tumor - [id number] DISPOSABLE SCOPE URO-G FLEXIBLE SCOPE Procedure code (CPT) selection complete Office Meds lidocaine HCl 2 % mucosal jelly in applicator Performing Provider: Morales Carbone MD Performing Location: [facility] [place] [facility] Administered by: Mateus Caruso LPN on 12/05/24 10:25 Dose Route Admin Location Dispensed Lot Number Expiration Date NDC Irrigation Flume Layer 10 mL intra-urethral 20 mL nitrofurantoin monohydrate/macrocrystals 100 mg capsule Performing Provider: Morales Carbone MD Performing Location: [facility] [place] [facility] Administered by: Mateus Caruso LPN on 12/05/24 10:25 Dose Route Admin Location Dispensed Lot Number Expiration Date NDC Irrigation Flume Layer 100 mg PO 1 cap Results AMB Urinalysis, Automated UA Leukoctes 500 Jessica/uL Last Edit by SAHRA Baron on 12/05/24 10:20 UA Nitrite Negative Last Edit by SAHRA Baron on 12/05/24 10:20 UA Urobilinogen 0.2 mg/dL Last Edit by SAHRA Baron on 12/05/24 10:20 UA Protein 15 mg/dL Last Edit by SAHRA Baron on 12/05/24 10:20 UA pH 6.0 Last Edit by SAHRA Baron on 12/05/24 10:20 UA Blood 25 Durga/uL Last Edit by SAHRA Baron on 12/05/24 10:20 UA Specific Clint 1.015 Last Edit by SAHRA Baron on 12/05/24 10:20 UA Ketone Negative Last Edit by SAHRA Baron on 12/05/24 10:20 UA Bilirubin 0 mg/dL Last Edit by SAHRA Baron on 12/05/24 10:20 UA Glucose 0 mg/dL Last Edit by SAHRA Baron on 12/05/24 10:20 Results Reviewed Results Reviewed: Laboratory Last Values Urine pH (Auto) 6.0 12/05/24 10:18 Specific Clint (Auto) 1.015 12/05/24 10:18 Urine Protein (Auto) 15 mg/dL 12/05/24 10:18 Glucose (UA)(Auto) 0 mg/dL 12/05/24 10:18 Urine Ketones (Auto) Negative 12/05/24 10:18 Urine Blood (Auto) 25 Durga/uL 12/05/24 10:18 Urine Nitrite (Auto) Negative 12/05/24 10:18 Urine Bilirubin (Auto) 0 mg/dL 12/05/24 10:18 Urine Urobilinogen (Auto) 0.2 mg/dL 12/05/24 10:18 Leukocyte Esterase (Auto) 500 Jessica/uL 12/05/24 10:18 Assessment & Plan Assessment & Plan (1) Urinary retention with incomplete bladder emptying: Code(s): R33.9 - Retention of urine, unspecified Category: Medical (2) Prostate cancer: Code(s): C61 - Malignant neoplasm of prostate Category: Medical Plan We discussed the nature of the decision and reasonable options for performing a prostate intervention. Interventions include TURP, GreenLight laser enucleation of the prostate, GreenLight laser ablation of the prostate, transurethral incision of the prostate, and I-Tend prostate procedure. Options such as medical therapy were discussed. The relative uncertainties and benefits related to each alternate procedure were adequately discussed. General surgical risks including, but not limited to, pain, bleeding, infection, myocardial infarction, pulmonary embolus, deep vein thrombosis and cerebrovascular accident which may result in further hospitalization were discussed. Full disclosure of the procedure as well as all major risks, benefits and complications were discussed including but not limited to damage to the urethra or bladder neck, recurrent BPH, retrograde ejaculation, bladder infection, urge, de judd frequency, incomplete emptying, dysuria, remote chance of erectile dysfunction, epididymitis, and meatal stenosis. The success rate of the procedure was discussed. Success of the procedure in the short-term does not necessarily guarantee that long-term success will be maintained. Suitable follow up will need to be maintained. The patient showed understanding of discussion. An opportunity was provided for questions to be answered and wishes to proceed with the following procedure. - GreenLight laser prostatectomy Clean intermittent catheterization teaching Orders: Orders AMB Urinalysis Automated Today Z13.9 - Encounter for screening, unspecified AMB Cystoscopy Today C61 - Malignant neoplasm of prostate, R33.8 - Other retention of urine Patient Instructions: This note is constructed using voice recognition software. While every effort has been made to ensure accuracy state farm agent team member errors may have been included. Imaging studies, laboratory and physical exam results were discussed and reviewed in detail. No major barriers to patient understanding were identified. An opportunity to ask questions regarding the treatment plan was provided. All questions were answered. The patient expressed understanding and agreement with the above treatment plan. The patient is aware they should contact our office by phone for worsening of their current condition or the appearance of new urologic symptoms. Compliance is encouraged with any medications and followup testing that is ordered. It is a privilege to participate in the urologic care of your patient. If you have any questions or concerns regarding treatment for the above conditions, or other urologic issues, please do not hesitate to contact me. The office telephone contact is [phone]. Sincerely, Dr Morales Carbone MD, [facility] - Urology Compassionate Specialist Care for the Genitourinary System Coding Level of Care Code Est Pt Level 5 (59937) Complex EM visit Add On G2211 Diagnoses Urinary retention with incomplete bladder emptying R33.9 Prostate cancer C61 CPT Codes Cystoscopy - CPT: 63237-[id number] ([id number])
--- OUTSIDE RECORDS SUMMARY | 2024-12-05 11:32 | XMS_ITS | Patient Health Record ---
Author Organization [facility] Address [address] [place] [address] Care Team Providers Care Chemist Intern Name Role Phone NONE, NONE Primary Care Provider Litzy MooneyBabak Amy [phone] RESULTS Component Value Reference Range Notes Hold Lav - Possible Hematolo gy Reviewed date:09/03/2024 01:08:51 PM Interpretation: Performing Lab:[facility], [address] [place] [phone] Notes/Report: Hold Lav - Possible Hematology SEE NOTE Specimen will be held untested for 8 hours. Call Hematology if testing is desired. Prothrombin Time INR Reviewed date:09/03/2024 01:08:58 PM Interpretation: Performing Lab:[facility], [address] [place] [phone] Notes/Report: Prothrombin Time 13.9 10.9-12.4 SEC INTERNATIONAL [...] (Free>4and<10) Reviewed date:09/03/2024 01:09:06 PM Interpretation: Performing Lab:[facility], [address] [place] [phone] Notes/Report: PSA,Total (Free>4and<10) 89.85 0.00-4.00 ng/mL A [...] Folate Reviewed date:09/03/2024 01:09:13 PM Interpretation: Performing Lab:[address] [phone] Notes/Report: Vitamin B12 815 200-900 pg/mL NORMAL 200-900 PG/ML INDETERMINATE 160-199 PG/ML DEFICIENT < 160 PG/ML Folate 10.6 > or = 4.0 ng/mL Reference Values: > or = 4.0 ng/mL < 4.0 ng/mL suggests folate deficiency Methotrexate, aminopterin and folinic acid (leucovorin) are chemotherapeutic agents whose molecular structures are similar to folate; therefore, the Sheet Sorter folate assay cannot be used for patients using these drugs. Pathology (Not yet reviewed by provider) Interpretation: Performing Lab:[facility], [address] [place] [phone] Notes/Report: Complete Blood Count Auto Di ff Reviewed date:09/04/2024 11:48:44 PM Interpretation: Performing Lab:[facility], [address] [place] [phone] Notes/Report: White Blood Count 11.7 4.8-10.8 X10*3/uL [...] g Reviewed date:09/04/2024 11:48:55 PM Interpretation: Performing Lab:[facility], [address] [place] [phone] Notes/Report: Sodium 144 135-145 mmol/L Potassium 2.9 [...] ff Reviewed date:09/06/2024 11:27:04 AM Interpretation: Performing Lab:[facility], [address] [place] [phone] Notes/Report: White Blood Count 13.1 4.8-10.8 X10*3/uL [...] g Reviewed date:09/06/2024 11:27:36 AM Interpretation: Performing Lab:[facility], [address] [place] [phone] Notes/Report: Sodium 143 135-145 mmol/L Potassium 3.4 [...] W/U Status Risk SNOMED Code Notes Problem Malignant neoplasm of ascending colon (C18.2) Active confirmed Malignant tumor of ascending colon (885913641) Problem 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) (877741046) Problem Diverticulosis of large intestine without perforation or abscess without bleeding (K57.30) Active confirmed Diverticul ar disease of colon (366815185) Encounters Encounter Location Date Provider Diagnosis [facility] [place] Inpatient [address] [place] [id number] 09/04/2024 Babak Mooney PLAN OF TREATMENT Pending Test Test Name Order Date Pathology 09/04/2024 Insurance Providers Payer Name Payer Address Payer Phone Subscriber Number Group Number Insured Name Patient Relationship to Insured Coverage Start Date Coverage End Date [employer] [place] [address] [address] [place] [address] [id number] LYNNE MCCONNELL Self - patient is the insured
--- OUTSIDE RECORDS SUMMARY | 2024-12-05 11:32 | XMS_ITS ---
Author Organization [facility] Address [address] [place] [address] Care Team Providers Care Process Technician Name Role Phone NONE, NONE Primary Care Provider Babak Jain Unavailable [phone] REASON FOR VISIT fe def anemia,abnormal ct scan of colon Encounters Encounter Location Date Provider Diagnosis [facility] [place] [place] [address], [place] [id number] 09/04/2024 Babak Mooney PLAN OF TREATMENT No Information
== END 2024-12-05 11:23 | disposition home or self-care (01) ==
PROVIDERS: Visit Provider Urology
DX: C61 Malignant neoplasm of prostate (principal); R33.9 Retention of urine, unspecified; Z13.9 Encounter for screening, unspecified
CPT/HCPCS: 52000; 99215

== ENCOUNTER → 2024-12-05 10:01 | Outpatient (BNVA) | payer OTHER, SELFPAY | PROVIDERS: Visit Provider Urology | DX: R33.9 Retention of urine, unspecified (principal); C61 Malignant neoplasm of prostate | CPT/HCPCS: 52000; 81003 ==

== ENCOUNTER 2024-12-09 14:55 | Outpatient (AMB) | payer OTHER, SELFPAY ==
--- NOTE | 2024-12-09 14:56 | A.OFFPC_ITS ---
Vital Signs 12/09/24 15:02 Height 5 ft 5.5 in Weight 168 lb BMI 27.5 BP 190/110 H Blood Pressure Location Lt brachial Pulse 126 H Pulse Source Pulse Oximeter Temp 98.4 F Pulse Oximetry (%) 98 Intake Visit Reasons: new patient Intake Note: high blood pressure Carbide Die Maker: Not Required per policy Allergies No Known Allergies Allergy (Verified 12/09/24 15:39) Medication List - Last Reconciled 12/09/24 by Nereida Leone PA-C abiraterone 1,000 mg (2 x 500 mg) PO DAILY dutasteride 0.5 mg PO DAILY dutasteride 0.5 mg PO QAM 90 days ferrous sulfate 324 mg PO BID metoprolol succinate ER 100 mg See Protocol PO DAILY prednisone 5 mg PO DAILY terazosin 5 mg PO BEDTIME 90 days PFSH Medical History (Updated 12/09/24 @ 15:52 by Nereida Leone PA-C) Sinus tachycardia Overweight with body mass index (BMI) of 27 to 27.9 in adult Self-catheterizes urinary bladder Colonic mass Adenoma of ascending colon Indwelling Flores catheter present Hypertension Hx of endocrine hypertension Prostate cancer Surgical History Hx of surgical procedure (~09/16/24) History of esophagogastroduodenoscopy (EGD) H/O colonoscopy Hx of cystoscopy Social History Household Members: None Housing: Apartment Are you a primary career services coordinator to a significant other at home: No Do you presently have visiting nurse or other home services: No Patient Tobacco Use Status: Former Tobacco user Tobacco use type: Cigarette Years Smoked: 20 Advance Directives Date on File: 09/01/24 service: No Questionnaire Thrive Questionnaire Date Thrive assessed: 09/17/24 Physical exam (Primary Care) Vital Signs: Last Vital Signs Temp 98.4 F 12/09/24 15:02 Pulse 126 H 12/09/24 15:02 BP 190/110 H 12/09/24 15:02 Pulse Ox 98 12/09/24 15:02 Care Plan Goal for BP management: <130/80. Will increase the patient's metoprolol extended release 25 mg to 100 mg daily. Patient will keep a blood pressure diary for the next 2 weeks and return in 2 weeks for blood pressure check. BMI result Body Mass Index 27.5 BMI Assessment/Plan discussion: High BMI High, discussed plan: lifestyle, weight reduction, dietary, physical activity and alcohol moderation Tobacco/Smoking Status: Tobacco use Status Patient Tobacco Use Status Former Tobacco user 12/09/24 14:57 Tobacco use type Cigarette 12/09/24 14:57 Thrive Assessment: Date of Thrive Assessment Date Thrive assessed 09/17/24 12/09/24 14:57 Coding Level of Care Code New Pt Level 4 (08974) Complex EM visit Add On G2211 Diagnoses Hypertension I10 Adenoma of ascending colon D12.2 Colon cancer, ascending C18.2 S/P colon resection Z90.49 Prostate cancer C61 Urinary retention with incomplete bladder emptying R33.9 Self-catheterizes urinary bladder Z78.9 Overweight with body mass index (BMI) of 27 to 27.9 in adult E66.3; Z68.27 Sinus tachycardia R00.0 Assessment & Plan Assessment & Plan (1) Hypertension: Code(s): I10 - Essential (primary) hypertension Category: Medical Plan: Patient with hypertensive urgency. Denies any cardiac or neuro related complaints at this time. Currently on metoprolol 25 mg daily. Will increase the patient's metoprolol extended release to 100 mg daily. Patient will keep a blood pressure diary return in 2 weeks. I explained to the patient if he develops any chest pain, paresthesias or dizziness or headache that does not go away with Motrin Tylenol he will have to go to the emergency department. Although patient denies any of these symptoms. Condition is chronic and stable continue to monitor. (2) Adenoma of ascending colon: Code(s): D12.2 - Benign neoplasm of ascending colon Category: Medical Plan: Patient is status post resection. Being followed by Dr. Raf Chandler and Dr. Doherty the general surgeon. Patient currently on Chemo treatment. Condition is chronic and stable will continue to monitor. (3) Colon cancer, ascending: Code(s): C18.2 - Malignant neoplasm of ascending colon Category: Medical (4) S/P colon resection: Code(s): Z90.49 - Acquired absence of other specified parts of digestive tract Category: Surgical Plan: Patient is status post resection. Being followed by Dr. Raf Chandler and Dr. Doherty the general surgeon. Patient currently on Chemo treatment. Condition is chronic and stable will continue to monitor. (5) Prostate cancer: Code(s): C61 - Malignant neoplasm of prostate Category: Medical Plan: PSA level has significantly improved since the patient has been on chemotherapy treatment. Being followed by Dr. Macias, Dr. Carbone and Dr. Doherty the general surgeon. Condition is chronic and stable will continue to monitor. (6) Urinary retention with incomplete bladder emptying: Code(s): R33.9 - Retention of urine, unspecified Category: Medical Plan: Patient being followed by Dr. Carbone. Had Flores catheter taken out last week. Is now performing self catheterizations without any difficulties or complications. Condition is chronic and stable continue to monitor. (7) Self-catheterizes urinary bladder: Code(s): Z78.9 - Other specified health status Category: Medical Plan: Patient being followed by Dr. Carbone. Had Flores catheter taken out last week. Is now performing self catheterizations without any difficulties or complications. Condition is chronic and stable continue to monitor. (8) Overweight with body mass index (BMI) of 27 to 27.9 in adult: Code(s): E66.3 - Overweight; Z68.27 - Body mass index [BMI] 27.0-27.9, adult Category: Medical Plan: Patient to improve his eye and exercise regimen. Condition is chronic and stable continue to monitor. (9) Sinus tachycardia: Code(s): R00.0 - Tachycardia, unspecified Category: Medical Plan: Patient being placed on metoprolol 100 mg extended release. This is a beta- yadira and will help control the sinus tachycardia. Condition is chronic and stable continue to monitor. Plan Plan For hypertension, I have decided to increase the patient's dose of metoprolol to 100 mg daily due to persistent elevation, with plans for a follow-up in two weeks to monitor the effect and reassess. The patient will also be starting abiraterone 1000 mg daily alongside prednisone for prostate cancer, replacing previous medications per oncology guidelines following PSA improvement. Comprehensive labs to include liver function, A1c, lipid panel, and TSH will be obtained to evaluate metabolic status and any effects of current oncological therapy. The patient will remain under regular follow-up and receive required semi-annual injections for continued cancer management. Appropriate imaging and lab monitoring are arranged to ensure thorough oversight of the patient's complex medical needs. Orders: Orders Magnesium Today Z00.00 - Encounter for general adult medical examination without abnormal findings Lipid Panel Today Z00.00 - Encounter for general adult medical examination without abnormal findings TSH reflex Free T4 Today Z00.00 - Encounter for general adult medical examination without abnormal findings Vitamin B1 Today Z00.00 - Encounter for general adult medical examination without abnormal findings Vitamin B12 and Folate Today Z00.00 - Encounter for general adult medical examination without abnormal findings Vitamin D 25-OH Total Today Z00.00 - Encounter for general adult medical examination without abnormal findings Medications: New ferrous sulfate 324 mg PO BID 90 tabs 1RF Changed From metoprolol succinate ER 25 mg See Protocol PO DAILY 90 tabs 0RF To metoprolol succinate ER 100 mg See Protocol PO DAILY 90 tabs 1RF Discontinued oxycodone Partial Fill upon patient request. Discontinued Reason: Doctor's Order 5 mg PO Q4H PRN 20 tabs 0RF pain (scale score 7-10) oxycodone Partial Fill upon patient request. Discontinued Reason: Duplicate 5 mg PO Q4H PRN 20 tabs 0RF pain levofloxacin Discontinued Reason: Doctor's Order 500 mg PO DAILY 7 tabs 0RF 7 days Patient Instructions: Patient Instructions - Take metoprolol 100 mg daily, monitor blood pressure two hours post-dosage, and document measurements daily. - Start abiraterone 1000 mg with prednisone once received; discontinue previous prostate medications as directed. - Adhere strictly to follow-up visits in two weeks for evaluation of hypertension treatment efficacy. - Obtain fasting blood work as instructed for metabolic and thyroid assessment. - Continue self-catheterization as needed; attend future scheduled urological procedure. - Schedule an appointment with an special education instructor for an eye exam. - Contact immediately if experiencing severe side effects or health changes. Scribe Plan - Not visible on output: History of Present Illness The patient is a 69-year-old male presenting with uncontrolled hypertension. Despite implementing metoprolol as a treatment for hypertension discovered incidentally during prior urological assessments, his blood pressure remains persistently elevated, averaging 190/110 mmHg, necessitating reevaluation of the therapeutic approach. Additionally, the patient has been diagnosed with metasta tic prostate cancer and adenocarcinoma of the ascending colon, a scope of which includes localized resection and ongoing tumor surveillance for metastatic progression, particularly in the pelvis region. He is scheduled to embark on new chemotherapy regimens, incorporating abiraterone and prednisone following effective PSA reductions. Furthermore, the patient's management of intermittent urinary catheterization highlights a complex interaction between urological complications and cancer-associated care, with upcoming interventional procedures earmarked to ease functionality. Social History - Employment: The patient is currently on leave from work due to medical conditions, receiving support via [facility] benefits transitioned to state-managed disability assistance. - Housing: Resides alone - Family Status: The patient has a granddaughter who is acting as his healthcare proxy, assisting with medical appointments and care coordination. Has a son who lives out of state. - Functional Status: Due to complex cancer treatments and related debility, including significant disease burden, employment activities have been halted temporarily. - Level of activity: Specific physical activities were not discussed; however, patient participation in regular work duties and personal responsibilities reflects a reduction given current health challenges. Review of Systems - Cardiovascular: Reports elevated blood pressure and occasional tachycardia. - Genitourinary: Reports self-catheterization required post-removal of urinary catheter; denies current ease in spontaneous urinary function. - General: Denies dizziness, though notes perspiration as a recurrent symptom. Denies significant chest pain or shortness of breath. Physical Exam Appearance: Alert. Oriented X3. No acute distress. Head: Normal external exam. Normocephalic. Atraumatic. Eyes: Pupils are equal, round, and reactive to light. Extraocular movements intact. Conjunctiva and sclera normal. Eyelids normal. Ears: External auditory canal normal. Tympanic membranes normal. Throat: Pharynx normal. Uvula midline. Moist mucous membranes. Neck: Normal inspection. Neck supple. Full range of motion. No adenopathy. Thyroid Normal. No meningeal signs. No neck mass noted. Cardiovascular: Heart rate is 126. Normal heart rhythm. Heart sound normal. No murmurs noted. Pulses normal throughout. Respiratory: No respiratory distress. Painless inspiration. Breath sounds normal. No wheezes/rales/rhonchi noted. Chest nontender. No accessory muscle usage noted or decreased air movement noted. Abdomen: Soft and nontender. Bowel sounds normal in all 4 quadrants. No distention noted. No organomegaly noted. No visible injury noted. Back: No costovertebral angle tenderness. Full range of motion noted. Skin: Skin warm and dry. Normal skin color. Normal skin turgor. No rashes/lesions/lacerations noted. Extremities: No lower extremity edema. Extremities exhibit normal range of motion. Extremities nontender. Neuro: Oriented X 3. No motor deficit. No sensory deficit. Reflexes normal. Results - Labs: Prostate-Specific Antigen (PSA) decreased from 89.85 to 1.16. - Imaging: Bone scan indicated possible metastasis to pelvis. Chest CT scan results were normal. Plan For hypertension, I have decided to increase the patient's dose of metoprolol to 100 mg daily due to persistent elevation, with plans for a follow-up in two weeks to monitor the effect and reassess. The patient will also be starting abiraterone 1000 mg daily alongside prednisone for prostate cancer, replacing previous medications per oncology guidelines following PSA improvement. Comprehensive labs to include liver function, A1c, lipid panel, and TSH will be obtained to evaluate metabolic status and any effects of current oncological therapy. The patient will remain under regular follow-up and receive required semi-annual injections for continued cancer management. Appropriate imaging and lab monitoring are arranged to ensure thorough oversight of the patient's complex medical needs. Patient was informed and verbally consented to the use of an ambient scribe for clinic note documentation during this visit. Discussion Notes During this visit, I discussed the patient's uncontrolled hypertension and the decision to increase metoprolol to 100 mg to achieve better control. We reviewed the treatment plan transition for his prostate cancer with new medications abiraterone and prednisone, emphasizing the positive PSA response as evidence of therapeutic success. I addressed the need for additional laboratory tests to assure systemic health, including thorough metabolic, cholesterol, and thyroid assessments. We agreed on regular monitoring of blood pressure at home and follow-ups every two weeks. The importance of addressing his urinary retention through a scheduled laser procedure was affirmed. I encouraged family support and advised on potential care adjustments through existing benefits and services. The patient was receptive to all recommendations. Patient Instructions - Take metoprolol 100 mg daily, monitor blood pressure two hours post-dosage, and document measurements daily. - Start abiraterone 1000 mg with prednisone once received; discontinue previous prostate medications as directed. - Adhere strictly to follow-up visits in two weeks for evaluation of hypertension treatment efficacy. - Obtain fasting blood work as instructed for metabolic and thyroid assessment. - Continue self-catheterization as needed; attend future scheduled urological procedure. - Schedule an appointment with an special education instructor for an eye exam. - Contact immediately if experiencing severe side effects or health changes.
[2024-12-09 15:02] VITALS: BP 190/110; PULSE 126; TEMP 36.9; O2SAT 98; BMI 27.5
--- OUTSIDE RECORDS SUMMARY | 2024-12-09 17:48 | XMS_ITS ---
Author Organization [facility] Address [address] [place] [address] Care Team Providers Care Candy Attendant Name Role Phone NONE, NONE Primary Care Provider Babak Jain Unavailable [phone] REASON FOR VISIT fe def anemia,abnormal ct scan of colon Encounters Encounter Location Date Provider Diagnosis [facility] [place] [address], [place] [id number] 09/04/2024 Babak Mooney PLAN OF TREATMENT No Information
--- OUTSIDE RECORDS SUMMARY | 2024-12-09 17:48 | XMS_ITS | Patient Health Record ---
Author Organization [facility] Address [address] [place] [address] Care Team Providers Care Fugitive Detective Name Role Phone NONE, NONE Primary Care Provider Litzy MooneyBabak Amy [phone] RESULTS Component Value Reference Range Notes Hold Lav - Possible Hematolo gy Reviewed date:09/03/2024 01:08:51 PM Interpretation: Performing Lab:[facility], [address] [place] [phone] Notes/Report: Hold Lav - Possible Hematology SEE NOTE Specimen will be held untested for 8 hours. Call Hematology if testing is desired. Prothrombin Time INR Reviewed date:09/03/2024 01:08:58 PM Interpretation: Performing Lab:[facility], [address] [place] [phone] Notes/Report: Prothrombin Time 13.9 10.9-12.4 SEC INTERNATIONAL [...] (Free>4and<10) Reviewed date:09/03/2024 01:09:06 PM Interpretation: Performing Lab:[facility], [address] [place] [phone] Notes/Report: PSA,Total (Free>4and<10) 89.85 0.00-4.00 ng/mL A [...] Folate Reviewed date:09/03/2024 01:09:13 PM Interpretation: Performing Lab:[address] [phone] Notes/Report: Vitamin B12 815 200-900 pg/mL NORMAL 200-900 PG/ML INDETERMINATE 160-199 PG/ML DEFICIENT < 160 PG/ML Folate 10.6 > or = 4.0 ng/mL Reference Values: > or = 4.0 ng/mL < 4.0 ng/mL suggests folate deficiency Methotrexate, aminopterin and folinic acid (leucovorin) are chemotherapeutic agents whose molecular structures are similar to folate; therefore, the Gas Combustion Engineer folate assay cannot be used for patients using these drugs. Pathology (Not yet reviewed by provider) Interpretation: Performing Lab:[facility], [address] [place] [phone] Notes/Report: Complete Blood Count Auto Di ff Reviewed date:09/04/2024 11:48:44 PM Interpretation: Performing Lab:[facility], [address] [place] [phone] Notes/Report: White Blood Count 11.7 4.8-10.8 X10*3/uL [...] g Reviewed date:09/04/2024 11:48:55 PM Interpretation: Performing Lab:[facility], [address] [place] [phone] Notes/Report: Sodium 144 135-145 mmol/L Potassium 2.9 [...] ff Reviewed date:09/06/2024 11:27:04 AM Interpretation: Performing Lab:[facility], [address] [place] [phone] Notes/Report: White Blood Count 13.1 4.8-10.8 X10*3/uL [...] g Reviewed date:09/06/2024 11:27:36 AM Interpretation: Performing Lab:[facility], [address] [place] [phone] Notes/Report: Sodium 143 135-145 mmol/L Potassium 3.4 [...] Active confirmed Malignant tumor of ascending colon (747451203) Problem 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) (419078252) Problem Diverticulosis of large intestine without perforation or abscess without bleeding (K57.30) Active confirmed Diverticul ar disease of colon (815972678) Encounters Encounter Location Date Provider Diagnosis [facility] [place] In[place] [address] [place] [phone] 09/04/2024 Babak Mooney PLAN OF TREATMENT Pending Test Test Name Order Date Pathology 09/04/2024 Insurance Providers Payer Name Payer Address Payer Phone Subscriber Number Group Number Insured Name Patient Relationship to Insured Coverage Start Date Coverage End Date [employer] [place] [address] [address] [place] [address] [id number] LYNNE MCCONNELL Self - patient is the insured
== END 2024-12-09 15:39 | disposition home or self-care (01) ==
LOC: HO.HMCSH 14:55
PROVIDERS: Visit Provider Internal Medicine
DX: I10 Essential (primary) hypertension (principal); D12.2 Benign neoplasm of ascending colon; C18.2 Malignant neoplasm of ascending colon; Z90.49 Acquired absence of other specified parts of digestive tract; C61 Malignant neoplasm of prostate; R33.9 Retention of urine, unspecified; Z78.9 Other specified health status; E66.3 Overweight; Z68.27 Body mass index [BMI] 27.0-27.9, adult; R00.0 Tachycardia, unspecified

== ENCOUNTER 2024-12-20 09:16 | Outpatient (REF) | payer OTHER, SELFPAY ==
--- OUTSIDE RECORDS SUMMARY | 2024-12-20 10:03 | XMS_ITS | Patient Health Record ---
Author Organization [facility] Address [address] [place] [address] Care Team Providers Care Policy Director Name Role Phone NONE, NONE Primary Care Provider Litzy MooneyBabak Amy [phone] Results Component Value Reference Range Notes Hold Lav - Possible Hematolo gy Reviewed date:09/03/2024 01:08:51 PM Interpretation: Performing Lab:[facility], [address] [place] [phone] Notes/Report: Hold Lav - Possible Hematology SEE NOTE Specimen will be held untested for 8 hours. Call Hematology if testing is desired. Prothrombin Time INR Reviewed date:09/03/2024 01:08:58 PM Interpretation: Performing Lab:[facility], [address] [place] [phone] Notes/Report: Prothrombin Time 13.9 10.9-12.4 SEC INTERNATIONAL [...] (Free>4and<10) Reviewed date:09/03/2024 01:09:06 PM Interpretation: Performing Lab:[facility], [address] [place] [phone] Notes/Report: PSA,Total (Free>4and<10) 89.85 0.00-4.00 ng/mL A [...] Folate Reviewed date:09/03/2024 01:09:13 PM Interpretation: Performing Lab:[address] [phone] Notes/Report: Vitamin B12 815 200-900 pg/mL NORMAL 200-900 PG/ML INDETERMINATE 160-199 PG/ML DEFICIENT < 160 PG/ML Folate 10.6 > or = 4.0 ng/mL Reference Values: > or = 4.0 ng/mL < 4.0 ng/mL suggests folate deficiency Methotrexate, aminopterin and folinic acid (leucovorin) are chemotherapeutic agents whose molecular structures are similar to folate; therefore, the [facility] folate assay cannot be used for patients using these drugs. Complete Blood Count Auto Di ff Reviewed date:09/04/2024 11:48:44 PM Interpretation: Performing Lab:[address] [phone] Notes/Report: White Blood Count 11.7 4.8-10.8 X10*3/uL [...] 0.0-0.2 /100WBC Neutrophils Absolute Auto 8.9 2.0-8.3 x10*3/uL Imm Gran Abs Auto 0.05 0.00-0.03 X10*3/uL Lymphocytes Absolute Auto 1.9 1.2-4.9 X10*3/uL Monocytes Absolute Auto 0.6 0.1-1.2 X10*3/uL Eosinophils Absolute Auto 0.2 0.0-0.4 X10*3/uL Basophils Absolute Auto 0.1 0.0-0.2 X10*3/uL NRBC Abs Auto 0.000 0.0-0.012 X10*3/uL Basic Metabolic Panel Fastin g Reviewed date:09/04/2024 11:48:55 PM Interpretation: Performing Lab:[address] [address] Notes/Report: Sodium 144 135-145 mmol/L Potassium 2.9 3.3-5.1 mmol/L Critical [Potassium] sent by a secure message and confirmed by (Dr. Sharma, 09/04/24 0864) Tech: GALENSA Chloride 105 96-108 mmol/L Carbon [...] 95 60-99 mg/dL Calcium 8.3 8.4-10.2 mg/dL Pathology (Not yet reviewed by provider) Interpretation: Performing Lab:[address] [address] Notes/Report: -- ---- Name: Ortiz Quispe Age/Sex: 69/M : 1955 Unit#: [id number] Attend Dr: Rohith Sharma MD Re08/30/24 Status : DIS IN Location: [facility] 454-1 Disch: 09/06/24 -- ---- SPEC : [id number] RECD : 09/04/24-1416 STATUS: JAMES EATON NUM: [id number] ALVARO: 09/04/24-[address] [facility] [address]: Babak Mooney MD ENTERED: 09/04/24-14 19 SP TYPE: Surgical OTHR DR: Rohith Sharma MD ORDERED: HE Stain/9, Gross Micro L4/3, IHC, Add. immunos/4, CDX-2 COMMENTS: Block A se nt to TERESA for MMR JOHAN/BELLO Panels on 09/09/24. Addendum Addendum 2 Entered: 09/30/24 (A): [employer] JOHAN/BELLO Panel: Single nucleotide variants/insertions/de letions: KRAS G12D Pertinent negatives: No alterations detected in the following genes: BRAF, HRAS, NRAS See the entire repor t in the EMR - report/pathology section as a scanned report (camera icon). Addendum Signed (signature on file) Jane Chase 09/30/241850 -- ---- Addendum 1 Entered: 09/16/24-1700 (A): Immunostain results as follows: - MLH1: PRESERVED (Intact nuclear expression) - MSH2: PRESERVED (Intact nuclear expression) - MSH6: PRESERVED (Intact nuclear expression) - PMS2: PRESERVED (Intact nuclear expression) NOTE: Results are NEGATIVE for Mismatch repair defect/ Ford Syndrome-related tumor, however a small percentage o f this form of heritable cancer may not be identified by this technique. Correlation with the patient's presentation and family history is recommended. Addendum Signed (signature on file) Jane Chase 09/16/241700 -- ---- Diagnosis A. Colon, ascending, mass, biopsy: Superficial fragments of invasive adenocarcinoma (see comment). B. Colon, at 40 cm, polyp: Tubulovillous adenoma, completely excised; negative for CONTINUED ON NEXT PAGE -- ---- Name: Ortiz Quispe Age/Sex: 69/M : 1955 Unit#: [id number] Attend Dr: Rohith Sharma MD Re08/30/24 Status : DIS [facility] Disch: 09/06/24 -- ---- SPEC : [id number] RECD : 09/04/24-1417 STATUS: JAMES EATON NUM: [id number] ALVARO: 09/04/24-[address]: Babak Mooney MD ENTERED: 09/04/24-14 19 SP TYPE: Surgical OTHR DR: Rohith Sharma MD ORDERED: HE Stain/9, Gross Micro L4/3, IHC, Add. immunos/4, CDX-2 COMMENTS: Block A se nt to TERESA for MMR JOHAN/BELLO Panels on 09/09/24. Diagnosis (Continued) high-grade dysplasia and carcinoma. C. Colon, at 20 cm, polyp: Tubular adenoma; negative for high-grade dysplasia and carcinoma. Comment: (A): Additional immunostains and molecular studies pending; addendum to follow. Clinical History Pre-Op Dx: Abnormal imaging Post-Op Dx: Hiatal hernia, ascending colon mass, colon polyps Microscopic Description Microscopic sections show Part A has infiltration of irregular colonic glands in desmoplastic stroma, with malignant epithelium composed of stratified cells with irregular size and shape and mucin loss. Immunostain for CDX2 is positive consistent with colonic origin, with appropriate internal control. Material Received A. Ascending colon mass B. Polyp @ 40 cm C. Polyp @ 20 cm Gross Description A. Received in formalin are multiple nevarez 1-2 mm soft tissue fragments, totally submitted in cassette A1. B. Received in formalin is 1 nevarez-red 12 mm polyp, inked blue along the base, bisected, totally submitted in cassette B1. C. Received in formalin is 1 nevarez-red 11 mm polyp, inked black along the base, bisected, totally submitted in cassette C1. (DTL) Excision/formalin time: 12:50; total time in formalin: 8-32 hours. Part A was reviewed intradepartmentally. Part A results given to Dr. Mooney by secure text by Dr. Chase on 09/09/2024 at 12:48 pm. Special studies ordered and performed at [facility]: Immunostains for CDX2 on A1. CONTINUED ON NEXT PAGE -- ---- Name: Ortiz Quispe Age/Sex: 69/M : 1955 Unit#: [id number] Attend Dr: Rohith Sharma MD Re08/30/24 Status : DIS IN Location: [facility] 454-1 Disch: 09/06/24 -- ---- SPEC : [id number] RECD : 09/04/24-1147 STATUS: JAMES EATON NUM: [id number] ALVARO: 09/04/24-[address] [facility] [address]: Babak Mooney MD ENTERED: 09/04/24-14 19 SP TYPE: Surgical OTHR DR: Rohith Sharma MD ORDERED: HE Stain/9, Gross Micro L4/3, IHC, Add. immunos/4, CDX-2 COMMENTS: Block A se nt to TERESA for MMR JOHAN/BELLO Panels on 09/09/24. Gross Description (Continued) Special studies ordered and performed [employer]: Immunostains for MLH1, MSH2, MSH6 and PMS2 on A1. Copies To: Rohith Sharma MD [address] [place] [address] Babak Mooney MD [facility] [address] [place] [address] -- ---- Signed (signature on file) Jane Bedford 09/10/24 1045 -- ---- END OF REPORT Complete Blood Count Auto Di ff Reviewed date:09/06/2024 11:27:04 AM Interpretation: Performing Lab:[facility], [address] [facility], [place] [address] Notes/Report: White Blood Count 13.1 4.8-10.8 X10*3/uL [...] 0.0-0.2 /100WBC Neutrophils Absolute Auto 10.1 2.0-8.3 x10*3/uL Imm Gran Abs Auto 0.09 0.00-0.03 X10*3/uL Lymphocytes Absolute Auto 2.0 1.2-4.9 X10*3/uL Monocytes Absolute Auto 0.7 0.1-1.2 X10*3/uL Eosinophils Absolute Auto 0.2 0.0-0.4 X10*3/uL Basophils Absolute Auto 0.0 0.0-0.2 X10*3/uL NRBC Abs Auto 0.000 0.0-0.012 X10*3/uL Basic Metabolic Panel Fastin g Reviewed date:09/06/2024 11:27:36 AM Interpretation: Performing Lab:[facility], [address] [place] [phone] Notes/Report: Sodium 143 135-145 mmol/L Potassium 3.4 [...] 95 60-99 mg/dL Calcium 8.3 8.4-10.2 mg/dL Reason For Referral No Information Problems Problem Type SNOMED Code ICD Code Onset Dates Problem Status W/U Status Risk Notes Problem Malignant tumor of ascending colon (294493829) Malignant neoplasm of ascending colon (C18.2) Active confirmed Problem 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) (867302044) 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 Problem Diverticular disease of colon (805422983) Diverticulosis of large intestine without perforation or abscess without bleeding (K57.30) Active confirmed Encounters Encounter Location Date Provider Diagnosis [facility] [address] [place], [place] [phone] 09/04/2024 Babak Mooney Plan Of Treatment Pending Test Test Name Order Date Pathology 09/04/2024 Insurance Providers Payer Name Payer Address Payer Phone Subscriber Number Group Number Insured Name Patient Relationship to Insured Coverage Start Date Coverage End Date [employer] [address] [address] [place] [address] [id number] [id number] QUISPE Self - patient is the insured
--- OUTSIDE RECORDS SUMMARY | 2024-12-20 10:03 | XMS_ITS ---
Author Organization [facility] Address [address] [place] [address] Care Team Providers Care Caramel Cutter Machine Name Role Phone NONE, NONE Primary Care Provider Babak Jain [phone] REASON FOR VISIT fe def anemia,abnormal ct scan of colon Encounters Encounter Location Date Provider Diagnosis [facility] In[facility] [address] [place], [place] [phone] 09/04/2024 Babak Mooney Plan Of Treatment No Information Progress Notes * LYNNE MCCONNELLDOB:1955 (69 yo M)Acc No.[id number]:09/04/2024 EGD and COL/MAC Patient:?JAYESH LYNNE Provider:?Babak Mooney MD :1955???Age:69 Y???Sex:Male Kirby e:09/04/2024 Address:[address] [place], [place] [id number] Subjective: * Chief Complaints: * ???1. Fe def anemia,abnormal ct scan of colon. * Medical History:? Objective: * Vitals:? Assessment: Plan: * Treatment: * * The named appointment provid er may or may not be the originator of this progress note, and it is not deemed complete until electronically signed by the appointment provider. Sign off status: Pending * Provider:?Babak Mooney MD Date:? 024 Generated for Parish mcdowell/Edgardo/Kenjismitting on:?12/20/2024 10:02 AM EDT
[2024-12-20 10:58] LABS: Cholesterol 249 mg/dL (<200); HDL Cholesterol 62 mg/dL (>40); LDL Cholesterol Calculated 166 mg/dL (<100); Triglycerides 108 mg/dL (<150)
[2024-12-20 11:14] LABS: TSH reflex Free T4 1.82 uIU/mL (0.32-4.0); Vitamin D 25-OH Total 19.8 ng/mL (>30)
[2024-12-20 11:36] LABS: Folate 14.3 ng/mL (> or = 4.0); Vitamin B12 382 pg/mL (200-900)
[2024-12-29 11:44] LABS: Vitamin B1 14 nmol/L (8-30)
== END 2024-12-20 09:17 | disposition home or self-care (01) ==
LOC: HO.LAB 09:16
PROVIDERS: PCP Internal Medicine; Visit Provider Physician Assistant Medical
DX: Z00.00 Encounter for general adult medical examination without abnormal findings (principal)
CPT/HCPCS: 36415; 80061; 82306; 82607; 82746; 83735; 84425; 84443

== ENCOUNTER 2024-12-25 10:39 | Outpatient (AMB) | payer OTHER, SELFPAY ==
--- NOTE | 2024-12-25 10:39 | A.OFFPC_ITS ---
Vital Signs 12/25/24 10:47 Height 5 ft 5.5 in Weight 174 lb BMI 28.5 BP 190/110 H Blood Pressure Location Lt brachial Pulse 111 H Pulse Source Pulse Oximeter Temp 98.2 F Pulse Oximetry (%) 97 Intake Visit Reasons: 2 week follow up Intake Note: wouldlike to discuss chemo Allergies No Known Allergies Allergy (Verified 12/25/24 12:26) Medication List - Last Reconciled 12/25/24 by Nereida Leone PA-C abiraterone 1,000 mg (2 x 500 mg) PO DAILY ferrous sulfate 324 mg PO BID hydrochlorothiazide 25 mg PO DAILY metoprolol succinate ER 100 mg See Protocol PO DAILY prednisone 5 mg PO DAILY rosuvastatin (Crestor) 10 mg PO DAILY valsartan 80 mg PO DAILY PFSH Medical History (Updated 12/25/24 @ 12:33 by Nereida Leone PA-C) Vitamin D deficiency Hyperlipidemia Mild hypercholesterolemia Sinus tachycardia Overweight with body mass index (BMI) of 27 to 27.9 in adult Self-catheterizes urinary bladder Colonic mass Adenoma of ascending colon Indwelling Flores catheter present Hypertension Hx of endocrine hypertension Prostate cancer Surgical History Hx of surgical procedure (~09/16/24) History of esophagogastroduodenoscopy (EGD) H/O colonoscopy Hx of cystoscopy Social History Household Members: None Housing: Apartment Are you a primary child care centre director to a significant other at home: No Do you presently have visiting nurse or other home services: No Patient Tobacco Use Status: Former Tobacco user Tobacco use type: Cigarette Years Smoked: 20 Advance Directives Date on File: 09/01/24 service: No Questionnaire Thrive Questionnaire Date Thrive assessed: 09/17/24 Physical exam (Primary Care) Vital Signs: Last Vital Signs Temp 98.2 F 12/25/24 10:47 Pulse 111 H 12/25/24 10:47 BP 190/110 H 12/25/24 10:47 Pulse Ox 97 12/25/24 10:47 Care Plan Goal for BP management: <130/80. Patient currently on metoprolol 100 mg daily. Will add hydrochlorothiazide 25 mg daily, valsartan 80 mg daily. Patient to return in 1 week for blood pressure check. BMI result Body Mass Index 28.5 BMI Assessment/Plan discussion: High BMI High, discussed plan: lifestyle, weight reduction, dietary, physical activity and alcohol moderation Tobacco/Smoking Status: Tobacco use Status Patient Tobacco Use Status Former Tobacco user 12/25/24 10:41 Tobacco use type Cigarette 12/25/24 10:41 Thrive Assessment: Date of Thrive Assessment Date Thrive assessed 09/17/24 12/25/24 10:41 Coding Level of Care Code Est Pt Level 4 (33335) Complex EM visit Add On G2211 Diagnoses Hypertension I10 Overweight with body mass index (BMI) of 27 to 27.9 in adult E66.3; Z68.27 Self-catheterizes urinary bladder Z78.9 Adenoma of ascending colon D12.2 Hx of endocrine hypertension Z86.79 Prostate cancer C61 Urinary retention with incomplete bladder emptying R33.9 S/P colon resection Z90.49 Colon cancer, ascending C18.2 Bony sclerosis 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 Patient currently on metoprolol 100 mg daily. Will add hydrochlorothiazide 25 mg daily, valsartan 80 mg daily. Patient to return in 1 week for blood pressure check. I discussed this case with Cardiology Dr. Garcia and Dr. Angulo. Condition is chronic and stable continue to monitor. (2) Overweight with body mass index (BMI) of 27 to 27.9 in adult: Code(s): E66.3 - Overweight; Z68.27 - Body mass index [BMI] 27.0-27.9, adult Category: Medical Plan: Patient to improve his diet and exercise regimen. Condition is chronic and stable continue to monitor. (3) Self-catheterizes urinary bladder: Code(s): Z78.9 - Other specified health status Category: Medical Plan: Due to prostate cancer being followed by Urology and currently on abiraterone 1000 mg daily. Condition is chronic and stable continue to monitor. (4) Adenoma of ascending colon: Code(s): D12.2 - Benign neoplasm of ascending colon Category: Medical Plan: Status post resection being followed by Oncology Dr. Macias. (5) Hx of endocrine hypertension: Code(s): Z86.79 - Personal history of other diseases of the circulatory system Category: Medical Plan: will be making changes to blood pressure medication and adding to new medications patient to return in 1 week. Will also refer to cardiology. Condition is chronic and stable continue to monitor (6) Prostate cancer: Code(s): C61 - Malignant neoplasm of prostate Category: Medical Plan: Patient currently on abiraterone 1000 mg daily. Currently self catheterizing. Currently being followed by Urology. Condition is stable will continue to monitor (7) Urinary retention with incomplete bladder emptying: Code(s): R33.9 - Retention of urine, unspecified Category: Medical Plan: Patient currently on abiraterone 1000 mg daily. Currently self catheterizing. Currently being followed by Urology. Condition is stable will continue to monitor (8) S/P colon resection: Code(s): Z90.49 - Acquired absence of other specified parts of digestive tract Category: Surgical Plan: Patient currently on abiraterone 1000 mg daily. Currently self catheterizing. Currently being followed by Urology. Currently being followed by Oncology Dr. Macias. Condition is stable will continue to monitor (9) Colon cancer, ascending: Code(s): C18.2 - Malignant neoplasm of ascending colon Category: Medical Plan: Patient currently on abiraterone 1000 mg daily. Currently self catheterizing. Currently being followed by Urology. Currently being followed by Oncology Dr. Macias. 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 Currently self catheterizing. Currently being followed by Urology. Currently being followed by Oncology Dr. Macias. Condition is stable will continue to monitor (11) Mild hypercholesterolemia: Code(s): E78.00 - Pure hypercholesterolemia, unspecified Category: Medical Plan: TC Goal <200. LDL Goal <100. Triglyceride level Goal <150. HDL Goal >40. Last triglyceride 108 on 12/20/2024, total cholesterol 249, LDL 166 and HDL 62. Patient will be started on Crestor 10 mg daily. Condition is chronic and stable continue to monitor (12) Hyperlipidemia: Code(s): E78.5 - Hyperlipidemia, unspecified Category: Medical Plan: TC Goal <200. LDL Goal <100. Triglyceride level Goal <150. HDL Goal >40. Last triglyceride 108 on 12/20/2024, total cholesterol 249, LDL 166 and HDL 62. Patient will be started on Crestor 10 mg daily. Condition is chronic and stable continue to monitor (13) Vitamin D deficiency: Code(s): E55.9 - Vitamin D deficiency, unspecified Category: Medical Plan: Patient vitamin-D deficiency. Patient will be started on vitamin-D supplement daily. Condition is chronic and stable continue to monitor. Plan Plan Patient was informed and verbally consented to the use of an ambient scribe for clinic note documentation during this visit. 1. Urinary Retention Plan: Maintain catheterization, follow-up with urology. 2. Metastatic Prostate Cancer Plan: Continue oncology surveillance, scheduled bone staging in February. 3. Hyperlipidemia Plan: Start on rosuvastatin 10 mg, re-evaluate lipid levels. 4. Hydronephrosis Plan: Monitor, manage with catheterization, reassess based on urology guidance. 5. Status Post-Ascending Colon Adenocarcinoma Plan: Ensure consistent postoperative monitoring with no current concerns. 6. Essential Hypertension Plan: Initiate hydrochlorothiazide and valsartan in addition to current metoprolol. Follow-up in one week to evaluate effectiveness. 7. Enlarged Prostate Plan: Consider alternative interventions upon urological advice. Discussion Notes We discussed the persistence of elevated blood pressure and the addition of hydrochlorothiazide and valsartan to the current regimen. The patient was informed of the benefits of these medications, specifically the efficacy in populations. Risks of uncontrolled hypertension were explained, including increased cardiovascular events such as stroke or myocardial in farction. We discussed the ongoing follow-up with multiple specialists, including a referral to cardiology for further evaluation. We acknowledged his current challenges with prostate cancer management and discussed the upcoming bone staging. The importance of medication adherence and lifestyle modifications, such as dietary control, was emphasized. The patient agreed to follow-up in one week to re-evaluate treatment efficacy. Orders: Referrals Cardiology Referral C61 - Malignant neoplasm of prostate, D12.2 - Benign neoplasm of ascending colon, I10 - Essential (primary) hypertension, Z86.79 - Personal history of other diseases of the circulatory system Medications: New cholecalciferol (vitamin D3) 125 mcg PO DAILY 90 caps 1RF E55.9 - Vitamin D deficiency, unspecified hydrochlorothiazide 25 mg PO DAILY 90 tabs 1RF valsartan 80 mg PO DAILY 90 tabs 1RF rosuvastatin (Crestor) 10 mg PO DAILY 90 tabs 1RF Patient Instructions: Patient Instructions - Take all prescribed blood pressure medications including metoprolol, hydrochlorothiazide, and valsartan as directed. - Monitor blood pressure at home and keep a log. - Continue self-catheterization as directed; report any issues. - Adhere to dietary recommendations, including reduced salt intake. - Follow up with oncology and urology as scheduled. - Return to this office in one week for blood pressure management evaluation. - Contact us or seek immediate care if there is a significant change in symptoms, such as new onset chest pain or neurological symptoms. Scribe Plan - Not visible on output: History of Present Illness The patient is a 69-year-old male presenting for management of uncontrolled essential hypertension. Despite increasing metoprolol dosage to 100 mg, blood pressure control has not been achieved. Blood pressure readings at home vary, with some instances recorded as high as 170/110 mmHg, stressing perceived as an influencing factor. Additional history of metastatic prostate cancer is present, complicated by urinary retention with reliance on intermittent catheterization. His medical history includes status post colon resection for ascending colon adenocarcinoma and plans for follow-up bone staging in relation to metastatic prostate cancer. Social History - Reports self-supporting without additional family help. - Completes self-catheterization four times daily. - Reports limited consumption of salt to maintain blood pressure control. Review of Systems - Cardiovascular: Denies chest pain, denies dyspnea. - Neurological: Denies dizziness, denies headaches. Physical Exam Appearance: Alert. Oriented X3. No acute distress. Head: Normal external exam. Normocephalic. Atraumatic. Eyes: Pupils are equal, round, and reactive to light. Extraocular movements intact. Conjunctiva and sclera normal. Eyelids normal. Ears: External auditory canal normal. Tympanic membranes normal. Throat: Pharynx normal. Uvula midline. Moist mucous membranes. Neck: Normal inspection. Neck supple. Full range of motion. No adenopathy. Thyroid Normal. No meningeal signs. No neck mass noted. Cardiovascular: Normal heart rate and rhythm. Heart sound normal. No murmurs noted. Pulses normal throughout. Respiratory: No respiratory distress. Painless inspiration. Breath sounds normal. No wheezes/rales/rhonchi noted. Chest nontender. No accessory muscle usage noted or decreased air movement noted. Abdomen: Soft and nontender. Bowel sounds normal in all 4 quadrants. No distention noted. No organomegaly noted. No visible injury noted. Back: No costovertebral angle tenderness. Full range of motion noted. Skin: Skin warm and dry. Normal skin color. Normal skin turgor. No rashes/lesions/lacerations noted. Extremities: No lower extremity edema. Extremities exhibit normal range of motion. Extremities nontender. Neuro: Oriented X 3. No motor deficit. No sensory deficit. Reflexes normal. Results - Labs/Tests: Initial PSA 90 ng/mL, creatinine elevated at presentation for urinary issues, confirmed metastatic prostate cancer and ascending colon adenocarcinoma by pathology. - Imaging: CT showed hydronephrosis, enlarged prostate, sclerotic lesions on bone.
[2024-12-25 10:47] VITALS: BP 190/110; PULSE 111; TEMP 36.8; O2SAT 97; BMI 28.5
--- OUTSIDE RECORDS SUMMARY | 2024-12-25 12:38 | XMS_ITS ---
Author Organization [facility] Address [address] [place] [address] Care Team Providers Care Truck Headlight Assembler Name Role Phone NONE, NONE Primary Care Provider Babak Jain [phone] REASON FOR VISIT fe def anemia,abnormal ct scan of colon Encounters Encounter Location Date Provider Diagnosis [facility] [address], [place] [phone] 09/04/2024 Babak Mooney Plan Of Treatment No Information Progress Notes * LYNNE MCCONNELLDOB:1955 (69 yo M)Acc No.[id number]:09/04/2024 EGD and COL/MAC Patient:?JAYESH LYNNE Provider:?Babak Mooney MD :1955???Age:69 Y???Sex:Male Kirby e:09/04/2024 Address:[address] [place], [place] [phone] Subjective: * Chief Complaints: * ???1. Fe [...] MD Date:? 024 Generated for Parish mcdowell/Edgardo/Kenjismitting on:?12/25/2024 12:38 PM EDT
--- OUTSIDE RECORDS SUMMARY | 2024-12-25 12:38 | XMS_ITS | Patient Health Record ---
Author Organization [facility] Address [address] [place] [address] Care Team Providers Care Brick Loader Name Role Phone NONE, NONE Primary Care Provider Litzy MooneyBabak Amy [phone] Results Component Value Reference Range Notes Hold Lav - Possible Hematolo gy Reviewed date:09/03/2024 01:08:51 PM Interpretation: Performing Lab:[facility], [address] [place] [phone] Notes/Report: Hold Lav - Possible Hematology SEE NOTE Specimen will be held untested for 8 hours. Call Hematology if testing is desired. Prothrombin Time INR Reviewed date:09/03/2024 01:08:58 PM Interpretation: Performing Lab:[facility], [address] [place] [phone] Notes/Report: Prothrombin Time 13.9 10.9-12.4 SEC INTERNATIONAL [...] Reviewed date:09/03/2024 01:09:06 PM Interpretation: Performing Lab:[facility], [address] [place] [phone] Notes/Report: PSA,Total (Free>4and<10) 89.85 0.00-4.00 ng/mL A [...] Folate Reviewed date:09/03/2024 01:09:13 PM Interpretation: Performing Lab:[address] [address] Notes/Report: Vitamin B12 815 200-900 pg/mL NORMAL 200-900 PG/ML INDETERMINATE 160-199 PG/ML DEFICIENT < 160 PG/ML Folate 10.6 > or = 4.0 ng/mL Reference Values: > or = 4.0 ng/mL < 4.0 ng/mL suggests folate deficiency Methotrexate, aminopterin and folinic acid (leucovorin) are chemotherapeutic agents whose molecular structures are similar to folate; therefore, the Forensic Social Worker folate assay cannot be used for patients using these drugs. Complete Blood Count Auto Di ff Reviewed date:09/04/2024 11:48:44 PM Interpretation: Performing Lab:[address] [address] Notes/Report: White Blood Count 11.7 4.8-10.8 X10*3/uL [...] g Reviewed date:09/04/2024 11:48:55 PM Interpretation: Performing Lab:[address] [address] Notes/Report: Sodium 144 135-145 mmol/L Potassium 2.9 3.3-5.1 mmol/L Critical [Potassium] sent by a secure message and confirmed by (Dr. Sharma, 09/04/24 0885) Tech: GALENSA Chloride 105 96-108 mmol/L Carbon [...] (Not yet reviewed by provider) Interpretation: Performing Lab:[address] [address] Notes/Report: -- ---- Name: Ortiz Quispe Age/Sex: 69/M : 1955 Unit#: [id number] Attend Dr: Rohith Sharma MD Re08/30/24 Status : DIS IN Location: [facility] 454-1 Disch: 09/06/24 -- ---- SPEC : [id number] RECD : 09/04/24-1416 STATUS: JAMES EATON NUM: [id number] ALVRAO: 09/04/24-[address] [facility] [address]: Babak Mooney MD ENTERED: 09/04/24-14 19 SP TYPE: Surgical OTHR DR: Rohith Sharma MD ORDERED: HE Stain/9, Gross Micro L4/3, IHC, Add. immunos/4, CDX-2 COMMENTS: Block A se nt to TERESA for MMR JOHAN/BELLO Panels on 09/09/24. Addendum Addendum 2 Entered: 09/30/24 (A): [employer] JOHAN/BELLO Panel: Single nucleotide variants/insertions/de letions: KRAS [...] Ortiz Quispe Age/Sex: 69/M : 1955 Unit#: [id number] Attend Dr: Rohith Sharma MD Re08/30/24 Status : DIS IN [facility]-1 Disch: 09/06/24 -- ---- SPEC : [id number] RECD : 09/04/24-1417 STATUS: JAMES EATON NUM: [id number] ALVARO: 09/04/24-[address]: Babak Mooney MD [...] pm. Special studies ordered and performed at [facility]: Immunostains for CDX2 on A1. CONTINUED ON NEXT PAGE -- ---- Name: Ortiz Quispe Age/Sex: 69/M : 1955 Unit#: [id number] Attend Dr: Rohith Sharma MD Re08/30/24 Status : DIS IN Location: [facility] 454-1 Disch: 09/06/24 -- ---- SPEC : [id number] RECD : 09/04/24-5027 STATUS: JAMES EATON NUM: [id number] ALVARO: 09/04/24-[address] [facility] [address]: Babak Mooney MD ENTERED: 09/04/24-14 19 SP TYPE: Surgical OTHR DR: Rohith Sharma MD ORDERED: HE Stain/9, Gross Micro L4/3, IHC, Add. immunos/4, CDX-2 COMMENTS: Block A se nt to TERESA for MMR JOHAN/BELLO Panels on 09/09/24. Gross Description (Continued) Special studies ordered and performed [employer]: Immunostains for MLH1, MSH2, MSH6 and PMS2 on A1. Copies To: Rhoith Sharma MD [address] [place] [address] Babak Mooney MD [facility] [address] [place] [address] -- ---- Signed (signature on file) Jane Adair 09/10/24 1045 -- ---- END OF REPORT Complete Blood Count Auto Di ff Reviewed date:09/06/2024 11:27:04 AM Interpretation: Performing Lab:[facility], [address] [facility], [place] [address] Notes/Report: White Blood Count 13.1 4.8-10.8 X10*3/uL [...] Reviewed date:09/06/2024 11:27:36 AM Interpretation: Performing Lab:[facility], [address] [place] [phone] Notes/Report: Sodium 143 135-145 mmol/L Potassium 3.4 [...] Notes Problem Malignant tumor of ascending colon (243955389) Malignant neoplasm of ascending colon (C18.2) Active confirmed Problem 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) (599540635) 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 [address] [place] [address] [id number] ORTIZ QUISPE Self - patient is the insured
== END 2024-12-25 11:17 | disposition home or self-care (01) ==
LOC: HO.HMCSH 10:39
PROVIDERS: PCP Internal Medicine; Visit Provider Physician Assistant Medical
DX: I10 Essential (primary) hypertension (principal); E66.3 Overweight; Z68.27 Body mass index [BMI] 27.0-27.9, adult; Z78.9 Other specified health status; D12.2 Benign neoplasm of ascending colon; Z86.79 Personal history of other diseases of the circulatory system; C61 Malignant neoplasm of prostate; R33.9 Retention of urine, unspecified; Z90.49 Acquired absence of other specified parts of digestive tract; C18.2 Malignant neoplasm of ascending colon; Q78.2 Osteopetrosis; E78.00 Pure hypercholesterolemia, unspecified; E78.5 Hyperlipidemia, unspecified; E55.9 Vitamin D deficiency, unspecified

== ENCOUNTER → 2024-12-25 10:39 | Outpatient (BNVA) | payer OTHER, SELFPAY | PROVIDERS: PCP Internal Medicine; Visit Provider Physician Assistant Medical ==

== ENCOUNTER 2025-01-01 10:45 | Outpatient (AMB) | payer OTHER, SELFPAY ==
--- NOTE | 2025-01-01 10:47 | MHC.PC.OV ---
Vital Signs 01/01/25 10:55 Height 5 ft 5.5 in Weight 170 lb BMI 27.9 BP 160/82 H Blood Pressure Location Lt brachial Pulse 94 Pulse Source Pulse Oximeter Temp 97.6 F Pulse Oximetry (%) 99 Intake Visit Reasons: 1 week follow up Intake Note: no issues Allergies No Known Allergies Allergy (Verified 01/01/25 11:19) Medication List - Last Reconciled 01/01/25 by Nereida Leone PA-C abiraterone 1,000 mg (2 x 500 mg) PO DAILY cholecalciferol (vitamin D3) 125 mcg PO DAILY ferrous sulfate 324 mg PO BID hydrochlorothiazide 25 mg PO DAILY metoprolol succinate ER 100 mg See Protocol PO DAILY prednisone 5 mg PO DAILY rosuvastatin (Crestor) 10 mg PO DAILY valsartan 80 mg PO DAILY PFSH Medical History Vitamin D deficiency Hyperlipidemia Mild hypercholesterolemia Sinus tachycardia Overweight with body mass index (BMI) of 27 to 27.9 in adult Self-catheterizes urinary bladder Colonic mass Adenoma of ascending colon Indwelling Flores catheter present Hypertension Hx of endocrine hypertension Prostate cancer Surgical History Hx of surgical procedure (~09/16/24) History of esophagogastroduodenoscopy (EGD) H/O colonoscopy Hx of cystoscopy Social History Household Members: None Housing: Apartment Are you a primary director of healthcare systems to a significant other at home: No Do you presently have visiting nurse or other home services: No Patient Tobacco Use Status: Former Tobacco user Tobacco use type: Cigarette Years Smoked: 20 Advance Directives Date on File: 09/01/24 service: No Questionnaire PHQ-9 Over the last 2 weeks, how often have you been bothered by any of the following problems? 1. Little interest or pleasure in doing things: not at all 2. Feeling down, depressed, or hopeless: not at all 3. Trouble falling or staying asleep, or sleeping too much: not at all 4. Feeling tired or having little energy: not at all 5. Poor appetite or overeating: not at all 6. Feeling bad about yourself - or that you are a failure or have let yourself or your family down: not at all 7. Trouble concentrating on things, such as reading the newspaper or watching television: not at all 8. Moving or speaking so slowly that other people could have noticed. Or the opposite - being so fidgety or restless that you have been moving around a lot more than usual: not at all 9. Thoughts that you would be better off or of hurting yourself in some way: not at all Total score: 0 Depression Screening Interpretation: Negative Depression Screening Done: Yes 15523 - PHQ-9 Billing: Yes Source: Developed by Drs. Babak Stephenson, Tram Lockhart, Lc Joiner and colleagues, with an educational maryse from [employer]. Thrive Questionnaire Date Thrive assessed: 09/17/24 I am a: Patient What is your living situation today?: I have a steady place to live Within the past 12 months, did the food you bought not last and you didn't have the money to get more?: Never true Within the past 12 months, did you worry whether your food would run out before you got money to buy more?: Never true Do you have trouble paying for medicines?: No Do you have trouble getting transportation to medical appointments?: No Do you have trouble paying your heating and electricity bill?: No Do you have trouble taking care of your child, family member or friend?: No Do you have trouble with day-to-day activities such as bathing, preparing meals, shopping, managing finances, etc.?: No Are you currently unemployed and looking for a job?: No Are you interested in more education?: No THRIVE Score: 0 PRANEETH-7 AMB Questionnaire PRANEETH-7 Date PRANEETH - 7 assessed: 01/01/25 Feeling nervous, anxious, or on edge: 0 = Not at all Not being able to stop or control worryin = Not at all Worrying too much about different things: 0 = Not at all Trouble relaxin = Not at all Being so restless that it is hard to sit still: 0 = Not at all Becoming easily annoyed or irritable: 0 = Not at all Feeling afraid as if something awful might happen: 0 = Not at all Total PRANEETH-7 score (0-4 normal; 5-9 mild; 10-14 moderate; 15-21 severe): 0 Source: Developed by Drs. Babak Stephenson, Tram Lockhart, Lc Joiner and colleagues, with an educational maryse from [employer]. PRANEETH-7 Assessment Billing PRANEETH-7 Assessment Tool: PRANEETH-7 Assessment 46482 Physical exam (Primary Care) Vital Signs: Last Vital Signs Temp 97.6 F 01/01/25 10:55 Pulse 94 01/01/25 10:55 BP 160/82 H 01/01/25 10:55 Pulse Ox 99 01/01/25 10:55 Care Plan Goal for BP management: 130/80. Blood pressure still elevated although patient brought diary of blood pressures at home and average is 145/80. Will continue current regimen with metoprolol 100 mg daily, hydrochlorothiazide 25 mg daily, valsartan 80 mg daily along with referral to Cardiology. Patient will follow-up in 1 month. BMI result Body Mass Index 27.9 BMI Assessment/Plan discussion: High BMI High, discussed plan: lifestyle, weight reduction, dietary, physical activity and alcohol moderation Tobacco/Smoking Status: Tobacco use Status Patient Tobacco Use Status Former Tobacco user 01/01/25 10:48 Tobacco use type Cigarette 01/01/25 10:48 PHQ-9: PHQ-9 Score PHQ-9: Total score 0 01/01/25 11:27 Depression Screening Interpretation: Negative Thrive Assessment: Date of Thrive Assessment Date Thrive assessed 09/17/24 01/01/25 10:48 Coding Level of Care Code Est Pt Level 4 (61695) Complex EM visit Add On G2211 Diagnoses Hypertension I10 Additional Codes PRANEETH-7 Assessment Billing - PRANEETH-7 Assessment Tool: PRANEETH-7 Assessment 05723 ([id number]) PHQ-9 - 64034 - PHQ-9 Billing: Yes ([id number]) Assessment & Plan Assessment & Plan (1) Hypertension: Code(s): I10 - Essential (primary) hypertension Category: Medical Plan: The patient continues with hydrochlorothiazide, metoprolol, and valsartan. Medication adherence is supported by his home blood pressure readings ranging at better control levels, with consideration of white coat syndrome in clinical settings?urgent referral to cardiology for ongoing management. Plan Plan Patient was informed and verbally consented to the use of an ambient scribe for clinic note documentation during this visit. 1. Essential Hypertension The patient continues with hydrochlorothiazide, metoprolol, and valsartan. Medication adherence is supported by his home blood pressure readings ranging at better control levels, with consideration of white coat syndrome in clinical settings?urgent referral to cardiology for ongoing management. Discussion Notes In today's visit, I discussed with the patient and his granddaughter the management of his essential hypertension, explaining the white coat syndrome suspected as a contributing factor to higher readings during clinical visits. I advised maintaining the current antihypertensive regimen since home monitoring indicates control. I explained the urgent auto damage insurance appraiser referral placed due to the previous routine priority given, expecting the auto damage insurance appraiser's input for further intervention. Patient Instructions: Patient Instructions - Continue current blood pressure medications: hydrochlorothiazide 25 mg, metoprolol 100 mg, and valsartan 80 mg daily. - Monitor blood pressure at home daily and report any significant changes. - Attend upcoming cardiology appointment as scheduled. - Schedule a follow-up visit in one month for continued blood pressure monitoring. - Report any new or concerning symptoms such as chest pain, severe headaches, or dizziness immediately. Scribe Plan - Not visible on output: History of Present Illness The patient is a 69-year-old male presenting with concerns of blood pressure management. Management includes hydrochlorothiazide, metoprolol, and valsartan. Blood pressure at home remains relatively controlled, typically recorded in the 140s-150s/80 mmHg, though readings are higher in medical settings possibly due to white coat syndrome. The patient has experienced a range of blood pressure values, noting lows of 113/70 mmHg during past checks. He does not report headaches, dizziness, or edema. The patient has an upcoming surgery with urology and is undergoing consistent follow-up. A referral to a auto damage insurance appraiser is recognized as urgent. Social History - The patient is accompanied by his granddaughter, suggesting a supportive family dynamic. Review of Systems - Cardiovascular: Denies headaches or dizziness Physical Exam Appearance: Alert. Oriented X3. No acute distress. Head: Normal external exam. Normocephalic. Atraumatic. Eyes: Pupils are equal, round, and reactive to light. Extraocular movements intact. Conjunctiva and sclera normal. Eyelids normal. Throat: Pharynx normal. Uvula midline. Moist mucous membranes. Neck: Normal inspection. Neck supple. Full range of motion. Cardiovascular: Normal heart rate and rhythm. Heart sound normal. No murmurs noted. Pulses normal throughout. Blood pressure recorded at 160/80. Respiratory: No respiratory distress. Painless inspiration. Breath sounds normal. No wheezes/rales/rhonchi noted. Chest nontender. No accessory muscle usage noted or decreased air movement noted. Back:Full range of motion noted. Skin: Skin warm and dry. Normal skin color. Normal skin turgor. No rashes/lesions/lacerations noted. Extremities: No lower extremity edema. Neuro: Oriented X 3.
[2025-01-01 10:55] VITALS: BP 160/82; PULSE 94; TEMP 36.4; O2SAT 99; BMI 27.9
--- OUTSIDE RECORDS SUMMARY | 2025-01-01 12:54 | XMS_ITS | Patient Health Record ---
Author Organization [facility] Address [address] [place] [address] Care Team Providers Care Emergency Room Technician Name Role Phone NONE, NONE Primary Care Provider Litzy MooneyBabak Amy [phone] Results Component Value Reference Range Notes Hold Lav - Possible Hematolo gy Reviewed date:09/03/2024 01:08:51 PM Interpretation: Performing Lab:[facility], [address] [place] [phone] Notes/Report: Hold Lav - Possible Hematology SEE NOTE Specimen will be held untested for 8 hours. Call Hematology if testing is desired. Prothrombin Time INR Reviewed date:09/03/2024 01:08:58 PM Interpretation: Performing Lab:[facility], [address] [place] [phone] Notes/Report: Prothrombin Time 13.9 10.9-12.4 SEC INTERNATIONAL [...] (Free>4and<10) Reviewed date:09/03/2024 01:09:06 PM Interpretation: Performing Lab:[facility], [address] [place] [phone] Notes/Report: PSA,Total (Free>4and<10) 89.85 0.00-4.00 ng/mL A [...] Folate Reviewed date:09/03/2024 01:09:13 PM Interpretation: Performing Lab:[address] [address] Notes/Report: Vitamin B12 815 200-900 pg/mL NORMAL 200-900 PG/ML INDETERMINATE 160-199 PG/ML DEFICIENT < 160 PG/ML Folate 10.6 > or = 4.0 ng/mL Reference Values: > or = 4.0 ng/mL < 4.0 ng/mL suggests folate deficiency Methotrexate, aminopterin and folinic acid (leucovorin) are chemotherapeutic agents whose molecular structures are similar to folate; therefore, the Roustabout Pusher folate assay cannot be used for patients using these drugs. Complete Blood Count Auto Di ff Reviewed date:09/04/2024 11:48:44 PM Interpretation: Performing Lab:[address] [address] Notes/Report: White Blood Count 11.7 4.8-10.8 X10*3/uL [...] g Reviewed date:09/04/2024 11:48:55 PM Interpretation: Performing Lab:[address] [address] Notes/Report: Sodium 144 135-145 mmol/L Potassium 2.9 3.3-5.1 mmol/L Critical [Potassium] sent by a secure message and confirmed by (Dr. Sharma, 09/04/24 0894) Tech: GALENSA Chloride 105 96-108 mmol/L Carbon [...] (Not yet reviewed by provider) Interpretation: Performing Lab:[address] [address] Notes/Report: -- ---- Name: Ortiz Quispe Age/Sex: 69/M : 1955 Unit#: [id number] Attend Dr: Rohith Sharma MD Re08/30/24 Status : DIS IN Location: [facility] 454-1 Disch: 09/06/24 -- ---- SPEC : [id number] RECD : 09/04/24-1416 STATUS: JAMES EATON NUM: [id number] ALVARO: 09/04/24-[address] [facility] [address]: Babak Mooney MD ENTERED: 09/04/24-14 19 SP TYPE: Surgical OTHR DR: Rohith Sharma MD ORDERED: HE Stain/9, Gross Micro L4/3, IHC, Add. immunos/4, CDX-2 COMMENTS: Block A se nt to TERESA for MMR JOHAN/BELLO Panels on 09/09/24. Addendum Addendum 2 Entered: 09/30/24 (A): Teach Me To Be JOHAN/BELLO Panel: Single nucleotide variants/insertions/de letions: KRAS [...] Ortiz Quispe Age/Sex: 69/M : 1955 Unit#: [id number] Attend Dr: Rohith Sharma MD Re08/30/24 Status : DIS IN [facility] Disch: 09/06/24 -- ---- SPEC : [id number] RECD : 09/04/24-1417 STATUS: JAMES EATON NUM: [id number] ALVARO: 09/04/24-[address]: Babak Mooney MD [...] pm. Special studies ordered and performed at [facility]: Immunostains for CDX2 on A1. CONTINUED ON NEXT PAGE -- ---- Name: Ortiz Quispe Age/Sex: 69/M : 1955 Unit#: [id number] Attend Dr: Rohith Sharma MD Re08/30/24 Status : DIS IN Location: [facility] 454-1 Disch: 09/06/24 -- ---- SPEC : [id number] RECD : 09/04/24-7677 STATUS: JAMES EATON NUM: [id number] ALVARO: 09/04/24-[address] [facility] [address]: Babak [...] A1. Copies To: Rohith Sharma MD [address] [place] [address] Babak Mooney MD [facility] [address] [place] [address] -- ---- Signed (signature on file) Jane Cascade 09/10/24 1045 -- ---- END OF REPORT Complete Blood Count Auto Di ff Reviewed date:09/06/2024 11:27:04 AM Interpretation: Performing Lab:[facility], [address], [place] [address] Notes/Report: White Blood Count 13.1 4.8-10.8 X10*3/uL [...] g Reviewed date:09/06/2024 11:27:36 AM Interpretation: Performing Lab:[facility], [address] [place] [phone] Notes/Report: Sodium 143 135-145 mmol/L Potassium 3.4 [...] Notes Problem Malignant tumor of ascending colon (381119650) Malignant neoplasm of ascending colon (C18.2) Active confirmed Problem 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) (288750808) 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 [address] [place] [address] [id number] ORTIZ QUISPE Self - patient is the insured
--- OUTSIDE RECORDS SUMMARY | 2025-01-01 12:55 | XMS_ITS ---
Author Organization [facility] Address [address] [place] [address] Care Team Providers Care Senior Quality Assurance Specialist Name Role Phone NONE, NONE Primary Care Provider Babak Jain [phone] REASON FOR VISIT fe def anemia,abnormal ct scan of colon Encounters Encounter Location Date Provider Diagnosis [facility] [place] [address] [place], [place] [phone] 09/04/2024 Babak Mooney Plan Of Treatment No Information Progress Notes * LYNNE MCCONNELLDOB:1955 (69 yo M)Acc No.[id number]:09/04/2024 EGD and COL/MAC Patient:?MCCONNELL LYNNE Provider:?Babak Mooney MD :1955???Age:69 Y???Sex:Male Kirby e:09/04/2024 Address:[address] [place], [place] [phone] Subjective: * Chief Complaints: * ???1. Fe [...] MD Date:? 024 Generated for Parish mcdowell/Edgardo/Kenjismitting on:?01/01/2025 12:54 PM EDT
== END 2025-01-01 11:15 | disposition home or self-care (01) ==
LOC: HO.HMCSH 10:45
PROVIDERS: PCP Internal Medicine; Visit Provider Physician Assistant Medical
DX: I10 Essential (primary) hypertension (principal)

== ENCOUNTER → 2025-01-01 10:45 | Outpatient (BNVA) | payer OTHER, SELFPAY | PROVIDERS: PCP Internal Medicine; Visit Provider Physician Assistant Medical | DX: I10 Essential (primary) hypertension (principal) | CPT/HCPCS: 96127 ==

== ENCOUNTER 2025-01-20 09:50 | Outpatient (AMB) | payer OTHER, SELFPAY ==
--- NOTE | 2025-01-20 09:52 | A.OFFVIS_ITS ---
Vital Signs 01/20/25 10:03 Height 5 ft 8 in Weight 180 lb BMI 27.4 BP 200/120 H Blood Pressure Location Lt brachial Position Sitting Intake Visit Reasons: 3 month colectomy Intake Note: Patient is seen in office for 3 month follow up visit, following right colon resection. Pt c/o: seen Dr Carbone and is schedule on 02/24/25 for a procedure for the prostates (laser surgery), seen also Dr Macias and started new medication, denies any concerns at the time of visit ? Dr Carbone ? Dr Macias Global Engineering Manager Required: No Accompanied by: Self / Same As Patient Allergies No Known Allergies Allergy (Verified 01/20/25 10:05) Medication List - Last Reconciled 01/20/25 by Wesley Doherty MD abiraterone 1,000 mg (2 x 500 mg) PO DAILY cholecalciferol (vitamin D3) 125 mcg PO DAILY ferrous sulfate 324 mg PO BID hydrochlorothiazide 25 mg PO DAILY metoprolol succinate ER 100 mg See Protocol PO DAILY prednisone 5 mg PO DAILY rosuvastatin (Crestor) 10 mg PO DAILY valsartan 80 mg PO DAILY HPI HPI 3 month colectomy: Details: He is here for follow-up for his history of right colon cancer. He had a T3 N0 right colon adenocarcinoma and had undergone right colon resection last September, He says he is doing very well. He denies any GI complaints. He says he has good oral intake and has actually gained some weight He is undergoing treatment for advanced metastatic prostate cancer with Dr. Carbone. He is currently on bicalutamide and leuprolide. He undergoes self ca theterization but says that she actually is able to void on his own. He is to undergo further laser prostatectomy to decrease bulk of his tumor with Dr. Carbone. [facility] Medical History Vitamin D deficiency Hyperlipidemia Mild hypercholesterolemia Sinus tachycardia Overweight with body mass index (BMI) of 27 to 27.9 in adult Self-catheterizes urinary bladder Colonic mass Adenoma of ascending colon Indwelling Flores catheter present Hypertension Hx of endocrine hypertension Prostate cancer Surgical History Hx of surgical procedure (~09/16/24) History of esophagogastroduodenoscopy (EGD) H/O colonoscopy Hx of cystoscopy Social History Household Members: None Housing: Apartment Are you a primary career coordinator to a significant other at home: No Do you presently have visiting nurse or other home services: No Patient Tobacco Use Status: Former Tobacco user Tobacco use type: Cigarette Years Smoked: 20 Advance Directives Date on File: 09/01/24 service: No Review of Systems Const Denies chills and Denies fever(s) Card Denies chest pain and Denies dyspnea Resp Denies cough and Denies dyspnea GI Denies abdominal pain Details: Undergo self catheterization although able to void well Physical Exam Vital Signs: Last Vital Signs BP 200/120 H 01/20/25 10:03 BMI result Body Mass Index 27.4 Const General: comfortable and no acute distress Resp Effort & Inspection: normal respiratory effort Cardio Rate: regular rate GI Other: No incisional hernias Palpation (GI): Soft to palpation, not firm, nontender and no guarding Assessment & Plan Assessment & Plan (1) Colon cancer, ascending: Code(s): C18.2 - Malignant neoplasm of ascending colon Category: Medical Plan: He had a T3 N0 adenocarcinoma. He however has a metastatic prostate cancer. As per Dr. Macias, he will not undergo adjuvant treatment for the colon carcinoma at this time. He is to continue with med for his prostate cancer with Dr. Carbone. He is on multiple adjuvant treatments for his advanced metastatic prostate cancer He has good GI functions currently I will see him in the office in about 6 months to see how is doing. He is also to continue to follow up with Dr. Carbone and Dr. Macias. Coding Level of Care Code Est Pt Level 3 (37928) Diagnoses Colon cancer, ascending C18.2
[2025-01-20 10:03] VITALS: BP 200/120; BMI 27.4
--- OUTSIDE RECORDS SUMMARY | 2025-01-20 11:00 | XMS_ITS ---
Author Organization [facility] Address [address] [place] [address] Care Team Providers Care Cardiac Cath Lab Technologist Name Role Phone NONE, NONE Primary Care Provider Babak Jain [phone] REASON FOR VISIT fe def anemia,abnormal ct scan of colon Encounters Encounter Location Date Provider Diagnosis [facility] [address] [place], [place] [phone] 09/04/2024 Babak Mooney Plan Of Treatment No Information Progress Notes * LYNNE MCCONNELLDOB:1955 (69 yo M)Acc No.[id number]:09/04/2024 EGD and COL/MAC Patient:?JAYESH LYNNE Provider:?Babak Mooney MD :1955???Age:69 Y???Sex:Male Kirby e:09/04/2024 Address:[address] [place], [place] [id number] Subjective: * Chief Complaints: * ???1. Fe [...] MD Date:? 024 Generated for Parish mcdowell/Edgardo/Kenjismitting on:?01/20/2025 10:59 AM EDT
--- OUTSIDE RECORDS SUMMARY | 2025-01-20 11:00 | XMS_ITS | Patient Health Record ---
Author Organization [facility] Address [address] [place] [address] Care Team Providers Care Business Objects Analyst Name Role Phone NONE, NONE Primary Care Provider Litzy MooneyBabak Amy [phone] Results Component Value Reference Range Notes Hold Lav - Possible Hematolo gy Reviewed date:09/03/2024 01:08:51 PM Interpretation: Performing Lab:[facility], [address] [place] [phone] Notes/Report: Hold Lav - Possible Hematology SEE NOTE Specimen will be held untested for 8 hours. Call Hematology if testing is desired. Prothrombin Time INR Reviewed date:09/03/2024 01:08:58 PM Interpretation: Performing Lab:[facility], [address] [place] [phone] Notes/Report: Prothrombin Time 13.9 10.9-12.4 SEC INTERNATIONAL [...] (Free>4and<10) Reviewed date:09/03/2024 01:09:06 PM Interpretation: Performing Lab:[facility], [address] [place] [address] Notes/Report: PSA,Total (Free>4and<10) 89.85 0.00-4.00 ng/mL A [...] Folate Reviewed date:09/03/2024 01:09:13 PM Interpretation: Performing Lab:[address] [address] Notes/Report: Vitamin B12 815 200-900 pg/mL NORMAL 200-900 PG/ML INDETERMINATE 160-199 PG/ML DEFICIENT < 160 PG/ML Folate 10.6 > or = 4.0 ng/mL Reference Values: > or = 4.0 ng/mL < 4.0 ng/mL suggests folate deficiency Methotrexate, aminopterin and folinic acid (leucovorin) are chemotherapeutic agents whose molecular structures are similar to folate; therefore, the Wood Floor Layer folate assay cannot be used for patients using these drugs. Complete Blood Count Auto Di ff Reviewed date:09/04/2024 11:48:44 PM Interpretation: Performing Lab:[address] [address] Notes/Report: White Blood Count 11.7 4.8-10.8 X10*3/uL [...] g Reviewed date:09/04/2024 11:48:55 PM Interpretation: Performing Lab:[address] [address] Notes/Report: Sodium 144 135-145 mmol/L Potassium 2.9 3.3-5.1 mmol/L Critical [Potassium] sent by a secure message and confirmed by (Dr. Sharma, 09/04/24 0872) Tech: GALENSA Chloride 105 96-108 mmol/L Carbon [...] (Not yet reviewed by provider) Interpretation: Performing Lab:[address] [address] Notes/Report: -- ---- Name: Ortiz Quispe Age/Sex: 69/M : 1955 Unit#: [id number] Attend Dr: Rohith Shamra MD Re08/30/24 Status : DIS IN Location: [facility] 454-1 Disch: 09/06/24 -- ---- SPEC : [id number] RECD : 09/04/24-1416 STATUS: JAMES EATON NUM: [id number] ALVARO: 09/04/24-1250 [facility] DR: Babak Mooney MD ENTERED: 09/04/24-14 19 SP TYPE: Surgical OTHR DR: Rohith Sharma MD ORDERED: HE Stain/9, Gross Micro L4/3, IHC, Add. immunos/4, CDX-2 COMMENTS: Block A se nt to TERESA for MMR JOHAN/BELLO Panels on 09/09/24. Addendum Addendum 2 Entered: 09/30/24 (A): [email or web address] JOHAN/BELLO Panel: Single nucleotide variants/insertions/de letions: KRAS [...] Ortiz Quispe Age/Sex: 69/M : 1955 Unit#: [id number] Attend Dr: Rohith Sharma MD Re08/30/24 Status : DIS IN [facility] [place]: 09/06/24 -- ---- SPEC : [id number] RECD : 09/04/24-1417 STATUS: JAMES EATON NUM: [id number] ALVARO: 09/04/24-[address]: Babak Mooney MD [...] pm. Special studies ordered and performed at [facility]: Immunostains for CDX2 on A1. CONTINUED ON NEXT PAGE -- ---- Name: Ortiz Quispe Age/Sex: 69/M : 1955 Unit#: [id number] Attend Dr: Rohith Sharma MD Re08/30/24 Status : DIS IN Location: [facility] 454-1 Disch: 09/06/24 -- ---- SPEC : [id number] RECD : 09/04/24-0397 STATUS: JAMES EATON NUM: [id number] ALVARO: 09/04/24-1250 [facility] DR: Babak Mooney MD ENTERED: 09/04/24-14 19 SP TYPE: Surgical OTHR DR: Rohith Sharma MD ORDERED: HE Stain/9, Gross Micro L4/3, IHC, Add. immunos/4, CDX-2 COMMENTS: Block A se nt to TERESA for MMR JOHAN/BELLO Panels on 09/09/24. Gross Description (Continued) Special studies ordered and performed [employer]: Immunostains for MLH1, MSH2, MSH6 and PMS2 on A1. Copies To: Rohith Sharma MD [address] [place] [address] Babak Mooney MD [facility] [address] [place] [address] -- ---- Signed (signature on file) Jane [place] 09/10/24 1045 -- ---- END OF REPORT Complete Blood Count Auto Di ff Reviewed date:09/06/2024 11:27:04 AM Interpretation: Performing Lab:[facility], [address] [facility], [place] [address] Notes/Report: White Blood Count 13.1 4.8-10.8 X10*3/uL [...] g Reviewed date:09/06/2024 11:27:36 AM Interpretation: Performing Lab:[facility], [address] [place] [phone] Notes/Report: Sodium 143 135-145 mmol/L Potassium 3.4 [...] Notes Problem Malignant tumor of ascending colon (424611314) Malignant neoplasm of ascending colon (C18.2) Active confirmed Problem 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) (897386815) 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 [address] [place] [address] [id number] ORTIZ QUISPE Self - patient is the insured
== END 2025-01-20 10:11 | disposition home or self-care (01) ==
LOC: HO.HGS 09:51
PROVIDERS: Visit Provider Surgery
DX: C18.2 Malignant neoplasm of ascending colon (principal)
CPT/HCPCS: 99213

== ENCOUNTER → 2025-01-20 09:50 | Outpatient (BNVA) | payer OTHER, SELFPAY | PROVIDERS: Visit Provider Surgery ==

== ENCOUNTER 2025-01-20 10:29 | Emergency (ER) | payer OTHER, SELFPAY ==
[2025-01-20] VITALS (7 sets, daily range): BP systolic 164–222; BP diastolic 78–112; PULSE 70–117; RESP 17–18; TEMP 36.9–37; O2SAT 96–100; BMI 27.2
--- NOTE | 2025-01-20 10:57 | ED_ITS ---
HPI - General Adult General Chief complaint: Recheck/Abnormal Lab/Rx Stated complaint: High Blood Pressure Time Seen by Provider: 01/20/25 13:27 Related Data Previous Rx's ?Medication ?Instructions ?Recorded ferrous sulfate 324 mg (65 mg 324 mg PO BID #90 tabs 12/09/24 iron) tablet,delayed release metoprolol succinate 100 mg 100 mg PO DAILY #90 tabs 12/09/24 tablet,extended release 24 hr prednisone 5 mg tablet 5 mg PO DAILY #60 tabs 12/09/24 abiraterone 500 mg tablet 1,000 mg (2 x 500 mg) PO DAILY #60 12/10/24 tabs cholecalciferol (vitamin D3) 125 125 mcg PO DAILY #90 caps 12/25/24 mcg (5,000 unit) capsule hydrochlorothiazide 25 mg tablet 25 mg PO DAILY #90 tabs 12/25/24 rosuvastatin 10 mg tablet (Crestor) 10 mg PO DAILY #90 tabs 12/25/24 valsartan 80 mg tablet 80 mg PO DAILY #90 tabs 12/25/24 amlodipine 10 mg tablet 10 mg PO DAILY #90 tabs 01/20/25 Allergies Allergy/AdvReac Type Severity Reaction Status Date / Time No Known Allergies Allergy Verified 01/20/25 10:59 [facility] Past Medical History Medical History Vitamin D deficiency Hyperlipidemia Mild hypercholesterolemia Sinus tachycardia Overweight with body mass index (BMI) of 27 to 27.9 in adult Self-catheterizes urinary bladder Colonic mass Adenoma of ascending colon Indwelling Flores catheter present Hypertension Hx of endocrine hypertension Prostate cancer Surgical History Hx of surgical procedure (~09/16/24) History of esophagogastroduodenoscopy (EGD) H/O colonoscopy Hx of cystoscopy Social History Social History Household Members: None Housing: Apartment Are you a primary rn progressive care to a significant other at home: No Do you presently have visiting nurse or other home services: No Alcohol intake: never Patient Tobacco Use Status: Former Tobacco user Tobacco use type: Cigarette Years Smoked: 20 Smoked in Last 30 Days: No Use of substances other than those prescribed or required for medical reasons: No Advance Directives: Yes Advance Directives on File: Yes Advance Directives Date on File: 09/01/24 service: No Physical Exam ED Vital Signs: Vital Signs - 24 hr 01/20/25 10:54 01/20/25 13:17 01/20/25 13:18 Temperature 98.5 F 98.5 F Pulse Rate 117 H 89 86 Respiratory Rate 18 17 17 Blood Pressure 222/112 H 205/103 H 201/92 H Pulse Oximetry 98 100 100 Oxygen Delivery Method Room Air Room Air Room Air 01/20/25 14:12 01/20/25 14:51 01/20/25 14:55 Temperature Pulse Rate 82 76 Respiratory Rate 18 Blood Pressure 187/87 H 164/78 H 164/78 H Pulse Oximetry 96 Oxygen Delivery Method BMI result Body Mass Index 27.2 Course Course Course Narrative: This is an RME: Additional HPI, ROS, PE not included below will be deferred to primary provider. RME assessment and note performed by: Sade Ballesteros PA-C This is a 22-vgee-ekf-male, with a hx of HLD, HTN, right colon resection last september 2024, who presents to the ER with complaints of HTN. Reports that he is currently being treated for colon cancer. He took his BP meds today. Denies any CP/SOB/HORNE. Reports that he is currently on chemotherapy medications which has been causing him to have an elevated BP readings. Plan: Labs, UA, further ER eval needed Medications Administered Discontinued Medications Generic Name Dose Route Start Last Admin Trade Name Freq PRN Reason Stop Dose Admin Amlodipine Besylate 10 mg 01/20/25 14:48 01/20/25 14:55 Amlodipine Besylate 10 Mg Tablet PO 01/20/25 14:49 10 mg ONCE ONE Administration Protocol Labetalol HCl 100 mg 01/20/25 13:38 01/20/25 14:12 Labetalol Hcl 100 Mg Tablet PO 01/20/25 13:39 100 mg ONCE ONE Administration Protocol Medical Decision Making Medical Decision Making MDM Narrative: My interpretation of labs: Hematology and chemistry at baseline, troponin negative My interpretation of EKG: Sinus tachycardia, heart rate 105, no ST segment depression or elevation, no T-wave inversion, QT c 483 Patient was given p.o. labetalol and then amlodipine. Patient states that every time that he comes to the emergency room or goes to a physician, he always gets high blood pressure. Patient's dose was recently increased to 100 mg of losartan. Patient states that at home his blood pressure is usually below 160 every time that he checks it. Discussed with the patient to keep a log of his blood pressures and also to check his blood pressure in a pharmacy where he can compare the blood pressure to make sure that his blood pressure device is caliber property. Patient denies any chest pain shortness of breath headache or visual changes. I discussed with the patient the option of giving a good log of his blood pressure is versus starting a new medication. Patient states that he would prefer to start a 3rd blood pressure and follow-up with his PCP and still keep a log of BPs On discharge, blood pressure 164/78, heart rate 76. Patient asymptomatic Differential Diagnosis Differential Diagnoses: The differential diagnosis associated with the presentation includes (Chronic hypertension, hypertensive urgency versus emergency) Admission/Observation Consideration of admission/observation: Escalation of care including admission/observation considered Lab Data MDM Lab Attestation statement: I reviewed the patient's lab results. 01/20/25 11:19 01/20/25 11:19 Labs: Lab Results 01/20/25 01/20/25 Range/Units 11:19 13:24 WBC 6.4 (4.8-10.8) X10*3/uL RBC 4.43 L (4.60-5.80) X10*6/uL Hgb 12.5 L (14.0-18.0) g/dl Hct 38.5 L (42.0-52.0) % MCV 86.9 (80.0-98.0) fL MCH 28.2 (27.0-33.0) pg MCHC 32.5 (31.0-36.0) g/dl RDW 13.4 (11.0-16.0) % Plt Count 271 (160-400) X10*3/uL MPV 9.1 L (9.4-12.4) fL Immature Gran % (Auto) 0.2 (0.0-0.4) % Neut % (Auto) 59.8 (45-73) % Lymph % (Auto) 33.0 (20-40) % [place] % (Auto) 6.1 (2-11) % Eos % (Auto) 0.3 (0-4) % Baso % (Auto) 0.6 (0-2) % Lymph # (Auto) 2.1 (1.2-4.9) X10*3/uL [place] # (Auto) 0.4 (0.1-1.2) X10*3/uL Eos # (Auto) 0.0 (0.0-0.4) X10*3/uL Baso # (Auto) 0.0 (0.0-0.2) X10*3/uL Abs Immat Gran (auto) 0.01 (0.00-0.03) X10*3/uL Absolute Neuts (auto) 3.8 (2.0-8.3) x10*3/uL Absolute Nucleated RBC 0.000 (0.0-0.012) X10*3/uL Nucleated RBC % (auto) 0.0 (0.0-0.2) /100WBC Sodium 142 (135-145) mmol/L Potassium 3.6 (3.3-5.1) mmol/L Chloride 108 (96-108) mmol/L Carbon Dioxide 26 (22-29) mmol/L Anion Gap 12 (12-20) BUN 18 H (9-16) mg/dL Creatinine 0.92 (0.5-1.4) mg/dL Estim Creat Clear Calc 71.2 Estimated GFR > 60 Random Glucose 101 (60-115) mg/dL Calcium 10.2 (8.4-10.2) mg/dL Magnesium 1.9 (1.6-2.6) mg/dL Total Bilirubin 0.6 (0.0-1.0) mg/dL Direct Bilirubin 0.2 (0.0-0.5) mg/dL AST 31 (5-37) U/L ALT 62 H (0-40) U/L Alkaline Phosphatase 99 (39-117) U/L Troponin I High Sens 6.6 D (<3.5-35.0) ng/L Total Protein 7.8 (6.5-8.0) g/dL Albumin 4.5 (3.5-5.0) g/dL Urine Color Yellow Urine Appearance Clear Urine pH 7.0 (5.0-9.0) Ur Specific [place] 1.010 (1.005-1.025) Urine Protein Negative (Neg-Trace) mg/dL Urine Glucose (UA) Negative (Negative) mg/dL Urine Ketones Negative (Negative) mg/dL Urine Blood Negative (Negative) Urine Nitrite Negative (Negative) Ur Leukocyte Esterase Negative (Negative) Critical Care Time Critical Care Time Critical Care Time: Yes Total Critical Care Time: 60 Attestation: I have personally provided critical care time. Time includes review of lab data, radiology results, discussion with consultants, and monitoring for potential decompensation. Intervention performed as documented. Discharge Plan Discharge Clinical Impression: Hypertension Patient Disposition: Home, Self-Care Instructions: Hypertension (ED) Additional Instructions: Continue taking your blood pressure sure medications as prescribed and add amlodipine 10 mg daily. Please keep a good log of your blood pressures to share with your PCP Prescriptions: New amlodipine 10 mg tablet 10 mg PO DAILY Qty: 90 0RF No Action prednisone 5 mg Tablet 5 mg PO DAILY Qty: 60 3RF abiraterone 500 mg Tablet 1,000 mg PO DAILY Qty: 60 3RF Rx Instructions: must be taken on empty stomach, at least 1 hr before or 2 hrs after a meal/food ferrous sulfate 324 mg (65 mg iron) tablet,delayed release (DR/EC) 324 mg PO BID Qty: 90 1RF metoprolol succinate 100 mg tablet extended release 24 hr 100 mg PO DAILY Qty: 90 1RF Protocol: Hold for SBP/HR < HOLD for SBP < : 90 HOLD for HR < : 60 hydrochlorothiazide 25 mg tablet 25 mg PO DAILY Qty: 90 1RF valsartan 80 mg tablet 80 mg PO DAILY Qty: 90 1RF rosuvastatin [Crestor] 10 mg tablet 10 mg PO DAILY Qty: 90 1RF cholecalciferol (vitamin D3) 125 mcg (5,000 unit) capsule 125 mcg PO DAILY Qty: 90 1RF Print Language: Slovak
--- NOTE | 2025-01-20 10:59 | ECG_ITS ---
Test Reason : htn Blood Pressure : */* mmHG Vent. Rate : 105 BPM Atrial Rate : 105 BPM P-R Int : 162 ms QRS Dur : 86 ms QT Int : 366 ms P-R-T Axes : 61 5 11 degrees QTcB Int : 483 ms Sinus tachycardia Possible Left atrial enlargement Left ventricular hypertrophy ( R in aVL , Sokolow-Galeana , Gamaliel product ) Abnormal ECG When compared with ECG of 20-Sep-2024 16:05, No significant change was found Referred By: Sade Rodriguez Electronically Signed By: TERRIE FAROOQ MD
[2025-01-20 11:22] LABS: MANUAL DIFF FLAG NO
[2025-01-20 11:23] LABS: Basophils Percent Auto 0.6 % (0-2); Eosinophils Percent Auto 0.3 % (0-4); Hematocrit 38.5 % (42.0-52.0); Hemoglobin 12.5 g/dl (14.0-18.0); Imm Gran Abs Auto 0.01 X10*3/uL (0.00-0.03); Imm Gran Pct Auto 0.2 % (0.0-0.4); Lymphocytes Absolute Auto 2.1 X10*3/uL (1.2-4.9); Mean Corpuscular HGB Conc 32.5 g/dl (31.0-36.0); Mean Corpuscular Hemoglobin 28.2 pg (27.0-33.0); Mean Corpuscular Volume 86.9 fL (80.0-98.0); Mean Platelet Volume 9.1 fL (9.4-12.4); Monocytes Absolute Auto 0.4 X10*3/uL (0.1-1.2); Monocytes Percent Auto 6.1 % (2-11); Neutrophils Absolute Auto 3.8 x10*3/uL (2.0-8.3); Neutrophils Percent Auto 59.8 % (45-73); Platelet Count 271 X10*3/uL (160-400); Red Blood Count 4.43 X10*6/uL (4.60-5.80); Red Cell Distribution Width 13.4 % (11.0-16.0); White Blood Count 6.4 X10*3/uL (4.8-10.8)
[2025-01-20 11:38] LABS: Alanine Aminotransferase 62 U/L (0-40); Albumin Level 4.5 g/dL (3.5-5.0); Alkaline Phosphatase 99 U/L (39-117); Anion Gap 12 (12-20); Aspartate Amino Transferase 31 U/L (5-37); Bilirubin Direct 0.2 mg/dL (0.0-0.5); Bilirubin Total 0.6 mg/dL (0.0-1.0); Blood Urea Nitrogen 18 mg/dL (9-16); Calcium 10.2 mg/dL (8.4-10.2); Carbon Dioxide 26 mmol/L (22-29); Chloride 108 mmol/L (96-108); Creatinine Clr Calc Pharmacy 71.2; Estimated Glomerular Filt Rate > 60; Glucose Random 101 mg/dL (60-115); Magnesium 1.9 mg/dL (1.6-2.6); Potassium 3.6 mmol/L (3.3-5.1); Sodium 142 mmol/L (135-145); Total Protein 7.8 g/dL (6.5-8.0)
[2025-01-20 11:45] LABS: Troponin-I High Sensitivity 6.6 ng/L (<3.5-35.0)
[2025-01-20 13:43] LABS: Appearance Urine Clear; Color Urine Yellow; Glucose Urine UA Negative (Negative); Leukocyte Esterase Urine Negative (Negative); Nitrite Urine Negative (Negative); Urine Blood Negative (Negative); Urine Ketones Negative (Negative); Urine Protein Negative (Neg-Trace)
[2025-01-20] MEDS: Labetalol HCL 100 MG TABLET PO (14:12)
[2025-01-20] MEDS: amLODIPine Besylate 10 MG TABLET PO (14:55)
== END 2025-01-20 15:25 | disposition home or self-care (01) ==
PROVIDERS: Physician Assistant Medical; Emergency Provider Emergency Medicine; PCP Internal Medicine
DX: R79.89 Other specified abnormal findings of blood chemistry (principal); R00.0 Tachycardia, unspecified; I10 Essential (primary) hypertension; Z79.899 Other long term (current) drug therapy
CPT/HCPCS: 36415; 80048; 80076; 81003; 83735; 84484; 85025; 93005; 99283; 99285

== ENCOUNTER → 2025-01-20 10:59 | Outpatient (BNV) | payer OTHER, SELFPAY | PROVIDERS: Emergency Provider Emergency Medicine; PCP Internal Medicine; Visit Provider Internal Medicine Cardiovascular Disease | DX: I51.7 Cardiomegaly (principal); R00.0 Tachycardia, unspecified | CPT/HCPCS: 93010 ==

== ENCOUNTER 2025-01-29 10:41 | Outpatient (AMB) | payer OTHER, SELFPAY ==
--- NOTE | 2025-01-29 10:42 | MHC.PC.OV ---
Vital Signs 01/29/25 10:45 Height 5 ft 8 in Weight 178 lb BMI 27.1 BP 152/77 H Respiration 14 Pulse 97 Pulse Source Pulse Oximeter Temp 97.8 F Temp Source Temporal Artery Scan Pulse Oximetry (%) 99 Oxygen Delivery Method Room Air Intake Visit Reasons: 1 month f/u Pet Care Attendant Required: No Allergies No Known Allergies Allergy (Verified 01/29/25 11:05) Medication List - Last Reconciled 01/29/25 by Nereida Leone PA-C abiraterone 1,000 mg (2 x 500 mg) PO DAILY amlodipine 10 mg PO DAILY cholecalciferol (vitamin D3) 125 mcg PO DAILY ferrous sulfate 324 mg PO BID hydrochlorothiazide 25 mg PO DAILY metoprolol succinate ER 100 mg See Protocol PO DAILY prednisone 5 mg PO DAILY rosuvastatin (Crestor) 10 mg PO DAILY valsartan 80 mg PO DAILY Tobacco use date assessed: 01/29/25 Fall risk assessment: No Falls in past year Last assessed Fall Risk: 01/29/25 Dental Screening Dental Screen Date: 01/29/25 Did you have a dental visit in the last 12 months?: No Did you have a dental problem in the last 6 months where you did not have access to dental care?: No HPI 1 month f/u HPI Details The patient is a 69-year-old male presenting with essential hypertension management. The patient has experienced high blood pressure readings, especially when attending medical appointments or the ER, where the pressure was particularly elevated. The cause of the ER visit was a scheduled appointment with Dr. Doherty for routine colon monitoring, but due to anomalous blood pressure readings, he was advised to seek immediate care. At the ER, the patient was treated with amlodipine 10 mg. His current prescriptions include hydrochlorothiazide 25 mg, metoprolol extended release 100 mg, and valsartan 80 mg. The consistency of the medication intake is confirmed, with no leg edema reported. The patient's home readings are generally lower compared to those taken in clinical settings, suggesting anxiety-related fluctuations during professional assessments. The patient is awaiting a jumpbasting machine operator appointment amidst consistent monitoring at home. At home the patient's blood pressure daily has been around 130 over 80. He brought his diary with his blood pressure is listed to this appointment. He reports prior to this appointment his blood pressure was 130s over 80s. He believes he might have white coat syndrome. [facility] Medical History Vitamin D deficiency Hyperlipidemia Mild hypercholesterolemia Sinus tachycardia Overweight with body mass index (BMI) of 27 to 27.9 in adult Self-catheterizes urinary bladder Colonic mass Adenoma of ascending colon Indwelling Flores catheter present Hypertension Hx of endocrine hypertension Prostate cancer Surgical History Hx of surgical procedure (~09/16/24) History of esophagogastroduodenoscopy (EGD) H/O colonoscopy (~09/05/24) Hx of cystoscopy Family History Father No problems noted. Mother Dementia Breast cancer BP (high blood pressure) Social History Household Members: None Housing: Apartment Are you a primary day care attendant to a significant other at home: No Do you presently have visiting nurse or other home services: No Alcohol intake: current Alcohol intake frequency: does not drink Patient Tobacco Use Status: Former Tobacco user Tobacco use type: Cigarette Years Smoked: 20 Advance Directives Date on File: 09/01/24 service: No Current occupational status: employed Cognitive needs: No Hearing needs: No Vision needs: No Questionnaire PHQ-9 Over the last 2 weeks, how often have you been bothered by any of the following problems? 1. Little interest or pleasure in doing things: not at all 2. Feeling down, depressed, or hopeless: not at all 3. Trouble falling or staying asleep, or sleeping too much: not at all 4. Feeling tired or having little energy: not at all 5. Poor appetite or overeating: not at all 6. Feeling bad about yourself - or that you are a failure or have let yourself or your family down: not at all 7. Trouble concentrating on things, such as reading the newspaper or watching television: not at all 8. Moving or speaking so slowly that other people could have noticed. Or the opposite - being so fidgety or restless that you have been moving around a lot more than usual: not at all 9. Thoughts that you would be better off or of hurting yourself in some way: not at all Total score: 0 Depression Screening Interpretation: Negative Depression Screening Done: Yes 28700 - PHQ-9 Billing: Yes Source: Developed by Drs. Babak Stephenson, Lc Talamantes and colleagues, with an educational maryse from [employer]. Thrive Questionnaire Date Thrive assessed: 01/02/24 I am a: Patient What is your living situation today?: I have a steady place to live Within the past 12 months, did the food you bought not last and you didn't have the money to get more?: Never true Within the past 12 months, did you worry whether your food would run out before you got money to buy more?: Never true Do you have trouble paying for medicines?: No Do you have trouble getting transportation to medical appointments?: No Do you have trouble paying your heating and electricity bill?: No Do you have trouble taking care of your child, family member or friend?: No Do you have trouble with day-to-day activities such as bathing, preparing meals, shopping, managing finances, etc.?: No Are you currently unemployed and looking for a job?: No Are you interested in more education?: No THRIVE Score: 0 AUDIT C Alcohol Use Questionnaire (AUDIT-C) 1. How often do you have a drink containing alcohol?: Never 3. How often do you have six or more drinks on one occasion?: Never Total Score: 0 Score Reviewed/Action Taken: No PRANEETH-7 AMB Questionnaire PRANEETH-7 Date PRANEETH - 7 assessed: 01/01/25 Feeling nervous, anxious, or on edge: 0 = Not at all Not being able to stop or control worryin = Not at all Worrying too much about different things: 0 = Not at all Trouble relaxin = Not at all Being so restless that it is hard to sit still: 0 = Not at all Becoming easily annoyed or irritable: 0 = Not at all Feeling afraid as if something awful might happen: 0 = Not at all Total PRANEETH-7 score (0-4 normal; 5-9 mild; 10-14 moderate; 15-21 severe): 0 Source: Developed by Tram Mcmillan Kurt Kroenke and colleagues, with an educational maryse from [employer]. PRANEETH-7 Assessment Billing PRANEETH-7 Assessment Tool: PRANEETH-7 Assessment 40258 Review of Systems Const Details: - Cardiovascular: Reports high blood pressure readings noted during clinical visits. Denies leg swelling. - Neurological: Denies dizziness. - General: Reports no significant adverse symptoms from hypertension medication, feels improvement at home. Physical exam (Primary Care) Vital Signs: Last Vital Signs Temp 97.8 F 01/29/25 10:45 Pulse 108 H 01/29/25 10:45 Resp 14 01/29/25 10:45 BP 180/92 H 01/29/25 10:45 Pulse Ox 99 01/29/25 10:45 Oxygen Delivery Method Room Air 01/29/25 10:45 Care Plan Goal for BP management: <130/90 patient to continue taking newly prescribed amlodipine 10 mg, hydrochlorothiazide 25 mg, metoprolol extended release 100 mg and valsartan 80 mg daily. Patient to return in 1 month for blood pressure check. BMI result Body Mass Index 27.1 Tobacco/Smoking Status: Tobacco use Status Tobacco use date assessed 01/29/25 01/29/25 10:51 Patient Tobacco Use Status Former Tobacco user 01/29/25 10:51 Tobacco use type Cigarette 01/29/25 10:51 PHQ-9: PHQ-9 Score PHQ-9: Total score 0 01/29/25 10:51 Depression Screening Interpretation: Negative Thrive Assessment: Date of Thrive Assessment Date Thrive assessed 01/02/24 01/29/25 10:51 Const Other: Appearance: Alert. Oriented X3. No acute distress. Head: Normal external exam. Normocephalic. Atraumatic. Eyes: Pupils are equal, round, and reactive to light. Extraocular movements intact. Conjunctiva and sclera normal. Eyelids normal. Throat: Pharynx normal. Uvula midline. Moist mucous membranes. Neck: Normal inspection. Neck supple. Full range of motion. Cardiovascular: Normal heart rate and rhythm. Heart sound normal. No murmurs noted. Pulses normal throughout. Respiratory: No respiratory distress. Painless inspiration. Back: Full range of motion noted. Skin: Skin warm and dry. Normal skin color. Normal skin turgor. No rashes/lesions/lacerations noted. Extremities: No lower extremity edema. Neuro: Oriented X 3. Coding Level of Care Code Est Pt Level 3 (55449) Complex EM visit Add On G2211 Diagnoses Hypertension I10 Additional Codes PRANEETH-7 Assessment Billing - PRANEETH-7 Assessment Tool: PRANEETH-7 Assessment 62959 ([id number]) PHQ-9 - 60949 - PHQ-9 Billing: Yes ([id number]) Assessment & Plan Assessment & Plan (1) Hypertension: Code(s): I10 - Essential (primary) hypertension Category: Medical Plan Plan Patient was informed and verbally consented to the use of an ambient scribe for clinic note documentation during this visit. 1. Essential Hypertension For essential hypertension, continuing the current medications of amlodipine 10 mg, hydrochlorothiazide 25 mg, metoprolol extended release 100 mg, and valsartan 80 mg is advised, based on improved home readings. Patients should monitor and record blood pressure since home values remain more stable. Scheduled cardiology follow-up in six weeks. Monitoring for concerning symptoms like dizziness, headaches, or chest pain is necessary, and ER visits are advised should these symptoms persist or worsen. An emergency visit to the ER is advised if symptoms do not respond to conservative measures. I discussed with the patient the management of essential hypertension, emphasizing the importance of daily medication adherence to maintain lower blood pressure levels at home. We reviewed the role of each medication in managing hypertension and advised monitoring blood pressure twice daily to capture accurate readings across different times of the day. It was explained that anxiety might be affecting his readings during hospital checks, thus the suggestion to allow relaxation before taking measurements. The patient was receptive to waiting until after the cardiology appointment in six weeks for the possibility of adjusting medication. Continuation at the present dosage allows proper assessment of the amlodipine?s effects. We discussed recognizing any potential adverse symptoms or side effects. Instructions on when to seek emergency care if hypertension-related symptoms worsen were reiterated. Patient Instructions: - Continue taking all prescribed medications as detailed. - Monitor blood pressure at home twice daily. - Relax and rest before checking blood pressure to ensure accurate readings. - Be aware of any symptoms such as dizziness, severe headaches, or chest pain, and seek immediate medical attention if they occur. - Follow up with the jumpbasting machine operator at the next scheduled appointment. - Return for reassessment in one month or sooner if symptoms persist or worsen.
[2025-01-29 10:45] VITALS: BP 152/77; PULSE 97; RESP 14; TEMP 36.6; O2SAT 99; BMI 27.1
--- OUTSIDE RECORDS SUMMARY | 2025-01-29 12:41 | XMS_ITS | Patient Health Record ---
Author Organization [facility] Address [address] [place] [address] Care Team Providers Care Personal Insurance Advisor Name Role Phone NONE, NONE Primary Care Provider Litzy MooneyBabak Amy [phone] Results Component Value Reference Range Notes Hold Lav - Possible Hematolo gy Reviewed date:09/03/2024 01:08:51 PM Interpretation: Performing Lab:[facility], [address] [place] [phone] Notes/Report: Hold Lav - Possible Hematology SEE NOTE Specimen will be held untested for 8 hours. Call Hematology if testing is desired. Prothrombin Time INR Reviewed date:09/03/2024 01:08:58 PM Interpretation: Performing Lab:[facility], [address] [place] [phone] Notes/Report: Prothrombin Time 13.9 10.9-12.4 SEC INTERNATIONAL [...] (Free>4and<10) Reviewed date:09/03/2024 01:09:06 PM Interpretation: Performing Lab:[facility], [address] [place] [phone] Notes/Report: PSA,Total (Free>4and<10) 89.85 0.00-4.00 ng/mL A [...] Folate Reviewed date:09/03/2024 01:09:13 PM Interpretation: Performing Lab:[address] [address] Notes/Report: Vitamin B12 815 200-900 pg/mL NORMAL 200-900 PG/ML INDETERMINATE 160-199 PG/ML DEFICIENT < 160 PG/ML Folate 10.6 > or = 4.0 ng/mL Reference Values: > or = 4.0 ng/mL < 4.0 ng/mL suggests folate deficiency Methotrexate, aminopterin and folinic acid (leucovorin) are chemotherapeutic agents whose molecular structures are similar to folate; therefore, the Human Resources Trainer folate assay cannot be used for patients using these drugs. Complete Blood Count Auto Di ff Reviewed date:09/04/2024 11:48:44 PM Interpretation: Performing Lab:[address] [address] Notes/Report: White Blood Count 11.7 4.8-10.8 X10*3/uL [...] g Reviewed date:09/04/2024 11:48:55 PM Interpretation: Performing Lab:[address] [address] Notes/Report: Sodium 144 135-145 mmol/L Potassium 2.9 3.3-5.1 mmol/L Critical [Potassium] sent by a secure message and confirmed by (Dr. Sharma, 09/04/24 0838) Tech: GALENSA Chloride 105 96-108 mmol/L Carbon [...] (Not yet reviewed by provider) Interpretation: Performing Lab:[address] [address] Notes/Report: -- ---- Name: Ortiz Quispe Age/Sex: 69/M : 1955 Unit#: [id number] Attend Dr: Rohith Sharma MD Re08/30/24 Status : DIS IN Location: [facility] 454-1 Disch: 09/06/24 -- ---- SPEC : [id number] RECD : 09/04/24-1416 STATUS: JAMES EATON NUM: [id number] ALVARO: 09/04/24-1250 [facility] DR: Babak Mooney MD ENTERED: 09/04/24-14 19 SP TYPE: Surgical OTHR DR: Rohith Sharma MD ORDERED: HE Stain/9, Gross Micro L4/3, IHC, Add. immunos/4, CDX-2 COMMENTS: Block A se nt to TEREAS for MMR JOHAN/BELLO Panels on 09/09/24. Addendum Addendum 2 Entered: 09/30/24 (A): [employer] JOHAN/BELLO Panel: Single nucleotide variants/insertions/de letions: KRAS [...] Ortiz Quispe Age/Sex: 69/M : 1955 Unit#: [id number] Attend Dr: Rohith Sharma MD Re08/30/24 Status : DIS IN [facility] Disch: 09/06/24 -- ---- SPEC : [id number] RECD : 09/04/24-1417 STATUS: JAMES EATON NUM: [id number] ALVARO: 09/04/24-[address]: Babak Mooney MD [...] pm. Special studies ordered and performed at [facility]: Immunostains for CDX2 on A1. CONTINUED ON NEXT PAGE -- ---- Name: Ortiz Quispe Age/Sex: 69/M : 1955 Unit#: [id number] Attend Dr: Rohith Sharma MD Re08/30/24 Status : DIS IN Location: [facility] 454-1 Disch: 09/06/24 -- ---- SPEC : [id number] RECD : 09/04/24-4737 STATUS: JAMES EATON NUM: [id number] ALVARO: 09/04/24-1250 [facility] [address]: Babak Mooney MD ENTERED: [...] A1. Copies To: Rohith Sharma MD [address] [place] [address] Babak Mooney MD [facility] [address] [place] [address] -- ---- Signed (signature on file) Jane [place] 09/10/24 1045 -- ---- END OF REPORT Complete Blood Count Auto Di ff Reviewed date:09/06/2024 11:27:04 AM Interpretation: Performing Lab:[facility], [address] [facility] [place] [address] Notes/Report: White Blood Count 13.1 4.8-10.8 X10*3/uL [...] g Reviewed date:09/06/2024 11:27:36 AM Interpretation: Performing Lab:[facility], [address] [place] [phone] Notes/Report: Sodium 143 135-145 mmol/L Potassium 3.4 [...] Notes Problem Malignant tumor of ascending colon (150837937) Malignant neoplasm of ascending colon (C18.2) Active confirmed Problem 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) (342983064) 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 Problem Diverticular disease of colon (782547055) Diverticulosis of large intestine without perforation or abscess without bleeding (K57.30) Active confirmed Encounters Encounter Location Date Provider Diagnosis [facility] Inpatient [address] [place], [place] [id number] 09/04/2024 Babak Mooney Plan Of Treatment Pending Test Test Name Order Date Pathology 09/04/2024 Insurance Providers Payer Name Payer Address Payer Phone Subscriber Number Group Number Insured Name Patient Relationship to Insured Coverage Start Date Coverage End Date [employer] [address] [address] [place] [address] [id number] ORTIZ QUISPE Self - patient is the insured
--- OUTSIDE RECORDS SUMMARY | 2025-01-29 12:41 | XMS_ITS ---
Author Organization [facility] Address [address] [place] [address] Care Team Providers Care Janitor Caretaker Name Role Phone NONE, NONE Primary Care Provider Babak Jain [phone] REASON FOR VISIT fe def anemia,abnormal ct scan of colon Encounters Encounter Location Date Provider Diagnosis [facility] Inpatient [address] [place], [place] [phone] 09/04/2024 Babak Mooney Plan Of Treatment No Information Progress Notes * LYNNE MCCONNELLDOB:1955 (69 yo M)Acc No.[id number]:09/04/2024 EGD and COL/MAC Patient:?JAYESH LYNNE Provider:?Babak Mooney MD :1955???Age:69 Y???Sex:Male Kirby e:09/04/2024 Address:[address] [place], [place] [id number] Subjective: * Chief Complaints: * ???1. Fe [...] MD Date:? 024 Generated for Parish mcdowell/Edgardo/Kenjismitting on:?01/29/2025 12:41 PM EDT
== END 2025-01-29 11:05 | disposition home or self-care (01) ==
LOC: HO.HMCSH 10:42
PROVIDERS: PCP Internal Medicine; Visit Provider Physician Assistant Medical
DX: I10 Essential (primary) hypertension (principal)

== ENCOUNTER → 2025-01-29 10:41 | Outpatient (BNVA) | payer OTHER, SELFPAY | PROVIDERS: PCP Internal Medicine; Visit Provider Physician Assistant Medical | DX: I10 Essential (primary) hypertension (principal); Z79.899 Other long term (current) drug therapy | CPT/HCPCS: 96127 ==

== ENCOUNTER 2025-02-24 09:39 | Day surgery (SDC) | payer OTHER, SELFPAY ==
--- OUTSIDE RECORDS SUMMARY | 2025-01-13 13:06 | XMS_ITS ---
Author Organization [facility] Address [address] [place] [address] Care Team Providers Care Obstetrics Tech Name Role Phone NONE, NONE Primary Care Provider Babak Jain [phone] REASON FOR VISIT fe def anemia,abnormal ct scan of colon Encounters Encounter Location Date Provider Diagnosis [facility] Inpatient [address] [place], [place] [phone] 09/04/2024 Babak Mooney Plan Of Treatment No Information Progress Notes * LYNNE MCCONNELLDOB:1955 (69 yo M)Acc No.[id number]:09/04/2024 EGD and COL/MAC Patient:?JAYESH LYNNE Provider:?Babak Mooney MD :1955???Age:69 Y???Sex:Male Kirby e:09/04/2024 Address:[address] [place], [place] [phone] Subjective: * Chief Complaints: * ???1. Fe [...] MD Date:? 024 Generated for Parish mcdowell/Edgardo/Kenjismitting on:?01/13/2025 01:05 PM EDT
--- OUTSIDE RECORDS SUMMARY | 2025-01-13 13:06 | XMS_ITS | Patient Health Record ---
Author Organization [facility] Address [address] [place] [address] Care Team Providers Care Check Pilot Name Role Phone NONE, NONE Primary Care Provider Litzy MooneyBabak Amy [phone] Results Component Value Reference Range Notes Hold Lav - Possible Hematolo gy Reviewed date:09/03/2024 01:08:51 PM Interpretation: Performing Lab:[facility], [address] [place] [phone] Notes/Report: Hold Lav - Possible Hematology SEE NOTE Specimen will be held untested for 8 hours. Call Hematology if testing is desired. Prothrombin Time INR Reviewed date:09/03/2024 01:08:58 PM Interpretation: Performing Lab:[facility], [address] [place] [phone] Notes/Report: Prothrombin Time 13.9 10.9-12.4 SEC INTERNATIONAL [...] (Free>4and<10) Reviewed date:09/03/2024 01:09:06 PM Interpretation: Performing Lab:[facility], [address] [place] [phone] Notes/Report: PSA,Total (Free>4and<10) 89.85 0.00-4.00 ng/mL A [...] Folate Reviewed date:09/03/2024 01:09:13 PM Interpretation: Performing Lab:[address] [phone] Notes/Report: Vitamin B12 815 200-900 pg/mL NORMAL 200-900 PG/ML INDETERMINATE 160-199 PG/ML DEFICIENT < 160 PG/ML Folate 10.6 > or = 4.0 ng/mL Reference Values: > or = 4.0 ng/mL < 4.0 ng/mL suggests folate deficiency Methotrexate, aminopterin and folinic acid (leucovorin) are chemotherapeutic agents whose molecular structures are similar to folate; therefore, the [employer] folate assay cannot be used for patients using these drugs. Complete Blood Count Auto Di ff Reviewed date:09/04/2024 11:48:44 PM Interpretation: Performing Lab:[address] [phone] Notes/Report: White Blood Count 11.7 4.8-10.8 X10*3/uL [...] g Reviewed date:09/04/2024 11:48:55 PM Interpretation: Performing Lab:[address] [address] Notes/Report: Sodium 144 135-145 mmol/L Potassium 2.9 3.3-5.1 mmol/L Critical [Potassium] sent by a secure message and confirmed by (Dr. Sharma, 09/04/24 0883) Tech: GALENSA Chloride 105 96-108 mmol/L Carbon [...] (Not yet reviewed by provider) Interpretation: Performing Lab:[address] [address] Notes/Report: -- ---- Name: Ortiz Quispe Age/Sex: 69/M : 1955 Unit#: [id number] Attend Dr: Rohith Sharma MD Re08/30/24 Status : DIS IN Location: [facility] 454-1 Disch: 09/06/24 -- ---- SPEC : [id number] RECD : 09/04/24-1416 STATUS: JAMES EATON NUM: [id number] ALVARO: 09/04/24-12[address] [facility] DR: Babak Mooney MD ENTERED: 09/04/24-14 19 SP TYPE: Surgical OTHR DR: Rohith Sharma MD ORDERED: HE Stain/9, Gross Micro L4/3, IHC, Add. immunos/4, CDX-2 COMMENTS: Block A se nt to TERESA for MMR JOAHN/BELLO Panels on 09/09/24. Addendum Addendum 2 Entered: 09/30/24 (A): [employer] JOHAN/BELLO Panel: Single nucleotide variants/insertions/de letions: KRAS [...] Ortiz Quispe Age/Sex: 69/M : 1955 Unit#: [id number] Attend Dr: Rohith Sharma MD Re08/30/24 Status : DIS IN [facility]-1 Disch: 09/06/24 -- ---- SPEC : [id number] RECD : 09/04/24-1417 STATUS: JAMES EATON NUM: [id number] ALVARO: 09/04/24-[address]: Babak Mooney MD [...] pm. Special studies ordered and performed at [facility]: Immunostains for CDX2 on A1. CONTINUED ON NEXT PAGE -- ---- Name: Ortiz Quispe Age/Sex: 69/M : 1955 Unit#: [id number] Attend Dr: Rohith Sharma MD Re08/30/24 Status : DIS IN Location: [facility] 454-1 Disch: 09/06/24 -- ---- SPEC : [id number] RECD : 09/04/24-2697 STATUS: JAMES EATON NUM: [id number] AVLARO: 09/04/24-12[address] [facility] DR: Babak Mooney MD ENTERED: [...] A1. Copies To: Rohith Sharma MD [address] [place] [address] Babak Mooney MD [facility] [address] [place] [address] -- ---- Signed (signature on file) Jane Belgrade 09/10/24 1045 -- ---- END OF REPORT Complete Blood Count Auto Di ff Reviewed date:09/06/2024 11:27:04 AM Interpretation: Performing Lab:[facility], [address] [facility], [place] [address] Notes/Report: White Blood Count 13.1 4.8-10.8 X10*3/uL [...] g Reviewed date:09/06/2024 11:27:36 AM Interpretation: Performing Lab:[facility], [address] [place] [phone] Notes/Report: Sodium 143 135-145 mmol/L Potassium 3.4 [...] Notes Problem Malignant tumor of ascending colon (163515690) Malignant neoplasm of ascending colon (C18.2) Active confirmed Problem 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) (007026602) 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 [address] [place] [address] [id number] ORTIZ QUISPE Self - patient is the insured
[2025-02-20 11:32] VITALS: BMI 27.1
--- NOTE | 2025-02-20 12:51 | HO.ANESPROP2 ---
Documented by User: Kateryna Li NP 02/20/25 12:57 HPI - Anesthesia Eval Consult details Narrative: 69yo M for Laser Ablation Prostate w/Green Light Possible white coat syndrome. Pt reports nml BP readings at home. Pending cardiac referral. Per phone eval, no CP/SOB s/p colon resection 09/2024 for mass with GA-ETT 7.5 PMFSH Active Problems Active Problems: All Active Problems Urinary retention with incomplete bladder emptying (Acute) S/P colon resection (Acute) Colon cancer, ascending (Acute) Prostate cancer (Chronic) Bony sclerosis (Acute) Elevated PSA (Acute) Hypermagnesemia (Acute) Vitamin D deficiency (Acute) Hyperlipidemia (Acute) Mild hypercholesterolemia (Acute) Sinus tachycardia (Acute) Overweight with body mass index (BMI) of 27 to 27.9 in adult (Acute) Self-catheterizes urinary bladder (Acute) Adenoma of ascending colon (Acute) Hx of endocrine hypertension (Acute) Prostate cancer (Acute) Indwelling Flores catheter present (Acute) Colonic mass (Acute) Hypertension (Acute) Past Medical History Medical History (Updated 02/20/25 @ 11:38 by Margarita Abrams RN) History of chemotherapy Vitamin D deficiency Hyperlipidemia Mild hypercholesterolemia Sinus tachycardia Overweight with body mass index (BMI) of 27 to 27.9 in adult Self-catheterizes urinary bladder Adenoma of ascending colon Indwelling Flores catheter present Colonic mass Hypertension Hx of endocrine hypertension Prostate cancer Family History Family History Father No problems noted. Mother Dementia Breast cancer BP (high blood pressure) Family history of problems with anesthesia: No Surgical History Surgical History Hx of surgical procedure (~09/16/24) History of esophagogastroduodenoscopy (EGD) H/O colonoscopy (~09/05/24) Hx of cystoscopy History of Problems with Anesthesia: No Social History Social History Household Members: None Housing: Apartment Are you a primary post anesthesia care unit nurse to a significant other at home: No Do you presently have visiting nurse or other home services: No Alcohol intake: current Alcohol intake frequency: does not drink Patient Tobacco Use Status: Former Tobacco user Tobacco use type: Cigarette Years Smoked: 20 Advance Directives: No Advance Directives Information Provided: Yes Advance Directives Date on File: 09/01/24 service: No Current occupational status: employed Cognitive needs: No Hearing needs: No Vision needs: No Meds Allergies Allergy/AdvReac Type Severity Reaction Status Date / Time No Known Allergies Allergy Verified 01/29/25 11:05 Exam Height,Weight and Vital Signs: Height 5 ft 8 in Weight 80.739 kg Pertinent Lab Results Pertinent Lab Results: Laboratory Tests 01/20/25 11:19 WBC 6.4 Hgb 12.5 L Hct 38.5 L Plt Count 271 Sodium 142 Potassium 3.6 Chloride 108 Carbon Dioxide 26 BUN 18 H Creatinine 0.92 Narrative Narrative: EKG 01/2025 Vent. Rate : 105 BPM Atrial Rate : 105 BPM P-R Int : 162 ms QRS Dur : 86 ms QT Int : 366 ms P-R-T Axes : 61 5 11 degrees QTcB Int : 483 ms Sinus tachycardia Possible Left atrial enlargement Left ventricular hypertrophy ( R in aVL , Sokolow-Galeana , Marion product ) Abnormal ECG When compared with ECG of 20-Sep-2024 16:05, No significant change was found Assessment and Plan Final Anesthetic Review Family History of Problems with Anesthesia: No History of Problems with Anesthesia: No Documented by User: Shiva Walker MD 02/24/25 13:24 [facility] Past Medical History Medical History (Updated 02/20/25 @ 11:38 by Margarita Abrams RN) History of chemotherapy Vitamin D deficiency Hyperlipidemia Mild hypercholesterolemia Sinus tachycardia Overweight with body mass index (BMI) of 27 to 27.9 in adult Self-catheterizes urinary bladder Adenoma of ascending colon Indwelling Flores catheter present Colonic mass Hypertension Hx of endocrine hypertension Prostate cancer Family History Family History Father No problems noted. Mother Dementia Breast cancer BP (high blood pressure) Surgical History Surgical History Hx of surgical procedure (~09/16/24) History of esophagogastroduodenoscopy (EGD) H/O colonoscopy (~09/05/24) Hx of cystoscopy Social History Social History Household Members: None Housing: Apartment Are you a primary post anesthesia care unit nurse to a significant other at home: No Do you presently have visiting nurse or other home services: No Alcohol intake: current Alcohol intake frequency: does not drink Patient Tobacco Use Status: Former Tobacco user Tobacco use type: Cigarette Years Smoked: 20 Advance Directives: No Advance Directives Information Provided: Yes Advance Directives Date on File: 09/01/24 service: No Current occupational status: employed Cognitive needs: No Hearing needs: No Vision needs: No Meds Allergies Allergy/AdvReac Type Severity Reaction Status Date / Time No Known Allergies Allergy Verified 01/29/25 11:05 Exam Airway Mallampati Class: III TM Dist: >3cm Neck ROM: Full Assessment and Plan Assessment Anesthesia Assessment: Anesthesia Plan Discussed and Chart Reviewed Final Anesthetic Review NPO: Yes ASA Class: III Final Preanesthetic Review: No Changes in Pt Med Stat, Meds/Allgs Chart Reviewed, Consent Obtained/Reviewed and Anes Risks/Benef Reviewed Patient Risk: Intermediate Procedure Risk: Low Anesthetic Plan Anesthetic Plan: GA Disposition: Standard PACU
[2025-02-24] VITALS (8 sets, daily range): BP systolic 138–165; BP diastolic 75–93; PULSE 69–103; RESP 16–18; TEMP 36.1–36.4; O2SAT 96–100; BMI 27.6
--- NOTE | 2025-02-24 13:15 | MHC.SHP ---
Pre-Procedural Eval Section A - 24 Hr Update-Section A only Date of Service: 02/24/25 The patient is an INPATIENT: No Changes since office visit: No Cold of Flu in the past 2 weeks, No New Medical Problems, No Changes in Medication and No Patient answered all questions The patient has been examined within 24 hours of the surgical procedure. The History & Physical has been completed within 30 days and I have reviewed it.: Yes Section B - Complete if H&P > 30 days Chief Complaint: Benign prostatic hyperplasia with lower urinary tr Details of Present Illness: Urinary retention. Here for GreenLight laser prostatectomy. Relevant Family History (Specify if Yes): No Relevant Social History: None Present Medications: see Short Stay Collaborative assessment Medical History: Significant History History of Previous Operations: Relevant previous surgery/procedure and date(s) Allergies: Allergies Allergy/AdvReac Type Severity Reaction Status Date / Time No Known Allergies Allergy Verified 01/29/25 11:05 Review of Systems Sugical H&P ROS: Negative: Constitution, Cardiovascular, Respiratory, Neurological, Psychiatric, Hem-Onc, Allergic/Immunologic, Gastrointestinal, Genitourinary, Musculoskeletal, Integumentary, Endocrine and Eyes/Ears/Nose/Throat Exam Surgical H&P Exam: Normal: HEENT, Normal: Heart, Normal: Lungs, Normal: Extremities, Normal: Abdomen, Normal: Skin and Normal: Neurological Plan Diagnosis/Plan: Unchanged (greenlight laser prostatectomy) I have reviewed the history and physical and performed a pertinent physical examination on my patient. No changes have occurred unless specified. Time Spent With Patient Time: Total time managing care of this patient today ____ minutes.
[2025-02-24] MEDS: levoFLOXacin/D5W 500 MG/100 ML PIGGYBACK 100 MG IV (13:25)
--- NOTE | 2025-02-24 14:35 | W.PM.OPN ---
Operative Note Operative Note Date of Service: 02/24/25 Narrative: PreOperative Diagnosis: Bladder outlet obstruction Post Operative Diagnosis: Bladder outlet obstruction Procedure: GreenLight Laser Enucleation of the prostate CPT 34130 Surgeon: Dr Morales Carbone Anesthesia: General History of bladder outlet obstruction. Treated with alpha-yadira and other medications. Still with symptoms. On cystoscopy in office has trilobar prostate urinary retention and bilateral hydro nephrosis. Had recovery of creatinine with Flores catheter. Now on CIC. Recommendation for prostate procedure with laser enucleation of prostate. Risks and benefits have been discussed. Focus was placed on development of retrograde ejaculation which is a normal part of this procedure. Procedure: After informed consent was verified the patient was brought to the operating room and placed in a supine position. Anesthesia was administered per protocol. Patient was placed in modified dorsal lithotomy position and prepped and draped in a sterile fashion. Safety pause time-out was confirmed. Antibiotics have been given. A Twenty-four Israeli laser cystoscope was inserted per urethra. No abnormalities were found of the anterior and bulbar urethra. The prostatic urethra shows trilobar hypertrophy.. The bladder was examined and both ureteric orifices were seen in their normal positions away from the area of interest. Bladder trabeculation Grade 2/3. Using a GreenLight laser with initial settings of 80 ritchie incisions were made at the 5 and 7 o'clock position. The incisions were taken down from the bladder neck down to the area just proximal of the veru. These were gradually deepened in order to define the lateral aspects of the median lobe area. The deep boundary of enucleation was defined by the prostate surgical capsule. Once clearly defined the grooves were extended in the lateral directions in order to create a deep groove. The median lobe was then ablated and enucleated tissue released into the bladder with the laser power increased to 120 W. large Once the median lobe area had been cleared, attention was directed to the lateral lobes. Starting with the patient's left lateral lobe. First the 05:00 o'clock groove was further developed. This was moved in the lateral direction to undermine the tissue on the lateral side running from the bladder neck to the prostate apex. The ureteric orifice was used to guide incisions. The laser fiber was placed at the 1 o'clock position and a secondary groove was developed down to the level of prostatic capsule. The creation of a second deep groove defined a segment of intervening tissue similar to a slice of orange. At the apex of the prostate the laser was used to vertically link the two grooves releasing the intervening tissue and creating a segment of tissue. This tissue was then removed with a combination of enucleation and ablation working from the apex toward the bladder neck. A similar procedure was repeated on the patient's right-hand side. The only differences being the position of the lateral groove at he 7 o'clock position and the secondary groove at the 11 o'clock position, Otherwise the procedure was developed in a mirror fashion. 120 W Laser Power. After the majority of tissue had been debulked remnant tissue was ablated with the side fire laser and the curve of the prostate followed up each side wall clearly defining the anterior remnant strip that remained between the 11 and 1 o'clock positions. In this case the anterior tissue protruded into the prostatic fossa and was partially ablated with the laser At completion debris and pieces of prostate were removed from the bladder with irrigation. Both ureteric orifices were reviewed again in shown to be patent in away from any areas of energy damage. The apical area was reviewed and any stray mucosal ooze was controlled. A 22 Israeli 30 cc balloon Flores catheter was placed into the bladder using a flexible stylet. Clear efflux was obtained upon irrigation with a Brooke piston syringe. 50 cc was placed in the balloon and gentle traction was placed. A snap was used to hold tension on the catheter to control bleeding during patient moved and transported. A drainage bag was placed. Once transportation is complete to the PACU the snap will be removed. The patient tolerated the procedure well, he was extubated in the operating and transferred in a stable condition to the recovery area. Total Power 190 kW Lasing time 28:06 Pathology: Prostate tissue Drains: Flores catheter
== END 2025-02-24 16:01 | disposition home or self-care (01) ==
PROVIDERS: PCP Internal Medicine; Visit Provider Urology
PROC: (CPT 52648; principal; 2025-02-24 12:50)
DX: N40.1 Benign prostatic hyperplasia with lower urinary tract symptoms (principal); N13.8 Other obstructive and reflux uropathy; R33.8 Other retention of urine; C61 Malignant neoplasm of prostate; N13.30 Unspecified hydronephrosis; I10 Essential (primary) hypertension; Z79.899 Other long term (current) drug therapy; Z87.891 Personal history of nicotine dependence
CPT/HCPCS: 52649; 88305; J0131; J1100; J1956; J2003; J2250; J2405; J2704; J3010

== ENCOUNTER → 2025-02-24 09:39 | Outpatient (BNV) | payer OTHER, SELFPAY | PROVIDERS: PCP Internal Medicine; Visit Provider Urology | DX: N32.0 Bladder-neck obstruction (principal) | CPT/HCPCS: 52649 ==

== ENCOUNTER → 2025-02-26 08:56 | Outpatient (BNVA) | payer OTHER, SELFPAY | PROVIDERS: PCP Internal Medicine; Visit Provider Urology | DX: C61 Malignant neoplasm of prostate (principal); R33.9 Retention of urine, unspecified; Z98.890 Other specified postprocedural states | CPT/HCPCS: 51700; 51798 ==

== ENCOUNTER 2025-03-05 09:10 | Outpatient (AMB) | payer OTHER, SELFPAY ==
--- NOTE | 2025-03-05 09:15 | MHC.PC.OV ---
Vital Signs 03/05/25 09:17 Height 5 ft 8 in Weight 184 lb BMI 28.0 BP 138/68 Blood Pressure Location Rt brachial Position Sitting Pulse 98 Pulse Source Pulse Oximeter Temp 98.0 F Temp Source Temporal Artery Scan Pulse Oximetry (%) 99 Oxygen Delivery Method Room Air Intake Visit Reasons: 1 month f/u As400 Administrator Required: No Accompanied by: Daughter Allergies No Known Allergies Allergy (Verified 03/05/25 10:14) Medication List - Last Reconciled 03/05/25 by Nereida Leone PA-C abiraterone 1,000 mg (2 x 500 mg) PO DAILY amlodipine 10 mg PO DAILY cholecalciferol (vitamin D3) 125 mcg PO DAILY ferrous sulfate 324 mg PO BID hydrochlorothiazide 25 mg PO DAILY metoprolol succinate ER 100 mg See Protocol PO DAILY prednisone 5 mg PO DAILY rosuvastatin (Crestor) 10 mg PO DAILY valsartan 80 mg PO DAILY Tobacco use date assessed: 01/29/25 Dental Screening Dental Screen Date: 01/29/25 HPI 1 month f/u HPI Details The patient is a 69-year-old male presenting for a blood pressure check. He reports his home blood pressure readings are typically below 130/80 mmHg. During this visit, his reading was 139/68 mmHg, which is slightly elevated. He also noted a high pulse rate during the visit but denies experiencing palpitations or heart racing. The patient attributes the elevated pulse to stress related to disability paperwork. The patient has a history of prostate cancer with a prostatectomy performed. He is managing well without the need for self-catheterization and reports occasional pink urine, which he was informed is expected post-surgery. Social History - Employment: Patient is considering care home and has been dealing with short-term/long-term disability paperwork. [facility] Medical History History of chemotherapy Vitamin D deficiency Hyperlipidemia Mild hypercholesterolemia Sinus tachycardia Overweight with body mass index (BMI) of 27 to 27.9 in adult Self-catheterizes urinary bladder Adenoma of ascending colon Indwelling Flores catheter present Colonic mass Hypertension Hx of endocrine hypertension Prostate cancer Surgical History Hx of surgical procedure (~09/16/24) History of esophagogastroduodenoscopy (EGD) H/O colonoscopy (~09/05/24) Hx of cystoscopy Family History Father No problems noted. Mother Dementia Breast cancer BP (high blood pressure) Social History Household Members: None Housing: Apartment Are you a primary career center director to a significant other at home: No Do you presently have visiting nurse or other home services: No Alcohol intake: current Alcohol intake frequency: does not drink Patient Tobacco Use Status: Former Tobacco user Tobacco use type: Cigarette Years Smoked: 20 Advance Directives Date on File: 09/01/24 service: No Current occupational status: employed Cognitive needs: No Hearing needs: No Vision needs: No Questionnaire PHQ-9 Over the last 2 weeks, how often have you been bothered by any of the following problems? 1. Little interest or pleasure in doing things: not at all 2. Feeling down, depressed, or hopeless: not at all 3. Trouble falling or staying asleep, or sleeping too much: not at all 4. Feeling tired or having little energy: not at all 5. Poor appetite or overeating: not at all 6. Feeling bad about yourself - or that you are a failure or have let yourself or your family down: not at all 7. Trouble concentrating on things, such as reading the newspaper or watching television: not at all 8. Moving or speaking so slowly that other people could have noticed. Or the opposite - being so fidgety or restless that you have been moving around a lot more than usual: not at all 9. Thoughts that you would be better off or of hurting yourself in some way: not at all Total score: 0 Depression Screening Interpretation: Negative Depression Screening Done: Yes 07891 - PHQ-9 Billing: Yes Source: Developed by Drs. Babak Stephenson, Tram Lockhart, Lc Joiner and colleagues, with an educational maryse from [employer]. Thrive Questionnaire Date Thrive assessed: 01/02/24 I am a: Patient What is your living situation today?: I have a steady place to live Within the past 12 months, did the food you bought not last and you didn't have the money to get more?: Never true Within the past 12 months, did you worry whether your food would run out before you got money to buy more?: Never true Do you have trouble paying for medicines?: No Do you have trouble getting transportation to medical appointments?: No Do you have trouble paying your heating and electricity bill?: No Do you have trouble taking care of your child, family member or friend?: No Do you have trouble with day-to-day activities such as bathing, preparing meals, shopping, managing finances, etc.?: No Are you currently unemployed and looking for a job?: No Are you interested in more education?: No THRIVE Score: 0 AUDIT C Alcohol Use Questionnaire (AUDIT-C) 1. How often do you have a drink containing alcohol?: Never 3. How often do you have six or more drinks on one occasion?: Never Total Score: 0 Score Reviewed/Action Taken: No PRANEETH-7 AMB Questionnaire PRANEETH-7 Date PRANEETH - 7 assessed: 01/01/25 Feeling nervous, anxious, or on edge: 0 = Not at all Not being able to stop or control worryin = Not at all Worrying too much about different things: 0 = Not at all Trouble relaxin = Not at all Being so restless that it is hard to sit still: 0 = Not at all Becoming easily annoyed or irritable: 0 = Not at all Feeling afraid as if something awful might happen: 0 = Not at all Total PRANEETH-7 score (0-4 normal; 5-9 mild; 10-14 moderate; 15-21 severe): 0 Source: Developed by Drs. Babak Stephenson, Tram Lockhart, Lc Joiner and colleagues, with an educational maryse from [employer]. PRANEETH-7 Assessment Billing PRANEETH-7 Assessment Tool: PRANEETH-7 Assessment 37727 Review of Systems Const Details: - Cardiovascular: Reports elevated blood pressure and pulse during the visit. Denies heart racing or palpitations. - Genitourinary: Reports post-prostatectomy status with occasional pink urine. Denies urinary flow issues. - Musculoskeletal: No specific symptoms reported. - General: Denies chest pain or shortness of breath. Physical exam (Primary Care) Vital Signs: Last Vital Signs Temp 98.0 F 03/05/25 09:17 Pulse 114 H 03/05/25 09:17 BP 159/77 H 03/05/25 09:17 Pulse Ox 99 03/05/25 09:17 Oxygen Delivery Method Room Air 03/05/25 09:17 Care Plan Goal for BP management: <140/90 at Goal BMI result Body Mass Index 28.0 BMI Assessment/Plan discussion: High BMI High, discussed plan: lifestyle, weight reduction, dietary, physical activity and alcohol moderation Tobacco/Smoking Status: Tobacco use Status Tobacco use date assessed 01/29/25 03/05/25 09:23 Patient Tobacco Use Status Former Tobacco user 03/05/25 09:23 Tobacco use type Cigarette 03/05/25 09:23 PHQ-9: PHQ-9 Score PHQ-9: Total score 0 03/05/25 09:23 Depression Screening Interpretation: Negative Thrive Assessment: Date of Thrive Assessment Date Thrive assessed 01/02/24 03/05/25 09:23 Const Other: Appearance: Alert. Oriented X3. No acute distress. Head: Normal external exam. Normocephalic. Atraumatic. Eyes: Pupils are equal, round, and reactive to light. Extraocular movements intact. Conjunctiva and sclera normal. Eyelids normal. Throat: Pharynx normal. Uvula midline. Moist mucous membranes. Neck: Normal inspection. Neck supple. Full range of motion. Cardiovascular: Normal heart rate and rhythm. Respiratory: No respiratory distress. Painless inspiration. Back: Full range of motion noted. Skin: Skin warm and dry. Normal skin color. Extremities: Extremities exhibit normal range of motion. Neuro: Oriented X 3. No motor deficit. No sensory deficit. Reflexes normal. Coding Level of Care Code Est Pt Level 3 (73623) Complex EM visit Add On G2211 Diagnoses Hypertension I10 Prostate cancer C61 Additional Codes PRANEETH-7 Assessment Billing - PRANEETH-7 Assessment Tool: PRANEETH-7 Assessment 42588 ([id number]) PHQ-9 - 15117 - PHQ-9 Billing: Yes ([id number]) Assessment & Plan Assessment & Plan (1) Hypertension: Code(s): I10 - Essential (primary) hypertension Category: Medical Plan: Blood pressure was elevated at 139/68 mmHg during the visit. Will continue amlodipine 10 mg daily, hydrochlorothiazide 25 mg daily, metoprolol extended release 100 mg daily, valsartan 80 mg daily. Patient to monitor blood pressure at home. Patient has follow-up with Cardiology April 2025 Condition is chronic and stable will continue to monitor. (2) Prostate cancer: Code(s): C61 - Malignant neoplasm of prostate Category: Medical Plan: Post-prostatectomy, patient reports occasional pink urine but no current need for self-catheterization. Advised to monitor for changes. Condition is chronic and stable will continue to monitor. Patient being followed by Urology. Plan Plan Patient was informed and verbally consented to the use of an ambient scribe for clinic note documentation during this visit. 1. Essential Hypertension Blood pressure was elevated at 139/68 mmHg during the visit. Discussed increasing valsartan dosage to 160 mg. Patient to monitor blood pressure at home. 2. Prostate Cancer Post-prostatectomy, patient reports occasional pink urine but no current need for self-catheterization. Advised to monitor for changes. Patient to continue current antihypertensive medications as discussed above. Blood pressure at goal at this time. We reviewed his home readings, which are generally within normal limits, and I emphasized the importance of continued home monitoring. The patient expressed understanding of his prostate cancer management post-prostatectomy and is aware of the expected urinary changes. We also addressed his disability paperwork concerns and the potential consideration for care home. Medications: Refilled metoprolol succinate ER 100 mg See Protocol PO DAILY 90 tabs 1RF amlodipine 10 mg PO DAILY 90 tabs 1RF valsartan 80 mg PO DAILY 90 tabs 1RF ferrous sulfate 324 mg PO BID 90 tabs 1RF hydrochlorothiazide 25 mg PO DAILY 90 tabs 1RF rosuvastatin (Crestor) 10 mg PO DAILY 90 tabs 1RF cholecalciferol (vitamin D3) 125 mcg PO DAILY 90 caps 1RF E55.9 - Vitamin D deficiency, unspecified Patient Instructions: - Monitor blood pressure at home and report any significant changes. - Continue taking your current medications as prescribed. - Follow up with cardiology on April 23. - Monitor for any changes in urinary symptoms and report if needed. - Consider discussing care home options with your family and financial aid coordinator. - Follow up in three months for a routine check.
[2025-03-05 09:17] VITALS: BP 138/68; PULSE 98; TEMP 36.7; O2SAT 99; BMI 28.0
--- OUTSIDE RECORDS SUMMARY | 2025-03-05 09:47 | XMS_ITS | Patient Health Record ---
Author Organization [facility] Address [address] [place] [address] Care Team Providers Care Deckhand Fishing Vessel Name Role Phone NONE, NONE Primary Care Provider Litzy MooneyBabak Amy [phone] Results Component Value Reference Range Notes Hold Lav - Possible Hematolo gy Reviewed date:09/03/2024 01:08:51 PM Interpretation: Performing Lab:[facility], [address] [place] [phone] Notes/Report: Hold Lav - Possible Hematology SEE NOTE Specimen will be held untested for 8 hours. Call Hematology if testing is desired. Prothrombin Time INR Reviewed date:09/03/2024 01:08:58 PM Interpretation: Performing Lab:[facility], [address] [place] [phone] Notes/Report: Prothrombin Time 13.9 10.9-12.4 SEC INTERNATIONAL [...] (Free>4and<10) Reviewed date:09/03/2024 01:09:06 PM Interpretation: Performing Lab:[facility], [address] [place] [phone] Notes/Report: PSA,Total (Free>4and<10) 89.85 0.00-4.00 ng/mL A [...] Folate Reviewed date:09/03/2024 01:09:13 PM Interpretation: Performing Lab:[address] [address] Notes/Report: Vitamin B12 815 200-900 pg/mL NORMAL 200-900 PG/ML INDETERMINATE 160-199 PG/ML DEFICIENT < 160 PG/ML Folate 10.6 > or = 4.0 ng/mL Reference Values: > or = 4.0 ng/mL < 4.0 ng/mL suggests folate deficiency Methotrexate, aminopterin and folinic acid (leucovorin) are chemotherapeutic agents whose molecular structures are similar to folate; therefore, the Shower Maid folate assay cannot be used for patients using these drugs. Complete Blood Count Auto Di ff Reviewed date:09/04/2024 11:48:44 PM Interpretation: Performing Lab:[address] [phone] Notes/Report: White Blood Count 11.7 4.8-10.8 X10*3/uL [...] g Reviewed date:09/04/2024 11:48:55 PM Interpretation: Performing Lab:[address] [address] Notes/Report: Sodium 144 135-145 mmol/L Potassium 2.9 3.3-5.1 mmol/L Critical [Potassium] sent by a secure message and confirmed by (Dr. Sharma, 09/04/24 0891) Tech: GALENSA Chloride 105 96-108 mmol/L Carbon [...] (Not yet reviewed by provider) Interpretation: Performing Lab:[address] [address] Notes/Report: -- ---- Name: Ortiz Quispe Age/Sex: 69/M : 1955 Unit#: [id number] Attend Dr: Rohith Sharma MD Re08/30/24 Status : DIS IN Location: [facility] 454-1 Disch: 09/06/24 -- ---- SPEC : [id number] RECD : 09/04/24-1416 STATUS: JAMES EATON NUM: [id number] ALVARO: 09/04/24-1250 [facility] DR: Babak Mooney MD ENTERED: 09/04/24-14 19 SP TYPE: Surgical OTHR DR: Rohith Sharma MD ORDERED: HE Stain/9, Gross Micro L4/3, IHC, Add. immunos/4, CDX-2 COMMENTS: Block A se nt to TERESA for MMR JOHAN/BELLO Panels on 09/09/24. Addendum Addendum 2 Entered: 09/30/24 (A): [employer] JOHAN/BELLO Panel: Single nucleotide variants/insertions/de letions: KRAS [...] Ortiz Quispe Age/Sex: 69/M : 1955 Unit#: [id number] Attend Dr: Rohith Sharma MD Re08/30/24 Status : DIS IN [facility] Disch: 09/06/24 -- ---- SPEC : [id number] RECD : 09/04/24-1417 STATUS: JAMES EATON NUM: [id number] ALVARO: 09/04/24-[address]: Babak Mooney MD [...] pm. Special studies ordered and performed at [facility]: Immunostains for CDX2 on A1. CONTINUED ON NEXT PAGE -- ---- Name: Ortiz Quispe Age/Sex: 69/M : 1955 Unit#: [id number] Attend Dr: Rohith Sharma MD Re08/30/24 Status : DIS IN Location: [facility] 454-1 Disch: 09/06/24 -- ---- SPEC : [id number] RECD : 09/04/24-7857 STATUS: JAMES EATON NUM: [id number] ALVARO: 09/04/24-12[address] [facility] [address]: Babak Mooney MD ENTERED: 09/04/24-14 19 SP TYPE: Surgical OTHR DR: Rohith Sharma MD ORDERED: HE Stain/9, Gross Micro L4/3, IHC, Add. immunos/4, CDX-2 COMMENTS: Block A se nt to TERESA for MMR JOHAN/BELLO Panels on 09/09/24. Gross Description (Continued) Special studies ordered and performed [employer]: Immunostains for MLH1, MSH2, MSH6 and PMS2 on A1. Copies To: Rohith Sharma MD [address] [place] [address] Babak Mooney MD [facility] [address] [place] [address] -- ---- Signed (signature on file) Jane Salvatore 09/10/24 1045 -- ---- END OF REPORT Complete Blood Count Auto Di ff Reviewed date:09/06/2024 11:27:04 AM Interpretation: Performing Lab:[facility], [address] [facility], [place] [address] Notes/Report: White Blood Count 13.1 4.8-10.8 X10*3/uL [...] g Reviewed date:09/06/2024 11:27:36 AM Interpretation: Performing Lab:[facility], [address] [place] [phone] Notes/Report: Sodium 143 135-145 mmol/L Potassium 3.4 [...] Status W/U Status Risk Notes Problem Malignant neopla sm of ascending colon (C18.2) Active confirmed Problem 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) (417146233) 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 Problem Diverticular disease of colon (797939455) Diverticulosis of large intestine without perforation or abscess without bleeding (K57.30) Active confirmed Encounters Encounter Location Date Provider Diagnosis [facility] [place] [address] [place], [place] [id number] 09/04/2024 Babak Mooney Plan Of Treatment Pending Test Test Name Order Date Pathology 09/04/2024 Insurance Providers Payer Name Payer Address Payer Phone Subscriber Number Group Number Insured Name Patient Relationship to Insured Coverage Start Date Coverage End Date [employer] [place] [address] [address] [place] [address] [id number] ORTIZ QUISPE Self - patient is the insured
== END 2025-03-05 09:47 | disposition home or self-care (01) ==
LOC: HO.HMCSH 09:10
PROVIDERS: PCP Internal Medicine; Visit Provider Physician Assistant Medical
DX: I10 Essential (primary) hypertension (principal); C61 Malignant neoplasm of prostate

== ENCOUNTER → 2025-03-05 09:10 | Outpatient (BNVA) | payer OTHER, SELFPAY | PROVIDERS: PCP Internal Medicine; Visit Provider Physician Assistant Medical | DX: I10 Essential (primary) hypertension (principal); C61 Malignant neoplasm of prostate; Z79.899 Other long term (current) drug therapy | CPT/HCPCS: 96127 ==

== ENCOUNTER 2025-04-08 13:16 | Outpatient (AMB) | payer OTHER, SELFPAY ==
--- NOTE | 2025-04-08 13:21 | A.OFFVIS_ITS ---
Intake Visit Reasons: 6m/Greenlight f/u and [facility] Intake Note: Patient is present for follow up greenlight laser and [facility] Urology Medication:TERAZOSIN,DUTASTERIDE,ABIRATERONE Antibiotic Allergy:NONE Blood Thinner:NONE Auriculotherapist Required: No Accompanied by: Self / Same As Patient Allergies No Known Allergies Allergy (Verified 03/05/25 10:14) HPI Comments Details: Ortiz is a very pleasant male. He is seen for the following urologic conditions - urinary retention lower urinary tract symptoms - metastatic prostate cancer Ortiz has had a number of medical issues he has been addressing since September 01 Initial presentation was with retention, markedly elevated creatinine to 27, CT scan with bilateral hydro uretero nephrosis and markedly distended bladder with enlarged prostate. Sclerotic lesions noted on the bony floor suspicious for metastatic prostate cancer. Initial PSA 90. Much of this resolved with Flores catheter placement. 04/02 <01 T1, Cr 0.9 Here for [facility] Discussed results - very good response Three-month follow-up lab work tele and renal ultrasound - plan for PET-CT in September 09 PSA 1.1 T 17 11/02 [facility] Lower urinary tract symptoms Greenlight laser 03/02 Prostate cancer 09/01 multi core, high-grade PSA at diagnosis 90 Initial therapy bicalutamide since had concomitant adenocarcinoma of the bowel identified. Subsequent initiation of hormonal blockade In hospital biopsy Artemio score: 7 (4+3) (left mid medial and left apex medial) 8 (4+4) (right base lateral and medial, right mid lateral and medial and right apex lateral) 9 (4+5) (right apex medial) % of pattern 4: 95% % of pattern 5: 2% Grade group: 5, 4 and 3 Tumor quantitation: Number cores positive: 7 Total number of cores: 13 % of tissue involved: 33% Periprostatic fat inv.: Not identified Seminal vesicle inv.: Not identified Perineural inv.: Present Lymphovascular invasion: Foci suspicious for lymphovascular invasion Staging bone scan 09/01 with probable left acetabular sclerotic lesion Lower urinary tract symptoms Large prostate GreenLight laser prostatectomy [facility] Medical History History of chemotherapy Vitamin D deficiency Hyperlipidemia Mild hypercholesterolemia Sinus tachycardia Overweight with body mass index (BMI) of 27 to 27.9 in adult Self-catheterizes urinary bladder Adenoma of ascending colon Indwelling Flores catheter present Colonic mass Hypertension Hx of endocrine hypertension Prostate cancer Surgical History Hx of surgical procedure (~09/16/24) History of esophagogastroduodenoscopy (EGD) H/O colonoscopy (~09/05/24) Hx of cystoscopy Family History Father No problems noted. Mother Dementia Breast cancer BP (high blood pressure) Social History Household Members: None Housing: Apartment Are you a primary director of career resources to a significant other at home: No Do you presently have visiting nurse or other home services: No Alcohol intake: current Alcohol intake frequency: does not drink Patient Tobacco Use Status: Former Tobacco user Tobacco use type: Cigarette Years Smoked: 20 Advance Directives Date on File: 09/01/24 service: No Current occupational status: employed Cognitive needs: No Hearing needs: No Vision needs: No Review of Systems Const Denies chills and Denies fever(s) Card Reports no additional complaints and Denies syncope Resp Denies cough GI Denies abdominal pain and Denies heartburn Reports as per HPI and Denies change in libido Neuro Denies syncope Psych Denies change in libido Endo Denies change in libido Physical Exam Const General: cooperative, healthy appearing, comfortable and no acute distress Orientation/consciousness: patient oriented x3 HEENT Face and sinus: Yes normal facial exam Mouth: moist mucous membranes Neck Neck: Yes normal visual inspection, Yes full ROM and Yes trachea midline Chest Chest palpation & inspection: normal inspection of the chest Resp Effort & Inspection: normal respiratory effort, able to speak in complete sentences and no respiratory distress GI Inspection: Yes normal to inspection Back/Spine/Pelvis Cervical Spine: normal cervical lordosis Thoracic/Lumbar Spine: thoracic and lumbar spine normal to inspection Skin General skin exam: no rashes or lesions noted Neuro General: patient oriented x3, gait normal, tone normal and moves all extremities Extrem General: Yes normal to inspection and Yes capillary refill normal Office Meds Eligard (6 month) 45 mg (6 month) subcutaneous syringe Performing Provider: Morales Carbone MD [facility] Administered by: Junie Carrion RN on 04/08/25 14:09 Dose Route Admin Location Dispensed Lot Number Expiration Date NDC Hostage Negotiator 45 mg subcut left upper arm 45 mg [id number] 06/09/26 83632-991-28 TO [employer]. Total Dispensed Waste 45 mg 0 % Results AMB Urinalysis, Automated UA Leukoctes 500 Jessica/uL Last Edit by Kendy Stephenson, PA on 04/08/25 15:28 UA Nitrite Negative Last Edit by [facility] on 04/08/25 15:28 UA Urobilinogen 3.5 mg/dL Last Edit by [facility] on 04/08/25 15:28 UA Protein 15 mg/dL Last Edit by [facility] on 04/08/25 15:28 UA pH 7.0 Last Edit by [facility] on 04/08/25 15:28 UA Blood 80 Durga/uL Last Edit by [facility] on 04/08/25 15:28 UA Specific [place] 1.015 Last Edit by [facility] [place] on 04/08/25 15:28 UA Ketone Negative Last Edit by [facility] [place] on 04/08/25 15:28 UA Bilirubin 0 mg/dL Last Edit by [facility] [place] on 04/08/25 15:28 UA Glucose 0 mg/dL Last Edit by [facility] [place] on 04/08/25 15:28 Results Reviewed Results Reviewed: Laboratory Last Values Urine pH (Auto) 7.0 04/08/25 15:05 Specific [place] (Auto) 1.015 04/08/25 15:05 Urine Protein (Auto) 15 mg/dL 04/08/25 15:05 Glucose (UA)(Auto) 0 mg/dL 04/08/25 15:05 Urine Ketones (Auto) Negative 04/08/25 15:05 Urine Blood (Auto) 80 Durga/uL 04/08/25 15:05 Urine Nitrite (Auto) Negative 04/08/25 15:05 Urine Bilirubin (Auto) 0 mg/dL 04/08/25 15:05 Urine Urobilinogen (Auto) 3.5 mg/dL 04/08/25 15:05 Leukocyte Esterase (Auto) 500 Jessica/uL 04/08/25 15:05 Assessment & Plan Assessment & Plan (1) Prostate cancer: Code(s): C61 - Malignant neoplasm of prostate Category: Medical (2) Urinary retention with incomplete bladder emptying: Code(s): R33.9 - Retention of urine, unspecified Category: Medical Plan Three-month follow-up renal ultrasound lab work Orders: Orders AMB Leuprolide Injection - Practice Supplied Today C61 - Malignant neoplasm of prostate AMB Urinalysis Automated Today Z13.9 - Encounter for screening, unspecified Prostate Specific Antigen 3 Months C61 - Malignant neoplasm of prostate Testosterone, Total 3 Months C61 - Malignant neoplasm of prostate US renal BI 3 Months C61 - Malignant neoplasm of prostate Patient Instructions: This note is constructed using voice recognition software. While every effort has been made to ensure accuracy commutator tester errors may have been included. Imaging studies, laboratory and physical exam results were discussed and reviewed in detail. No major barriers to patient understanding were identified. An opportunity to ask questions regarding the treatment plan was provided. All questions were answered. The patient expressed understanding and agreement with the above treatment plan. The patient is aware they should contact our office by phone for worsening of their current condition or the appearance of new urologic symptoms. Compliance is encouraged with any medications and followup testing that is ordered. It is a privilege to participate in the urologic care of your patient. If you have any questions or concerns regarding treatment for the above conditions, or other urologic issues, please do not hesitate to contact me. The office telephone contact is [phone]. Sincerely, Dr Morales Carbone MD, [facility] - Urology Compassionate Specialist Care for the Genitourinary System Coding Level of Care Code Est Pt Level 3 (73597) Complex EM visit Add On G2211 Diagnoses Prostate cancer C61 Urinary retention with incomplete bladder emptying R33.9
--- OUTSIDE RECORDS SUMMARY | 2025-04-08 14:26 | XMS_ITS | Patient Health Record ---
Author Organization [facility] Address [address] [place] [address] Care Team Providers Care Refrigerated National Truck Driver Name Role Phone NONE, NONE Primary Care Provider Litzy MooneyBabak Amy [phone] Results Component Value Reference Range Notes Hold Lav - Possible Hematolo gy Reviewed date:09/03/2024 01:08:51 PM Interpretation: Performing Lab:[facility], [address] [place] [phone] Notes/Report: Hold Lav - Possible Hematology SEE NOTE Specimen will be held untested for 8 hours. Call Hematology if testing is desired. Prothrombin Time INR Reviewed date:09/03/2024 01:08:58 PM Interpretation: Performing Lab:[facility], [address] [place] [phone] Notes/Report: Prothrombin Time 13.9 10.9-12.4 SEC INTERNATIONAL [...] (Free>4and<10) Reviewed date:09/03/2024 01:09:06 PM Interpretation: Performing Lab:[facility], [address] [place] [phone] Notes/Report: PSA,Total (Free>4and<10) 89.85 0.00-4.00 ng/mL A [...] Folate Reviewed date:09/03/2024 01:09:13 PM Interpretation: Performing Lab:[address] [address] Notes/Report: Vitamin B12 815 200-900 pg/mL NORMAL 200-900 PG/ML INDETERMINATE 160-199 PG/ML DEFICIENT < 160 PG/ML Folate 10.6 > or = 4.0 ng/mL Reference Values: > or = 4.0 ng/mL < 4.0 ng/mL suggests folate deficiency Methotrexate, aminopterin and folinic acid (leucovorin) are chemotherapeutic agents whose molecular structures are similar to folate; therefore, the [employer] folate assay cannot be used for patients using these drugs. Complete Blood Count Auto Di ff Reviewed date:09/04/2024 11:48:44 PM Interpretation: Performing Lab:[address] [address] Notes/Report: White Blood Count 11.7 4.8-10.8 X10*3/uL [...] g Reviewed date:09/04/2024 11:48:55 PM Interpretation: Performing Lab:[address] [address] Notes/Report: Sodium 144 135-145 mmol/L Potassium 2.9 3.3-5.1 mmol/L Critical [Potassium] sent by a secure message and confirmed by (Dr. Sharma, 09/04/24 0811) Tech: GALENSA Chloride 105 96-108 mmol/L Carbon [...] (Not yet reviewed by provider) Interpretation: Performing Lab:[address] [phone] Notes/Report: Complete Blood Count Auto Di ff Reviewed date:09/06/2024 11:27:04 AM Interpretation: Performing Lab:[facility], [address] [place] [phone] Notes/Report: White Blood Count 13.1 4.8-10.8 X10*3/uL [...] g Reviewed date:09/06/2024 11:27:36 AM Interpretation: Performing Lab:[facility], [address] [place] [phone] Notes/Report: Sodium 143 135-145 mmol/L Potassium 3.4 [...] Notes Problem Malignant tumor of ascending colon (006341972) Malignant neoplasm of ascending colon (C18.2) Active confirmed Problem 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) (611360809) 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 [address] [place] [address] [id number] LYNNE MCCONNELL Self - patient is the insured
== END 2025-04-08 14:11 | disposition home or self-care (01) ==
LOC: HO.HUSH 13:16
PROVIDERS: Visit Provider Urology
DX: C61 Malignant neoplasm of prostate (principal); R33.9 Retention of urine, unspecified; Z13.9 Encounter for screening, unspecified
CPT/HCPCS: 99024

== ENCOUNTER → 2025-04-08 13:16 | Outpatient (BNVA) | payer OTHER, SELFPAY | PROVIDERS: Visit Provider Urology | DX: C61 Malignant neoplasm of prostate (principal); R33.9 Retention of urine, unspecified; E55.9 Vitamin D deficiency, unspecified; E78.00 Pure hypercholesterolemia, unspecified; R00.0 Tachycardia, unspecified; I10 Essential (primary) hypertension; Z96.0 Presence of urogenital implants; Z92.21 Personal history of antineoplastic chemotherapy; Z87.891 Personal history of nicotine dependence | CPT/HCPCS: 81003; 96402; J9217 ==

== ENCOUNTER 2025-04-23 09:40 | Outpatient (AMB) | payer OTHER, SELFPAY ==
--- NOTE | 2025-04-23 10:13 | A.OFFVIS_ITS ---
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/HTN Intake Note: New dx HTN feeling good Major Assembly Inspector Required: No Allergies No Known Allergies Allergy (Verified 03/05/25 10:14) Medication List - Last Reconciled 04/23/25 by Toby Garcia MD abiraterone 1,000 mg (2 x 500 mg) PO DAILY amlodipine 10 mg PO DAILY cholecalciferol (vitamin D3) 125 mcg PO DAILY ferrous sulfate 324 mg PO BID hydrochlorothiazide 25 mg PO DAILY metoprolol succinate ER 100 mg See Protocol PO DAILY prednisone 5 mg PO DAILY rosuvastatin (Crestor) 10 mg PO DAILY valsartan 80 mg PO DAILY HPI Comments Details: Thank you for referring Ortiz in cardiology consultation today for management of high blood pressure. He is a pleasant 70-year-old male with recently noted significantly elevated blood pressure which has led to escalation of his blood pressure regimen but has continued elevated blood pressure most of the time as per him. Most of the time his blood pressure is still in his systolic 130-140 range at home. He in the last 9 months has had multiple comorbidities including urinary obstruction related to prostate and subsequently was diagnose prostate cancer. He also had colon cancer status post colectomy and currently is undergoing chemotherapy. He is currently on abiraterone as well as prednisone therapy which she takes on a regular basis. He would also taking all his medications prescribed for his blood pressure recently all in the morning time. He said occasionally in the afternoon time he gets lightheaded. His blood pressure in the afternoon time related usually well controlled. He denies any syncopal episodes. He denies any exertional symptoms. He said he might have had high blood pressure for few years although he did not have any symptoms and it was never corrected in the past. He denies any symptoms of exertional chest pain or shortness of breath. No orthopnea, PND, leg edema. Takes all his medications regularly. He is very compliant. He has started to watch the salt in his diet and improve the salt intake. [facility] Medical History History of chemotherapy Vitamin D deficiency Hyperlipidemia Mild hypercholesterolemia Sinus tachycardia Overweight with body mass index (BMI) of 27 to 27.9 in adult Self-catheterizes urinary bladder Adenoma of ascending colon Indwelling Flores catheter present Colonic mass Hypertension Hx of endocrine hypertension Prostate cancer Surgical History Hx of surgical procedure (~09/16/24) History of esophagogastroduodenoscopy (EGD) H/O colonoscopy (~09/05/24) Hx of cystoscopy Family History Father No problems noted. Mother Dementia Breast cancer BP (high blood pressure) Social History Household Members: None Housing: Apartment Are you a primary medicare specialist to a significant other at home: No Do you presently have visiting nurse or other home services: No Alcohol intake: current Alcohol intake frequency: does not drink Patient Tobacco Use Status: Former Tobacco user Tobacco use type: Cigarette Years Smoked: 20 Advance Directives Date on File: 09/01/24 service: No Current occupational status: employed Cognitive needs: No Hearing needs: No Vision needs: No Review of Systems Const Denies chills, Denies daytime sleepiness, Denies fatigue, Denies fever(s), Denies frequent falls, Denies poor appetite, Denies snoring, Denies stops breathing during sleep, Denies weakness, Denies weight gain and Denies weight loss Eyes Denies loss of vision ENT Denies dizziness and Denies hearing loss Card Denies chest pain, Denies claudication, Denies leg edema, Denies lightheadedness, Denies palpitations, Denies dyspnea, Denies dyspnea on exertion and Denies orthopnea Resp Denies cough, Denies excessive phlegm production, Denies dyspnea, Denies dyspnea on exertion, Denies snoring and Denies wheezing GI Denies abdominal pain, Denies hematochezia, Denies change in bowel habits, Denies nausea and Denies vomiting Denies dysuria and Denies urinary frequency Musc Denies arthralgias, Denies muscle weakness, Denies numbness and Denies other (frequent falls) Skin/Breast Denies nail changes and Denies rash Neuro Denies Abnormal speech present, Denies dizziness, Denies frequent falls, Denies loss of vision, Denies memory loss, Denies numbness and Denies weakness Psych Denies depression and Denies memory loss Endo Denies fatigue and Denies palpitations Amador/Lymph Reports easy bruising and Reports other (anemia) Aller/Immun Denies wheezing Physical Exam Vital Signs: Last Vital Signs Pulse 90 04/23/25 10:14 BP 144/80 H 04/23/25 10:14 BMI result Body Mass Index 28.5 Const General: cooperative, comfortable, alert, awake and Physically active Nutritional Appearance: overweight Orientation/consciousness: patient oriented x3 HEENT Head: Yes normocephalic and Yes atraumatic Neck Neck: Yes trachea midline, Yes supple and Yes no JVD Resp Effort & Inspection: normal respiratory effort Auscultation: clear to auscultation bilaterally Cardio Jugular venous distension: no JVD Palpation: normal PMI Rate: regular rate Rhythm: regular rhythm Heart sounds: S1 normal heart sound present, S2 normal heart sound present, no click, no gallops, no murmurs and no rubs GI Auscultation: normal bowel sounds Skin General skin exam: no rashes or lesions noted Neuro General: patient oriented x3 and no focal motor deficits Speech: No Abnormal speech present Extrem General: Yes no clubbing, cyanosis or edema Psych Appearance: grossly normal Office Procedures EKG Details: EKG shows normal sinus rhythm with T-wave changes noted in inferior inferolateral, most suggestive of repolarization abnormality [id number], Complete Assessment & Plan Assessment & Plan (1) Hypertension: Code(s): I10 - Essential (primary) hypertension Category: Medical Plan: Uncontrolled hypertension in this elderly gentleman on multiple medications at current point time. He is tolerating the medication with with occasional lightheadedness in the afternoon time. This may suggest lowering of his blood pressure. At this point time given his length of hypertension I think he may benefit from statin in his medications. I have advised him to take his amlodipine at suppertime. Meanwhile I have advised him to increase his valsartan to 160 mg and have combined with hydrochlorothiazide therapy as a combination therapy. Understands agrees. He is probably going to have blood pressure issues given that he is on steroid therapy. This needs to be monitored. Once his steroid has been discontinued possible as blood pressure will reduce further and at that point in time he may need to adjust his medications again. We discussed about monitoring his blood pressure at home. Maintain target less than 130/84 most of the time. This was discussed with him. Potential care home end-organ damage related to hypertension was discussed. Will obtain echocardiogram to assess for LV systolic and diastolic function. Otherwise he is clinically not currently having any significant symptoms related with exertion and no further workup is indicated. Follow-up blood pressure check in 1 month's time. Will follow up in the clinic in 6 months time, sooner p.r.n.. Thank you for allowing me to partake in his care Orders: Orders CA echo transthoracic complete Today I10 - Essential (primary) hypertension Medications: New valsartan-hydrochlorothiazide 160-25 mg 1 tab PO DAILY 30 tabs 5RF Changed From amlodipine 10 mg PO DAILY 90 tabs 1RF To amlodipine 10 mg PO .supper time 90 tabs 1RF Discontinued valsartan Discontinued Reason: Doctor's Order 80 mg PO DAILY 90 tabs 1RF hydrochlorothiazide Discontinued Reason: Doctor's Order 25 mg PO DAILY 90 tabs 1RF Coding Level of Care Code New Pt Level 4 (48110) Complex EM visit Add On G2211 Diagnoses Hypertension I10 CPT Codes EKG - CPT: 51829-[id number], Complete ([id number])
[2025-04-23 10:14] VITALS: BP 144/80; PULSE 90; BMI 28.5
--- OUTSIDE RECORDS SUMMARY | 2025-04-23 10:16 | XMS_ITS | Patient Health Record ---
Author Organization [facility] Address [address] [place] [address] Care Team Providers Care Hotel Operation Manager Name Role Phone NONE, NONE Primary Care Provider Litzy MooneyBabak Amy [phone] Results Component Value Reference Range Notes Hold Lav - Possible Hematolo gy Reviewed date:09/03/2024 01:08:51 PM Interpretation: Performing Lab:[facility], [address] [place] [phone] Notes/Report: Hold Lav - Possible Hematology SEE NOTE Specimen will be held untested for 8 hours. Call Hematology if testing is desired. Prothrombin Time INR Reviewed date:09/03/2024 01:08:58 PM Interpretation: Performing Lab:[facility], [address] [place] [phone] Notes/Report: Prothrombin Time 13.9 10.9-12.4 SEC INTERNATIONAL [...] (Free>4and<10) Reviewed date:09/03/2024 01:09:06 PM Interpretation: Performing Lab:[facility], [address] [place] [phone] Notes/Report: PSA,Total (Free>4and<10) 89.85 0.00-4.00 ng/mL A [...] Folate Reviewed date:09/03/2024 01:09:13 PM Interpretation: Performing Lab:[address] [phone] Notes/Report: Vitamin B12 815 200-900 pg/mL NORMAL 200-900 PG/ML INDETERMINATE 160-199 PG/ML DEFICIENT < 160 PG/ML Folate 10.6 > or = 4.0 ng/mL Reference Values: > or = 4.0 ng/mL < 4.0 ng/mL suggests folate deficiency Methotrexate, aminopterin and folinic acid (leucovorin) are chemotherapeutic agents whose molecular structures are similar to folate; therefore, the Nursing Executive folate assay cannot be used for patients using these drugs. Complete Blood Count Auto Di ff Reviewed date:09/04/2024 11:48:44 PM Interpretation: Performing Lab:[address] [phone] Notes/Report: White Blood Count 11.7 4.8-10.8 X10*3/uL [...] g Reviewed date:09/04/2024 11:48:55 PM Interpretation: Performing Lab:[address] [phone] Notes/Report: Sodium 144 135-145 mmol/L Potassium 2.9 3.3-5.1 mmol/L Critical [Potassium] sent by a secure message and confirmed by (Dr. Sharma, 09/04/24 0896) Tech: GALENSA Chloride 105 96-108 mmol/L Carbon [...] (Not yet reviewed by provider) Interpretation: Performing Lab:[address] [phone] Notes/Report: Complete Blood Count Auto Di ff Reviewed date:09/06/2024 11:27:04 AM Interpretation: Performing Lab:[facility], [address] [place] [phone] Notes/Report: White Blood Count 13.1 4.8-10.8 X10*3/uL [...] g Reviewed date:09/06/2024 11:27:36 AM Interpretation: Performing Lab:[facility], [address] [place] [phone] Notes/Report: Sodium 143 135-145 mmol/L Potassium 3.4 [...] Notes Problem Malignant tumor of ascending colon (085391593) Malignant neoplasm of ascending colon (C18.2) Active confirmed Problem 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 Problem Diverticular disease of colon (074952341) Diverticulosis of large intestine without perforation or abscess without bleeding (K57.30) Active confirmed Encounters Encounter Location Date Provider [place] [facility] [place] [address] [place] [id number] 09/04/2024 Babak Mooney Plan Of Treatment Pending Test Test Name Order Date Pathology 09/04/2024 Insurance Providers Payer Name Payer Address Payer Phone Subscriber Number Group Number Insured Name Patient Relationship to Insured Coverage Start Date Coverage End Date [employer] [place] [address] [address] [place] [address] [id number] LYNNE MCCONNELL Self - patient is the insured
== END 2025-04-23 10:52 | disposition home or self-care (01) ==
LOC: HO.HCS 09:41
PROVIDERS: PCP Internal Medicine; Visit Provider Internal Medicine Cardiovascular Disease
DX: I10 Essential (primary) hypertension (principal)
CPT/HCPCS: 93010; 99214

== ENCOUNTER → 2025-04-23 09:40 | Outpatient (BNVA) | payer OTHER, SELFPAY | PROVIDERS: PCP Internal Medicine; Visit Provider Internal Medicine Cardiovascular Disease | DX: I10 Essential (primary) hypertension (principal); R94.31 Abnormal electrocardiogram [ECG] [EKG]; I45.81 Long QT syndrome | CPT/HCPCS: 93005 ==

== ENCOUNTER → 2025-05-15 09:46 | Outpatient (REF) | payer OTHER, SELFPAY ==
--- NOTE | 2025-05-15 09:52 | CA_ITS ---
Transthoracic Echocardiogram Patient (Last, First, Middle): Ortiz Quispe B Gender: Male Date of : 1955 Age: 70 Procedure Date: 05/15/2025 Procedure Type: Transthoracic Echocardiogram Location: OP Height: 172. cm Weight: 81.65 kg BSA: 1.95 m2 Heart Rate: 91 bpm BP: 165 / 90 mmHg Laminating Press Operator: JENNIFER Referring MD: Toby Garcia MD Symptoms: I10 - Essential (primary) hypertension Study Quality: Adequate ECG Rhythm: Sinus Conclusions: - The left ventricular systolic function is normal. The calculated ejection fraction is 57% by biplane method. - No obvious valvular pathology seen on this study. Findings Left Ventricle Normal left ventricular cavity size. There is normal left ventricular wall thickness. The left ventricular systolic function is normal. The calculated ejection fraction is 57% by biplane method. There is no evidence of regional wall motion abnormalities. Diastolic function is normal for age. Right Ventricle Normal right ventricular cavity size and systolic function. Atria Both atria are normal in size. Aortic Valve There is a normal trileaflet aortic valve. There is no aortic valve stenosis. There is no aortic valve regurgitation. Mitral Valve The mitral valve appears normal. There is no mitral valve regurgitation. There is no mitral valve stenosis. Pulmonic Valve The pulmonic valve is likely normal. Tricuspid Valve There is trace tricuspid valve regurgitation. There is no evidence of pulmonary hypertension. Great Vessels The asc aorta is normal in size. Venous The inferior vena cava is normal in size and collapses greater than 50% with inspiration. Pericardium/Pleural There is no evidence of pericardial effusion. Prior Study Comparison No prior study available for comparison. Recommendations, Care & Conclusions No obvious valvular pathology seen on this study. Measurements 2D Linear Measurements IVSd: 0.97 0.6-0.9/0.6-1.0 cm LVIDd: 4.43 3.9-5.3/4.2-5.9 cm LVIDd Index: 2.27 2.4-3.2/2.2-3.1 cm/m2 LVIDs: 2.93 2.0-3.6 cm LVPWd: 0.98 0.7-1.1 cm LA Diam: 3.40 2.7-3.8/3.0-4.0 cm LAIDs Index: 1.74 1.5-2.3 cm/m2 LV Mass: 178.90 67-162/88-224 g LV Mass Index: 91.75 43-95/49-115 g/m2 LVOT Diam: 2.00 3.0+(-)1.3 cm 2D Systolic Function EF 4C: 58.00 >55% EF 2C: 57.00 >55% EF BiP: 57.20 >55% Mitral Valve MV Pk E: 0.81 MV PK A: 1.17 MV Decel Time: 213.00 E/A: 0.70 E'Lateral: 8.27 E'Medial: 5.66 E/E' Med: 14.30 E/E' Lat: 9.80 PHT: 62.00 MVA PHT: 3.55 Decel Norman: 3.80 Aortic Valve AoV Pk Louie: 1.25 AoV Mn Louie: 0.92 AoV VTI: 0.25 AoV Pk Grad: 6.00 Aov Mn Grad: 4.00 [place] Cont.VTI: 2.33 LVOT LVOT Pk Louie: 1.02 LVOT Mn Louie: 0.72 LVOT VTI: 0.18 LVOT Pk Grad: 4.00 LVOT Mn Grad: 2.00 LVOT Diam: 2.00 LVOT Area: 3.14 Diastolic Function MV Pk E: 0.81 MV Pk A: 1.17 E/A: 0.70 E'Medial: 5.66 E/E' Med: 14.30 E' Laterial: 8.27 E/E' Lat: 9.80 Right Ventricle TAPSE (mm): 26.30 TVS' Louie: 11.70 Tricuspid Valve RA Press: 3.00 Great Vessels Aorta Sinus of Valsalva: 3.10 2.0-3.5 cm Ao Asc: 3.20 2.1-3.4 cm Ao Arch: 2.60 Pulmonary Valve PV Pk Louie: 0.90 Peak PV Grad: 3.00 Updated in Other Vendor System with Status of Final Marlon Ortiz MD electronically signed on 05/17/2025 11:59:45 AM with status of Final
--- OUTSIDE RECORDS SUMMARY | 2025-05-15 10:16 | XMS_ITS | Patient Health Record ---
Author Organization [facility] Address [address] [place] [address] Care Team Providers Care Director Of Solutions Architecture Name Role Phone NONE, NONE Primary Care Provider Litzy MooneyBabak Amy [phone] Results Component Value Reference Range Notes Hold Lav - Possible Hematolo gy Reviewed date:09/03/2024 01:08:51 PM Interpretation: Performing Lab:[facility], [address] [place] [phone] Notes/Report: Hold Lav - Possible Hematology SEE NOTE Specimen will be held untested for 8 hours. Call Hematology if testing is desired. Prothrombin Time INR Reviewed date:09/03/2024 01:08:58 PM Interpretation: Performing Lab:[facility], [address] [place] [phone] Notes/Report: Prothrombin Time 13.9 10.9-12.4 SEC INTERNATIONAL [...] (Free>4and<10) Reviewed date:09/03/2024 01:09:06 PM Interpretation: Performing Lab:[facility], [address] [place] [phone] Notes/Report: PSA,Total (Free>4and<10) 89.85 0.00-4.00 ng/mL A [...] Reviewed date:09/03/2024 01:09:13 PM Interpretation: Performing Lab:[address] [phone] Notes/Report: Vitamin B12 815 200-900 pg/mL NORMAL 200-900 PG/ML INDETERMINATE 160-199 PG/ML DEFICIENT < 160 PG/ML Folate 10.6 > or = 4.0 ng/mL Reference Values: > or = 4.0 ng/mL < 4.0 ng/mL suggests folate deficiency Methotrexate, aminopterin and folinic acid (leucovorin) are chemotherapeutic agents whose molecular structures are similar to folate; therefore, the [employer] Officer folate assay cannot be used for patients using these drugs. Complete Blood Count Auto Di ff Reviewed date:09/04/2024 11:48:44 PM Interpretation: Performing Lab:[address] [phone] Notes/Report: White Blood Count 11.7 4.8-10.8 X10*3/uL [...] g Reviewed date:09/04/2024 11:48:55 PM Interpretation: Performing Lab:[address] [phone] Notes/Report: Sodium 144 135-145 mmol/L Potassium 2.9 3.3-5.1 mmol/L Critical [Potassium] sent by a secure message and confirmed by (Dr. Sharma, 09/04/24 0857) Tech: GALENSA Chloride 105 96-108 mmol/L Carbon [...] (Not yet reviewed by provider) Interpretation: Performing Lab:[address] [phone] Notes/Report: Complete Blood Count Auto Di ff Reviewed date:09/06/2024 11:27:04 AM Interpretation: Performing Lab:[facility], [address] [place] [phone] Notes/Report: White Blood Count 13.1 4.8-10.8 X10*3/uL [...] g Reviewed date:09/06/2024 11:27:36 AM Interpretation: Performing Lab:[facility], [address] [place] [phone] Notes/Report: Sodium 143 135-145 mmol/L Potassium 3.4 [...] Notes Problem Malignant tumor of ascending colon (704298400) Malignant neoplasm of ascending colon (C18.2) Active confirmed Problem 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) (995448172) 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 Problem Diverticular disease of colon (210141342) Diverticulosis of large intestine without perforation or abscess without bleeding (K57.30) Active confirmed Encounters Encounter Location Date Provider [place] [facility] [place] [address] [phone] 09/04/2024 Baabk Mooney Plan Of Treatment Pending Test Test Name Order Date Pathology 09/04/2024 Insurance Providers Payer Name Payer Address Payer Phone Subscriber Number Group Number Insured Name Patient Relationship to Insured Coverage Start Date Coverage End Date [employer] [place] [address] [address] [place] [address] [id number] LYNNE MCCONNELL Self - patient is the insured
== END ==
LOC: HO.CARD 09:46
PROVIDERS: PCP Internal Medicine; Visit Provider Internal Medicine Cardiovascular Disease
DX: I10 Essential (primary) hypertension (principal)
CPT/HCPCS: 93306

== ENCOUNTER → 2025-05-15 09:52 | Outpatient (BNV) | payer OTHER, SELFPAY | PROVIDERS: PCP Internal Medicine; Visit Provider Internal Medicine | DX: I10 Essential (primary) hypertension (principal) | CPT/HCPCS: 93306 ==

== ENCOUNTER 2025-06-04 09:24 | Outpatient (AMB) | payer OTHER, SELFPAY ==
--- OUTSIDE RECORDS SUMMARY | 2024-09-04 07:40 | XMS_ITS ---
Author Organization [place] [facility] Address [address] [place] [address] Care Team Providers Care Vinyl Hanger Name Role Phone NONE, NONE Primary Care Provider Babak Jain [phone] REASON FOR VISIT fe def anemia,abnormal ct scan of colon Encounters Encounter Location Date Provider Diagnosis [facility] [place] [address] [place], [place] [id number] 09/04/2024 Babak oMoney Plan Of Treatment No Information Progress Notes * LYNNE MCCONNELLDOB:1955 (70 yo M)Acc No.[id number]:09/04/2024 EGD and COL/MAC Patient: LYNNE WILSON Provider: Deneen Mooney MD :1955 A ge:69 Y S ex:Male Date:09/04/2024 Address:[address] [place], [place] [id number] Subjective: * Chief Complaints: * 1 . Fe def anemia,abnormal ct scan of colon. * Medical History: Objective: * Vitals: Assessment: Plan: * Treatment: * * The named appointment provid er may or may not be the originator of this progress note, and it is not deemed complete until electronically signed by the appointment provider. Sign off status: Pending * Provider: Deneen Mooney MD Date: 1 11/04/2023 Generated for Parish mcdowell/Edgardo/Shiraitting on: 0 06/04/2025 09:57 AM EDT
[2025-06-04 09:24] VITALS: BP 142/81; PULSE 99; RESP 16; TEMP 36.6; O2SAT 100; BMI 29.8
--- NOTE | 2025-06-04 09:24 | A.OFFPC_ITS ---
Vital Signs 06/04/25 09:24 Height 5 ft 8 in Weight 196 lb BMI 29.8 BP 142/81 H Blood Pressure Location Lt brachial Position Sitting Respiration 16 Pulse 99 Pulse Source Pulse Oximeter Temp 97.9 F Temp Source Temporal Artery Scan Pulse Oximetry (%) 100 Oxygen Delivery Method Room Air Intake Visit Reasons: 3 month f/u Audio Specialist Required: No Accompanied by: Grand Child Allergies No Known Allergies Allergy (Verified 06/04/25 11:59) Medication List - Last Reconciled 06/04/25 by Nereida Leone PA-C abiraterone 1,000 mg (2 x 500 mg) PO DAILY amlodipine 10 mg PO .supper time cholecalciferol (vitamin D3) 125 mcg PO DAILY metoprolol succinate ER 100 mg See Protocol PO DAILY prednisone 5 mg PO DAILY rosuvastatin (Crestor) 10 mg PO DAILY valsartan-hydrochlorothiazide 160-25 mg 1 tab PO DAILY Tobacco use date assessed: 01/29/25 Fall risk assessment: No Falls in past year Last assessed Fall Risk: 01/29/25 Dental Screening Dental Screen Date: 01/29/25 Did you have a dental visit in the last 12 months?: Yes Did you have a dental problem in the last 6 months where you did not have access to dental care?: No Was dental information given to patient?: Patient has dentist HPI 3 month f/u HPI Details The patient is a 70-year-old male presenting with a follow-up for hypertension management and ongoing cancer treatment. The patient has a history of metastatic prostate cancer diagnosed in August 2024, with a [place] score of 9 and a PSA of 89.85. The cancer has metastasized to the pelvic bones, and the patient was started on bicalutamide and leuprolide. The patient underwent a green light laser and enucleation of the prostate in February 2025. The patient also has a history of colon cancer diagnosed incidentally in August 2024, with resection of two polyps confirmed as invasive adenocarcinoma. Postoperative CEA levels decreased significantly from 18.6 to 1.73, indicating a positive response to the surgical intervention. The patient experienced acute renal failure secondary to obstructive uropathy, with non-contrast CT revealing hydronephrosis and an enlarged prostate. The patient is currently on medications including amlodipine, valsartan hydrochlorothiazide, and prednisone, among others, for management of his conditions. The patient is aware of the risk of hypercoagulability due to his cancer history and is advised to monitor for symptoms of blood clots. Social History - Employment: The patient is no longer w orking and has been terminated to maintain healthcare benefits. - Functional status: The patient reports no significant pain in the hips or bones and is managing well with current health conditions. [facility] Medical History (Updated 06/04/25 @ 12:04 by Nereida Leone PA-C) Prostate cancer metastatic to bone History of chemotherapy Vitamin D deficiency Hyperlipidemia Mild hypercholesterolemia Sinus tachycardia Overweight with body mass index (BMI) of 27 to 27.9 in adult Self-catheterizes urinary bladder Adenoma of ascending colon Indwelling Flores catheter present Colonic mass Hypertension Hx of endocrine hypertension Prostate cancer Surgical History Hx of surgical procedure (~09/16/24) History of esophagogastroduodenoscopy (EGD) H/O colonoscopy (~09/05/24) Hx of cystoscopy Family History Father No problems noted. Mother Dementia Breast cancer BP (high blood pressure) Social History Household Members: None Housing: Apartment Are you a primary healthcare corporate account director to a significant other at home: No Do you presently have visiting nurse or other home services: No Alcohol intake: current Alcohol intake frequency: does not drink Patient Tobacco Use Status: Former Tobacco user Tobacco use type: Cigarette Years Smoked: 20 Advance Directives Date on File: 09/01/24 service: No Current occupational status: employed Cognitive needs: No Hearing needs: No Vision needs: No Questionnaire PHQ-9 Over the last 2 weeks, how often have you been bothered by any of the following problems? 1. Little interest or pleasure in doing things: not at all 2. Feeling down, depressed, or hopeless: not at all 3. Trouble falling or staying asleep, or sleeping too much: not at all 4. Feeling tired or having little energy: not at all 5. Poor appetite or overeating: not at all 6. Feeling bad about yourself - or that you are a failure or have let yourself or your family down: not at all 7. Trouble concentrating on things, such as reading the newspaper or watching television: not at all 8. Moving or speaking so slowly that other people could have noticed. Or the opposite - being so fidgety or restless that you have been moving around a lot more than usual: not at all 9. Thoughts that you would be better off or of hurting yourself in some way: not at all Total score: 0 Depression Screening Interpretation: Negative Depression Screening Done: Yes 41657 - PHQ-9 Billing: Yes Source: Developed by Drs. Babak Stephenson, Tram Lockhart, Lc Joiner and colleagues, with an educational maryse from [employer]. Thrive Questionnaire Date Thrive assessed: 01/02/24 I am a: Patient What is your living situation today?: I have a steady place to live Within the past 12 months, did the food you bought not last and you didn't have the money to get more?: Never true Within the past 12 months, did you worry whether your food would run out before you got money to buy more?: Never true Do you have trouble paying for medicines?: No Do you have trouble getting transportation to medical appointments?: No Do you have trouble paying your heating and electricity bill?: No Do you have trouble taking care of your child, family member or friend?: No Do you have trouble with day-to-day activities such as bathing, preparing meals, shopping, managing finances, etc.?: No Are you currently unemployed and looking for a job?: No Are you interested in more education?: No THRIVE Score: 0 AUDIT C Alcohol Use Questionnaire (AUDIT-C) 1. How often do you have a drink containing alcohol?: Never 3. How often do you have six or more drinks on one occasion?: Never Total Score: 0 Score Reviewed/Action Taken: No PRANEETH-7 AMB Questionnaire PRANEETH-7 Date PRANEETH - 7 assessed: 01/01/25 Feeling nervous, anxious, or on edge: 0 = Not at all Not being able to stop or control worryin = Not at all Worrying too much about different things: 0 = Not at all Trouble relaxin = Not at all Being so restless that it is hard to sit still: 0 = Not at all Becoming easily annoyed or irritable: 0 = Not at all Feeling afraid as if something awful might happen: 0 = Not at all Total PRANEETH-7 score (0-4 normal; 5-9 mild; 10-14 moderate; 15-21 severe): 0 Source: Developed by Drs. Babak Stephenson, Tram Lockhart, Lc Joiner and colleagues, with an educational maryse from [employer]. PRANEETH-7 Assessment Billing PRANEETH-7 Assessment Tool: PRANEETH-7 Assessment 10251 Review of Systems Const Details: - Cardiovascular: Denies chest pain, reports stable blood pressure readings. - Musculoskeletal: Denies swelling of the legs and back pain. - Gastrointestinal: Reports normal bowel movements. All systems reviewed & are unremarkable except as noted in HPI and below Physical exam (Primary Care) Vital Signs: Last Vital Signs Temp 97.9 F 06/04/25 09:24 Pulse 99 06/04/25 09:24 Resp 16 06/04/25 09:24 BP 142/81 H 06/04/25 09:24 Pulse Ox 100 06/04/25 09:24 Oxygen Delivery Method Room Air 06/04/25 09:24 Care Plan Goal for BP management: <140/90 1 blood pressure mildly elevated at 140 2/81 although patient on current blood pressure medication and currently being followed by Cardiology will not make any changes today patient will continue monitor his blood pressure BMI result Body Mass Index 29.8 BMI Assessment/Plan discussion: High BMI High, discussed plan: lifestyle, weight reduction, dietary, physical activity, alcohol moderation and other Tobacco/Smoking Status: Tobacco use Status Tobacco use date assessed 01/29/25 06/04/25 09:28 Patient Tobacco Use Status Former Tobacco user 06/04/25 09:28 Tobacco use type Cigarette 06/04/25 09:28 PHQ-9: PHQ-9 Score PHQ-9: Total score 0 06/04/25 10:04 Depression Screening Interpretation: Negative Thrive Assessment: Date of Thrive Assessment Date Thrive assessed 01/02/24 06/04/25 09:28 Const Other: Appearance: Alert. Oriented X3. No acute distress. Head: Normal external exam. Normocephalic. Atraumatic. Eyes: Pupils are equal, round, and reactive to light. Extraocular movements intact. Conjunctiva and sclera normal. Eyelids normal. Ears: External auditory canal normal. Tympanic membranes normal. Throat: Pharynx normal. Uvula midline. Moist mucous membranes. Neck: Normal inspection. Neck supple. Full range of motion. Cardiovascular: Normal heart rate and rhythm. Heart sound normal. No murmurs noted. Pulses normal throughout. Blood pressure recorded at 142/81. Respiratory: No respiratory distress. Painless inspiration. Breath sounds normal. No wheezes/rales/rhonchi noted. Chest nontender. No accessory muscle usage noted or decreased air movement noted. Abdomen: Soft and nontender. No distention noted. No organomegaly noted. Back: No costovertebral angle tenderness. Full range of motion noted. Skin: Skin warm and dry. Normal skin color. Normal skin turgor. No rashes/lesions/lacerations noted. Extremities: No lower extremity edema. Extremities exhibit normal range of motion. Extremities nontender. Neuro: Oriented X 3. No motor deficit. No sensory deficit. Reflexes normal. Results Reviewed Results Reviewed: - Echocardiogram: Ejection fraction 57%, normal left ventricular systolic function, no valvular pathology, no evidence of pulmonary hypertension. - CEA Levels: Preoperative 18.6, postoperative 1.73. Coding Level of Care Code Est Pt Level 4 (95493) Complex EM visit Add On G2211 Diagnoses Hypertension I10 Prostate cancer metastatic to bone C61; C79.51 Adenoma of ascending colon D12.2 Additional Codes PRANEETH-7 Assessment Billing - PRANEETH-7 Assessment Tool: PRANEETH-7 Assessment 90032 ([id number]) PHQ-9 - 02343 - PHQ-9 Billing: Yes ([id number]) Assessment & Plan Assessment & Plan (1) Hypertension: Code(s): I10 - Essential (primary) hypertension Category: Medical Plan: The patient is currently on a regimen of amlodipine and valsartan hydrochlorothiazide for hypertension management. Blood pressure readings have been stable, and the patient is advised to continue current medications and monitor blood pressure regularly. (2) Prostate cancer metastatic to bone: Code(s): C61 - Malignant neoplasm of prostate; C79.51 - Secondary malignant neoplasm of bone Category: Medical Plan: The patient is undergoing treatment with bicalutamide and leuprolide, with a noted decrease in PSA levels to less than 0.01. Follow-up with oncology is scheduled for June 11, and the patient is advised to continue current therapy. (3) Adenoma of ascending colon: Comment: Status post resection Code(s): D12.2 - Benign neoplasm of ascending colon Category: Medical Plan: The patient underwent resection of invasive adenocarcinoma polyps, with postoperative CEA levels showing significant improvement. Adjuvant chemotherapy is deferred due to the presence of metastatic prostate cancer and lack of high- risk factors for stage II colon cancer. Plan Plan Patient was informed and verbally consented to the use of an ambient scribe for clinic note documentation during this visit. 1. Essential Hypertension The patient is currently on a regimen of amlodipine and valsartan hydrochlorothiazide for hypertension management. Blood pressure readings have been stable, and the patient is advised to continue current medications and monitor blood pressure regularly. 2. Metastatic Prostate Cancer The patient is undergoing treatment with bicalutamide and leuprolide, with a noted decrease in PSA levels to less than 0.01. Follow-up with oncology is scheduled for June 11, and the patient is advised to continue current therapy. 3. Colon Cancer The patient underwent resection of invasive adenocarcinoma polyps, with postoperative CEA levels showing significant improvement. Adjuvant chemotherapy is deferred due to the presence of metastatic prostate cancer and lack of high- risk factors for stage II colon cancer. 4. Acute Renal Failure Secondary To Obstructive Uropathy The patient experienced acute renal failure due to obstructive uropathy, with hydronephrosis noted on imaging. Current management includes monitoring renal function and addressing underlying prostate enlargement. 5. Hypercoagulability Due To Cancer The patient is informed about the risk of hypercoagulability associated with cancer and advised to monitor for symptoms of thrombosis. Preventative measures include regular monitoring and reporting any signs of clotting to healthcare providers. During the visit, we discussed the management of the patient's hypertension and cancer treatment. The patient is advised to continue with the current medication regimen for hypertension and to monitor blood pressure regularly. We reviewed the patient's cancer treatment plan, including the use of bicalutamide and leuprolide for metastatic prostate cancer, and the decision to defer adjuvant chemotherapy for colon cancer due to the absence of high-risk factors. The patient is informed about the importance of monitoring for symptoms of hypercoagulability and is advised to report any signs of thrombosis immediately. Follow-up appointments with oncology and cardiology are scheduled to ensure ongoing management of the patient's conditions. Patient Instructions: - Continue taking prescribed medications as directed. - Monitor blood pressure regularly and report any significant changes. - Be aware of symptoms of blood clots, such as swelling or shortness of breath, and seek medical attention if they occur. - Attend follow-up appointments with oncology and cardiology as scheduled.
--- OUTSIDE RECORDS SUMMARY | 2025-06-04 09:57 | XMS_ITS | Patient Health Record ---
Author Organization [facility] Address [address] [place] [address] Care Team Providers Care Department Head [employer] Name Role Phone NONE, NONE Primary Care Provider Litzy MooneyBabak Amy [phone] Results Component Value Reference Range Notes Hold Lav - Possible Hematolo gy Reviewed date:09/03/2024 01:08:51 PM Interpretation: Performing Lab:[facility], [address] [place] [phone] Notes/Report: Hold Lav - Possible Hematology SEE NOTE Specimen will be held untested for 8 hours. Call Hematology if testing is desired. Prothrombin Time INR Reviewed date:09/03/2024 01:08:58 PM Interpretation: Performing Lab:[facility], [address] [place] [phone] Notes/Report: Prothrombin Time 13.9 10.9-12.4 SEC INTERNATIONAL [...] (Free>4and<10) Reviewed date:09/03/2024 01:09:06 PM Interpretation: Performing Lab:[facility], [address] [place] [phone] Notes/Report: PSA,Total (Free>4and<10) 89.85 0.00-4.00 ng/mL A [...] Folate Reviewed date:09/03/2024 01:09:13 PM Interpretation: Performing Lab:[address] [phone] Notes/Report: Vitamin B12 815 200-900 pg/mL NORMAL 200-900 PG/ML INDETERMINATE 160-199 PG/ML DEFICIENT < 160 PG/ML Folate 10.6 > or = 4.0 ng/mL Reference Values: > or = 4.0 ng/mL < 4.0 ng/mL suggests folate deficiency Methotrexate, aminopterin and folinic acid (leucovorin) are chemotherapeutic agents whose molecular structures are similar to folate; therefore, the Lens Assistant folate assay cannot be used for patients using these drugs. Complete Blood Count Auto Di ff Reviewed date:09/04/2024 11:48:44 PM Interpretation: Performing Lab:[address] [phone] Notes/Report: White Blood Count 11.7 4.8-10.8 X10*3/uL [...] g Reviewed date:09/04/2024 11:48:55 PM Interpretation: Performing Lab:[address] [phone] Notes/Report: Sodium 144 135-145 mmol/L Potassium 2.9 3.3-5.1 mmol/L Critical [Potassium] sent by a secure message and confirmed by (Dr. Sharma, 09/04/24 0886) Tech: GALENSA Chloride 105 96-108 mmol/L Carbon [...] (Not yet reviewed by provider) Interpretation: Performing Lab:[address] [phone] Notes/Report: Complete Blood Count Auto Di ff Reviewed date:09/06/2024 11:27:04 AM Interpretation: Performing Lab:[facility], [address] [place] [phone] Notes/Report: White Blood Count 13.1 4.8-10.8 X10*3/uL [...] g Reviewed date:09/06/2024 11:27:36 AM Interpretation: Performing Lab:[facility], [address] [place] [phone] Notes/Report: Sodium 143 135-145 mmol/L Potassium 3.4 [...] Notes Problem Malignant tumor of ascending colon (098049209) Malignant neoplasm of ascending colon (C18.2) Active confirmed Problem 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) (021817727) 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 [address] [place] [address] [id number] LYNNE MCCONNELL Self - patient is the insured
== END 2025-06-04 10:04 | disposition home or self-care (01) ==
LOC: HO.HMCSH 09:24
PROVIDERS: PCP Internal Medicine; Visit Provider Physician Assistant Medical
DX: I10 Essential (primary) hypertension (principal); C61 Malignant neoplasm of prostate; C79.51 Secondary malignant neoplasm of bone; D12.2 Benign neoplasm of ascending colon

== ENCOUNTER → 2025-06-04 09:24 | Outpatient (BNVA) | payer OTHER, SELFPAY | PROVIDERS: PCP Internal Medicine; Visit Provider Physician Assistant Medical | DX: I10 Essential (primary) hypertension (principal); C61 Malignant neoplasm of prostate; C79.51 Secondary malignant neoplasm of bone; Z86.0101 Personal history of adenomatous and serrated colon polyps | CPT/HCPCS: 96127 ==

== ENCOUNTER 2025-06-26 13:01 | Outpatient (REF) | payer MEDICARE, SELFPAY ==
[2025-06-26 15:47] LABS: Prostate Specific Antigen < 0.10 ng/mL (<0.05-4.0)
== END 2025-06-26 13:02 | disposition home or self-care (01) ==
LOC: HO.LAB 13:01
PROVIDERS: PCP Internal Medicine; Visit Provider Urology
DX: Z12.5 Encounter for screening for malignant neoplasm of prostate (principal); C61 Malignant neoplasm of prostate
CPT/HCPCS: 36415; 84153; 84403

== ENCOUNTER 2025-06-30 13:50 | Outpatient (REF) | payer MEDICARE, SELFPAY | END 2025-06-30 13:51 | disposition home or self-care (01) | LOC: HO.US 13:50 | PROVIDERS: PCP Internal Medicine; Visit Provider Urology | DX: C61 Malignant neoplasm of prostate (principal) | CPT/HCPCS: 76775 ==

== ENCOUNTER → 2025-06-30 13:53 | Outpatient (BNV) | payer MEDICARE, SELFPAY | PROVIDERS: PCP Internal Medicine; Visit Provider Radiology Diagnostic Radiology | DX: N28.1 Cyst of kidney, acquired (principal) | CPT/HCPCS: 76775 ==

== ENCOUNTER 2025-07-11 10:46 | Outpatient (AMB) | payer MEDICARE, SELFPAY ==
--- OUTSIDE RECORDS SUMMARY | 2024-09-04 07:40 | XMS_ITS ---
Author Organization [place] [facility] Address [address] [place] [address] Care Team Providers Care Tank Setter Helper Name Role Phone NONE, NONE Primary Care Provider Babak Jain [phone] REASON FOR VISIT fe def anemia,abnormal ct scan of colon Encounters Encounter Location Date Provider Diagnosis [facility] [place] [address] [place], [place] [id number] 09/04/2024 Babak Mooney Plan Of Treatment No Information Progress Notes * LYNNE MCCONNELLDOB:1955 (70 yo M)Acc No.[id number]:09/04/2024 EGD and COL/MAC Patient: LYNNE WILSON Provider: Deneen Mooney MD :1955 A ge:69 Y S ex:Male Date:09/04/2024 Address:[address] [place], [place] [phone] Subjective: * Chief Complaints: * 1 . [...] Date: 11/04/2023 Generated for Parish mcdowell/Edgardo/Shiraitting on: 11:48 AM EDT
--- NOTE | 2025-07-11 10:47 | A.OFFVIS_ITS ---
Intake Visit Reasons: 3m/PSA/Testo Intake Note: patient presents today for: telehealth 3m/PSA/testo urology medications: none blood thinners: none labs done 06/26/25: PSA <0.10, t-testo <1 US done: 06/30/25 Advertising Associate Required: No Accompanied by: Self / Same As Patient Allergies No Known Allergies Allergy (Verified 07/11/25 10:49) HPI Comments Details: Ortiz is a very pleasant male. He is seen for the following urologic conditions - urinary retention lower urinary tract symptoms - metastatic prostate cancer Telemedicine Evaluation 15 min Consultation [facility] Video Continue good results with current medications - plan repeat GnRH October with PET-CT Repeat lab work and GnRH in October. Will then assess for deescalation. 08/02 <0.1 <1T 05/02 <01 T1, Cr 0.9 - GnRH 12/03 PSA 1.1 T 17 11/02 GnRH Lower urinary tract symptoms Greenlight laser 03/02 Prostate cancer 09/01 multi core, high-grade PSA at diagnosis 90 Initial therapy bicalutamide since had concomitant adenocarcinoma of the bowel identified. Subsequent initiation of hormonal blockade Dwale score: 7 (4+3) (left mid medial and left apex medial) 8 (4+4) (right base lateral and medial, right mid lateral and medial and right apex lateral) 9 (4+5) (right apex medial) % of pattern 4: 95% % of pattern 5: 2% Grade group: 5, 4 and 3 Tumor quantitation: Number cores positive: 7 Total number of cores: 13 % of tissue involved: 33% Periprostatic fat inv.: Not identified Seminal vesicle inv.: Not identified Perineural inv.: Present Lymphovascular invasion: Foci suspicious for lymphovascular invasion Staging bone scan 09/01 with probable left acetabular sclerotic lesion Lower urinary tract symptoms Large prostate GreenLight laser prostatectomy [facility] Medical History (Updated 06/11/25 @ 09:47 by Liza Macias MD) Prostate cancer metastatic to bone History of chemotherapy Vitamin D deficiency Hyperlipidemia Mild hypercholesterolemia Sinus tachycardia Overweight with body mass index (BMI) of 27 to 27.9 in adult Self-catheterizes urinary bladder Adenoma of ascending colon Indwelling Flores catheter present Colonic mass Hypertension Hx of endocrine hypertension Prostate cancer Surgical History Hx of surgical procedure (~09/16/24) History of esophagogastroduodenoscopy (EGD) H/O colonoscopy (~09/05/24) Hx of cystoscopy Family History Father No problems noted. Mother Dementia Breast cancer BP (high blood pressure) Social History Household Members: None Housing: Apartment Are you a primary health care marketing specialist to a significant other at home: No Do you presently have visiting nurse or other home services: No Alcohol intake: current Alcohol intake frequency: does not drink Patient Tobacco Use Status: Former Tobacco user Tobacco use type: Cigarette Years Smoked: 20 Advance Directives Date on File: 09/01/24 service: No Current occupational status: employed Cognitive needs: No Hearing needs: No Vision needs: No Review of Systems Const Denies chills and Denies fever(s) Card Reports no additional complaints and Denies syncope Resp Denies cough GI Denies abdominal pain and Denies heartburn Reports as per HPI and Denies change in libido Neuro Denies syncope Psych Denies change in libido Endo Denies change in libido Physical Exam Const General: cooperative, healthy appearing, comfortable and no acute distress Orientation/consciousness: patient oriented x3 HEENT Face and sinus: Yes normal facial exam Mouth: moist mucous membranes Neck Neck: Yes normal visual inspection, Yes full ROM and Yes trachea midline Chest Chest palpation & inspection: normal inspection of the chest Resp Effort & Inspection: normal respiratory effort, able to speak in complete sentences and no respiratory distress GI Inspection: Yes normal to inspection Back/Spine/Pelvis Cervical Spine: normal cervical lordosis Thoracic/Lumbar Spine: thoracic and lumbar spine normal to inspection Skin General skin exam: no rashes or lesions noted Neuro General: patient oriented x3, gait normal, tone normal and moves all extremities Extrem General: Yes normal to inspection and Yes capillary refill normal Telehealth Telehealth Telehealth Platform: [facility] Location of provider rendering services: practice address Location of patient: address on file Patient Identification confirmed using: Name, : Yes Telehealth method: video Patient verbally consented to treatment: Yes Patient verbally consented to billing insurance company: Yes Patient informed of any privacy concerns related to visit: Yes Minutes spent on Phone/Video with Pt.: 15 Assessment & Plan Assessment & Plan (1) Prostate cancer metastatic to bone: Code(s): C61 - Malignant neoplasm of prostate; C79.51 - Secondary malignant neoplasm of bone Category: Medical Plan Three-month follow-up imaging lab work Orders: Orders Prostate Specific Antigen 3 Months C61 - Malignant neoplasm of prostate, C79.51 - Secondary malignant neoplasm of bone PET CT fusion skull to thigh 2 Months C61 - Malignant neoplasm of prostate, C79.51 - Secondary malignant neoplasm of bone Testosterone, Total 3 Months C61 - Malignant neoplasm of prostate, C79.51 - Secondary malignant neoplasm of bone Medications: Refilled abiraterone must be taken on empty stomach, at least 1 hr before or 2 hrs after a meal/food 1,000 mg (2 x 500 mg) PO DAILY 60 tabs 4RF C61 - Malignant neoplasm of prostate, C79.51 - Secondary malignant neoplasm of bone prednisone 5 mg PO DAILY 60 tabs 3RF C61 - Malignant neoplasm of prostate, C79.51 - Secondary malignant neoplasm of bone Patient Instructions: This note is constructed using voice recognition software. While every effort has been made to ensure accuracy automation mechanic errors may have been included. Imaging studies, laboratory and physical exam results were discussed and reviewed in detail. No major barriers to patient understanding were identified. An opportunity to ask questions regarding the treatment plan was provided. All questions were answered. The patient expressed understanding and agreement with the above treatment plan. The patient is aware they should contact our office by phone for worsening of their current condition or the appearance of new urologic symptoms. Compliance is encouraged with any medications and followup testing that is ordered. It is a privilege to participate in the urologic care of your patient. If you have any questions or concerns regarding treatment for the above conditions, or other urologic issues, please do not hesitate to contact me. The office telephone contact is [phone]. Sincerely, Dr Morales Carbone MD, [facility] - Urology Compassionate Specialist Care for the Genitourinary System Coding Level of Care Code Tele Est Pt Level 4 (73484) Complex EM visit Add On G2211 Diagnoses Prostate cancer metastatic to bone C61; C79.51
--- OUTSIDE RECORDS SUMMARY | 2025-07-11 11:48 | XMS_ITS | Patient Health Record ---
Author Organization [facility] Address [address] [place] [address] Care Team Providers Care Medical Administrative Assistant Name Role Phone NONE, NONE Primary Care Provider Litzy MooneyBabak Amy [phone] Results Component Value Reference Range Notes Hold Lav - Possible Hematolo gy Reviewed date:09/03/2024 01:08:51 PM Interpretation: Performing Lab:[facility], [address] [place] [phone] Notes/Report: Hold Lav - Possible Hematology SEE NOTE Specimen will be held untested for 8 hours. Call Hematology if testing is desired. Prothrombin Time INR Reviewed date:09/03/2024 01:08:58 PM Interpretation: Performing Lab:[facility], [address] [place] [phone] Notes/Report: Prothrombin Time 13.9 10.9-12.4 SEC INTERNATIONAL [...] (Free>4and<10) Reviewed date:09/03/2024 01:09:06 PM Interpretation: Performing Lab:[facility], [address] [place] [phone] Notes/Report: PSA,Total (Free>4and<10) 89.85 0.00-4.00 ng/mL A [...] Reviewed date:09/03/2024 01:09:13 PM Interpretation: Performing Lab:[address] [phone] Notes/Report: Vitamin B12 815 200-900 pg/mL NORMAL 200-900 PG/ML INDETERMINATE 160-199 PG/ML DEFICIENT < 160 PG/ML Folate 10.6 > or = 4.0 ng/mL Reference Values: > or = 4.0 ng/mL < 4.0 ng/mL suggests folate deficiency Methotrexate, aminopterin and folinic acid (leucovorin) are chemotherapeutic agents whose molecular structures are similar to folate; therefore, the Director Social Welfare folate assay cannot be used for patients using these drugs. Complete Blood Count Auto Di ff Reviewed date:09/04/2024 11:48:44 PM Interpretation: Performing Lab:[address] [phone] Notes/Report: White Blood Count 11.7 4.8-10.8 X10*3/uL [...] Reviewed date:09/04/2024 11:48:55 PM Interpretation: Performing Lab:[address] [phone] Notes/Report: Sodium 144 135-145 mmol/L Potassium 2.9 3.3-5.1 mmol/L Critical [Potassium] sent by a secure message and confirmed by (Dr. Sharma, 09/04/24 0876) Tech: GALENSA Chloride 105 96-108 mmol/L Carbon [...] yet reviewed by provider) Interpretation: Performing Lab:[address] [phone] Notes/Report: Complete Blood Count Auto Di ff Reviewed date:09/06/2024 11:27:04 AM Interpretation: Performing Lab:[facility], [address] [place] [phone] Notes/Report: White Blood Count 13.1 4.8-10.8 X10*3/uL [...] g Reviewed date:09/06/2024 11:27:36 AM Interpretation: Performing Lab:[facility], [address] [place] [phone] Notes/Report: Sodium 143 135-145 mmol/L Potassium 3.4 [...] Status W/U Status Risk Notes Problem Malignant neoplasm of ascending colon (685889809) Malignant neoplasm of ascending colon (C18.2) Active confirmed Problem 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) (058414496) 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 Problem Diverticular disease of colon (514693019) Diverticulosis of large intestine without perforation or abscess without bleeding (K57.30) Active confirmed Encounters Encounter Location Date Provider Diagnosis [facility] [place] In[place] [address] [place], [place] [id number] 09/04/2024 Babak Mooney Plan Of Treatment Pending Test Test Name Order Date Pathology 09/04/2024 Insurance Providers Payer Name Payer Address Payer Phone Subscriber Number Group Number Insured Name Patient Relationship to Insured Coverage Start Date Coverage End Date [employer] [place] [address] [address] [place] [address] [id number] LYNNE MCCONNELL Self - patient is the insured
== END 2025-07-11 12:06 | disposition home or self-care (01) ==
LOC: HO.HUSH 10:47
PROVIDERS: PCP Internal Medicine; Visit Provider Urology
DX: C61 Malignant neoplasm of prostate (principal); C79.51 Secondary malignant neoplasm of bone
CPT/HCPCS: 99214; G2211

== ENCOUNTER 2025-08-06 10:27 | Outpatient (AMB) | payer MEDICARE, SELFPAY ==
--- OUTSIDE RECORDS SUMMARY | 2024-09-04 07:40 | XMS_ITS ---
Author Organization [place] [facility] Address [address] [place] [address] Care Team Providers Care Welding Manager Name Role Phone NONE, NONE Primary Care Provider Babak Jain [phone] REASON FOR VISIT fe def anemia,abnormal ct scan of colon Encounters Encounter Location Date Provider Diagnosis [facility] [place] [address] [place], [place] [id number] 09/04/2024 Babak Mooney Plan Of Treatment No Information Progress Notes * LYNNE CMCONNELLDOB:1955 (70 yo M)Acc No.[id number]:09/04/2024 EGD and COL/MAC Patient: LYNNE WILSON Provider: Deneen Mooney MD :1955 A ge:69 Y S ex:Male Date:09/04/2024 Address:[address] [place], [place] [phone] Subjective: * Chief Complaints: * 1 . [...] Mooney MD Date: 11/04/2023 Generated for Parish mcdowell/Edgardo/Shiraitting on: 12:57 PM EDT
--- NOTE | 2025-08-06 10:49 | MHC.OFFVIS ---
Vital Signs 08/06/25 10:54 Height 5 ft 8 in Weight 206 lb BMI 31.3 Intake Visit Reasons: 6 month follow-up colectomy Intake Note: This patient presents for a six month assessment status post colectomy. Pt c/o; no complaints. Last Code Striper Required: No Accompanied by: Family/Other Allergies No Known Allergies Allergy (Verified 08/06/25 10:55) HPI HPI 6 month follow-up colectomy: Details: He had a T3 N0 right colon adenocarcinoma and had undergone right colon resection last September, . He is also undergoing treatment for metastatic prostate cancer with Dr. Carbone. He says he is doing well. He has good oral intake. He has gained a lot of weight as a matter fact. He also has had no problems with the bowel movement He says that he no longer has a Flores catheter. He says he feels well overall. [facility] Medical History (Updated 08/06/25 @ 11:14 by Wesley Doherty MD) History of colon cancer Prostate cancer metastatic to bone History of chemotherapy Vitamin D deficiency Hyperlipidemia Mild hypercholesterolemia Sinus tachycardia Overweight with body mass index (BMI) of 27 to 27.9 in adult Self-catheterizes urinary bladder Adenoma of ascending colon Indwelling Flores catheter present Colonic mass Hypertension Hx of endocrine hypertension Prostate cancer Surgical History Hx of surgical procedure (~09/16/24) History of esophagogastroduodenoscopy (EGD) H/O colonoscopy (~09/05/24) Hx of cystoscopy Family History Father No problems noted. Mother Dementia Breast cancer BP (high blood pressure) Social History Household Members: None Housing: Apartment Are you a primary adult day care worker to a significant other at home: No Do you presently have visiting nurse or other home services: No Alcohol intake: current Alcohol intake frequency: does not drink Patient Tobacco Use Status: Former Tobacco user Tobacco use type: Cigarette Years Smoked: 20 Advance Directives Date on File: 09/01/24 service: No Current occupational status: employed Cognitive needs: No Hearing needs: No Vision needs: No Review of Systems Const Denies chills and Denies fever(s) Card Denies chest pain, Denies dyspnea and Denies dyspnea on exertion Resp Denies cough, Denies dyspnea and Denies dyspnea on exertion GI Denies hematochezia and Denies change in bowel habits Denies hematuria and Denies difficulty urinating Musc Denies back pain and Denies limited range of motion Neuro Denies focal weakness and Denies convulsions Psych Denies depression and Denies mood swings Physical Exam Vital Signs: BMI result Body Mass Index 31.3 Const General: comfortable and no acute distress Orientation/consciousness: patient oriented x3 Neck Neck: Yes no lymphadenopathy Resp Auscultation: clear to auscultation bilaterally Cardio Rhythm: regular rhythm GI Palpation (GI): Soft to palpation, nontender and no guarding Neuro General: patient oriented x3 Assessment & Plan Assessment & Plan (1) History of colon cancer: Code(s): Z85.038 - Personal history of other malignant neoplasm of large intestine Category: Medical Plan: He had right colon resection for a T3 N0 adenocarcinoma in September, He is actually doing very well in this regard. He has good GI functions. His CEA level was low at 1.7 last June,. He is scheduled to have PET scan in September,. I told him that of the his surveillance would be a follow up colonoscopy so I will help him set up an appointment with Dr. Mooney. I will see him again in the office in October, after his PET scan. He continues to follow up with Dr. Macias. He did not have any adjuvant chemotherapy for his colon cancer as he has been undergoing treatment for his advanced prostate cancer Coding Level of Care Code Est Pt Level 3 (27307) Diagnoses History of colon cancer Z85.038
[2025-08-06 10:54] VITALS: BMI 31.3
--- OUTSIDE RECORDS SUMMARY | 2025-08-06 12:57 | XMS_ITS | Patient Health Record ---
Author Organization [facility] Address [address] [place] [address] Care Team Providers Care Food Manager Name Role Phone NONE, NONE Primary Care Provider Litzy MooneyBabak Amy [phone] Results Component Value Reference Range Notes Hold Lav - Possible Hematolo gy Reviewed date:09/03/2024 01:08:51 PM Interpretation: Performing Lab:[facility], [address] [place] [phone] Notes/Report: Hold Lav - Possible Hematology SEE NOTE Specimen will be held untested for 8 hours. Call Hematology if testing is desired. Prothrombin Time INR Reviewed date:09/03/2024 01:08:58 PM Interpretation: Performing Lab:[facility], [address] [place] [phone] Notes/Report: Prothrombin Time 13.9 10.9-12.4 SEC INTERNATIONAL [...] (Free>4and<10) Reviewed date:09/03/2024 01:09:06 PM Interpretation: Performing Lab:[facility], [address] [place] [phone] Notes/Report: PSA,Total (Free>4and<10) 89.85 0.00-4.00 ng/mL A [...] Folate Reviewed date:09/03/2024 01:09:13 PM Interpretation: Performing Lab:[address] [phone] Notes/Report: Vitamin B12 815 200-900 pg/mL NORMAL 200-900 PG/ML INDETERMINATE 160-199 PG/ML DEFICIENT < 160 PG/ML Folate 10.6 > or = 4.0 ng/mL Reference Values: > or = 4.0 ng/mL < 4.0 ng/mL suggests folate deficiency Methotrexate, aminopterin and folinic acid (leucovorin) are chemotherapeutic agents whose molecular structures are similar to folate; therefore, the Pantographer folate assay cannot be used for patients using these drugs. Complete Blood Count Auto Di ff Reviewed date:09/04/2024 11:48:44 PM Interpretation: Performing Lab:[address] [phone] Notes/Report: White Blood Count 11.7 4.8-10.8 X10*3/uL [...] g Reviewed date:09/04/2024 11:48:55 PM Interpretation: Performing Lab:[address] [phone] Notes/Report: Sodium 144 135-145 mmol/L Potassium 2.9 3.3-5.1 mmol/L Critical [Potassium] sent by a secure message and confirmed by (Dr. Sharma, 09/04/24 0879) Tech: GALENSA Chloride 105 96-108 mmol/L Carbon [...] (Not yet reviewed by provider) Interpretation: Performing Lab:[address] [phone] Notes/Report: Complete Blood Count Auto Di ff Reviewed date:09/06/2024 11:27:04 AM Interpretation: Performing Lab:[facility], [address] [place] [phone] Notes/Report: White Blood Count 13.1 4.8-10.8 X10*3/uL [...] g Reviewed date:09/06/2024 11:27:36 AM Interpretation: Performing Lab:[facility], [address] [place] [phone] Notes/Report: Sodium 143 135-145 mmol/L Potassium 3.4 [...] Notes Problem Malignant neoplasm of ascending colon (031657273) Malignant neoplasm of ascending colon (C18.2) Active confirmed Problem 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) (278037154) 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 Problem Diverticular disease of colon (212978571) Diverticulosis of large intestine without perforation or abscess without bleeding (K57.30) Active confirmed Encounters Encounter Location Date Provider Diagnosis [facility] [place] Inpatient [address] [place], [place] [id number] 09/04/2024 Babak Mooney Plan Of Treatment Pending Test Test Name Order Date Pathology 09/04/2024 Insurance Providers Payer Name Payer Address Payer Phone Subscriber Number Group Number Insured Name Patient Relationship to Insured Coverage Start Date Coverage End Date [employer] [place] [address] [address] [place] [address] [id number] LYNNE MCCONNELL Self - patient is the insured
== END 2025-08-06 11:21 | disposition home or self-care (01) ==
LOC: HO.HGS 10:27
PROVIDERS: PCP Internal Medicine; Visit Provider Surgery
DX: Z85.038 Personal history of other malignant neoplasm of large intestine (principal)
CPT/HCPCS: 99213

== ENCOUNTER → 2025-08-06 10:27 | Outpatient (BNVA) | payer MEDICARE, SELFPAY | PROVIDERS: PCP Internal Medicine; Visit Provider Surgery | DX: Z85.038 Personal history of other malignant neoplasm of large intestine (principal) | CPT/HCPCS: 99212 ==

== ENCOUNTER 2025-10-01 12:31 | Outpatient (REF) | payer MEDICARE, SELFPAY ==
--- OUTSIDE RECORDS SUMMARY | 2024-09-04 06:40 | XMS_ITS ---
Author Organization [facility] Address [address] [facility] [address] [place] [phone] Care Team Providers Care Director Of Broadcast Name Role Phone NONE, NONE Primary Care Provider UnavailBabak Mohamud Unavailable [phone] Chas MONDRAGON, Wesley Unavailable Unavailable REASON FOR VISIT fe def anemia,abnormal ct scan of colon Encounters Encounter Location Date Provider Diagnosis [facility] [place] [address], [place] [id number] 09/04/2024 Babak Mooney Plan Of Treatment Next Appt Details Provider Name:Babak Mooney , 10/28/2025 02:40:00 PM, [address] [place] [address], Suite [facility], [place], [address], Progress Notes * LYNNE MCCNONELLDOB:1955 (70 yo M)Acc No.[id number]:09/04/2024 EGD and COL/MAC Patient: LYNNE WILSON Provider: Deneen Mooney MD :1955 A ge:69 Y S ex:Male Date:09/04/2024 Address:[address] [place], [place] [id number] Subjective: * Chief Complaints: * F e def anemia,abnormal ct scan of colon * The named appointment provid er may or may not be the originator of this progress note, and it is not deemed complete until electronically signed by the appointment provider. Sign off status: Pending * Provider: Deneen Mooney MD Date: 11/04/2023 Generated for Parish mcdowell/Edgardo/eTransmitting on: 12/02/2024 12:33 PM EST
--- NOTE | ~2025-10-01 | CT_ITS ---
CLINICAL HISTORY: Left oropharynx hypopharynx mass with mass effect --- Additional Notes or Special Instructions: With mass effect on epiglottis seen on PET scan performed at outside CT soft tissue neck with contrast Comparison: None provided Findings: The visualized intracranial contents are unremarkable. Centered within the left parapharyngeal space is a low-attenuation cyst or mass measuring 3.5 x 3.1 x 3.1 cm, series 3, image 263. Internal Hounsfield units measure 28. The appearance is homogeneous. This mass extends inferiorly and abuts the superior portion of the left lobe of the thyroid gland. There is narrowing of the left hypopharynx secondary to this mass. No rim enhancement. No compression or involvement of the carotid artery or left internal jugular vein. Salivary glands are within normal limits. No sialoliths. No suspicious thyroid nodules. No consolidation at the lung apices. No acute fractures. Multilevel degenerative change of the cervical spine. No lymphadenopathy. Epiglottis is normal. No prevertebral soft tissue thickening. IMPRESSION: Low-attenuation 3.5 x 3.1 x 3.1 cm rounded mass or cyst lesion in the left parapharyngeal space, narrowing the left hypopharynx. Differential includes branchial cleft cyst, cystic neoplasm, salivary gland tumor, thyroid mass. Abscess thought less likely given the lack of rim enhancement. This document has been electronically signed by: Darron Copeland MD on 10/01/2025 22:32:35
--- OUTSIDE RECORDS SUMMARY | 2025-10-01 12:34 | XMS_ITS | Patient Health Record ---
Author Organization [facility] Address [address] [place] [address] Care Team Providers Care Exercise Teacher Name Role Phone NONE, NONE Primary Care Provider Babak Jain Unavailable [phone] Wesley Doherty MD Unavailable Unavailable Reason For Referral No Information Problems Problem Type SNOMED Code ICD Code Onset Dates Problem Status W/U Status Risk Notes Problem Malignant neoplasm of ascending colon (289359320) Malignant neoplasm of ascending colon (C18.2) Active confirmed Problem 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) (540019910) 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 Problem Diverticular disease of colon (213153700) Diverticulosis of large intestine without perforation or abscess without bleeding (K57.30) Active confirmed Plan Of Treatment Pending Test Test Name Order Date Pathology 09/04/2024 Next Appt Details Provider Name:Babak Mooney , 10/28/2025 02:40:00 PM, [address], [address], [place], [address], Insurance Providers Payer Name Payer Address Payer Phone Subscriber Number Group Number Insured Name Patient Relationship to Insured Coverage Start Date Coverage End Date [employer] [place] [address] [address] [place] [address] [id number] LYNNE MCCONNELL Self - patient is the insured
[2025-10-01] MEDS: iohexoL 350 MG/ML 100 ML INFUS..BTL IV (13:34)
--- NOTE | 2025-10-03 09:21 | PM.EVENT ---
Patient was informed of CT neck findings, 3.5 cm left parapharyngeal mass. Probably cystic lesion, he is asymptomatic, however ENT evaluation, for biopsy is being done. Patient aware of the above.
== END 2025-10-01 12:32 | disposition home or self-care (01) ==
LOC: HO.CT 12:31
PROVIDERS: PCP Internal Medicine; Visit Provider Internal Medicine
DX: C18.2 Malignant neoplasm of ascending colon (principal)
CPT/HCPCS: 70491; Q9967

== ENCOUNTER → 2025-10-01 12:32 | Outpatient (BNV) | payer MEDICARE, SELFPAY | PROVIDERS: PCP Internal Medicine; Visit Provider Radiology Diagnostic Radiology | DX: J39.2 Other diseases of pharynx (principal) | CPT/HCPCS: 70491 ==